=== PATIENT | female | born 1965 | race Caucasian/White ===

== ENCOUNTER 2016-06-12 12:42 | Observation (INO) | payer OTHER ==
[2016-06-12] MEDS ORDERED: SODIUM CHLORIDE 0.9% 1,000 ML IV STA (13:33)
[2016-06-12] MEDS ORDERED: IPRATROPIUM-ALBUTEROL 3 ML NEB INHALATION STA ×2 (13:33→15:10)
[2016-06-12 13:52] LABS: Basophils # (A) 0.1 k/uL (0-0.2); Basophils % (A) 1 %; CH 30.3; CHCM 34.7; Eosinophils # (A) 0.1 k/uL (0-0.7); Eosinophils % (A) 1 %; HCT 42.8 % (34.0-46.0); HDW 2.92; HGB 14.3 gm/dL (11.4-16.0); Luc # (Auto) 0.18; Luc % (Auto) 2; Lymphocytes # (A) 2.4 k/uL (1.0-4.8); Lymphocytes % (A) 31 %; MCH 29.3 pg (25.0-35.0); MCHC 33.4 g/dL (31.0-37.0); MCV 87.5 fL (80.0-100.0); Mean Platelet Volume 7.9; Monocytes # (A) 0.4 k/uL (0-1.0); Monocytes % (A) 5 %; Neutrophils # (A) 4.7 k/uL (1.3-7.7); Neutrophils % (A) 60 %; RDW 13.7 % (11.5-15.5); WBC 7.9 k/uL (3.8-10.6); WBC (Perox) 7.68
[2016-06-12 14:02] LABS: Calcium 9.8 mg/dL (8.4-10.2); Potassium 4.3 mmol/L (3.5-5.1); Total Bilirubin 0.4 mg/dL (0.2-1.3)
--- NOTE | 2016-06-12 14:05 | ED ---
General Adult HPI - General Chief complaint: Upper Respiratory Infection Stated complaint: Chest Pressure, SOB, High Sugar Time Seen by Provider: 06/12/16 13:18 Source: patient, RN notes reviewed Mode of arrival: ambulatory - History of Present Illness Initial comments: Patient a 50-year-old female smoker past medical history of CAD, who presents emergency room today with a chief complaint of increased shortness breath with cough congestion over the last 2 weeks. She does admit that she followed up with her family doctor and was started on steroids 2 weeks ago. States that she went back to approximately a week later was given another course of steroids. States her sugars have been running high. States she's not feeling any better with shortness of breath and cough congestion. States she typically sees family assessment worker Dr. Cobb who is currently out of town. States she called his office was advised come here in the emergency room for evaluation. Patient does not she got breathing treatments at home with some relief of the symptoms. She states she does have cough with positive sputum production as been white in color during the morning. Patient denies any other complaints currently. Patient denies any recent fever, chills, chest pain, back pain, abdominal pain, nausea or vomiting, numbness or tingling, dysuria or hematuria, constipation or diarrhea, headaches or visual changes, or any other complaints. - Related Data Home Medications Medication Instructions Recorded Confirmed metFORMIN HCL 1,000 mg PO BID 10/13/13 06/12/16 Cholecalciferol [Vitamin D3] 1,000 unit PO DAILY 10/20/13 06/12/16 Losartan [Cozaar] 50 mg PO DAILY 08/16/14 06/12/16 Simvastatin [Zocor] 10 mg PO HS 08/16/14 06/12/16 Atenolol [Tenormin] 25 mg PO DAILY 08/18/14 06/12/16 Omeprazole [PriLOSEC] 20 mg PO AC-BID 08/18/14 06/12/16 Montelukast [Singulair] 10 mg PO DAILY 01/29/15 06/12/16 Insulin Glargine,Hum.rec.anlog 70 unit SQ HS 06/20/15 06/12/16 [Lantus Solostar] Loratadine [Claritin] 10 mg PO DAILY 06/20/15 06/12/16 Ranitidine HCl 150 mg PO HS 06/20/15 06/12/16 Levothyroxine Sodium [Synthroid] 25 mcg PO DAILY@0800 06/22/15 06/12/16 Budesonide [Pulmicort] 0.5 mg INHALATION RT-BID 07/25/15 06/12/16 HYDROcodone/APAP 10-325MG [[place] 1 tab PO Q6H PRN 08/26/15 06/12/16 10-325] Albuterol Inhaler [Ventolin Hfa 1 - 2 puff INHALATION Q6HR PRN 06/12/16 06/12/16 Inhaler] Escitalopram [Lexapro] 10 mg PO DAILY@1200 06/12/16 06/12/16 Fluconazole [Diflucan] 200 mg PO DAILY 06/12/16 06/12/16 Gemfibrozil [Lopid] 600 mg PO HS 06/12/16 06/12/16 Insulin Glulisine [Apidra] 18 unit SQ AC-TID 06/12/16 06/12/16 Insulin Glulisine [Apidra] See Protocol SQ AC-TID 06/12/16 06/12/16 Nystatin 100,000 Unit/ml Susp 5 ml PO DIRECTED 06/12/16 06/12/16 [Mycostatin Oral Susp] Promethaz-Cod 6.25-10 mg/5 ml 5 ml PO Q6H PRN 06/12/16 06/12/16 [Phenergan with Codeine] Spironolact/Hydrochlorothiazid 1 tab PO DAILY 06/12/16 06/12/16 [Aldactazide 25-25 MG] predniSONE 20 mg PO DAILY 06/12/16 06/12/16 Previous Rx's Medication Instructions Recorded Ipratropium-Albuterol Nebulize 3 ml INHALATION RT-QID 30 Days 08/21/14 [Duoneb 0.5 mg-3 mg/3 ml Soln] Allergies Allergy/AdvReac Type Severity Reaction Status Date / Time ciprofloxacin HCl Allergy Severe Rash/Hives Verified 06/12/16 12:49 [From Cipro] latex Allergy Severe Rash/Hives Verified 06/12/16 12:49 cephalexin monohydrate Allergy Intermediate Rash/Hives Verified 06/12/16 12:49 [From Keflex] sulfamethoxazole Allergy Intermediate Itching Verified 06/12/16 12:49 [From ] trimethoprim [From ] Allergy Intermediate Itching Verified 06/12/16 12:49 Review of Systems ROS Statement: Those systems with pertinent positive or pertinent negative responses have been documented in the HPI. ROS Other: All systems not noted in ROS Statement are negative. 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 Status post resection of tumor and chemo and 26 radiation TX THAT CAUSED SOME BURNING TO THE ESOPHAGUS. History of Any Multi-Drug Resistant Organisms: Other MDRO Date of last positivie culture/infection: 2014 MDRO Source:: e-coli in urine Past Surgical History: Appendectomy, Cholecystectomy, Hysterectomy, Tonsillectomy, Tubal Ligation Additional Past Surgical History / Comment(s): lung biopsy 09/2013, MALIGNANT- had rt middle lobe lobectomy. Past Anesthesia/Blood Transfusion Reactions: Previous Problems w/ Anesthesia, Postoperative Nausea & Vomiting (PONV) Past Psychological History: No Psychological Hx Reported Additional Psychological History / Comment(s): lives with sig other and brother in law-is independant gets no out side services at this time. Smoking Status: Former smoker Past Alcohol Use History: None Reported Additional Past Alcohol Use History / Comment(s): started smoking at age 12 was smoking 1.5 ppd, QUIT ALMOST A YEAR A GO Past Drug Use History: None Reported - Past Family History Mother Sister(s) Family Medical History: Cancer Additional Family Medical History / Comment(s): from breast ca at age 65 Father Family Medical History: COPD Additional Family Medical History / Comment(s): had cabg, from a blood infection at age 64 General Exam - General Exam Comments Initial Comments: General: The patient is awake and alert, in no distress, and does not appear acutely ill. Eye: Pupils are equal, round and reactive to light, extra-ocular movements are intact. No nystagmus. There is normal conjunctiva bilaterally. No signs of icterus. Ears, nose, mouth and throat: There are moist mucous membranes and no oral lesions. Neck: The neck is supple, there is no tenderness or JVD. Cardiovascular: There is a regular rate and rhythm. No murmur, rub or gallop is appreciated. Respiratory: Lungs are clear to auscultation, respirations are non-labored, breath sounds are equal. No wheezes, stridor, rales, or rhonchi. Musculoskeletal: Normal ROM, no tenderness. Strength 5/5. Sensation intact. Pulses equal bilaterally 2+. Neurological: A&O x 3. CN II-XII intact, There are no obvious motor or sensory deficits. Coordination appears grossly intact. Speech is normal. Skin: Skin is warm and dry and no rashes or lesions are noted. Psychiatric: Cooperative, appropriate mood & affect, normal judgment. 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 ] Respiratory 18 20 Rate Blood Pressure 117/59 O2 Sat by Pulse 98 Oximetry 06/12/16 06/12/16 06/12/16 13:58 14:30 15:27 Temperature Pulse Rate 92 88 90 Pulse Rate [ [employer]ort [employer] Operator ] Respiratory 20 Rate Blood Pressure 116/70 O2 Sat by Pulse 99 Oximetry 06/12/16 06/12/16 15:37 16:00 Temperature Pulse Rate 98 91 Pulse Rate [ Retort Press Operator ] Respiratory 18 Rate Blood Pressure 118/68 O2 Sat by Pulse 99 Oximetry EKG Findings - EKG Comments: EKG Findings:: EKG performed at 1319: A 12-lead EKG was performed and interpreted by me as showing the following: Rate is 94, and rhythm is normal sinus. There are normal QRS complexes and normal R-wave progression. ST segments have no elevation or depression, and [place] segments appear normal. Medical Decision Making - Medical Decision Making Patient's labs been reviewed does show a mildly elevated glucose at 273. Patient does take Lantus at home. Hasn't been on steroids. Patient's chest x- ray is negative for any acute abnormalities. Patient states no relief with breathing treatments here in the emergency room. Patient has been on steroids and antibiotics recently for this. She states is been admitted multiple times for this in the past. Does have family assessment worker Dr. Cobb. Patient will be admitted for COPD exacerbation. - Lab Data Result diagrams: 06/12/16 13:14 06/12/16 13:14 Lab Results 06/12/16 06/12/16 06/12/16 Range/Units 13:14 13:14 13:14 WBC 7.9 (3.8-10.6) k/uL RBC 4.90 (3.80-5.40) m/uL Hgb 14.3 (11.4-16.0) gm/dL Hct 42.8 (34.0-46.0) % MCV 87.5 (80.0-100.0) fL MCH 29.3 (25.0-35.0) pg MCHC 33.4 (31.0-37.0) g/dL RDW 13.7 (11.5-15.5) % Plt Count 238 (150-450) k/uL Neutrophils % 60 % Lymphocytes % 31 % Monocytes % 5 % Eosinophils % 1 % Basophils % 1 % Neutrophils # 4.7 (1.3-7.7) k/uL Lymphocytes # 2.4 (1.0-4.8) k/uL Monocytes # 0.4 (0-1.0) k/uL Eosinophils # 0.1 (0-0.7) k/uL Basophils # 0.1 (0-0.2) k/uL Sodium 138 (137-145) mmol/L Potassium 4.3 (3.5-5.1) mmol/L Chloride 96 L (98-107) mmol/L Carbon Dioxide 26 (22-30) mmol/L Anion Gap 16 mmol/L BUN 15 (7-17) mg/dL Creatinine 1.45 H (0.52-1.04) mg/dL Est GFR (MDRD) Af Amer 46 (>60 ml/min/1.73 sqM) Est GFR (MDRD) Non-Af 38 (>60 ml/min/1.73 sqM) Glucose 273 H (74-99) mg/dL Calcium 9.8 (8.4-10.2) mg/dL Total Bilirubin 0.4 (0.2-1.3) mg/dL AST 25 (14-36) U/L ALT 41 (9-52) U/L Alkaline Phosphatase 104 (38-126) U/L NT-Pro-B Natriuret Pep 234 pg/mL Total Protein 7.0 (6.3-8.2) g/dL Albumin 4.2 (3.5-5.0) g/dL Disposition Clinical Impression: COPD exacerbation Disposition: ADMITTED IP TO THIS HOSP Condition: Good Referrals: Valery Campos MD [Primary Care Provider] - 1-2 days Time of Disposition: 16:40
--- NOTE | 2016-06-12 14:34 | XR ---
EXAMINATION TYPE: XR chest 2V DATE OF EXAM: 06/12/2016 2:08 PM COMPARISON: NONE HISTORY: Cough FINDINGS:. Chronic parenchymal changes involving the right perihilar region with evidence of previous surgery re trospectively stable from the previous chest x-ray. 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 Correlate clinically. Left lung is clear. No pneumothorax. Degenerative changes spine noted. Surgical clips in the abdomen. Hypertrophic change of the spine. IMPRESSION: 1. No acute process. Chronic parenchymal changes involving the right lung stable in appearance.
[2016-06-12] MEDS ORDERED: methylPREDNISolone SOD SUCCI 125 MG/2 ML VIAL IV STA (15:10)
[2016-06-12] MEDS ORDERED: IPRATROPIUM-ALBUTEROL 3 ML NEB INHALATION PRN (16:41)
[2016-06-12] MEDS ORDERED: SODIUM CHLORIDE 0.9% 1,000 ML IV ONE (16:41)
[2016-06-12 18:58] LABS: Glucose,Whole Blood 381 mg/dL (75-99)
[2016-06-12] MEDS ORDERED: ALBUTEROL NEBULIZED 2.5 MG/3 ML INHALATION PRN (19:43)
[2016-06-12] MEDS: methylPREDNISolone SOD SUCCI 125 MG/2 ML VIAL IV SCH ×2 (20:05→23:31)
[2016-06-12] MEDS: BUDESONIDE 0.5 MG/2 ML NEBU INHALATION SCH (20:16)
[2016-06-12] MEDS: IPRATROPIUM-ALBUTEROL 3 ML NEB INHALATION SCH (20:16)
[2016-06-12] MEDS: HYDROcodone/APAP 10-325MG 1 EACH TAB PO PRN (20:19)
[2016-06-12] MEDS ORDERED: INSULIN LISPRO (humaLOG) 300 UNIT/3 ML VIAL SQ SCH (21:00)
[2016-06-12] MEDS ORDERED: INSULIN GLARGINE 100 UNIT/ML 10 ML VIAL SQ SCH (21:00)
[2016-06-12] MEDS: PANTOPRAZOLE 40 MG TABLET PO SCH (21:20)
[2016-06-12] MEDS: GEMFIBROZIL 600 MG TAB PO SCH (21:20)
[2016-06-12] MEDS: ATORVASTATIN 10 MG TAB PO SCH (21:20)
[2016-06-12] MEDS: metFORMIN 500 MG TAB PO SCH (21:20)
[2016-06-12] MEDS: FAMOTIDINE 20 MG TAB PO SCH (21:20)
[2016-06-12] MEDS: NYSTATIN 100,000 UNIT/ML SUSP 500,000 UNIT/5 ML CUP PO SCH (21:22)
[2016-06-12] MEDS: PROMETHAZ-COD 6.25-10 MG/5 ML 5 ML CUP PO PRN (21:38)
[2016-06-13] MEDS: HYDROcodone/APAP 10-325MG 1 EACH TAB PO PRN ×3 (02:11→19:26)
[2016-06-13] MEDS ORDERED: INSULIN REGULAR BOLUS (FROM DRIP BAG) IV ONE (02:23)
[2016-06-13 02:24] LABS: Glucose,Whole Blood 437 mg/dL (75-99)
[2016-06-13] MEDS: INSULIN REGULAR 100 UNIT in SODIUM CHLORIDE 0.9% 100 ML IV SCH ×2 (02:46→09:59)
[2016-06-13 03:24] LABS: Glucose,Whole Blood 406 mg/dL (75-99)
[2016-06-13 03:59] LABS: Glucose,Whole Blood 376 mg/dL (75-99)
[2016-06-13 04:40] LABS: Glucose,Whole Blood 295 mg/dL (75-99)
[2016-06-13] MEDS: PROMETHAZ-COD 6.25-10 MG/5 ML 5 ML CUP PO PRN ×3 (04:42→20:18)
[2016-06-13 05:10] LABS: Glucose,Whole Blood 255 mg/dL (75-99)
[2016-06-13] MEDS: methylPREDNISolone SOD SUCCI 125 MG/2 ML VIAL IV SCH (05:50)
[2016-06-13 05:53] LABS: Glucose,Whole Blood 265 mg/dL (75-99)
[2016-06-13 06:08] LABS: Glucose,Whole Blood 277 mg/dL (75-99)
[2016-06-13 06:39] LABS: Glucose,Whole Blood 241 mg/dL (75-99)
[2016-06-13] MEDS ORDERED: INSULIN LISPRO (humaLOG) 300 UNIT/3 ML VIAL SQ SCH (07:30)
[2016-06-13] MEDS: BUDESONIDE 0.5 MG/2 ML NEBU INHALATION SCH ×2 (07:39→21:19)
[2016-06-13] MEDS: IPRATROPIUM-ALBUTEROL 3 ML NEB INHALATION SCH ×4 (07:41→21:13)
[2016-06-13] MEDS: PANTOPRAZOLE 40 MG TABLET PO SCH ×2 (07:51→18:00)
[2016-06-13 07:52] LABS: Basophils % (A) 0 %; CHCM 33.4; Eosinophils % (A) 0 %; HCT 42.7 % (34.0-46.0); HDW 2.89; HGB 13.5 gm/dL (11.4-16.0); Luc % (Auto) 1; Lymphocytes # (A) 1.3 k/uL (1.0-4.8); Lymphocytes % (A) 10 %; MCH 28.5 pg (25.0-35.0); MCHC 31.6 g/dL (31.0-37.0); MCV 90.1 fL (80.0-100.0); Mean Platelet Volume 7.7; Monocytes # (A) 0.2 k/uL (0-1.0); Monocytes % (A) 2 %; Neutrophils % (A) 87 %; RBC 4.74 m/uL (3.80-5.40); RDW 13.8 % (11.5-15.5); WBC 12.7 k/uL (3.8-10.6); WBC (Perox) 13.04
[2016-06-13] MEDS: INSULIN LISPRO (humaLOG) 300 UNIT/3 ML VIAL SQ SCH ×3 (07:52→18:01)
[2016-06-13] MEDS: MONTELUKAST 10 MG TAB PO SCH (08:01)
[2016-06-13] MEDS: LEVOTHYROXINE 25 MCG TAB PO SCH (08:01)
[2016-06-13] MEDS: FLUCONAZOLE 100 MG TAB PO SCH (08:01)
[2016-06-13] MEDS: LORATADINE 10 MG TAB PO SCH (08:01)
[2016-06-13] MEDS: metFORMIN 500 MG TAB PO SCH (08:01)
[2016-06-13] MEDS: NYSTATIN 100,000 UNIT/ML SUSP 500,000 UNIT/5 ML CUP PO SCH ×4 (08:02→22:59)
[2016-06-13 08:03] LABS: Calcium 9.2 mg/dL (8.4-10.2); Potassium 4.5 mmol/L (3.5-5.1); Total Bilirubin 0.4 mg/dL (0.2-1.3); Total Protein 6.5 g/dL (6.3-8.2)
[2016-06-13 08:45] LABS: Glucose,Whole Blood 291 mg/dL (75-99)
[2016-06-13 09:35] LABS: Glucose,Whole Blood 298 mg/dL (75-99)
[2016-06-13 10:05] LABS: Glucose,Whole Blood 302 mg/dL (75-99)
[2016-06-13 10:38] LABS: Glucose,Whole Blood 305 mg/dL (75-99)
[2016-06-13 11:03] LABS: Glucose,Whole Blood 301 mg/dL (75-99)
[2016-06-13 11:39] LABS: Glucose,Whole Blood 256 mg/dL (75-99)
[2016-06-13 11:53] LABS: Glucose,Whole Blood 262 mg/dL (75-99)
[2016-06-13 12:10] LABS: Glucose,Whole Blood 249 mg/dL (75-99)
[2016-06-13] MEDS: ESCITALOPRAM 10 MG TAB PO SCH (12:22)
[2016-06-13] MEDS: CHOLECALCIFEROL 1,000 UNIT TAB PO SCH (12:22)
[2016-06-13] MEDS ORDERED: Magnesium Replacement Protocol 1 EACH MISC MISCELLANE PRN (13:15)
[2016-06-13] MEDS ORDERED: Potassium Replacement Protocol 1 EACH MISC MISCELLANE PRN (13:15)
[2016-06-13] MEDS ORDERED: ONDANSETRON 4 MG/2 ML VIAL IVP PRN (13:20)
[2016-06-13] MEDS ORDERED: ACETAMINOPHEN TAB 325 MG TAB PO PRN (13:20)
--- NOTE | 2016-06-13 13:20 | P.HPIM ---
History of Present Illness H&P Date: 06/13/16 Chief Complaint: Shortness of breath This is a 50-year-old female with complex past medical history noted below significant for underlying severe COPD who presented to the hospital with worsening shortness of breath and cough. Patient said that she was evaluated by her primary care physician as well as her precipitator within the past 2 weeks and was treated with oral steroids and antibiotic for suspected upper respiratory tract infection and COPD exacerbation. Patient said that for the past few days her symptoms as being getting progressively worse. She said that her cough is unproductive but she was having worsening shortness of breath and diffuse wheezing. She was using her nebulizers at home with minimal relief. She decided to come to the emergency room for further evaluation. In the emergency room, patient was given high-dose IV steroids and was placed in observation for further monitoring. Her chest x-ray showed no evidence of pneumonia. She is reporting feeling slightly better today. She is currently on insulin drip with significant hyperglycemia overnight. Review of Systems Review of system: 14 points review of systems were obtained and were negative except to what were mentioned in the HPI. 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 Status post resection of tumor and chemo and 26 radiation TX THAT CAUSED SOME BURNING TO THE ESOPHAGUS.incont of urine-wears a pull up.diarrhea ever since gallbladder removed.neuropathy History of Any Multi-Drug Resistant Organisms: Other MDRO Date of last positivie culture/infection: 2014 MDRO Source:: e-coli in urine Past Surgical History: Appendectomy, Cholecystectomy, Hysterectomy, Tonsillectomy, Tubal Ligation Additional Past Surgical History / Comment(s): lung biopsy 09/2013, MALIGNANT- had rt middle lobe lobectomy. Past Anesthesia/Blood Transfusion Reactions: Previous Problems w/ Anesthesia, Postoperative Nausea & Vomiting (PONV) Past Psychological History: No Psychological Hx Reported Additional Psychological History / Comment(s): lives with sig other, is independant gets no out side services at this time. Smoking Status: Former smoker Past Alcohol Use History: None Reported Additional Past Alcohol Use History / Comment(s): started smoking at age 12 was smoking 1.5 ppd, QUIT 2013 Past Drug Use History: None Reported - Past Family History Mother Sister(s) Family Medical History: Cancer Additional Family Medical History / Comment(s): from breast ca at age 65 Father Family Medical History: COPD Additional Family Medical History / Comment(s): had cabg, from a blood infection at age 64 Medications and Allergies Home Medications Medication Instructions Recorded Confirmed Type RX: metFORMIN HCL 1,000 mg PO BID 10/13/13 06/13/16 History RX: Cholecalciferol [Vitamin D3] 1,000 unit PO DAILY 10/20/13 06/13/16 History RX: Losartan [Cozaar] 50 mg PO DAILY 08/16/14 06/13/16 History RX: Simvastatin [Zocor] 10 mg PO HS 08/16/14 06/13/16 History RX: Atenolol [Tenormin] 25 mg PO DAILY 08/18/14 06/13/16 History RX: Omeprazole [PriLOSEC] 20 mg PO AC-BID 08/18/14 06/13/16 History RX: Montelukast [Singulair] 10 mg PO DAILY 01/29/15 06/13/16 History RX: Insulin Glargine,Hum.rec.anlog 70 unit SQ HS 06/20/15 06/13/16 History [Lantus Solostar] RX: Loratadine [Claritin] 10 mg PO DAILY 06/20/15 06/13/16 History RX: Ranitidine HCl 150 mg PO HS 06/20/15 06/13/16 History RX: Levothyroxine Sodium 25 mcg PO DAILY@0800 06/22/15 06/13/16 History [Synthroid] RX: Budesonide [Pulmicort] 0.5 mg INHALATION RT-BID 07/25/15 06/13/16 History RX: HYDROcodone/APAP 10-325MG 1 tab PO Q6H PRN 08/26/15 06/13/16 History [[place] 10-325] Albuterol Inhaler [Ventolin Hfa 1 - 2 puff INHALATION Q6HR PRN 06/12/16 History Inhaler] Escitalopram [Lexapro] 10 mg PO DAILY@1200 06/12/16 06/13/16 History Fluconazole [Diflucan] 200 mg PO DAILY 06/12/16 06/13/16 History Gemfibrozil [Lopid] 600 mg PO HS 06/12/16 06/13/16 History Insulin Glulisine [Apidra] 18 unit SQ AC-TID 06/12/16 06/13/16 History Insulin Glulisine [Apidra] See Protocol SQ AC-TID 06/12/16 06/13/16 History RX: Nystatin 100,000 Unit/ml Susp 5 ml PO DIRECTED 06/12/16 06/13/16 History [Mycostatin Oral Susp] RX: Promethaz-Cod 6.25-10 mg/5 ml 5 ml PO Q6H PRN 06/12/16 06/13/16 History [Phenergan with Codeine] RX: predniSONE 20 mg PO DAILY 06/12/16 06/13/16 History Spironolact/Hydrochlorothiazid 1 tab PO DAILY 06/12/16 06/13/16 History [Aldactazide 25-25 MG] Allergies Allergy/AdvReac Type Severity Reaction Status Date / Time ciprofloxacin HCl Allergy Severe Rash/Hives Verified 06/12/16 12:49 [From Cipro] latex Allergy Severe Rash/Hives Verified 06/12/16 12:49 cephalexin monohydrate Allergy Intermediate Rash/Hives Verified 06/12/16 12:49 [From Keflex] sulfamethoxazole Allergy Intermediate Itching Verified 06/12/16 12:49 [From Septra] trimethoprim [From Septra] Allergy Intermediate Itching Verified 06/12/16 12:49 Physical Exam Vitals: Vital Signs Temp Pulse Pulse Pulse Resp BP BP 06/13/16 12:00 97.6 F 115 H 18 116/65 06/13/16 11:36 92 06/13/16 11:26 92 06/13/16 08:58 06/13/16 07:52 96 06/13/16 07:43 97.9 F 100 18 91/68 06/13/16 07:41 90 06/13/16 04:00 98 F 90 18 92/53 06/13/16 00:07 92 06/13/16 00:00 94 18 06/12/16 23:59 92 06/12/16 23:40 93 18 104/64 06/12/16 20:28 94 06/12/16 20:16 94 06/12/16 20:00 92 18 06/12/16 18:35 97.7 F 94 18 126/74 06/12/16 18:30 98.2 F 86 18 118/68 06/12/16 18:05 94 20 114/75 06/12/16 17:23 96 18 114/62 Pulse Ox 06/13/16 12:00 97 06/13/16 11:36 06/13/16 11:26 06/13/16 08:58 97 06/13/16 07:52 06/13/16 07:43 98 06/13/16 07:41 95 06/13/16 04:00 95 06/13/16 00:07 06/13/16 00:00 06/12/16 23:59 06/12/16 23:40 92 L 06/12/16 20:28 06/12/16 20:16 06/12/16 20:00 06/12/16 18:35 98 06/12/16 18:30 98 06/12/16 18:05 97 06/12/16 17:23 96 Intake and Output 06/12/16 06/13/16 06/13/16 22:59 06:59 14:59 Intake Total 1080 297.532 278.617 Balance 1080 297.532 278.617 Intake: IV 60 Insulin Regular 100 unit 60 In Sodium Chloride 0.9% 100 ml @ Titrate IV .Q0M [facility] Rx#:[id number] Intake, IV Titration 80 237.532 38.617 Amount Insulin Regular 100 unit 77.532 38.617 In Sodium Chloride 0.9% 100 ml @ Titrate IV .Q0M [facility] Rx#:[id number] Sodium Chloride 0.9% 1, 80 160 000 ml @ 20 mls/hr IV . Q24H ONE Rx#:[id number] Oral 1000 240 Other: Voiding Method Toilet Toilet Toilet # Voids 2 2 Weight 84.9 kg General: The patient is awake and alert, in no distress, and does not appear acutely ill. Eye: extra-ocular movements are intact; there is normal conjunctiva bilaterally. . Neck: The neck is supple, there is no tenderness or JVD. Cardiovascular: Normal S1-S2, no S3-S4, no murmurs. Respiratory: Lungs are diminished with mild end expiratory wheezing Gastrointestinal: Abdomen is soft, nontender, nondistended Musculoskeletal: There is no pedal edema. Neurological: There are no obvious motor or sensory deficits. Speech is normal. Skin: Skin is warm and dry and no rashes or lesions are noted. Results CBC & Chem 7: 06/13/16 07:30 06/13/16 07:30 Labs: Abnormal Lab Results - Last 24 Hours (Table) 06/12/16 06/13/16 06/13/16 Range/Units 18:45 02:21 03:23 WBC (3.8-10.6) k/uL Neutrophils # (1.3-7.7) k/uL Sodium (137-145) mmol/L Carbon Dioxide (22-30) mmol/L BUN (7-17) mg/dL Creatinine (0.52-1.04) mg/dL Glucose (74-99) mg/dL POC Glucose (mg/dL) 381 H 437 H 406 H (75-99) mg/dL AST (14-36) U/L 06/13/16 06/13/16 06/13/16 Range/Units 03:57 04:39 05:07 WBC (3.8-10.6) k/uL Neutrophils # (1.3-7.7) k/uL Sodium (137-145) mmol/L Carbon Dioxide (22-30) mmol/L BUN (7-17) mg/dL Creatinine (0.52-1.04) mg/dL Glucose (74-99) mg/dL POC Glucose (mg/dL) 376 H 295 H 255 H (75-99) mg/dL AST (14-36) U/L 06/13/16 06/13/16 06/13/16 Range/Units 05:43 06:06 06:37 WBC (3.8-10.6) k/uL Neutrophils # (1.3-7.7) k/uL Sodium (137-145) mmol/L Carbon Dioxide (22-30) mmol/L BUN (7-17) mg/dL Creatinine (0.52-1.04) mg/dL Glucose (74-99) mg/dL POC Glucose (mg/dL) 265 H 277 H 241 H (75-99) mg/dL AST (14-36) U/L 06/13/16 06/13/16 06/13/16 Range/Units 07:30 07:30 08:43 WBC 12.7 H (3.8-10.6) k/uL Neutrophils # 11.0 H (1.3-7.7) k/uL Sodium 136 L (137-145) mmol/L Carbon Dioxide 18 L (22-30) mmol/L BUN 23 H (7-17) mg/dL Creatinine 1.20 H (0.52-1.04) mg/dL Glucose 237 H (74-99) mg/dL POC Glucose (mg/dL) 291 H (75-99) mg/dL AST 37 H (14-36) U/L 06/13/16 06/13/16 06/13/16 Range/Units 09:33 10:03 10:35 WBC (3.8-10.6) k/uL Neutrophils # (1.3-7.7) k/uL Sodium (137-145) mmol/L Carbon Dioxide (22-30) mmol/L BUN (7-17) mg/dL Creatinine (0.52-1.04) mg/dL Glucose (74-99) mg/dL POC Glucose (mg/dL) 298 H 302 H 305 H (75-99) mg/dL AST (14-36) U/L 06/13/16 06/13/16 06/13/16 Range/Units 11:00 11:36 12:08 WBC (3.8-10.6) k/uL Neutrophils # (1.3-7.7) k/uL Sodium (137-145) mmol/L Carbon Dioxide (22-30) mmol/L BUN (7-17) mg/dL Creatinine (0.52-1.04) mg/dL Glucose (74-99) mg/dL POC Glucose (mg/dL) 301 H 256 H 249 H (75-99) mg/dL AST (14-36) U/L Thrombosis Risk Factor Assmnt - Choose All That Apply Any of the Below Risk Factors Present?: Yes Each Factor Represents 1 point: Abnormal pulmonary function (COPD), Age 41-60 years, Obesity (BMI >25) Thrombosis Risk Factor Assessment Total Risk Factor Score: 3 Thrombosis Risk Factor Assessment Level: Moderate Risk Assessment and Plan Plan: 1. Acute COPD exacerbation: currently on IV steroids and bronchodilators. Patient is doing slightly better. Pulmonology consulted. 2. Steroid-induced hyperglycemia: Currently on insulin drip. I would decrease her Solu-Medrol dose to 40 mg IV twice daily 3. Underlying lung fibrosis with history of chronic radiation pneumonitis of the right lung 4. Type 2 diabetes mellitus: We will check A1c. Currently on insulin drip. We will wean off as tolerated. 5. Hypothyroidism 6. Essential hypertension: Blood pressure well-controlled 7. DVT prophylaxis We will continue current regimen otherwise. I don't see indication for antibiotic at this time. Repeat lab work in the morning. Continue supportive care. Encourage incentive spirometry use. Encouraged ambulation.
[2016-06-13 14:09] LABS: Glucose,Whole Blood 262 mg/dL (75-99)
[2016-06-13 16:05] LABS: Glucose,Whole Blood 239 mg/dL (75-99)
[2016-06-13] MEDS: ATENOLOL 25 MG TAB PO SCH ×2 (16:06→19:41)
[2016-06-13] MEDS: SPIRONOLACTONE-HCTZ 25-25MG 1 EACH TAB PO SCH (16:07)
[2016-06-13] MEDS: LOSARTAN 50 MG TAB PO SCH (16:07)
--- NOTE | 2016-06-13 16:16 | CONS ---
DATE OF CONSULTATION: Carleen Devries is a 50-year-old female who came in to [facility] with chest pressure, shortness of breath and elevated blood sugars. She had cough and congestion over the last 2 weeks and had been kept on steroids as well as antibiotics. She was bringing up sputum that was white in color. Subsequently, she was admitted for further evaluation and management. PAST MEDICAL HISTORY: Positive for asthma with asthma with COPD, history of lung cancer, status post I believe right lower lobectomy with tumor resection and subsequent chemoradiation in the spring with no recent evidence of any recurrence, history of radiation pneumonitis, history of frequent episodes of bronchitis as a child, history of diabetes mellitus, hyperlipidemia and angina. FAMILY HISTORY: Positive for cancer of the breast and lung. SOCIAL HISTORY: The patient is a former smoker. 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 Review of systems is noncontributory other than for what related in the history of present illness and past medical history. The patient is ALLERGIC TO CIPROFLOXACIN, LATEX AND CEPHALEXIN. Medications prior to admission were prednisone, metformin, spironolactone with hydrochlorothiazide, Zocor, ranitidine, promethazine with codeine, omeprazole, nystatin, Singulair, losartan, loratadine, Synthroid, ipratropium with albuterol, Apidra, hydrocodone with acetaminophen, Lopid, Diflucan, Lexapro, Pulmicort, vitamin D3, Tenormin and albuterol inhaler. On physical examination, respiratory rate is 18, pulse rate 115, temperature 97.6, blood pressure 116/65, O2 sat on room air is 97%. HEENT reveals pupils that are equal. Chest reveals prolonged expiration with expiratory wheeze. Cardiovascular system reveals an S1 and S2. Abdomen is soft. There is no pedal edema. Chest x-ray shows chronic parenchymal changes in the right perihilar region. IMPRESSION: 1. Asthma with chronic obstructive pulmonary disease with acute exacerbation. 2. Doubt significant bacterial pneumonia. 3. Previous radiation pneumonitis. 4. Mild hypoxemia with the O2 sat dropping from 97% to 92% consistent with acute respiratory failure, as well. At this point in time, keep the patient on IV and aerosolized steroids. Keep the patient and leukotriene receptor antagonist. Symptomatic treatment for cough and GI and DVT prophylaxis. Consider allergy testing which can be done as an outpatient. Control her blood sugars. Her IV steroids had been decreased today because her blood sugars were high, but may need to be increased if she does not improve clinically from a pulmonary standpoint. She was counseled regarding her condition and this approach and has a fair understanding of our recommendations.
[2016-06-13 18:02] LABS: Glucose,Whole Blood 281 mg/dL (75-99)
[2016-06-13 18:37] LABS: Hemoglobin A1C 11.2 % (4.2-6.1)
[2016-06-13] MEDS: ATORVASTATIN 10 MG TAB PO SCH (20:09)
[2016-06-13] MEDS: methylPREDNISolone SOD SUCCI 40 MG/ML 1 ML VIAL IV SCH (20:09)
[2016-06-13] MEDS: FAMOTIDINE 20 MG TAB PO SCH (20:09)
[2016-06-13] MEDS: GEMFIBROZIL 600 MG TAB PO SCH (20:09)
[2016-06-13] MEDS: HEPARIN SODIUM,PORCINE 5,000 UNIT/ML 1 ML VIAL SQ SCH (20:09)
[2016-06-13 20:12] LABS: Glucose,Whole Blood 287 mg/dL (75-99)
[2016-06-13 22:09] LABS: Glucose,Whole Blood 248 mg/dL (75-99)
[2016-06-14 00:11] LABS: Glucose,Whole Blood 263 mg/dL (75-99)
[2016-06-14] MEDS: HYDROcodone/APAP 10-325MG 1 EACH TAB PO PRN ×3 (01:12→21:04)
[2016-06-14] MEDS: PROMETHAZ-COD 6.25-10 MG/5 ML 5 ML CUP PO PRN ×3 (01:59→21:05)
[2016-06-14 02:04] LABS: Glucose,Whole Blood 324 mg/dL (75-99)
[2016-06-14] MEDS: INSULIN REGULAR 100 UNIT in SODIUM CHLORIDE 0.9% 100 ML IV SCH (02:06)
[2016-06-14 03:48] LABS: Glucose,Whole Blood 285 mg/dL (75-99)
[2016-06-14] MEDS: methylPREDNISolone SOD SUCCI 125 MG/2 ML VIAL IV SCH (04:55)
[2016-06-14 06:00] LABS: Glucose,Whole Blood 239 mg/dL (75-99)
[2016-06-14] MEDS: BUDESONIDE 0.5 MG/2 ML NEBU INHALATION SCH ×2 (07:00→20:22)
[2016-06-14] MEDS: IPRATROPIUM-ALBUTEROL 3 ML NEB INHALATION SCH ×4 (07:00→20:22)
[2016-06-14 07:47] LABS: Anion Gap 13 mmol/L; Blood Urea Nitrogen 28 mg/dL (7-17); Calcium 9.1 mg/dL (8.4-10.2); Carbon Dioxide 22 mmol/L (22-30); Chloride 98 mmol/L (98-107); Glucose 229 mg/dL (74-99); Magnesium 1.2 mg/dL (1.6-2.3); Non-African American GFR(MDRD) 59 (>60 ml/min/1.73 sqM); Potassium 5.3 mmol/L (3.5-5.1); Sodium 133 mmol/L (137-145)
[2016-06-14 08:00] LABS: Basophils % (A) 0 %; CHCM 34.9; Eosinophils % (A) 0 %; HCT 38.4 % (34.0-46.0); HDW 2.87; Luc # (Auto) 0.25; Luc % (Auto) 2; Lymphocytes # (A) 1.2 k/uL (1.0-4.8); Lymphocytes % (A) 9 %; MCH 29.3 pg (25.0-35.0); MCHC 33.9 g/dL (31.0-37.0); MCV 86.4 fL (80.0-100.0); Mean Platelet Volume 7.9; Monocytes # (A) 0.4 k/uL (0-1.0); Monocytes % (A) 3 %; Neutrophils # (A) 11.3 k/uL (1.3-7.7); Neutrophils % (A) 86 %; RBC 4.45 m/uL (3.80-5.40); RDW 14.3 % (11.5-15.5); WBC 13.2 k/uL (3.8-10.6); WBC (Perox) 13.91
[2016-06-14 08:11] LABS: Glucose,Whole Blood 286 mg/dL (75-99)
[2016-06-14] MEDS: INSULIN LISPRO (humaLOG) 300 UNIT/3 ML VIAL SQ SCH ×4 (08:15→20:49)
[2016-06-14] MEDS: ATENOLOL 25 MG TAB PO SCH (08:21)
[2016-06-14] MEDS: LOSARTAN 50 MG TAB PO SCH (08:21)
[2016-06-14] MEDS: SPIRONOLACTONE-HCTZ 25-25MG 1 EACH TAB PO SCH (08:21)
[2016-06-14] MEDS: LEVOTHYROXINE 25 MCG TAB PO SCH (08:21)
[2016-06-14] MEDS: MONTELUKAST 10 MG TAB PO SCH (08:22)
[2016-06-14] MEDS: PANTOPRAZOLE 40 MG TABLET PO SCH ×2 (08:22→17:39)
[2016-06-14] MEDS: LORATADINE 10 MG TAB PO SCH (08:22)
[2016-06-14] MEDS: FLUCONAZOLE 100 MG TAB PO SCH (08:22)
[2016-06-14] MEDS: NYSTATIN 100,000 UNIT/ML SUSP 500,000 UNIT/5 ML CUP PO SCH ×4 (08:22→21:06)
[2016-06-14] MEDS: HEPARIN SODIUM,PORCINE 5,000 UNIT/ML 1 ML VIAL SQ SCH ×2 (08:26→21:06)
[2016-06-14] MEDS: methylPREDNISolone SOD SUCCI 40 MG/ML 1 ML VIAL IV SCH (08:26)
[2016-06-14] MEDS ORDERED: Magnesium Replacement Protocol 1 EACH MISC MISCELLANE PRN (08:57)
[2016-06-14] MEDS: MAGNESIUM SULFATE-D5W PMX 1 GM in DEXTROSE/WATER 1 100ML.BAG IVPB SCH ×3 (09:55→12:06)
[2016-06-14 10:07] LABS: Glucose,Whole Blood 305 mg/dL (75-99)
[2016-06-14 12:02] LABS: Glucose,Whole Blood 235 mg/dL (75-99)
[2016-06-14] MEDS: ESCITALOPRAM 10 MG TAB PO SCH (12:05)
[2016-06-14] MEDS: CHOLECALCIFEROL 1,000 UNIT TAB PO SCH (12:05)
[2016-06-14 14:03] LABS: Glucose,Whole Blood 310 mg/dL (75-99)
--- NOTE | 2016-06-14 14:16 | P.PN ---
Subjective Patient improved significantly compared to yesterday. No audible wheezing. Objective - Vital Signs Vital signs: Vital Signs Temp 97.5 F L 06/14/16 07:29 Pulse 92 06/14/16 11:26 Resp 18 06/14/16 07:29 BP 117/73 06/14/16 07:29 Pulse Ox 98 06/14/16 07:29 Intake & Output 06/13/16 06/14/16 06/14/16 18:59 06:59 18:59 Intake Total 5754.488 7843.350 764.417 Balance 2512.177 6898.350 764.417 Intake: Intake, IV Titration 70.034 289.350 52.417 Amount Insulin Regular 100 unit 70.034 79.350 52.417 In Sodium Chloride 0.9% 100 ml @ Titrate IV .Q0M [facility] Rx#:[id number] Sodium Chloride 0.9% 1, 210 000 ml @ 20 mls/hr IV . Q24H ONE Rx#:[id number] Oral 1200 1800 712 Other: Voiding Method Toilet Toilet Toilet # Voids 4 - Exam General: The patient is awake and alert, in no distress Eye: there is normal conjunctiva bilaterally. Neck: The neck is supple, there is no JVD. Cardiovascular: Normal S1-S2, no S3-S4, no murmurs. Respiratory: Lungs are diminished Gastrointestinal: Abdomen is soft, nontender Musculoskeletal: There is no pedal edema. Neurological:. Speech is normal. Skin: Skin is warm and dry - Labs CBC & Chem 7: 06/14/16 06:23 06/14/16 06:23 Labs: Abnormal Lab Results - Last 24 Hours (Table) 06/13/16 06/13/16 06/13/16 Range/Units 07:30 16:00 18:01 WBC (3.8-10.6) k/uL Neutrophils # (1.3-7.7) k/uL Sodium (137-145) mmol/L Potassium (3.5-5.1) mmol/L BUN (7-17) mg/dL Glucose (74-99) mg/dL POC Glucose (mg/dL) 239 H 281 H (75-99) mg/dL Hemoglobin A1c 11.2 H (4.2-6.1) % Magnesium (1.6-2.3) mg/dL 06/13/16 06/13/16 06/14/16 Range/Units 20:04 22:07 00:01 WBC (3.8-10.6) k/uL Neutrophils # (1.3-7.7) k/uL Sodium (137-145) mmol/L Potassium (3.5-5.1) mmol/L BUN (7-17) mg/dL Glucose (74-99) mg/dL POC Glucose (mg/dL) 287 H 248 H 263 H (75-99) mg/dL Hemoglobin A1c (4.2-6.1) % Magnesium (1.6-2.3) mg/dL 06/14/16 06/14/16 06/14/16 Range/Units 02:03 03:46 05:57 WBC (3.8-10.6) k/uL Neutrophils # (1.3-7.7) k/uL Sodium (137-145) mmol/L Potassium (3.5-5.1) mmol/L BUN (7-17) mg/dL Glucose (74-99) mg/dL POC Glucose (mg/dL) 324 H 285 H 239 H (75-99) mg/dL Hemoglobin A1c (4.2-6.1) % Magnesium (1.6-2.3) mg/dL 06/14/16 06/14/16 06/14/16 Range/Units 06:23 06:23 08:07 WBC 13.2 H (3.8-10.6) k/uL Neutrophils # 11.3 H (1.3-7.7) k/uL Sodium 133 L (137-145) mmol/L Potassium 5.3 H (3.5-5.1) mmol/L BUN 28 H (7-17) mg/dL Glucose 229 H (74-99) mg/dL POC Glucose (mg/dL) 286 H (75-99) mg/dL Hemoglobin A1c (4.2-6.1) % Magnesium 1.2 L (1.6-2.3) mg/dL 06/14/16 06/14/16 06/14/16 Range/Units 10:04 12:00 14:01 WBC (3.8-10.6) k/uL Neutrophils # (1.3-7.7) k/uL Sodium (137-145) mmol/L Potassium (3.5-5.1) mmol/L BUN (7-17) mg/dL Glucose (74-99) mg/dL POC Glucose (mg/dL) 305 H 235 H 310 H (75-99) mg/dL Hemoglobin A1c (4.2-6.1) % Magnesium (1.6-2.3) mg/dL Assessment and Plan Plan: 1. Acute COPD exacerbation: currently on IV steroids and bronchodilators. Patient is doing better. Pulmonology consulted. 2. Steroid-induced hyperglycemia: Currently on insulin drip. I would decrease her Solu-Medrol dose to 40 mg IV twice daily 3. Underlying lung fibrosis with history of chronic radiation pneumonitis of the right lung 4. Type 2 diabetes mellitus: We will check A1c. Currently on insulin drip. We will wean off as tolerated. 5. Hypothyroidism 6. Essential hypertension: Blood pressure well-controlled 7. DVT prophylaxis We will continue current regimen otherwise. Repeat lab work in the morning. Continue supportive care. Encourage incentive spirometry use. Encouraged ambulation. Anticipate discharge home tomorrow
[2016-06-14] MEDS: predniSONE 20 MG TAB PO SCH (16:24)
[2016-06-14 16:32] LABS: Glucose,Whole Blood 185 mg/dL (75-99)
[2016-06-14 17:59] LABS: Glucose,Whole Blood 206 mg/dL (75-99)
--- NOTE | 2016-06-14 18:56 | PN ---
DATE OF SERVICE: 06/14/2016 She is less short of breath, almost back to her baseline. On physical examination, blood pressure 117/73, respiratory rate 18, pulse rate 83, temperature 97.5 degrees Fahrenheit. O2 sat on room air is 98%. HEENT is unremarkable. Chest reveals prolonged expiration, but no wheeze. Cardiovascular system reveals an S1 and S2. ABDOMEN: Soft. There is no pedal edema. IMPRESSION: 1. Asthma with chronic obstructive pulmonary disease with acute exacerbation. 2. Doubt secondary bacterial infection. 3. Diabetes mellitus. 4. Previous history of lung cancer. 5. Previous history of radiation pneumonitis on the right. At this point in time, switch her to oral steroids. Increase her activity level. Her prognosis at this time is fair.
[2016-06-14 20:40] LABS: Glucose,Whole Blood 327 mg/dL (75-99)
[2016-06-14] MEDS ORDERED: INSULIN GLARGINE 100 UNIT/ML 10 ML VIAL SQ SCH (21:00)
[2016-06-14] MEDS: ATORVASTATIN 10 MG TAB PO SCH (21:03)
[2016-06-14] MEDS: FAMOTIDINE 20 MG TAB PO SCH (21:04)
[2016-06-14] MEDS: GEMFIBROZIL 600 MG TAB PO SCH (21:04)
[2016-06-15 01:43] LABS: Glucose,Whole Blood 350 mg/dL (75-99)
[2016-06-15] MEDS: INSULIN LISPRO (humaLOG) 300 UNIT/3 ML VIAL SQ SCH ×5 (01:57→13:05)
[2016-06-15] MEDS: PROMETHAZ-COD 6.25-10 MG/5 ML 5 ML CUP PO PRN ×2 (04:10→11:22)
[2016-06-15] MEDS: HYDROcodone/APAP 10-325MG 1 EACH TAB PO PRN (04:11)
[2016-06-15 06:54] LABS: Glucose,Whole Blood 225 mg/dL (75-99)
[2016-06-15] MEDS: BUDESONIDE 0.5 MG/2 ML NEBU INHALATION SCH (07:00)
[2016-06-15] MEDS: IPRATROPIUM-ALBUTEROL 3 ML NEB INHALATION SCH ×2 (07:00→11:42)
[2016-06-15 07:22] LABS: Basophils % (A) 0 %; CH 29.9; CHCM 33.6; Eosinophils % (A) 0 %; HCT 41.6 % (34.0-46.0); HDW 2.74; HGB 13.5 gm/dL (11.4-16.0); Luc # (Auto) 0.21; Luc % (Auto) 2; Lymphocytes # (A) 1.6 k/uL (1.0-4.8); Lymphocytes % (A) 16 %; MCH 28.9 pg (25.0-35.0); MCHC 32.4 g/dL (31.0-37.0); MCV 89.2 fL (80.0-100.0); Monocytes # (A) 0.5 k/uL (0-1.0); Monocytes % (A) 5 %; Neutrophils % (A) 77 %; RBC 4.66 m/uL (3.80-5.40); RDW 14.2 % (11.5-15.5); WBC 10.3 k/uL (3.8-10.6); WBC (Perox) 10.99
[2016-06-15] MEDS ORDERED: metFORMIN 500 MG TAB PO SCH (07:30)
[2016-06-15 07:32] LABS: Anion Gap 13 mmol/L; Blood Urea Nitrogen 24 mg/dL (7-17); Calcium 9.4 mg/dL (8.4-10.2); Carbon Dioxide 24 mmol/L (22-30); Chloride 98 mmol/L (98-107); Glucose 239 mg/dL (74-99); Magnesium 1.8 mg/dL (1.6-2.3); Non-African American GFR(MDRD) >60 (>60 ml/min/1.73 sqM); Potassium 4.8 mmol/L (3.5-5.1); Sodium 135 mmol/L (137-145)
[2016-06-15 07:37] VITALS: RESP 18; TEMP 97.5
[2016-06-15] MEDS ORDERED: LEVOTHYROXINE 25 MCG TAB PO SCH (08:00)
[2016-06-15] MEDS: LORATADINE 10 MG TAB PO SCH (08:37)
[2016-06-15] MEDS: MONTELUKAST 10 MG TAB PO SCH (08:37)
[2016-06-15] MEDS: predniSONE 20 MG TAB PO SCH (08:37)
[2016-06-15] MEDS: PANTOPRAZOLE 40 MG TABLET PO SCH (08:37)
[2016-06-15] MEDS: HEPARIN SODIUM,PORCINE 5,000 UNIT/ML 1 ML VIAL SQ SCH (11:14)
[2016-06-15] MEDS: CHOLECALCIFEROL 1,000 UNIT TAB PO SCH (11:21)
[2016-06-15] MEDS: ESCITALOPRAM 10 MG TAB PO SCH (11:22)
[2016-06-15 11:54] LABS: Glucose,Whole Blood 173 mg/dL (75-99)
[2016-06-15 12:00] VITALS: BP 104/67; PULSE 80
--- NOTE | 2016-06-15 12:06 | P.DS ---
Providers Date of admission: 06/12/16 16:41 Expected date of discharge: 06/15/16 Attending physician: Eric Vo Consults: 06/13/16 06:22 Consult Physician Routine Consulting Provider: Al Cobb Consult Reason/Comments: COPD exac Do you want consulting provider notified?: Yes, Notify in am Primary care physician: Valery Beth [facility] Hospital Course: Discharge diagnosis 1. Acute COPD exacerbation: currently on IV steroids and bronchodilators. Patient is doing better. Pulmonology consulted. 2. Steroid-induced hyperglycemia: Did require insulin drip 3. Underlying lung fibrosis with history of chronic radiation pneumonitis of the right lung 4. Type 2 diabetes mellitus: Hemoglobin A1c 11.2. 5. Hypothyroidism 6. Essential hypertension: 7. Acute kidney injury improved with IV fluids Hospital course This is a 50-year-old female with complex past medical history noted below significant for underlying severe COPD who presented to the hospital with worsening shortness of breath and cough. 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 Patient said that for the past few days her symptoms as being getting progressively worse. She said that her cough is unproductive but she was having worsening shortness of breath and diffuse wheezing. She was using her nebulizers at home with minimal relief. She decided to come to the emergency room for further evaluation. In the emergency room, patient was given high-dose IV steroids and was placed in observation for further monitoring. Her chest x-ray showed no evidence of pneumonia. She is reporting feeling slightly better today. She is currently on insulin drip with significant hyperglycemia overnight. Patient was seen by pulmonary service. Her breathing did improve with IV steroids she was switched to oral steroids and tolerated this well. Wheezing has resolved cough is improved. Blood sugars have shown improvement. She was restarted on her home insulin. Patient is medically stable for discharge. Her blood pressure has been on the lower side during this admission. Blood pressure medications have been held. At this time we'll make adjustments. To discontinue all blood pressure medications except for the Cozaar in which we will just decreased to 25 mg daily. We discontinued her beta yann and the Aldactazide. She'll continue prednisone taper. We'll have her follow-up with Dr. Caldwell in 3 days to have BP check. She'll follow-up with pulmonary service in 1 week. Please refer to chart for any further details. Patient Condition at Discharge: Stable Plan - Discharge Summary New Discharge Prescriptions: Losartan [Cozaar] 25 mg PO DAILY #30 tab predniSONE 10 mg PO DIRECTED #12 tab Discharge Medication List metFORMIN HCL 1,000 mg PO BID 10/13/13 [History] Cholecalciferol [Vitamin D3] 1,000 unit PO DAILY 10/20/13 [History] Simvastatin [Zocor] 10 mg PO HS 08/16/14 [History] Omeprazole [PriLOSEC] 20 mg PO AC-BID 08/18/14 [History] Ipratropium-Albuterol Nebulize [Duoneb 0.5 mg-3 mg/3 ml Soln] 3 ml INHALATION RT -QID 30 Days 08/21/14 [Rx] Montelukast [Singulair] 10 mg PO DAILY 01/29/15 [History] Insulin Glargine,Hum.rec.anlog [Lantus Solostar] 70 unit SQ HS 06/20/15 [History ] Loratadine [Claritin] 10 mg PO DAILY 06/20/15 [History] Ranitidine HCl 150 mg PO HS 06/20/15 [History] Levothyroxine Sodium [Synthroid] 25 mcg PO DAILY@0800 06/22/15 [History] Budesonide [Pulmicort] 0.5 mg INHALATION RT-BID 07/25/15 [History] HYDROcodone/APAP 10-325MG [[place] 10-325] 1 tab PO Q6H PRN 08/26/15 [History] Albuterol Inhaler [Ventolin Hfa Inhaler] 1 - 2 puff INHALATION Q6HR PRN [History] Escitalopram [Lexapro] 10 mg PO DAILY@1200 06/12/16 [History] Gemfibrozil [Lopid] 600 mg PO HS 06/12/16 [History] Insulin Glulisine [Apidra] 18 unit SQ AC-TID 06/12/16 [History] Insulin Glulisine [Apidra] See Protocol SQ AC-TID 06/12/16 [History] Promethaz-Cod 6.25-10 mg/5 ml [Phenergan with Codeine] 5 ml PO Q6H PRN 06/12/16 [History] Losartan [Cozaar] 25 mg PO DAILY #30 tab 06/15/16 [Rx] predniSONE 10 mg PO DIRECTED #12 tab 06/15/16 [Rx] Follow up Appointment(s)/Referral(s): Valery Campos MD [Primary Care Provider] - 3 Days Activity/Diet/Wound Care/Special Instructions: Diet: cardiac, diabetic Activity: as tolerated have BP checked in [address] Campos's office
[2016-06-15] MEDS: ATENOLOL 25 MG TAB PO SCH (13:07)
[2016-06-15] MEDS: SPIRONOLACTONE-HCTZ 25-25MG 1 EACH TAB PO SCH (13:07)
[2016-06-15] MEDS: LOSARTAN 50 MG TAB PO SCH (13:07)
--- NOTE | 2016-06-15 18:28 | PN ---
Carleen Devries is a 50-year-old female with history of lung cancer Stage 3. The patient is status post right lower lobe resection. Clinically, patient is doing better. She is admitted to hospital with acute COPD exacerbation and tracheobronchitis. Her cough, congestion, shortness of breath has improved. Patient also has a history of severe degree of GERD which appears to be a significant contributing factor to her respiratory status and problems. Her hemodynamic status is stable. Last set of vitals include blood pressure is 96/65, respiratory rate 18, pulse 76, temperature is 97.5, saturation of 98% on room air. HEENT: Atraumatic, normocephalic. Pharynx is clear without exudate. NECK: Supple without any lymphadenopathy, jugular venous distention or carotid bruit. LUNGS: Bilateral good air entry is present without significant rales, rhonchi, or rub. HEART: Regular rate and rhythm. S1 and S2 audible. ABDOMEN: Soft. No rebound or rigidity. EXTREMITIES: +1 peripheral pulses. NEUROLOGICAL EXAMINATION: Otherwise, awake and alert. Last chest x-ray performed at the time of admission revealed chronic changes, some scarring especially on the right side with radiation was performed. IMPRESSION: 1. Acute chronic obstructive pulmonary disease exacerbation. 2. Purulent tracheobronchitis. 3. Chronic persistent asthma. 4. History of lung cancer. 5. Radiation pneumonitis on the right side. 6. History likely gastroesophageal reflux disease and significant contributing factor to lung problems issues. Patient is scheduled to see Dr. Mcdowell in outpatient setting. Will follow.
== END 2016-06-15 13:55 | disposition home or self-care (01) ==
LOC: EC 12:42 → 3OBS 16:41
PROVIDERS: ADMIT Internal Medicine; ATTEND Internal Medicine
DX: J44.1 Chronic obstructive pulmonary disease with (acute) exacerbation (principal); J45.901 Unspecified asthma with (acute) exacerbation; J96.01 Acute respiratory failure with hypoxia; E09.65 Drug or chemical induced diabetes mellitus with hyperglycemia; E03.9 Hypothyroidism, unspecified; I10 Essential (primary) hypertension; N17.9 Acute kidney failure, unspecified; J84.10 Pulmonary fibrosis, unspecified; K21.9 Gastro-esophageal reflux disease without esophagitis; E78.5 Hyperlipidemia, unspecified; R19.7 Diarrhea, unspecified; Z85.118 Personal history of other malignant neoplasm of bronchus and lung; Z90.2 Acquired absence of lung [part of]; Z79.84 Long term (current) use of oral hypoglycemic drugs; Z79.899 Other long term (current) drug therapy; Z88.2 Allergy status to sulfonamides; Z88.8 Allergy status to other drugs, medicaments and biological substances; Z88.1 Allergy status to other antibiotic agents; Z91.040 Latex allergy status; Z80.3 Family history of malignant neoplasm of breast; Z82.5 Family history of asthma and other chronic lower respiratory diseases; T38.0X5A Adverse effect of glucocorticoids and synthetic analogues, initial encounter; Y92.019 Unspecified place in single-family (private) house as the place of occurrence of the external cause
CPT/HCPCS: 99285 ×2; 96375 ×2; 36415; 94640 ×8; 94760 ×2; 93005; 83880; 80053 ×2; 80048 ×2; 83036; 83735 ×2; 85025 ×4; 71020; G0378 ×4; J1644; J2920 ×2; J2930 ×2; J3475; J7512 ×2; 96365; 96366; 96372; 96374; 96376

== ENCOUNTER 2016-08-05 10:37 | Inpatient (IN) | payer OTHER ==
[2016-08-05] MEDS ORDERED: methylPREDNISolone SOD SUCCI 125 MG/2 ML VIAL IV STA (11:19)
[2016-08-05] MEDS ORDERED: ALBUTEROL NEBULIZED 2.5 MG/3 ML INHALATION STA (11:19)
[2016-08-05] MEDS ORDERED: SODIUM CHLORIDE 0.9% 1,000 ML IV STA (11:19)
[2016-08-05] MEDS ORDERED: IPRATROPIUM 0.5 MG/2.5 ML NEBU INHALATION STA (11:19)
[2016-08-05] MEDS ORDERED: ACETAMINOPHEN IV (For NPO) 1,000 MG in EMPTY BAG 1 BAG IVPB STA (11:22)
[2016-08-05] MEDS ORDERED: KETOROLAC 30 MG/ML 1 ML VIAL IVP STA (11:22)
--- NOTE | 2016-08-05 11:54 | ED ---
General Adult HPI - General Chief complaint: Upper Respiratory Infection Stated complaint: SOB Time Seen by Provider: 08/05/16 11:02 Source: patient, RN notes reviewed, old records reviewed Mode of arrival: ambulatory Limitations: no limitations - History of Present Illness Initial comments: This is a 31-year-old female ER for evaluation. Patient presents for evaluation of cough congestion started breath. Patient states she's been febrile and not feeling well. Patient has complicated pulmonary history including lung cancer, COPD, severe. Patient denies continue to smoke. That she hasn't felt well for about 2 days, recent hospitalization about a month ago but no travel history or known sick contacts. Patient states he does not feeling too well and can't give better with retinal breathing treatments and at home treatment - Related Data Home Medications Medication Instructions Recorded Confirmed metFORMIN HCL 1,000 mg PO BID 10/13/13 08/05/16 Cholecalciferol [Vitamin D3] 1,000 unit PO DAILY 10/20/13 08/05/16 Simvastatin [Zocor] 10 mg PO HS 08/16/14 08/05/16 Omeprazole [PriLOSEC] 20 mg PO AC-BID 08/18/14 08/05/16 Montelukast [Singulair] 10 mg PO DAILY 01/29/15 08/05/16 Insulin Glargine,Hum.rec.anlog 70 unit SQ HS 06/20/15 08/05/16 [Lantus Solostar] Loratadine [Claritin] 10 mg PO DAILY 06/20/15 08/05/16 Ranitidine HCl 150 mg PO HS 06/20/15 08/05/16 Levothyroxine Sodium [Synthroid] 25 mcg PO DAILY@0800 06/22/15 08/05/16 Budesonide [Pulmicort] 0.5 mg INHALATION RT-BID 07/25/15 08/05/16 HYDROcodone/APAP 10-325MG [[place] 1 tab PO Q6H PRN 08/26/15 08/05/16 10-325] Albuterol Inhaler [Ventolin Hfa 1 - 2 puff INHALATION Q6HR PRN 06/12/16 08/05/16 Inhaler] Escitalopram [Lexapro] 10 mg PO DAILY@1200 06/12/16 08/05/16 Gemfibrozil [Lopid] 600 mg PO HS 06/12/16 08/05/16 Insulin Glulisine [Apidra] 18 unit SQ AC-TID 06/12/16 08/05/16 Insulin Glulisine [Apidra] See Protocol SQ AC-TID 06/12/16 08/05/16 Magnesium Oxide [Mag-Ox] 400 mg PO DAILY 08/05/16 08/05/16 Multivitamins, Thera [Multivitamin] 1 tab PO DAILY 08/05/16 08/05/16 Spironolactone-Hctz 25-25Mg 1 tab PO DAILY 08/05/16 08/05/16 [Aldactazide 25-25Mg] Previous Rx's Medication Instructions Recorded Ipratropium-Albuterol Nebulize 3 ml INHALATION RT-QID 30 Days 08/21/14 [Duoneb 0.5 mg-3 mg/3 ml Soln] Losartan [Cozaar] 25 mg PO DAILY #30 tab 06/15/16 Allergies Allergy/AdvReac Type Severity Reaction Status Date / Time ciprofloxacin HCl Allergy Severe Rash/Hives Verified 08/05/16 11:42 [From Cipro] latex Allergy Severe Rash/Hives Verified 08/05/16 11:42 cephalexin monohydrate Allergy Intermediate Rash/Hives Verified 08/05/16 11:42 [From Keflex] sulfamethoxazole Allergy Intermediate Rash/Hives Verified 08/05/16 11:42 [From Septra] trimethoprim [From Septra] Allergy Intermediate Rash/Hives Verified 08/05/16 11: 42 Review of Systems ROS Statement: Those systems with pertinent positive or pertinent negative responses have been documented in the HPI. ROS Other: All systems not noted in ROS Statement are negative. 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 Status post resection of tumor and chemo and 26 radiation TX THAT CAUSED SOME BURNING TO THE ESOPHAGUS.incont of urine-wears a pull up.diarrhea ever since gallbladder removed.neuropathy History of Any Multi-Drug Resistant Organisms: Other MDRO Date of last positivie culture/infection: 2014 MDRO Source:: e-coli in urine Past Surgical History: Appendectomy, Cholecystectomy, Hysterectomy, Tonsillectomy, Tubal Ligation Additional Past Surgical History / Comment(s): lung biopsy 09/2013, MALIGNANT- had rt middle lobe lobectomy. Past Anesthesia/Blood Transfusion Reactions: Previous Problems w/ Anesthesia, Postoperative Nausea & Vomiting (PONV) Past Psychological History: No Psychological Hx Reported Additional Psychological History / Comment(s): lives with sig other, is independant gets no out side services at this time. Smoking Status: Former smoker Past Alcohol Use History: None Reported Additional Past Alcohol Use History / Comment(s): started smoking at age 12 was smoking 1.5 ppd, QUIT 2013 Past Drug Use History: None Reported - Past Family History Mother Sister(s) Family Medical History: Cancer Additional Family Medical History / Comment(s): from breast ca at age 65 Father Family Medical History: COPD Additional Family Medical History / Comment(s): had cabg, from a blood infection at age 64 General Exam Limitations: no limitations General appearance: alert, in no apparent distress, anxious Head exam: Present: atraumatic, normocephalic, normal inspection Eye exam: Present: normal appearance, PERRL, EOMI. Absent: scleral icterus, conjunctival injection, periorbital swelling ENT exam: Present: mucous membranes dry Neck exam: Present: normal inspection. Absent: tenderness, meningismus, lymphadenopathy Respiratory exam: Present: normal lung sounds bilaterally, wheezes, decreased breath sounds, prolonged expiratory. Absent: respiratory distress, rales, rhonchi, stridor Cardiovascular Exam: Present: normal rhythm, tachycardia, normal heart sounds. Absent: systolic murmur, diastolic murmur, rubs, gallop, clicks GI/Abdominal exam: Present: soft, normal bowel sounds. Absent: distended, tenderness, guarding, rebound, rigid Extremities exam: Present: normal inspection, full ROM, normal capillary refill. Absent: tenderness, pedal edema, joint swelling, calf tenderness Back exam: Present: normal inspection Neurological exam: Present: alert, oriented X3, CN II-XII intact Psychiatric exam: Present: normal affect, normal mood Skin exam: Present: warm, dry, intact, normal color. Absent: rash Course Vital Signs 08/05/16 08/05/16 08/05/16 10:45 11:00 12:15 Temperature 98.7 F Pulse Rate 125 H 118 H 120 H Respiratory 16 18 Rate Blood Pressure 116/67 O2 Sat by Pulse 98 97 Oximetry 08/05/16 12:31 Temperature Pulse Rate 112 H Respiratory Rate Blood Pressure O2 Sat by Pulse Oximetry - Reevaluation(s) Reevaluation #1: 08/05/16 11:53 Patient's mildly improved with prolonged breathing treatment, still having respiratory distress tachycardia shortness of breath Medical Decision Making - Medical Decision Making 31 female to the ER with significant medical history of pulmonary disease, lung cancer COPD. Be admitted for further breathing treatments and steroids. - Lab Data Result diagrams: 08/05/16 09:36 Lab Results 08/05/16 08/05/16 Range/Units 09:36 12:15 WBC 9.7 (3.8-10.6) k/uL RBC 4.44 (3.80-5.40) m/uL Hgb 13.7 (11.4-16.0) gm/dL Hct 38.5 (34.0-46.0) % MCV 86.7 (80.0-100.0) fL MCH 30.8 (25.0-35.0) pg MCHC 35.5 (31.0-37.0) g/dL RDW 13.8 (11.5-15.5) % Plt Count 193 (150-450) k/uL Neutrophils % 66 % Lymphocytes % 25 % Monocytes % 5 % Eosinophils % 1 % Basophils % 1 % Neutrophils # 6.4 (1.3-7.7) k/uL Lymphocytes # 2.4 (1.0-4.8) k/uL Monocytes # 0.5 (0-1.0) k/uL Eosinophils # 0.1 (0-0.7) k/uL Basophils # 0.1 (0-0.2) k/uL Influenza Type A RNA Not Detected (Not Detectd) Influenza Type B (PCR) Not Detected (Not Detectd) - Radiology Data Radiology results: report reviewed (Chest x-ray two-view), image reviewed Disposition Clinical Impression: Non-small cell lung cancer, Reactive airway disease, COPD exacerbation, COPD ( chronic obstructive pulmonary disease) with chronic bronchitis Disposition: ADMITTED IP TO THIS HOSP Condition: Fair Referrals: Valery Campos MD [Primary Care Provider] - 1-2 days
[2016-08-05 13:12] LABS: Basophils # (A) 0.1 k/uL (0-0.2); Basophils % (A) 1 %; CH 30.5; CHCM 35.3; Eosinophils # (A) 0.1 k/uL (0-0.7); Eosinophils % (A) 1 %; HCT 38.5 % (34.0-46.0); HDW 2.91; HGB 13.7 gm/dL (11.4-16.0); Luc # (Auto) 0.27; Luc % (Auto) 3; Lymphocytes # (A) 2.4 k/uL (1.0-4.8); Lymphocytes % (A) 25 %; MCH 30.8 pg (25.0-35.0); MCHC 35.5 g/dL (31.0-37.0); MCV 86.7 fL (80.0-100.0); Mean Platelet Volume 7.8; Monocytes # (A) 0.5 k/uL (0-1.0); Monocytes % (A) 5 %; Neutrophils # (A) 6.4 k/uL (1.3-7.7); Neutrophils % (A) 66 %; RBC 4.44 m/uL (3.80-5.40); RDW 13.8 % (11.5-15.5); WBC 9.7 k/uL (3.8-10.6); WBC (Perox) 9.56
--- NOTE | 2016-08-05 13:20 | XR ---
EXAMINATION TYPE: XR chest 2V DATE OF EXAM: 08/05/2016 1:17 PM COMPARISON: 06/12/2016 TECHNIQUE: PA and lateral views submitted. HISTORY: Difficulty breathing FINDINGS: Chronic parenchymal changes involving the right perihilar region with evidence of previous surgery re trospectively stable from the previous chest x-ray. 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 Correlate clinically. Left lung is cl ear. No pneumothorax. Degenerative changes spine noted. Surgical clips in the abdomen. Hypertrophic c hange of the spine. IMPRESSION: 1. No acute process. Chronic parenchymal changes involving the right lung stable in appearance.
[2016-08-05 13:25] LABS: Partial Thromboplastin Time 25.5 sec (22.0-30.0); Prothrombin Time 10.3 sec (9.0-12.0)
[2016-08-05 13:29] LABS: ALT 26 U/L (9-52); AST 20 U/L (14-36); Alkaline Phosphatase 117 U/L (38-126); Anion Gap 14 mmol/L; Blood Urea Nitrogen 8 mg/dL (7-17); Calcium 9.1 mg/dL (8.4-10.2); Carbon Dioxide 23 mmol/L (22-30); Chloride 98 mmol/L (98-107); Glucose 187 mg/dL (74-99); Non-African American GFR(MDRD) >60 (>60 ml/min/1.73 sqM); Potassium 3.3 mmol/L (3.5-5.1); Sodium 135 mmol/L (137-145); Total Bilirubin 0.8 mg/dL (0.2-1.3); Total Protein 6.8 g/dL (6.3-8.2)
[2016-08-05] MEDS: methylPREDNISolone SOD SUCCI 125 MG/2 ML VIAL IV SCH ×3 (13:36→23:47)
[2016-08-05 13:37] LABS: Creatine Kinase 163 U/L (30-135)
[2016-08-05 13:45] LABS: Magnesium 0.9 mg/dL (1.6-2.3)
[2016-08-05 13:49] LABS: Creatine Kinase MB 1.2 ng/mL (0.0-2.4); Troponin I <0.012 ng/mL (0.000-0.034)
[2016-08-05] MEDS ORDERED: POTASSIUM BICARB-CITRIC ACID 25 MEQ TABLET.EFF PO STA (13:58)
[2016-08-05 14:05] LABS: Glucose,Whole Blood 246 mg/dL (75-99)
[2016-08-05] MEDS: MAGNESIUM SULFATE-D5W PMX 1 GM in DEXTROSE/WATER 1 100ML.BAG IVPB SCH ×4 (14:49→18:52)
[2016-08-05] MEDS: IPRATROPIUM-ALBUTEROL 3 ML NEB INHALATION SCH ×3 (15:28→19:59)
[2016-08-05] MEDS: SODIUM CHLORIDE 0.9% 1,000 ML IV SCH (15:56)
[2016-08-05 17:12] LABS: Glucose,Whole Blood 442 mg/dL (75-99)
[2016-08-05] MEDS: BUDESONIDE 0.5 MG/2 ML NEBU INHALATION SCH (19:57)
[2016-08-05] MEDS: metFORMIN 500 MG TAB PO SCH (20:40)
[2016-08-05] MEDS: ATORVASTATIN 10 MG TAB PO SCH (20:40)
[2016-08-05 20:41] LABS: Glucose,Whole Blood >600 mg/dL (75-99)
[2016-08-05] MEDS: FAMOTIDINE 20 MG TAB PO SCH (20:41)
[2016-08-05] MEDS: GEMFIBROZIL 600 MG TAB PO SCH (20:41)
[2016-08-05] MEDS: HYDROcodone/APAP 10-325MG 1 EACH TAB PO PRN (20:41)
[2016-08-05] MEDS: INSULIN GLARGINE 100 UNIT/ML 10 ML VIAL SQ SCH (20:44)
[2016-08-05] MEDS: PROMETHAZ-COD 6.25-10 MG/5 ML 5 ML CUP PO SCH (20:46)
[2016-08-05] MEDS: POTASSIUM CHLORIDE 10 MEQ, LIDOCAINE 2% INJ 10 MG in SODIUM CHLORIDE 0.9% 100 ML IVPB SCH ×3 (20:50→23:47)
[2016-08-05] MEDS ORDERED: INSULIN LISPRO (humaLOG) 300 UNIT/3 ML VIAL SQ SCH (21:00)
[2016-08-06] MEDS: POTASSIUM CHLORIDE 10 MEQ, LIDOCAINE 2% INJ 10 MG in SODIUM CHLORIDE 0.9% 100 ML IVPB SCH (01:08)
[2016-08-06] MEDS: HYDROcodone/APAP 10-325MG 1 EACH TAB PO PRN ×3 (02:21→20:48)
[2016-08-06 02:25] LABS: Glucose,Whole Blood 403 mg/dL (75-99)
[2016-08-06] MEDS: INSULIN LISPRO (humaLOG) 300 UNIT/3 ML VIAL SQ SCH ×8 (02:25→20:47)
[2016-08-06] MEDS: IPRATROPIUM-ALBUTEROL 3 ML NEB INHALATION SCH ×8 (02:55→20:59)
[2016-08-06] MEDS: methylPREDNISolone SOD SUCCI 125 MG/2 ML VIAL IV SCH ×4 (06:04→23:02)
[2016-08-06] MEDS: ACETAMINOPHEN TAB 325 MG TAB PO PRN ×2 (06:06→16:37)
[2016-08-06] MEDS: SODIUM CHLORIDE 0.9% 1,000 ML IV SCH ×3 (06:22→21:24)
[2016-08-06 06:56] LABS: Glucose,Whole Blood 281 mg/dL (75-99)
[2016-08-06] MEDS: BUDESONIDE 0.5 MG/2 ML NEBU INHALATION SCH ×2 (08:15→20:49)
[2016-08-06 08:33] LABS: Basophils % (A) 0 %; CH 30.1; CHCM 34.2; Eosinophils % (A) 0 %; HCT 38.2 % (34.0-46.0); HDW 2.86; HGB 12.8 gm/dL (11.4-16.0); Luc # (Auto) 0.14; Luc % (Auto) 2; Lymphocytes # (A) 1.3 k/uL (1.0-4.8); Lymphocytes % (A) 14 %; MCH 29.6 pg (25.0-35.0); MCHC 33.6 g/dL (31.0-37.0); MCV 88.3 fL (80.0-100.0); Mean Platelet Volume 8.4; Monocytes # (A) 0.2 k/uL (0-1.0); Monocytes % (A) 2 %; Neutrophils # (A) 7.9 k/uL (1.3-7.7); Neutrophils % (A) 82 %; RBC 4.32 m/uL (3.80-5.40); RDW 13.7 % (11.5-15.5); WBC 9.7 k/uL (3.8-10.6); WBC (Perox) 9.67
[2016-08-06 08:43] LABS: ALT 22 U/L (9-52); AST 20 U/L (14-36); Alkaline Phosphatase 103 U/L (38-126); Anion Gap 14 mmol/L; Blood Urea Nitrogen 17 mg/dL (7-17); Calcium 9.1 mg/dL (8.4-10.2); Carbon Dioxide 20 mmol/L (22-30); Chloride 100 mmol/L (98-107); Glucose 272 mg/dL (74-99); Non-African American GFR(MDRD) >60 (>60 ml/min/1.73 sqM); Potassium 5.1 mmol/L (3.5-5.1); Sodium 134 mmol/L (137-145); Total Bilirubin 0.5 mg/dL (0.2-1.3); Total Protein 6.7 g/dL (6.3-8.2)
[2016-08-06] MEDS: PROMETHAZ-COD 6.25-10 MG/5 ML 5 ML CUP PO SCH ×3 (08:52→20:46)
[2016-08-06] MEDS: LEVOTHYROXINE 25 MCG TAB PO SCH (08:59)
[2016-08-06] MEDS: LORATADINE 10 MG TAB PO SCH (08:59)
[2016-08-06] MEDS: PANTOPRAZOLE 40 MG TABLET PO SCH ×2 (09:00→17:28)
[2016-08-06] MEDS: LOSARTAN 25 MG TAB PO SCH (09:00)
[2016-08-06] MEDS: SPIRONOLACTONE-HCTZ 25-25MG 1 EACH TAB PO SCH (09:00)
[2016-08-06] MEDS: MAGNESIUM OXIDE 400 MG TAB PO SCH (09:00)
[2016-08-06] MEDS: metFORMIN 500 MG TAB PO SCH ×2 (09:00→17:28)
[2016-08-06] MEDS: MONTELUKAST 10 MG TAB PO SCH (09:00)
[2016-08-06] MEDS: ENOXAPARIN 40 MG/0.4 ML SYRINGE SQ SCH (09:10)
--- NOTE | 2016-08-06 10:55 | P.CNPUL ---
History of Present Illness Consult date: 08/06/16 Requesting physician: Valery Campos Reason for consult: asthma Chief complaint: Shortness of breath History of present illness: This is a 31-year-old female patient that is being evaluated and examined today on the third floor. The patient came in yesterday to the emergency room with a cough and congestion along with shortness of breath. The patient has a history of lung cancer and severe COPD along with chronic persistent asthma. The patient says she hasn't felt well for about 2 days and her home breathing treatments were not working for her. Pulmonary services were initiated to evaluate her. Review of Systems Review of systems was completed and is unremarkable noncontributory other than what is noted in the HPI Past Medical History Past Medical History: Cancer, COPD, Diabetes Mellitus, GERD/Reflux, Hyperlipidemia, Hypertension, Pneumonia, Respiratory Disorder, Thyroid Disorder Additional Past Medical History / Comment(s): Pt last admitted to [facility] on with acute exacerbation COPD, steroid induced hyperglycemia, lung fibrosis and chronic pneumonitis R lung. 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 History of Any Multi-Drug Resistant Organisms: Other MDRO Date of last positivie culture/infection: 2014 MDRO Source:: e-coli in urine Past Surgical History: Appendectomy, Cholecystectomy, Hysterectomy, Tonsillectomy, Tubal Ligation Additional Past Surgical History / Comment(s): R lung biopsy 09/2013, rt middle lobe lobectomy. Past Anesthesia/Blood Transfusion Reactions: Postoperative Nausea & Vomiting ( PONV) Past Psychological History: No Psychological Hx Reported Additional Psychological History / Comment(s): Lives with her daughter, thanh in a 2 story home but pt stays on 1st floor and there are 4 steps to get outside. Pt is independant gets no out side services at this time. She has a nebulizer. Smoking Status: Former smoker Past Alcohol Use History: None Reported Additional Past Alcohol Use History / Comment(s): started smoking at age 12 was smoking 1.5 ppd, QUIT 2013 Past Drug Use History: None Reported - Past Family History Mother Sister(s) Family Medical History: Cancer Additional Family Medical History / Comment(s): from breast ca at age 65 Father Family Medical History: COPD Additional Family Medical History / Comment(s): had cabg, from a blood infection at age 64 Medications and Allergies Home Medications Medication Instructions Recorded Confirmed Type metFORMIN HCL 1,000 mg PO BID 10/13/13 08/05/16 History Cholecalciferol [Vitamin D3] 1,000 unit PO DAILY 10/20/13 08/05/16 History Simvastatin [Zocor] 10 mg PO HS 08/16/14 08/05/16 History Omeprazole [PriLOSEC] 20 mg PO AC-BID 08/18/14 08/05/16 History Montelukast [Singulair] 10 mg PO DAILY 01/29/15 08/05/16 History Insulin Glargine,Hum.rec.anlog 70 unit SQ HS 06/20/15 08/05/16 History [Lantus Solostar] Loratadine [Claritin] 10 mg PO DAILY 06/20/15 08/05/16 History Ranitidine HCl 150 mg PO HS 06/20/15 08/05/16 History Levothyroxine Sodium [Synthroid] 25 mcg PO DAILY@0800 06/22/15 08/05/16 History Budesonide [Pulmicort] 0.5 mg INHALATION RT-BID 07/25/15 08/05/16 History HYDROcodone/APAP 10-325MG [[place] 1 tab PO Q6H PRN 08/26/15 08/05/16 History 10-325] Albuterol Inhaler [Ventolin Hfa 1 - 2 puff INHALATION Q6HR PRN 06/12/16 History Inhaler] Escitalopram [Lexapro] 10 mg PO DAILY@1200 06/12/16 08/05/16 History Gemfibrozil [Lopid] 600 mg PO HS 06/12/16 08/05/16 History Insulin Glulisine [Apidra] 18 unit SQ AC-TID 06/12/16 08/05/16 History Insulin Glulisine [Apidra] See Protocol SQ AC-TID 06/12/16 08/05/16 History Magnesium Oxide [Mag-Ox] 400 mg PO DAILY 08/05/16 08/05/16 History Multivitamins, Thera [Multivitamin] 1 tab PO DAILY 08/05/16 08/05/16 History Promethaz-Cod 6.25-10 mg/5 ml 2 tsp TID 08/05/16 08/05/16 History [Phenergan with Codeine] Spironolactone-Hctz 25-25Mg 1 tab PO DAILY 08/05/16 08/05/16 History [Aldactazide 25-25Mg] Allergies Allergy/AdvReac Type Severity Reaction Status Date / Time ciprofloxacin HCl Allergy Severe Rash/Hives Verified 08/05/16 11:42 [From Cipro] latex Allergy Severe Rash/Hives Verified 08/05/16 11:42 cephalexin monohydrate Allergy Intermediate Rash/Hives Verified 08/05/16 11:42 [From Keflex] sulfamethoxazole Allergy Intermediate Rash/Hives Verified 08/05/16 11:42 [From Septra] trimethoprim [From Septra] Allergy Intermediate Rash/Hives Verified 08/05/16 11: 42 Physical Exam Vitals: Vital Signs Temp Pulse Pulse Pulse Resp BP BP 08/06/16 08:32 84 08/06/16 08:15 84 08/06/16 08:00 97.4 F L 85 16 112/69 08/06/16 04:00 98.1 F 96 84 16 124/72 08/06/16 03:04 88 08/06/16 02:55 96 08/06/16 00:00 97.8 F 96 84 16 112/74 08/05/16 20:00 98.4 F 84 16 112/68 08/05/16 19:57 110 H 08/05/16 15:37 114 H 08/05/16 15:28 112 H 08/05/16 14:55 98.1 F 117 H 18 127/69 08/05/16 14:40 97.5 F L 98 20 110/69 08/05/16 13:33 122 H 18 110/58 08/05/16 12:31 112 H 08/05/16 12:15 120 H Pulse Ox 08/06/16 08:32 08/06/16 08:15 08/06/16 08:00 98 08/06/16 04:00 98 08/06/16 03:04 08/06/16 02:55 08/06/16 00:00 96 08/05/16 20:00 95 08/05/16 19:57 08/05/16 15:37 08/05/16 15:28 08/05/16 14:55 95 08/05/16 14:40 96 08/05/16 13:33 95 08/05/16 12:31 08/05/16 12:15 Intake and Output 08/05/16 08/06/16 08/06/16 22:59 06:59 14:59 Intake Total 436 630 625 Balance 436 630 625 Intake: IV 80 0.9@20 80 Intake, IV Titration 300 Amount Potassium Chloride 10 meq 300 Lidocaine 2% Inj 10 mg In Sodium Chloride 0.9% 100 ml @ 100 mls/hr IVPB Q1HR [facility] Rx#:[id number] Oral 436 250 625 Other: Voiding Method Diaper Diaper # Voids 2 GENERAL EXAM: Alert, active, comfortable in no apparent distress. HEAD: Normocephalic. EYES: Normal reaction of pupils, equal size. NOSE: Clear with pink turbinates. THROAT: No erythema or exudates. NECK: No masses, no JVD. CHEST: No chest wall deformity. LUNGS: Equal air entry with some expiratory wheezing. CVS: S1 and S2 normal with no audible mumurs, regular rhythm. ABDOMEN: No hepatosplenomegaly, normal bowel sounds, no guarding or rigidity. EXTREMITIES: No edema noted, pedal pulses palpable. SKIN: No rashes CENTRAL NERVOUS SYSTEM: No focal deficits, tone is normal in all 4 extremities. Results - Laboratory Findings CBC and BMP: 08/06/16 07:36 08/06/16 07:36 PT/INR, D-dimer PT 10.3 sec (9.0-12.0) 08/05/16 09:36 INR 1.0 (<1.1) 08/05/16 09:36 D-Dimer 0.56 mg/L FEU (<0.60) 08/05/16 09:36 Abnormal lab findings: Abnormal Labs 08/05/16 08/05/16 08/05/16 12:50 14:02 17:01 Neutrophils # Sodium Carbon Dioxide Glucose POC Glucose (mg/dL) 246 H 442 H Total Creatine Kinase 163 H 08/05/16 08/06/16 08/06/16 20:38 02:23 06:26 Neutrophils # Sodium Carbon Dioxide Glucose POC Glucose (mg/dL) >600 H 403 H 281 H Total Creatine Kinase 08/06/16 08/06/16 07:36 07:36 Neutrophils # 7.9 H Sodium 134 L Carbon Dioxide 20 L Glucose 272 H POC Glucose (mg/dL) Total Creatine Kinase - Diagnostic Findings Chest x-ray: report reviewed, image reviewed Assessment and Plan Plan: Assessment: Acute exacerbation of COPD Acute tracheobronchitis Non-small cell lung cancer Chronic persistent severe asthma Diabetes mellitus History of hypertension History of Hypothyroidism History of Hyperlipidemia We will continue the patient on the current treatment. Continue with her IV steroids and aerosol bronchodilators. We will send sputum for culture. We will continue to monitor the patient's labs and make recommendations as necessary.
[2016-08-06] MEDS: ESCITALOPRAM 10 MG TAB PO SCH (11:08)
[2016-08-06] MEDS: CHOLECALCIFEROL 1,000 UNIT TAB PO SCH (11:08)
[2016-08-06] MEDS: MULTIVITAMINS, THERA 1 EACH TAB PO SCH (11:08)
[2016-08-06 11:22] LABS: Hemoglobin A1C 10.1 % (4.2-6.1)
[2016-08-06 12:01] LABS: Glucose,Whole Blood 286 mg/dL (75-99)
--- NOTE | 2016-08-06 12:05 | P.HPIM ---
History of Present Illness H&P Date: 08/06/16 Chief Complaint: Shortness of breath with cough This is a 51-year-old female history of lung cancer, COPD, diabetes mellitus, hyperlipidemia and hypertension. Patient presents to the emergency room with complaints of worsening shortness of breath and cough for the last 2 days. Patient was hospitalized about a month ago for COPD exacerbation. Patient has been admitted to the observation unit. His been placed on IV steroids for COPD exacerbation pulmonary service has been consulted. Patient also complaining of diarrhea which is chronic at times for her. Stool for C. diff has been ordered. EKG had shown sinus tach with a heart rate of 118. She is on telemetry and heart rate is currently in the 80s. Chest x-ray showed no acute changes. Influenza swab was negative. Patient reports she is no longer a smoker has not smoked for about 2 years. She denies any fever, chills, sweats. Denies any nausea or vomiting. Denies any difficulty urinating. Review of Systems Please refer to HPI otherwise unremarkable Past Medical History Past Medical History: Cancer, COPD, Diabetes Mellitus, GERD/Reflux, Hyperlipidemia, Hypertension, Pneumonia, Respiratory Disorder, Thyroid Disorder Additional Past Medical History / Comment(s): Pt last admitted to [facility] on with acute exacerbation COPD, steroid induced hyperglycemia, lung fibrosis and chronic pneumonitis R lung. 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 History of Any Multi-Drug Resistant Organisms: Other MDRO Date of last positivie culture/infection: 2014 MDRO Source:: e-coli in urine Past Surgical History: Appendectomy, Cholecystectomy, Hysterectomy, Tonsillectomy, Tubal Ligation Additional Past Surgical History / Comment(s): R lung biopsy 09/2013, rt middle lobe lobectomy. Past Anesthesia/Blood Transfusion Reactions: Postoperative Nausea & Vomiting ( PONV) Past Psychological History: No Psychological Hx Reported Additional Psychological History / Comment(s): Lives with her daughter, thanh in a 2 story home but pt stays on 1st floor and there are 4 steps to get outside. Pt is independant gets no out side services at this time. She has a nebulizer. Smoking Status: Former smoker Past Alcohol Use History: None Reported Additional Past Alcohol Use History / Comment(s): started smoking at age 12 was smoking 1.5 ppd, QUIT 2013 Past Drug Use History: None Reported - Past Family History Mother Sister(s) Family Medical History: Cancer Additional Family Medical History / Comment(s): from breast ca at age 65 Father Family Medical History: COPD Additional Family Medical History / Comment(s): had cabg, from a blood infection at age 64 Medications and Allergies Home Medications Medication Instructions Recorded Confirmed Type metFORMIN HCL 1,000 mg PO BID 10/13/13 08/05/16 History Cholecalciferol [Vitamin D3] 1,000 unit PO DAILY 10/20/13 08/05/16 History Simvastatin [Zocor] 10 mg PO HS 08/16/14 08/05/16 History Omeprazole [PriLOSEC] 20 mg PO AC-BID 08/18/14 08/05/16 History Montelukast [Singulair] 10 mg PO DAILY 01/29/15 08/05/16 History Insulin Glargine,Hum.rec.anlog 70 unit SQ HS 06/20/15 08/05/16 History [Lantus Solostar] Loratadine [Claritin] 10 mg PO DAILY 06/20/15 08/05/16 History Ranitidine HCl 150 mg PO HS 06/20/15 08/05/16 History Levothyroxine Sodium [Synthroid] 25 mcg PO DAILY@0800 06/22/15 08/05/16 History Budesonide [Pulmicort] 0.5 mg INHALATION RT-BID 07/25/15 08/05/16 History HYDROcodone/APAP 10-325MG [[place] 1 tab PO Q6H PRN 08/26/15 08/05/16 History 10-325] Albuterol Inhaler [Ventolin Hfa 1 - 2 puff INHALATION Q6HR PRN 06/12/16 History Inhaler] Escitalopram [Lexapro] 10 mg PO DAILY@1200 06/12/16 08/05/16 History Gemfibrozil [Lopid] 600 mg PO HS 06/12/16 08/05/16 History Insulin Glulisine [Apidra] 18 unit SQ AC-TID 06/12/16 08/05/16 History Insulin Glulisine [Apidra] See Protocol SQ AC-TID 06/12/16 08/05/16 History Magnesium Oxide [Mag-Ox] 400 mg PO DAILY 08/05/16 08/05/16 History Multivitamins, Thera [Multivitamin] 1 tab PO DAILY 08/05/16 08/05/16 History Promethaz-Cod 6.25-10 mg/5 ml 2 tsp TID 08/05/16 08/05/16 History [Phenergan with Codeine] Spironolactone-Hctz 25-25Mg 1 tab PO DAILY 08/05/16 08/05/16 History [Aldactazide 25-25Mg] Allergies Allergy/AdvReac Type Severity Reaction Status Date / Time ciprofloxacin HCl Allergy Severe Rash/Hives Verified 08/05/16 11:42 [From Cipro] latex Allergy Severe Rash/Hives Verified 08/05/16 11:42 cephalexin monohydrate Allergy Intermediate Rash/Hives Verified 08/05/16 11:42 [From Keflex] sulfamethoxazole Allergy Intermediate Rash/Hives Verified 08/05/16 11:42 [From Septra] trimethoprim [From Septra] Allergy Intermediate Rash/Hives Verified 08/05/16 11: 42 Physical Exam Vitals: Vital Signs Temp Pulse Pulse Pulse Resp BP BP 08/06/16 11:14 98 F 100 16 106/61 08/06/16 08:32 84 08/06/16 08:15 84 08/06/16 08:00 97.4 F L 85 16 112/69 08/06/16 04:00 98.1 F 96 84 16 124/72 08/06/16 03:04 88 08/06/16 02:55 96 08/06/16 00:00 97.8 F 96 84 16 112/74 08/05/16 20:00 98.4 F 84 16 112/68 08/05/16 19:57 110 H 08/05/16 15:37 114 H 08/05/16 15:28 112 H 08/05/16 14:55 98.1 F 117 H 18 127/69 08/05/16 14:40 97.5 F L 98 20 110/69 08/05/16 13:33 122 H 18 110/58 08/05/16 12:31 112 H 03/01/17 12:15 120 H Pulse Ox 08/06/16 11:14 96 08/06/16 08:32 08/06/16 08:15 08/06/16 08:00 98 08/06/16 04:00 98 08/06/16 03:04 08/06/16 02:55 08/06/16 00:00 96 08/05/16 20:00 95 08/05/16 19:57 08/05/16 15:37 08/05/16 15:28 08/05/16 14:55 95 08/05/16 14:40 96 08/05/16 13:33 95 08/05/16 12:31 08/05/16 12:15 Intake and Output 08/05/16 08/06/16 08/06/16 22:59 06:59 14:59 Intake Total 436 630 625 Balance 436 630 625 Intake: IV 80 0.9@20 80 Intake, IV Titration 300 Amount Potassium Chloride 10 meq 300 Lidocaine 2% Inj 10 mg In Sodium Chloride 0.9% 100 ml @ 100 mls/hr IVPB Q1HR [facility] Rx#:[id number] Oral 436 250 625 Other: Voiding Method Diaper Diaper Diaper # Voids 2 Head normocephalic Neck supple Lungs some expiratory wheezing noted bilaterally Heart regular rate and rhythm S1-S2, no rub or gallop Abdomen is soft nontender nondistended positive bowel sounds no hepatosplenomegaly Extremities no edema Neuro alert and orientated to 3 Results CBC & Chem 7: 08/06/16 07:36 08/06/16 07:36 Labs: Abnormal Lab Results - Last 24 Hours (Table) 08/05/16 08/05/16 08/05/16 Range/Units 12:50 14:02 17:01 Neutrophils # (1.3-7.7) k/uL Sodium (137-145) mmol/L Carbon Dioxide (22-30) mmol/L Glucose (74-99) mg/dL POC Glucose (mg/dL) 246 H 442 H (75-99) mg/dL Total Creatine Kinase 163 H (30-135) U/L 08/05/16 08/06/16 08/06/16 Range/Units 20:38 02:23 06:26 Neutrophils # (1.3-7.7) k/uL Sodium (137-145) mmol/L Carbon Dioxide (22-30) mmol/L Glucose (74-99) mg/dL POC Glucose (mg/dL) >600 H 403 H 281 H (75-99) mg/dL Total Creatine Kinase (30-135) U/L 08/06/16 08/06/16 Range/Units 07:36 07:36 Neutrophils # 7.9 H (1.3-7.7) k/uL Sodium 134 L (137-145) mmol/L Carbon Dioxide 20 L (22-30) mmol/L Glucose 272 H (74-99) mg/dL POC Glucose (mg/dL) (75-99) mg/dL Total Creatine Kinase (30-135) U/L Thrombosis Risk Factor Assmnt - Choose All That Apply Any of the Below Risk Factors Present?: Yes Each Factor Represents 1 point: Abnormal pulmonary function (COPD), Age 41-60 years, Obesity (BMI >25) Other Risk Factors: Yes Each Risk Factor Represents 2 Points: Malignancy Other congenital or acquired thrombophilia - If yes, enter type in comment: No Thrombosis Risk Factor Assessment Total Risk Factor Score: 5 Thrombosis Risk Factor Assessment Level: High Risk Assessment and Plan Plan: 1. Acute COPD exacerbation: Patient placed on IV Solu-Medrol. Continue bronchodilators. Pulmonary service consulted. 2. Diabetes mellitus type 2: Hyperglycemia secondary to steroids. Resume her home medications and add sliding scale coverage. Patient may require insulin drip. We'll monitor closely. 3. History of lung cancer with previous chemo and radiation treatment and lobectomy 4. Diarrhea check stool for C. diff 5. Essential hypertension continue home medications 6. Hypothyroidism continue Synthroid 7. Hyperlipidemia continue Lipitor DVT prophylaxis Lovenox and GI prophylaxis Pepcid Time with Patient: Greater than 30 (Greater than 50% of the total time spent in counseling and coordination of care.I performed an examination of the patient and discussed their management with the physician Coil Wrapper. I have reviewed the Physician Coil Wrapper's notes and agree with the documented findings and plan of care)
[2016-08-06 14:21] VITALS: BMI 32.1
[2016-08-06 17:23] LABS: Glucose,Whole Blood 185 mg/dL (75-99)
[2016-08-06 20:08] LABS: Glucose,Whole Blood 179 mg/dL (75-99)
[2016-08-06] MEDS: ATORVASTATIN 10 MG TAB PO SCH (20:46)
[2016-08-06] MEDS: FAMOTIDINE 20 MG TAB PO SCH (20:46)
[2016-08-06] MEDS: GEMFIBROZIL 600 MG TAB PO SCH (20:46)
[2016-08-06] MEDS: INSULIN GLARGINE 100 UNIT/ML 10 ML VIAL SQ SCH (20:47)
[2016-08-07 01:41] LABS: Glucose,Whole Blood 321 mg/dL (75-99)
[2016-08-07] MEDS: INSULIN LISPRO (humaLOG) 300 UNIT/3 ML VIAL SQ SCH ×4 (01:51→17:39)
[2016-08-07] MEDS: HYDROcodone/APAP 10-325MG 1 EACH TAB PO PRN ×3 (02:55→20:08)
[2016-08-07] MEDS: methylPREDNISolone SOD SUCCI 125 MG/2 ML VIAL IV SCH ×4 (05:27→23:16)
[2016-08-07] MEDS: SODIUM CHLORIDE 0.9% 1,000 ML IV SCH ×2 (05:30→16:34)
[2016-08-07 06:51] LABS: Glucose,Whole Blood 286 mg/dL (75-99)
[2016-08-07] MEDS: IPRATROPIUM-ALBUTEROL 3 ML NEB INHALATION SCH ×5 (07:20→19:36)
[2016-08-07] MEDS: BUDESONIDE 0.5 MG/2 ML NEBU INHALATION SCH ×2 (07:20→19:36)
[2016-08-07 08:18] LABS: Basophils # (A) 0.1 k/uL (0-0.2); Basophils % (A) 1 %; CH 30.1; CHCM 33.6; Eosinophils % (A) 0 %; HCT 39.3 % (34.0-46.0); HDW 2.86; HGB 13.2 gm/dL (11.4-16.0); Luc # (Auto) 0.23; Luc % (Auto) 2; Lymphocytes # (A) 1.2 k/uL (1.0-4.8); Lymphocytes % (A) 11 %; MCH 30.1 pg (25.0-35.0); MCHC 33.6 g/dL (31.0-37.0); MCV 89.7 fL (80.0-100.0); Monocytes # (A) 0.3 k/uL (0-1.0); Monocytes % (A) 2 %; Neutrophils # (A) 9.2 k/uL (1.3-7.7); Neutrophils % (A) 83 %; RBC 4.38 m/uL (3.80-5.40); RDW 13.9 % (11.5-15.5); WBC 11.1 k/uL (3.8-10.6); WBC (Perox) 12.12
[2016-08-07 08:44] LABS: ALT 35 U/L (9-52); AST 30 U/L (14-36); Alkaline Phosphatase 108 U/L (38-126); Anion Gap 13 mmol/L; Blood Urea Nitrogen 19 mg/dL (7-17); Calcium 9.3 mg/dL (8.4-10.2); Carbon Dioxide 25 mmol/L (22-30); Chloride 97 mmol/L (98-107); Glucose 264 mg/dL (74-99); Non-African American GFR(MDRD) >60 (>60 ml/min/1.73 sqM); Sodium 135 mmol/L (137-145); Total Bilirubin 0.5 mg/dL (0.2-1.3)
[2016-08-07] MEDS: PANTOPRAZOLE 40 MG TABLET PO SCH ×2 (08:58→17:39)
[2016-08-07] MEDS: metFORMIN 500 MG TAB PO SCH ×2 (08:58→17:39)
[2016-08-07] MEDS: MONTELUKAST 10 MG TAB PO SCH (08:58)
[2016-08-07] MEDS: ENOXAPARIN 40 MG/0.4 ML SYRINGE SQ SCH (08:58)
[2016-08-07] MEDS: LEVOTHYROXINE 25 MCG TAB PO SCH (08:59)
[2016-08-07] MEDS: MAGNESIUM OXIDE 400 MG TAB PO SCH (09:00)
[2016-08-07] MEDS: LOSARTAN 25 MG TAB PO SCH (09:00)
[2016-08-07] MEDS: LORATADINE 10 MG TAB PO SCH (09:00)
[2016-08-07] MEDS: SPIRONOLACTONE-HCTZ 25-25MG 1 EACH TAB PO SCH (09:00)
[2016-08-07] MEDS: PROMETHAZ-COD 6.25-10 MG/5 ML 5 ML CUP PO SCH ×3 (09:15→20:08)
--- NOTE | 2016-08-07 10:59 | P.PN ---
Subjective Carleen Devries is a 31-year-old female patient being evaluated and examined today on the fourth floor. The patient came in the emergency room with cough congestion shortness of breath. She was admitted to the hospital with acute exacerbation of COPD. Chest has a history of lung cancer and chronic persistent asthma severe in nature. Her home breathing treatments were not working for her. Since admission she has been getting IV steroids and updrafts and has been improving. She states that her cough has decreased as well as her congestion. During the time of examination the patient is not using oxygen and is resting comfortably. Objective - Vital Signs Vital signs: Vital Signs Temp 96.5 F L 08/07/16 07:00 Pulse 102 H 08/07/16 07:38 Resp 18 08/07/16 07:00 BP 120/75 08/07/16 07:00 Pulse Ox 100 08/07/16 07:22 Intake & Output 08/06/16 08/07/16 08/07/16 18:59 06:59 18:59 Intake Total 200 Balance 200 Intake: Oral 200 Other: Voiding Method Toilet Toilet Toilet Diaper Diaper Diaper # Voids 3 - Exam GENERAL EXAM: Alert, active, comfortable in no apparent distress. HEAD: Normocephalic. EYES: Normal reaction of pupils, equal size. NOSE: Clear with pink turbinates. THROAT: Slight erythema , no exudates. NECK: No masses, no JVD. CHEST: No chest wall deformity. LUNGS: Equal air entry with expiratory wheezing throughout. CVS: S1 and S2 normal with no audible mumurs, regular rhythm. ABDOMEN: No hepatosplenomegaly, normal bowel sounds, no guarding or rigidity. EXTREMITIES: No edema noted, pedal pulses palpable. SKIN: No rashes CENTRAL NERVOUS SYSTEM: No focal deficits, tone is normal in all 4 extremities. - Labs CBC & Chem 7: 08/07/16 07:50 08/07/16 07:50 Labs: Abnormal Lab Results - Last 24 Hours (Table) 08/06/16 08/06/16 08/07/16 Range/Units 17:18 20:06 01:39 WBC (3.8-10.6) k/uL Neutrophils # (1.3-7.7) k/uL Sodium (137-145) mmol/L Chloride (98-107) mmol/L BUN (7-17) mg/dL Glucose (74-99) mg/dL POC Glucose (mg/dL) 185 H 179 H 321 H (75-99) mg/dL 08/07/16 08/07/16 08/07/16 Range/Units 06:50 07:50 07:50 WBC 11.1 H (3.8-10.6) k/uL Neutrophils # 9.2 H (1.3-7.7) k/uL Sodium 135 L (137-145) mmol/L Chloride 97 L (98-107) mmol/L BUN 19 H (7-17) mg/dL Glucose 264 H (74-99) mg/dL POC Glucose (mg/dL) 286 H (75-99) mg/dL Assessment and Plan Plan: Assessment: Acute exacerbation of COPD Acute tracheobronchitis Non-small cell lung cancer Chronic persistent severe asthma Diabetes mellitus History of hypertension History of Hypothyroidism History of Hyperlipidemia We will continue the patient on the current treatment. Continue with her IV steroids and aerosol bronchodilators. We will add as needed updrafts to her already scheduled updrafts. Sputum culture pending. We will continue to monitor the patient's labs and make recommendations as necessary.
[2016-08-07] MEDS ORDERED: IV VANCOMYCIN PER PHARMACY 1 EACH MISC MISCELLANE PRN (11:06)
[2016-08-07 11:22] LABS: Glucose,Whole Blood 249 mg/dL (75-99)
[2016-08-07] MEDS: VANCOMYCIN 1,500 MG in SODIUM CHLORIDE 0.9% 250 ML IVPB SCH ×2 (12:00→20:08)
[2016-08-07] MEDS: CHOLECALCIFEROL 1,000 UNIT TAB PO SCH (12:02)
[2016-08-07] MEDS: MULTIVITAMINS, THERA 1 EACH TAB PO SCH (12:02)
[2016-08-07] MEDS: ESCITALOPRAM 10 MG TAB PO SCH ×2 (12:02→12:13)
[2016-08-07] MEDS ORDERED: INSULIN LISPRO (humaLOG) 300 UNIT/3 ML VIAL SQ SCH (12:30)
[2016-08-07 12:45] LABS: Hemoglobin A1C 9.9 % (4.2-6.1)
--- NOTE | 2016-08-07 13:17 | P.PN ---
Subjective Patient presented with worsening shortness of breath and cough. Being treated for COPD exacerbation and bronchitis. Still having wheezing. Pulmonary following. Patient denies any chest pain. Denies any nausea vomiting. Denies a bowel movement changes or urinary symptoms. Blood sugars have been elevated in the 200s to 300s. Insulin drip started. Objective - Vital Signs Vital signs: Vital Signs Temp 96.5 F L 08/07/16 07:00 Pulse 102 H 08/07/16 12:07 Resp 18 08/07/16 07:00 BP 120/75 08/07/16 07:00 Pulse Ox 100 08/07/16 07:22 Intake & Output 08/06/16 08/07/16 08/07/16 18:59 06:59 18:59 Intake Total 200 Balance 200 Intake: Oral 200 Other: Voiding Method Toilet Toilet Toilet Diaper Diaper Diaper # Voids 3 - Exam Head normocephalic Neck supple Lungs wheezing bilaterally Heart regular rate and rhythm S1-S2, no rub or gallop Abdomen is soft nontender nondistended positive bowel sounds no hepatosplenomegaly Extremities no edema Neuro alert and orientated to 3 - Labs CBC & Chem 7: 08/07/16 07:50 08/07/16 07:50 Labs: Abnormal Lab Results - Last 24 Hours (Table) 08/06/16 08/06/16 08/07/16 Range/Units 17:18 20:06 01:39 WBC (3.8-10.6) k/uL Neutrophils # (1.3-7.7) k/uL Sodium (137-145) mmol/L Chloride (98-107) mmol/L BUN (7-17) mg/dL Glucose (74-99) mg/dL POC Glucose (mg/dL) 185 H 179 H 321 H (75-99) mg/dL Hemoglobin A1c (4.2-6.1) % 08/07/16 08/07/16 08/07/16 Range/Units 06:50 07:50 07:50 WBC 11.1 H (3.8-10.6) k/uL Neutrophils # 9.2 H (1.3-7.7) k/uL Sodium 135 L (137-145) mmol/L Chloride 97 L (98-107) mmol/L BUN 19 H (7-17) mg/dL Glucose 264 H (74-99) mg/dL POC Glucose (mg/dL) 286 H (75-99) mg/dL Hemoglobin A1c (4.2-6.1) % 08/07/16 08/07/16 Range/Units 07:50 11:20 WBC (3.8-10.6) k/uL Neutrophils # (1.3-7.7) k/uL Sodium (137-145) mmol/L Chloride (98-107) mmol/L BUN (7-17) mg/dL Glucose (74-99) mg/dL POC Glucose (mg/dL) 249 H (75-99) mg/dL Hemoglobin A1c 9.9 H (4.2-6.1) % Assessment and Plan Plan: 1. Acute COPD exacerbation: Patient placed on IV Solu-Medrol. Continue bronchodilators. Pulmonary service following. 2. Diabetes mellitus type 2: With Hyperglycemia secondary to steroids. Patient started on insulin drip 3. History of lung cancer with previous chemo and radiation treatment and lobectomy 4. Diarrhea : Resolved unable to check stool for C. diff 5. Essential hypertension continue home medications 6. Hypothyroidism continue Synthroid 7. Hyperlipidemia continue Lipitor 8. Acute tracheobronchitis: Sputum culture growing gram-negative cocci and Gram -positive cocci in chains. Start patient on Zithromax and IV vancomycin. 9. Insomnia: Start melatonin DVT prophylaxis Lovenox and GI prophylaxis Pepcid
[2016-08-07 14:20] LABS: Glucose,Whole Blood 263 mg/dL (75-99)
[2016-08-07] MEDS: AZITHROMYCIN 500 MG in SODIUM CHLORIDE 0.9% 250 ML IVPB SCH (14:58)
[2016-08-07 16:08] LABS: Glucose,Whole Blood 288 mg/dL (75-99)
[2016-08-07 17:18] LABS: Glucose,Whole Blood 284 mg/dL (75-99)
[2016-08-07 18:57] LABS: Glucose,Whole Blood 359 mg/dL (75-99)
[2016-08-07] MEDS: INSULIN REGULAR 100 UNIT in SODIUM CHLORIDE 0.9% 100 ML IV SCH (19:01)
[2016-08-07 19:34] LABS: Glucose,Whole Blood 336 mg/dL (75-99)
[2016-08-07 20:01] LABS: Glucose,Whole Blood 305 mg/dL (75-99)
[2016-08-07] MEDS: MELATONIN 3 MG TABLET PO SCH (20:08)
[2016-08-07] MEDS: ATORVASTATIN 10 MG TAB PO SCH (20:09)
[2016-08-07] MEDS: FAMOTIDINE 20 MG TAB PO SCH (20:09)
[2016-08-07] MEDS: GEMFIBROZIL 600 MG TAB PO SCH (20:09)
[2016-08-07 20:39] LABS: Glucose,Whole Blood 250 mg/dL (75-99)
[2016-08-07 22:45] LABS: Glucose,Whole Blood 195 mg/dL (75-99)
[2016-08-08 00:29] LABS: Glucose,Whole Blood 194 mg/dL (75-99)
[2016-08-08] MEDS: HYDROcodone/APAP 10-325MG 1 EACH TAB PO PRN ×3 (02:21→20:42)
[2016-08-08] MEDS: SODIUM CHLORIDE 0.9% 1,000 ML IV SCH ×3 (02:25→20:28)
[2016-08-08 02:37] LABS: Glucose,Whole Blood 164 mg/dL (75-99)
[2016-08-08] MEDS: INSULIN REGULAR 100 UNIT in SODIUM CHLORIDE 0.9% 100 ML IV SCH ×2 (02:39→20:38)
[2016-08-08] MEDS: IPRATROPIUM-ALBUTEROL 3 ML NEB INHALATION PRN (03:22)
[2016-08-08 04:34] LABS: Glucose,Whole Blood 151 mg/dL (75-99)
[2016-08-08] MEDS: LEVOTHYROXINE 25 MCG TAB PO SCH (05:12)
[2016-08-08] MEDS: methylPREDNISolone SOD SUCCI 125 MG/2 ML VIAL IV SCH ×2 (05:12→12:32)
[2016-08-08 06:21] LABS: Glucose,Whole Blood 162 mg/dL (75-99)
[2016-08-08] MEDS: INSULIN LISPRO (humaLOG) 300 UNIT/3 ML VIAL SQ SCH ×3 (07:52→17:07)
[2016-08-08] MEDS: ENOXAPARIN 40 MG/0.4 ML SYRINGE SQ SCH (07:53)
[2016-08-08] MEDS: BUDESONIDE 0.5 MG/2 ML NEBU INHALATION SCH ×2 (07:56→18:59)
[2016-08-08] MEDS: IPRATROPIUM-ALBUTEROL 3 ML NEB INHALATION SCH ×4 (07:56→18:59)
[2016-08-08] MEDS: AZITHROMYCIN 500 MG in SODIUM CHLORIDE 0.9% 250 ML IVPB SCH (07:57)
[2016-08-08] MEDS: metFORMIN 500 MG TAB PO SCH ×2 (07:57→17:07)
[2016-08-08] MEDS: PANTOPRAZOLE 40 MG TABLET PO SCH ×2 (07:57→17:07)
[2016-08-08] MEDS: MAGNESIUM OXIDE 400 MG TAB PO SCH (07:58)
[2016-08-08] MEDS: MONTELUKAST 10 MG TAB PO SCH (07:58)
[2016-08-08] MEDS: LOSARTAN 25 MG TAB PO SCH (07:58)
[2016-08-08] MEDS: SPIRONOLACTONE-HCTZ 25-25MG 1 EACH TAB PO SCH (07:58)
[2016-08-08] MEDS: LORATADINE 10 MG TAB PO SCH (07:58)
[2016-08-08] MEDS: PROMETHAZ-COD 6.25-10 MG/5 ML 5 ML CUP PO SCH ×3 (08:03→22:07)
--- NOTE | 2016-08-08 08:09 | P.PN ---
Subjective Carleen Devries is a 31-year-old female patient being evaluated and examined today on the fourth floor. The patient came in the emergency room with cough congestion shortness of breath. She was admitted to the hospital with acute exacerbation of COPD. Chest has a history of lung cancer and chronic persistent asthma severe in nature. Her home breathing treatments were not working for her. Since admission she has been getting IV steroids and updrafts and has been improving. She states that her cough has decreased as well as her congestion. During the time of examination the patient is not using oxygen and is resting comfortably, however she refused her breakfast tray this morning stating she didn't have an appetite. Objective - Vital Signs Vital signs: Vital Signs Temp 96.5 F L 08/07/16 23:00 Pulse 88 08/08/16 07:56 Resp 18 08/07/16 23:00 BP 119/71 08/07/16 23:00 Pulse Ox 98 08/08/16 07:56 Intake & Output 08/07/16 08/08/16 08/08/16 18:59 06:59 18:59 Intake Total 62.366 Balance 62.366 Intake: Intake, IV Titration 62.366 Amount Insulin Regular 100 unit 62.366 In Sodium Chloride 0.9% 100 ml @ Titrate IV .Q0M [facility] Rx#:[id number] Other: Voiding Method Toilet Toilet Diaper Diaper # Voids 2 - Exam GENERAL EXAM: Alert, active, comfortable in no apparent distress. HEAD: Normocephalic. EYES: Normal reaction of pupils, equal size. NOSE: Clear with pink turbinates. THROAT: Slight erythema , no exudates. NECK: No masses, no JVD. CHEST: No chest wall deformity. LUNGS: Equal air entry with expiratory wheezing throughout. CVS: S1 and S2 normal with no audible mumurs, regular rhythm. ABDOMEN: No hepatosplenomegaly, normal bowel sounds, no guarding or rigidity. EXTREMITIES: No edema noted, pedal pulses palpable. SKIN: No rashes CENTRAL NERVOUS SYSTEM: No focal deficits, tone is normal in all 4 extremities. - Labs CBC & Chem 7: 08/07/16 07:50 08/07/16 07:50 Labs: Abnormal Lab Results - Last 24 Hours (Table) 08/07/16 08/07/16 08/07/16 Range/Units 07:50 07:50 07:50 WBC 11.1 H (3.8-10.6) k/uL Neutrophils # 9.2 H (1.3-7.7) k/uL Sodium 135 L (137-145) mmol/L Chloride 97 L (98-107) mmol/L BUN 19 H (7-17) mg/dL Glucose 264 H (74-99) mg/dL POC Glucose (mg/dL) (75-99) mg/dL Hemoglobin A1c 9.9 H (4.2-6.1) % 08/07/16 08/07/16 08/07/16 Range/Units 11:20 14:18 16:06 WBC (3.8-10.6) k/uL Neutrophils # (1.3-7.7) k/uL Sodium (137-145) mmol/L Chloride (98-107) mmol/L BUN (7-17) mg/dL Glucose (74-99) mg/dL POC Glucose (mg/dL) 249 H 263 H 288 H (75-99) mg/dL Hemoglobin A1c (4.2-6.1) % 08/07/16 08/07/16 08/07/16 Range/Units 17:16 18:53 19:33 WBC (3.8-10.6) k/uL Neutrophils # (1.3-7.7) k/uL Sodium (137-145) mmol/L Chloride (98-107) mmol/L BUN (7-17) mg/dL Glucose (74-99) mg/dL POC Glucose (mg/dL) 284 H 359 H 336 H (75-99) mg/dL Hemoglobin A1c (4.2-6.1) % 08/07/16 08/07/16 08/07/16 Range/Units 20:00 20:37 22:41 WBC (3.8-10.6) k/uL Neutrophils # (1.3-7.7) k/uL Sodium (137-145) mmol/L Chloride (98-107) mmol/L BUN (7-17) mg/dL Glucose (74-99) mg/dL POC Glucose (mg/dL) 305 H 250 H 195 H (75-99) mg/dL Hemoglobin A1c (4.2-6.1) % 08/08/16 08/08/16 08/08/16 Range/Units 00:26 02:36 04:31 WBC (3.8-10.6) k/uL Neutrophils # (1.3-7.7) k/uL Sodium (137-145) mmol/L Chloride (98-107) mmol/L BUN (7-17) mg/dL Glucose (74-99) mg/dL POC Glucose (mg/dL) 194 H 164 H 151 H (75-99) mg/dL Hemoglobin A1c (4.2-6.1) % 08/08/16 Range/Units 06:19 WBC (3.8-10.6) k/uL Neutrophils # (1.3-7.7) k/uL Sodium (137-145) mmol/L Chloride (98-107) mmol/L BUN (7-17) mg/dL Glucose (74-99) mg/dL POC Glucose (mg/dL) 162 H (75-99) mg/dL Hemoglobin A1c (4.2-6.1) % Assessment and Plan Plan: Assessment: Acute exacerbation of COPD Acute tracheobronchitis Non-small cell lung cancer Chronic persistent severe asthma Diabetes mellitus History of hypertension History of Hypothyroidism History of Hyperlipidemia We will continue the patient on the current treatment. Continue with her IV steroids and aerosol bronchodilators. She was started on insulin drip yesterday for high blood sugars with her steroids we will continue to monitor and treat per protocol. We will continue to monitor the patient's labs and make recommendations as necessary.
[2016-08-08 08:38] LABS: Glucose,Whole Blood 190 mg/dL (75-99)
[2016-08-08 08:53] LABS: Anion Gap 14 mmol/L; Calcium 9.3 mg/dL (8.4-10.2); Carbon Dioxide 23 mmol/L (22-30); Chloride 100 mmol/L (98-107); Glucose 169 mg/dL (74-99); Non-African American GFR(MDRD) >60 (>60 ml/min/1.73 sqM); Sodium 137 mmol/L (137-145); Total Bilirubin 0.6 mg/dL (0.2-1.3); Total Protein 6.5 g/dL (6.3-8.2)
[2016-08-08 08:58] LABS: Blood Urea Nitrogen 20 mg/dL (7-17); Potassium 4.8 mmol/L (3.5-5.1)
[2016-08-08 08:59] LABS: ALT 32 U/L (9-52); AST 27 U/L (14-36); Alkaline Phosphatase 83 U/L (38-126)
[2016-08-08 09:00] LABS: Basophils # (A) 0.1 k/uL (0-0.2); Basophils % (A) 1 %; CH 29.7; CHCM 31.5; Eosinophils % (A) 0 %; HCT 41.3 % (34.0-46.0); HDW 2.76; HGB 12.9 gm/dL (11.4-16.0); Hypochromasia Slight; Luc # (Auto) 0.22; Luc % (Auto) 2; Lymphocytes # (A) 1.3 k/uL (1.0-4.8); Lymphocytes % (A) 13 %; MCH 29.5 pg (25.0-35.0); MCHC 31.2 g/dL (31.0-37.0); MCV 94.6 fL (80.0-100.0); Mean Platelet Volume 7.3; Monocytes # (A) 0.3 k/uL (0-1.0); Monocytes % (A) 3 %; Neutrophils % (A) 82 %; RBC 4.37 m/uL (3.80-5.40); RDW 13.8 % (11.5-15.5); WBC 9.8 k/uL (3.8-10.6); WBC (Perox) 10.17
[2016-08-08] MEDS: VANCOMYCIN 1,500 MG in SODIUM CHLORIDE 0.9% 250 ML IVPB SCH ×2 (09:59→20:29)
[2016-08-08 10:40] LABS: Glucose,Whole Blood 214 mg/dL (75-99)
[2016-08-08 12:29] LABS: Glucose,Whole Blood 203 mg/dL (75-99)
[2016-08-08] MEDS: CHOLECALCIFEROL 1,000 UNIT TAB PO SCH (12:32)
[2016-08-08] MEDS: MULTIVITAMINS, THERA 1 EACH TAB PO SCH (12:32)
[2016-08-08 14:25] LABS: Glucose,Whole Blood 244 mg/dL (75-99)
--- NOTE | 2016-08-08 14:40 | P.PN ---
Subjective Patient still complaining of wheezing today. Shortness of breath is improving. Objective - Vital Signs Vital signs: Vital Signs Temp 96.5 F L 08/08/16 07:00 Pulse 92 08/08/16 11:37 Resp 16 08/08/16 07:00 BP 128/83 08/08/16 07:00 Pulse Ox 98 08/08/16 07:56 Intake & Output 08/07/16 08/08/16 08/08/16 18:59 06:59 18:59 Intake Total 62.366 27.417 Balance 62.366 27.417 Intake: Intake, IV Titration 62.366 27.417 Amount Insulin Regular 100 unit 62.366 27.417 In Sodium Chloride 0.9% 100 ml @ Titrate IV .Q0M [facility] Rx#:[id number] Other: Voiding Method Toilet Toilet Toilet Diaper Diaper Diaper # Voids 2 1 - Exam General: The patient is awake and alert, in no distress Eye: there is normal conjunctiva bilaterally. Neck: The neck is supple, there is no JVD. Cardiovascular: Normal S1-S2, no S3-S4, no murmurs. Respiratory: Lungs are diminished with end-expiratory wheezing Gastrointestinal: Abdomen is soft, nontender Musculoskeletal: There is no pedal edema. Neurological:. Speech is normal. Skin: Skin is warm and dry - Labs CBC & Chem 7: 08/08/16 08:02 08/08/16 08:02 Labs: Abnormal Lab Results - Last 24 Hours (Table) 08/07/16 08/07/16 08/07/16 Range/Units 16:06 17:16 18:53 Neutrophils # (1.3-7.7) k/uL BUN (7-17) mg/dL Glucose (74-99) mg/dL POC Glucose (mg/dL) 288 H 284 H 359 H (75-99) mg/dL 08/07/16 08/07/16 08/07/16 Range/Units 19:33 20:00 20:37 Neutrophils # (1.3-7.7) k/uL BUN (7-17) mg/dL Glucose (74-99) mg/dL POC Glucose (mg/dL) 336 H 305 H 250 H (75-99) mg/dL 08/07/16 08/08/16 08/08/16 Range/Units 22:41 00:26 02:36 Neutrophils # (1.3-7.7) k/uL BUN (7-17) mg/dL Glucose (74-99) mg/dL POC Glucose (mg/dL) 195 H 194 H 164 H (75-99) mg/dL 08/08/16 08/08/16 08/08/16 Range/Units 04:31 06:19 08:02 Neutrophils # 8.0 H (1.3-7.7) k/uL BUN (7-17) mg/dL Glucose (74-99) mg/dL POC Glucose (mg/dL) 151 H 162 H (75-99) mg/dL 08/08/16 08/08/16 08/08/16 Range/Units 08:02 08:35 10:38 Neutrophils # (1.3-7.7) k/uL BUN 20 H (7-17) mg/dL Glucose 169 H (74-99) mg/dL POC Glucose (mg/dL) 190 H 214 H (75-99) mg/dL 08/08/16 08/08/16 Range/Units 12:28 14:23 Neutrophils # (1.3-7.7) k/uL BUN (7-17) mg/dL Glucose (74-99) mg/dL POC Glucose (mg/dL) 203 H 244 H (75-99) mg/dL
[2016-08-08] MEDS: methylPREDNISolone SOD SUCCI 40 MG/ML 1 ML VIAL IV SCH ×2 (16:17→23:19)
[2016-08-08 16:40] LABS: Glucose,Whole Blood 261 mg/dL (75-99)
[2016-08-08 18:34] LABS: Glucose,Whole Blood 253 mg/dL (75-99)
[2016-08-08] MEDS ORDERED: VANCOMYCIN TROUGH DUE 1 EACH MISC MISCELLANE ONE (20:00)
[2016-08-08] MEDS: ATORVASTATIN 10 MG TAB PO SCH (20:32)
[2016-08-08] MEDS: GEMFIBROZIL 600 MG TAB PO SCH (20:32)
[2016-08-08] MEDS: FAMOTIDINE 20 MG TAB PO SCH (20:32)
[2016-08-08 20:38] LABS: Glucose,Whole Blood 185 mg/dL (75-99)
[2016-08-08] MEDS: MELATONIN 3 MG TABLET PO SCH (22:08)
[2016-08-08 22:43] LABS: Glucose,Whole Blood 243 mg/dL (75-99)
[2016-08-08 22:43] LABS: Glucose,Whole Blood 227 mg/dL (75-99)
[2016-08-09] MEDS: IPRATROPIUM-ALBUTEROL 3 ML NEB INHALATION PRN (00:37)
[2016-08-09 00:51] LABS: Glucose,Whole Blood 182 mg/dL (75-99)
[2016-08-09 02:39] LABS: Glucose,Whole Blood 149 mg/dL (75-99)
[2016-08-09 04:36] LABS: Glucose,Whole Blood 150 mg/dL (75-99)
[2016-08-09] MEDS: HYDROcodone/APAP 10-325MG 1 EACH TAB PO PRN ×3 (04:46→20:52)
[2016-08-09] MEDS: SODIUM CHLORIDE 0.9% 1,000 ML IV SCH ×3 (05:46→20:46)
[2016-08-09] MEDS: LEVOTHYROXINE 25 MCG TAB PO SCH (05:46)
[2016-08-09 06:29] LABS: Glucose,Whole Blood 158 mg/dL (75-99)
[2016-08-09] MEDS: BUDESONIDE 0.5 MG/2 ML NEBU INHALATION SCH ×2 (07:45→19:11)
[2016-08-09] MEDS: IPRATROPIUM-ALBUTEROL 3 ML NEB INHALATION SCH ×4 (07:45→19:09)
[2016-08-09 08:20] LABS: Basophils % (A) 0 %; CH 30.3; CHCM 33.9; Eosinophils # (A) 0.1 k/uL (0-0.7); Eosinophils % (A) 1 %; HCT 39.4 % (34.0-46.0); HDW 2.83; Luc # (Auto) 0.24; Luc % (Auto) 2; Lymphocytes # (A) 1.9 k/uL (1.0-4.8); Lymphocytes % (A) 17 %; MCH 29.5 pg (25.0-35.0); MCHC 32.9 g/dL (31.0-37.0); MCV 89.7 fL (80.0-100.0); Mean Platelet Volume 7.4; Monocytes # (A) 0.5 k/uL (0-1.0); Monocytes % (A) 4 %; Neutrophils # (A) 8.3 k/uL (1.3-7.7); Neutrophils % (A) 75 %; RBC 4.39 m/uL (3.80-5.40); RDW 14.1 % (11.5-15.5); WBC (Perox) 11.39
[2016-08-09 08:24] LABS: Glucose,Whole Blood 228 mg/dL (75-99)
[2016-08-09] MEDS: INSULIN LISPRO (humaLOG) 300 UNIT/3 ML VIAL SQ SCH ×3 (08:31→18:01)
[2016-08-09] MEDS: PANTOPRAZOLE 40 MG TABLET PO SCH ×2 (08:33→18:02)
[2016-08-09] MEDS: metFORMIN 500 MG TAB PO SCH ×2 (08:33→18:02)
[2016-08-09] MEDS: methylPREDNISolone SOD SUCCI 40 MG/ML 1 ML VIAL IV SCH ×2 (08:34→20:45)
[2016-08-09] MEDS: AZITHROMYCIN 500 MG in SODIUM CHLORIDE 0.9% 250 ML IVPB SCH (08:34)
[2016-08-09] MEDS: ENOXAPARIN 40 MG/0.4 ML SYRINGE SQ SCH (08:34)
[2016-08-09] MEDS: MONTELUKAST 10 MG TAB PO SCH (08:35)
[2016-08-09] MEDS: LOSARTAN 25 MG TAB PO SCH (08:35)
[2016-08-09] MEDS: MAGNESIUM OXIDE 400 MG TAB PO SCH (08:35)
[2016-08-09] MEDS: SPIRONOLACTONE-HCTZ 25-25MG 1 EACH TAB PO SCH (08:36)
[2016-08-09] MEDS: LORATADINE 10 MG TAB PO SCH (08:36)
[2016-08-09 08:48] LABS: Anion Gap 11 mmol/L; Calcium 9.3 mg/dL (8.4-10.2); Carbon Dioxide 22 mmol/L (22-30); Chloride 105 mmol/L (98-107); Glucose 199 mg/dL (74-99); Non-African American GFR(MDRD) >60 (>60 ml/min/1.73 sqM); Sodium 138 mmol/L (137-145); Total Bilirubin 0.7 mg/dL (0.2-1.3)
[2016-08-09 08:59] LABS: ALT 32 U/L (9-52); AST 35 U/L (14-36); Alkaline Phosphatase 64 U/L (38-126); Blood Urea Nitrogen 18 mg/dL (7-17); Potassium 5.6 mmol/L (3.5-5.1); Total Protein 6.3 g/dL (6.3-8.2)
[2016-08-09] MEDS: PROMETHAZ-COD 6.25-10 MG/5 ML 5 ML CUP PO SCH ×2 (09:18→20:51)
--- NOTE | 2016-08-09 10:24 | P.PN ---
Subjective Carleen Devries is a 31-year-old female patient being evaluated and examined today on the fourth floor. The patient came in the emergency room with cough congestion shortness of breath. She was admitted to the hospital with acute exacerbation of COPD. Chest has a history of lung cancer and chronic persistent asthma severe in nature. Her home breathing treatments were not working for her. Since admission she has been getting IV steroids and updrafts and has been improving. She states that her cough has decreased as well as her congestion. During the time of examination the patient is not using oxygen and is resting comfortably, she continues on an insulin drip at this time. Objective - Vital Signs Vital signs: Vital Signs Temp 96.0 F L 08/09/16 07:00 Pulse 88 08/09/16 08:05 Resp 18 08/09/16 07:00 BP 137/82 08/09/16 07:00 Pulse Ox 96 08/09/16 07:46 Intake & Output 08/08/16 08/09/16 08/09/16 18:59 06:59 18:59 Intake Total 49.050 311.051 5.542 Balance 49.050 311.051 5.542 Intake: Intake, IV Titration 49.050 311.051 5.542 Amount Insulin Regular 100 unit 49.050 61.051 5.542 In Sodium Chloride 0.9% 100 ml @ Titrate IV .Q0M [facility] Rx#:[id number] Vancomycin 1,500 mg In 250 Sodium Chloride 0.9% 250 ml @ 125 mls/hr IVPB Q12HR [facility] Rx#:[id number] Other: Voiding Method Toilet Diaper # Voids 2 2 1 - Exam GENERAL EXAM: Alert, active, comfortable in no apparent distress. HEAD: Normocephalic. EYES: Normal reaction of pupils, equal size. NOSE: Clear with pink turbinates. THROAT: Slight erythema , no exudates. NECK: No masses, no JVD. CHEST: No chest wall deformity. LUNGS: Equal air entry bilaterally. No wheezing rhonchi or rales noted. Breathing is even and unlabored. CVS: S1 and S2 normal with no audible mumurs, regular rhythm. ABDOMEN: No hepatosplenomegaly, normal bowel sounds, no guarding or rigidity. EXTREMITIES: No edema noted, pedal pulses palpable. SKIN: No rashes CENTRAL NERVOUS SYSTEM: No focal deficits, tone is normal in all 4 extremities. - Labs CBC & Chem 7: 08/09/16 07:51 08/09/16 07:51 Labs: Abnormal Lab Results - Last 24 Hours (Table) 08/08/16 08/08/16 08/08/16 Range/Units 10:38 12:28 14:23 WBC (3.8-10.6) k/uL Neutrophils # (1.3-7.7) k/uL Potassium (3.5-5.1) mmol/L BUN (7-17) mg/dL Glucose (74-99) mg/dL POC Glucose (mg/dL) 214 H 203 H 244 H (75-99) mg/dL Albumin (3.5-5.0) g/dL 08/08/16 08/08/16 08/08/16 Range/Units 16:32 18:32 20:36 WBC (3.8-10.6) k/uL Neutrophils # (1.3-7.7) k/uL Potassium (3.5-5.1) mmol/L BUN (7-17) mg/dL Glucose (74-99) mg/dL POC Glucose (mg/dL) 261 H 253 H 185 H (75-99) mg/dL Albumin (3.5-5.0) g/dL 08/08/16 08/08/16 08/09/16 Range/Units 22:38 22:40 00:39 WBC (3.8-10.6) k/uL Neutrophils # (1.3-7.7) k/uL Potassium (3.5-5.1) mmol/L BUN (7-17) mg/dL Glucose (74-99) mg/dL POC Glucose (mg/dL) 243 H 227 H 182 H (75-99) mg/dL Albumin (3.5-5.0) g/dL 08/09/16 08/09/16 08/09/16 Range/Units 02:37 04:34 06:28 WBC (3.8-10.6) k/uL Neutrophils # (1.3-7.7) k/uL Potassium (3.5-5.1) mmol/L BUN (7-17) mg/dL Glucose (74-99) mg/dL POC Glucose (mg/dL) 149 H 150 H 158 H (75-99) mg/dL Albumin (3.5-5.0) g/dL 08/09/16 08/09/16 08/09/16 Range/Units 07:51 07:51 08:22 WBC 11.0 H (3.8-10.6) k/uL Neutrophils # 8.3 H (1.3-7.7) k/uL Potassium 5.6 H (3.5-5.1) mmol/L BUN 18 H (7-17) mg/dL Glucose 199 H (74-99) mg/dL POC Glucose (mg/dL) 228 H (75-99) mg/dL Albumin 3.4 L (3.5-5.0) g/dL Assessment and Plan Plan: Assessment: Acute exacerbation of COPD Acute tracheobronchitis Non-small cell lung cancer Chronic persistent severe asthma Diabetes mellitus History of hypertension History of Hypothyroidism History of Hyperlipidemia We will continue the patient on the current treatment. Continue with aerosolized bronchodilators. I have further decreased for IV Solu-Medrol. The patient should be able to come off the insulin drip due to the decrease in steroids, once her blood sugars per minute. We will continue to monitor the patient's labs and make recommendations as necessary. The patient could be discharged in the near future.
[2016-08-09 10:41] LABS: Glucose,Whole Blood 180 mg/dL (75-99)
[2016-08-09] MEDS: INSULIN REGULAR 100 UNIT in SODIUM CHLORIDE 0.9% 100 ML IV SCH (10:43)
[2016-08-09] MEDS: CHOLECALCIFEROL 1,000 UNIT TAB PO SCH (11:36)
[2016-08-09] MEDS: MULTIVITAMINS, THERA 1 EACH TAB PO SCH (11:36)
[2016-08-09 12:29] LABS: Glucose,Whole Blood 100 mg/dL (75-99)
[2016-08-09] MEDS: VANCOMYCIN 1,750 MG in SODIUM CHLORIDE 0.9% 250 ML IVPB SCH ×2 (12:33→20:59)
--- NOTE | 2016-08-09 13:23 | P.PN ---
Subjective Patient still complaining of wheezing today. Shortness of breath is improving. Objective - Vital Signs Vital signs: Vital Signs Temp 96.0 F L 08/09/16 07:00 Pulse 92 08/09/16 11:18 Resp 18 08/09/16 07:00 BP 137/82 08/09/16 07:00 Pulse Ox 96 08/09/16 07:46 Intake & Output 08/08/16 08/09/16 08/09/16 18:59 06:59 18:59 Intake Total 49.050 311.051 20.942 Balance 49.050 311.051 20.942 Intake: Intake, IV Titration 49.050 311.051 20.942 Amount Insulin Regular 100 unit 49.050 61.051 20.942 In Sodium Chloride 0.9% 100 ml @ Titrate IV .Q0M [facility] Rx#:[id number] Vancomycin 1,500 mg In 250 Sodium Chloride 0.9% 250 ml @ 125 mls/hr IVPB Q12HR [facility] Rx#:[id number] Other: Voiding Method Toilet Diaper # Voids 2 2 1 - Exam General: The patient is awake and alert, in no distress Eye: there is normal conjunctiva bilaterally. Neck: The neck is supple, there is no JVD. Cardiovascular: Normal S1-S2, no S3-S4, no murmurs. Respiratory: Lungs are diminished with end-expiratory wheezing Gastrointestinal: Abdomen is soft, nontender Musculoskeletal: There is no pedal edema. Neurological:. Speech is normal. Skin: Skin is warm and dry - Labs CBC & Chem 7: 08/09/16 07:51 08/09/16 07:51 Labs: Abnormal Lab Results - Last 24 Hours (Table) 08/08/16 08/08/16 08/08/16 Range/Units 14:23 16:32 18:32 WBC (3.8-10.6) k/uL Neutrophils # (1.3-7.7) k/uL Potassium (3.5-5.1) mmol/L BUN (7-17) mg/dL Glucose (74-99) mg/dL POC Glucose (mg/dL) 244 H 261 H 253 H (75-99) mg/dL Albumin (3.5-5.0) g/dL 08/08/16 08/08/16 08/08/16 Range/Units 20:36 22:38 22:40 WBC (3.8-10.6) k/uL Neutrophils # (1.3-7.7) k/uL Potassium (3.5-5.1) mmol/L BUN (7-17) mg/dL Glucose (74-99) mg/dL POC Glucose (mg/dL) 185 H 243 H 227 H (75-99) mg/dL Albumin (3.5-5.0) g/dL 08/09/16 08/09/16 08/09/16 Range/Units 00:39 02:37 04:34 WBC (3.8-10.6) k/uL Neutrophils # (1.3-7.7) k/uL Potassium (3.5-5.1) mmol/L BUN (7-17) mg/dL Glucose (74-99) mg/dL POC Glucose (mg/dL) 182 H 149 H 150 H (75-99) mg/dL Albumin (3.5-5.0) g/dL 08/09/16 08/09/16 08/09/16 Range/Units 06:28 07:51 07:51 WBC 11.0 H (3.8-10.6) k/uL Neutrophils # 8.3 H (1.3-7.7) k/uL Potassium 5.6 H (3.5-5.1) mmol/L BUN 18 H (7-17) mg/dL Glucose 199 H (74-99) mg/dL POC Glucose (mg/dL) 158 H (75-99) mg/dL Albumin 3.4 L (3.5-5.0) g/dL 08/09/16 08/09/16 08/09/16 Range/Units 08:22 10:39 12:27 WBC (3.8-10.6) k/uL Neutrophils # (1.3-7.7) k/uL Potassium (3.5-5.1) mmol/L BUN (7-17) mg/dL Glucose (74-99) mg/dL POC Glucose (mg/dL) 228 H 180 H 100 H (75-99) mg/dL Albumin (3.5-5.0) g/dL Assessment and Plan Plan: 1. Acute COPD exacerbation: Patient placed on IV Solu-Medrol. Continue bronchodilators. Pulmonary service following. 2. Diabetes mellitus type 2: With Hyperglycemia secondary to steroids. Patient started on insulin drip 3. History of lung cancer with previous chemo and radiation treatment and lobectomy 4. Diarrhea : Resolved unable to check stool for C. diff 5. Essential hypertension continue home medications 6. Hypothyroidism continue Synthroid 7. Hyperlipidemia continue Lipitor 8. Acute tracheobronchitis: Sputum culture growing gram-negative cocci and Gram -positive cocci in chains. Start patient on Zithromax and IV vancomycin. 9. Insomnia: Start melatonin DVT prophylaxis Lovenox and GI prophylaxis Pepcid
[2016-08-09 13:40] LABS: Glucose,Whole Blood 195 mg/dL (75-99)
[2016-08-09 14:43] LABS: Glucose,Whole Blood 214 mg/dL (75-99)
[2016-08-09 16:36] LABS: Glucose,Whole Blood 181 mg/dL (75-99)
[2016-08-09 18:41] LABS: Glucose,Whole Blood 182 mg/dL (75-99)
[2016-08-09] MEDS: FAMOTIDINE 20 MG TAB PO SCH (20:44)
[2016-08-09] MEDS: ATORVASTATIN 10 MG TAB PO SCH (20:44)
[2016-08-09] MEDS: MELATONIN 3 MG TABLET PO SCH (20:44)
[2016-08-09] MEDS: GEMFIBROZIL 600 MG TAB PO SCH (20:44)
[2016-08-09 20:56] LABS: Glucose,Whole Blood 137 mg/dL (75-99)
[2016-08-09 22:58] LABS: Glucose,Whole Blood 170 mg/dL (75-99)
[2016-08-10 00:33] LABS: Glucose,Whole Blood 243 mg/dL (75-99)
[2016-08-10 02:33] LABS: Glucose,Whole Blood 226 mg/dL (75-99)
[2016-08-10] MEDS: HYDROcodone/APAP 10-325MG 1 EACH TAB PO PRN ×2 (02:44→07:53)
[2016-08-10] MEDS: PROMETHAZ-COD 6.25-10 MG/5 ML 5 ML CUP PO SCH ×2 (02:45→07:59)
[2016-08-10] MEDS: IPRATROPIUM-ALBUTEROL 3 ML NEB INHALATION PRN (02:45)
[2016-08-10 04:40] LABS: Glucose,Whole Blood 194 mg/dL (75-99)
[2016-08-10] MEDS: LEVOTHYROXINE 25 MCG TAB PO SCH (05:01)
[2016-08-10 06:58] LABS: Glucose,Whole Blood 162 mg/dL (75-99)
[2016-08-10] MEDS: IPRATROPIUM-ALBUTEROL 3 ML NEB INHALATION SCH ×2 (07:13→11:14)
[2016-08-10] MEDS: BUDESONIDE 0.5 MG/2 ML NEBU INHALATION SCH (07:13)
[2016-08-10 07:49] VITALS: BP 118/71; RESP 18; TEMP 97.2
[2016-08-10] MEDS: VANCOMYCIN 1,750 MG in SODIUM CHLORIDE 0.9% 250 ML IVPB SCH (07:52)
[2016-08-10] MEDS: MONTELUKAST 10 MG TAB PO SCH (07:57)
[2016-08-10] MEDS: SPIRONOLACTONE-HCTZ 25-25MG 1 EACH TAB PO SCH (07:57)
[2016-08-10 08:26] LABS: Glucose,Whole Blood 212 mg/dL (75-99)
[2016-08-10 08:32] LABS: Basophils % (A) 0 %; CH 30.1; CHCM 33.2; Eosinophils % (A) 1 %; HCT 42.3 % (34.0-46.0); HDW 2.77; HGB 13.4 gm/dL (11.4-16.0); Luc # (Auto) 0.23; Luc % (Auto) 3; Lymphocytes # (A) 1.8 k/uL (1.0-4.8); Lymphocytes % (A) 20 %; MCH 28.8 pg (25.0-35.0); MCHC 31.7 g/dL (31.0-37.0); Mean Platelet Volume 7.6; Monocytes # (A) 0.3 k/uL (0-1.0); Monocytes % (A) 3 %; Neutrophils # (A) 6.7 k/uL (1.3-7.7); Neutrophils % (A) 73 %; RBC 4.65 m/uL (3.80-5.40); RDW 14.1 % (11.5-15.5); WBC 9.1 k/uL (3.8-10.6)
[2016-08-10] MEDS: metFORMIN 500 MG TAB PO SCH (08:38)
[2016-08-10] MEDS: PANTOPRAZOLE 40 MG TABLET PO SCH (08:38)
[2016-08-10] MEDS: INSULIN REGULAR 100 UNIT in SODIUM CHLORIDE 0.9% 100 ML IV SCH (08:39)
[2016-08-10] MEDS: AZITHROMYCIN 500 MG in SODIUM CHLORIDE 0.9% 250 ML IVPB SCH (08:45)
[2016-08-10] MEDS: ENOXAPARIN 40 MG/0.4 ML SYRINGE SQ SCH (08:45)
[2016-08-10] MEDS: MAGNESIUM OXIDE 400 MG TAB PO SCH (08:48)
[2016-08-10] MEDS: INSULIN LISPRO (humaLOG) 300 UNIT/3 ML VIAL SQ SCH ×2 (08:48→12:17)
[2016-08-10] MEDS: LORATADINE 10 MG TAB PO SCH (08:48)
[2016-08-10] MEDS: LOSARTAN 25 MG TAB PO SCH (08:48)
[2016-08-10] MEDS: methylPREDNISolone SOD SUCCI 40 MG/ML 1 ML VIAL IV SCH (08:49)
[2016-08-10 08:54] LABS: ALT 35 U/L (9-52); AST 30 U/L (14-36); Alkaline Phosphatase 83 U/L (38-126); Anion Gap 14 mmol/L; Blood Urea Nitrogen 19 mg/dL (7-17); Calcium 9.3 mg/dL (8.4-10.2); Carbon Dioxide 22 mmol/L (22-30); Chloride 101 mmol/L (98-107); Glucose 192 mg/dL (74-99); Non-African American GFR(MDRD) >60 (>60 ml/min/1.73 sqM); Potassium 4.5 mmol/L (3.5-5.1); Sodium 137 mmol/L (137-145); Total Bilirubin 0.6 mg/dL (0.2-1.3); Total Protein 6.2 g/dL (6.3-8.2)
[2016-08-10 10:41] LABS: Glucose,Whole Blood 149 mg/dL (75-99)
--- NOTE | 2016-08-10 10:46 | P.PN ---
Subjective Carleen Devries is a 31-year-old female patient being evaluated and examined today on the fourth floor. The patient came in the emergency room with cough congestion shortness of breath. She was admitted to the hospital with acute exacerbation of COPD. Chest has a history of lung cancer and chronic persistent asthma severe in nature. Her home breathing treatments were not working for her. Since admission she has been getting IV steroids and updrafts and has been improving. During the time of examination the patient is not using oxygen and is resting comfortably, she denies any cough, sputum production , wheezing or congestion. Objective - Vital Signs Vital signs: Vital Signs Temp 97.2 F L 08/10/16 07:00 Pulse 86 08/10/16 07:30 Resp 18 08/10/16 07:00 BP 118/71 08/10/16 07:00 Pulse Ox 95 08/10/16 07:15 Intake & Output 08/09/16 08/10/16 08/10/16 18:59 06:59 18:59 Intake Total 233.384 152.992 3.6 Balance 233.384 152.992 3.6 Intake: Intake, IV Titration 33.384 32.992 3.6 Amount Insulin Regular 100 unit 33.384 32.992 3.6 In Sodium Chloride 0.9% 100 ml @ Titrate IV .Q0M [facility] Rx#:[id number] Oral 200 120 Other: # Voids 6 2 # Bowel Movements 0 0 - Exam GENERAL EXAM: Alert, active, comfortable in no apparent distress. HEAD: Normocephalic. EYES: Normal reaction of pupils, equal size. NOSE: Clear with pink turbinates. THROAT: Slight erythema , no exudates. NECK: No masses, no JVD. CHEST: No chest wall deformity. LUNGS: Equal air entry bilaterally. No wheezing rhonchi or rales noted. Breathing is even and unlabored. CVS: S1 and S2 normal with no audible mumurs, regular rhythm. ABDOMEN: No hepatosplenomegaly, normal bowel sounds, no guarding or rigidity. EXTREMITIES: No edema noted, pedal pulses palpable. SKIN: No rashes CENTRAL NERVOUS SYSTEM: No focal deficits, tone is normal in all 4 extremities. - Labs CBC & Chem 7: 08/10/16 08:14 08/10/16 08:14 Labs: Abnormal Lab Results - Last 24 Hours (Table) 08/09/16 08/09/16 08/09/16 Range/Units 12:27 13:38 14:42 BUN (7-17) mg/dL Glucose (74-99) mg/dL POC Glucose (mg/dL) 100 H 195 H 214 H (75-99) mg/dL Total Protein (6.3-8.2) g/dL 08/09/16 08/09/16 08/09/16 Range/Units 16:35 18:39 20:37 BUN (7-17) mg/dL Glucose (74-99) mg/dL POC Glucose (mg/dL) 181 H 182 H 137 H (75-99) mg/dL Total Protein (6.3-8.2) g/dL 08/09/16 08/10/16 08/10/16 Range/Units 22:39 00:31 02:32 BUN (7-17) mg/dL Glucose (74-99) mg/dL POC Glucose (mg/dL) 170 H 243 H 226 H (75-99) mg/dL Total Protein (6.3-8.2) g/dL 08/10/16 08/10/16 08/10/16 Range/Units 04:38 06:39 08:14 BUN 19 H (7-17) mg/dL Glucose 192 H (74-99) mg/dL POC Glucose (mg/dL) 194 H 162 H (75-99) mg/dL Total Protein 6.2 L (6.3-8.2) g/dL 08/10/16 08/10/16 Range/Units 08:24 10:38 BUN (7-17) mg/dL Glucose (74-99) mg/dL POC Glucose (mg/dL) 212 H 149 H (75-99) mg/dL Total Protein (6.3-8.2) g/dL Assessment and Plan Plan: Assessment: Acute exacerbation of COPD Acute tracheobronchitis Non-small cell lung cancer Chronic persistent severe asthma Diabetes mellitus History of hypertension History of Hypothyroidism History of Hyperlipidemia Patient can be cleared from a pulmonary standpoint for discharge. We will continue the patient on the current treatment. Continue with aerosolized bronchodilators. We will continue to monitor the patient's labs and make recommendations as necessary. Patient will follow-up in office within one week of discharge.
[2016-08-10 11:26] VITALS: PULSE 84
[2016-08-10 12:01] LABS: Glucose,Whole Blood 137 mg/dL (75-99)
[2016-08-10] MEDS: SODIUM CHLORIDE 0.9% 1,000 ML IV SCH (12:17)
[2016-08-10] MEDS: CHOLECALCIFEROL 1,000 UNIT TAB PO SCH (12:17)
[2016-08-10] MEDS: MULTIVITAMINS, THERA 1 EACH TAB PO SCH (12:17)
--- NOTE | 2016-08-10 12:53 | P.DS ---
Providers Date of admission: 08/06/16 14:10 Expected date of discharge: 08/17/16 Attending physician: Valery Campos Consults: Dr. Cobb Primary care physician: Valery Campos [facility] Course: 1. Acute COPD exacerbation: Patient placed on IV Solu-Medrol. Continue bronchodilators. Pulmonary service following. 2. Diabetes mellitus type 2: With Hyperglycemia secondary to steroids. Patient started on insulin drip during hospitalization 3. History of lung cancer with previous chemo and radiation treatment and lobectomy 4. Diarrhea : Resolved unable to check stool for C. diff 5. Essential hypertension continue home medications 6. Hypothyroidism continue Synthroid 7. Hyperlipidemia continue Lipitor 8. Acute tracheobronchitis: Sputum culture growing Moraxella catarra and Streptococcus pneumoniae 9. Insomnia Hospital course This is a 51-year-old female history of lung cancer, COPD, diabetes mellitus, hyperlipidemia and hypertension. Patient presents to the emergency room with complaints of worsening shortness of breath and cough for the last 2 days. Patient was hospitalized about a month ago for COPD exacerbation. Patient has been admitted to the observation unit. His been placed on IV steroids for COPD exacerbation pulmonary service has been consulted. Patient also complaining of diarrhea which is chronic at times for her. Stool for C. diff has been ordered. EKG had shown sinus tach with a heart rate of 118. She is on telemetry and heart rate is currently in the 80s. Chest x-ray showed no acute changes. Influenza swab was negative. Patient reports she is no longer a smoker has not smoked for about 2 years. Patient was seen by pulmonary service. She was treated for COPD exacerbation and bronchitis. Sputum culture did grow Moraxella and Streptococcus pneumoniae. She'll continue Zithromax for 4 more days. She'll also follow-up with pulmonary service in the office. Patient's symptoms had improved greatly she's been cleared by pulmonary service for discharge. Patient did require insulin drip during this admission due to hyperglycemia secondary to her steroids. Blood sugars have shown improvement she will resume her home insulin. Patient follow-up with Dr. Dr. Campos in 1 week. Patient Condition at Discharge: Stable Plan - Discharge Summary New Discharge Prescriptions: Azithromycin [Zithromax] 500 mg PO DAILY #4 tab predniSONE 10 mg PO DIRECTED #20 tab Discharge Medication List metFORMIN HCL 1,000 mg PO BID 10/13/13 [History] Cholecalciferol [Vitamin D3] 1,000 unit PO DAILY 10/20/13 [History] Simvastatin [Zocor] 10 mg PO HS 08/16/14 [History] Omeprazole [PriLOSEC] 20 mg PO AC-BID 08/18/14 [History] Ipratropium-Albuterol Nebulize [Duoneb 0.5 mg-3 mg/3 ml Soln] 3 ml INHALATION RT -QID 30 Days 08/21/14 [Rx] Montelukast [Singulair] 10 mg PO DAILY 01/29/15 [History] Insulin Glargine,Hum.rec.anlog [Lantus Solostar] 70 unit SQ HS 06/20/15 [History ] Loratadine [Claritin] 10 mg PO DAILY 06/20/15 [History] Ranitidine HCl 150 mg PO HS 06/20/15 [History] Levothyroxine Sodium [Synthroid] 25 mcg PO DAILY@0800 06/22/15 [History] Budesonide [Pulmicort] 0.5 mg INHALATION RT-BID 07/25/15 [History] HYDROcodone/APAP 10-325MG [[place] 10-325] 1 tab PO Q6H PRN 08/26/15 [History] Albuterol Inhaler [Ventolin Hfa Inhaler] 1 - 2 puff INHALATION Q6HR PRN [History] Escitalopram [Lexapro] 10 mg PO DAILY@1200 06/12/16 [History] Gemfibrozil [Lopid] 600 mg PO HS 06/12/16 [History] Insulin Glulisine [Apidra] 18 unit SQ AC-TID 06/12/16 [History] Insulin Glulisine [Apidra] See Protocol SQ AC-TID 06/12/16 [History] Losartan [Cozaar] 25 mg PO DAILY #30 tab 06/15/16 [Rx] Magnesium Oxide [Mag-Ox] 400 mg PO DAILY 08/05/16 [History] Multivitamins, Thera [Multivitamin] 1 tab PO DAILY 08/05/16 [History] Promethaz-Cod 6.25-10 mg/5 ml [Phenergan with Codeine] 2 tsp TID 08/05/16 [ History] Spironolactone-Hctz 25-25Mg [Aldactazide 25-25 MG] 1 tab PO DAILY 08/05/16 [ History] Azithromycin [Zithromax] 500 mg PO DAILY #4 tab 08/10/16 [Rx] predniSONE 10 mg PO DIRECTED #20 tab 08/10/16 [Rx] Follow up Appointment(s)/Referral(s): Al Cobb MD [STAFF PHYSICIAN] - 1 Week Valery Campos MD [Primary Care Provider] - 1 Week Patient Instructions/Handouts: Type 2 Diabetes in Adults (DC) Activity/Diet/Wound Care/Special Instructions: Diet: diabetic, cardiac Activity: as tolerated Discharge Disposition: HOME SELF-CARE
[2016-08-11] MEDS ORDERED: VANCOMYCIN TROUGH DUE 1 EACH MISC MISCELLANE ONE (08:00)
[2016-08-11] MEDS ORDERED: AZITHROMYCIN 500 MG TAB PO SCH (09:00)
== END 2016-08-10 13:11 | disposition home or self-care (01) | DRG 192 ==
LOC: EC 10:37 → 3OBS 11:52 → OBSVTOIN 08-06 14:10 → 4MS4W 08-06 17:50
PROVIDERS: ADMIT Internal Medicine; ATTEND Internal Medicine
DX: J44.0 Chronic obstructive pulmonary disease with (acute) lower respiratory infection (principal); J84.10 Pulmonary fibrosis, unspecified; E11.65 Type 2 diabetes mellitus with hyperglycemia; I10 Essential (primary) hypertension; E03.9 Hypothyroidism, unspecified; J20.9 Acute bronchitis, unspecified; J44.1 Chronic obstructive pulmonary disease with (acute) exacerbation; E78.5 Hyperlipidemia, unspecified; G47.00 Insomnia, unspecified; J45.50 Severe persistent asthma, uncomplicated; K21.9 Gastro-esophageal reflux disease without esophagitis; T38.0X5A Adverse effect of glucocorticoids and synthetic analogues, initial encounter; Z79.4 Long term (current) use of insulin; Z85.118 Personal history of other malignant neoplasm of bronchus and lung; Z87.891 Personal history of nicotine dependence; Z92.21 Personal history of antineoplastic chemotherapy; Z92.3 Personal history of irradiation; Z90.2 Acquired absence of lung [part of]; R19.7 Diarrhea, unspecified; B95.5 Unspecified streptococcus as the cause of diseases classified elsewhere; Z79.899 Other long term (current) drug therapy; Z88.2 Allergy status to sulfonamides; Z88.1 Allergy status to other antibiotic agents; Z91.040 Latex allergy status
CPT/HCPCS: 36415; 71020; 80053; 80202; 82550; 82553; 83036; 83735; 83880; 84484; 85025; 85379; 85610; 85730; 87070; 87077; 87186; 87205; 87502; 93005; 94640; 94760; 96361; 96366; 96367; 96374; 96375; 96376; 99285

== ENCOUNTER 2016-09-11 12:35 | Observation (INO) | payer OTHER ==
[2016-09-11] MEDS ORDERED: SODIUM CHLORIDE 0.9% 1,000 ML IV STA (13:33)
[2016-09-11] MEDS ORDERED: methylPREDNISolone SOD SUCCI 125 MG/2 ML VIAL IV STA (13:38)
[2016-09-11] MEDS ORDERED: IPRATROPIUM-ALBUTEROL 3 ML NEB INHALATION STA (13:39)
--- NOTE | 2016-09-11 13:42 | ED ---
Arrhythmia/Palpitations HPI - General Chief Complaint: Arrhythmia/Palpitations Stated Complaint: SOB Time Seen by Provider: 09/11/16 13:03 Source: patient Mode of arrival: ambulatory Limitations: no limitations - History of Present Illness Initial Comments: Plan about palpitation, started today she does have a history of shortness of breath is chronic but today she felt chest is quite congested and every time she tries a deep breath it took us a cough that is no chest pain she does feel some chest tightness there denies any fever no chills does cough up some phlegm. Has any abdominal pain no frequency urgency dysuria denies any sinus symptoms of TIA or CVA - Related Data Home Medications Medication Instructions Recorded Confirmed metFORMIN HCL 1,000 mg PO BID 10/13/13 09/11/16 Cholecalciferol [Vitamin D3] 1,000 unit PO DAILY 10/20/13 09/11/16 Simvastatin [Zocor] 10 mg PO HS 08/16/14 09/11/16 Omeprazole [PriLOSEC] 20 mg PO AC-BID 08/18/14 09/11/16 Montelukast [Singulair] 10 mg PO HS 01/29/15 09/11/16 Insulin Glargine,Hum.rec.anlog 70 unit SQ HS 06/20/15 09/11/16 [Lantus Solostar] Loratadine [Claritin] 10 mg PO HS 06/20/15 09/11/16 Ranitidine HCl 150 mg PO HS 06/20/15 09/11/16 Levothyroxine Sodium [Synthroid] 25 mcg PO DAILY@0800 06/22/15 09/11/16 Budesonide [Pulmicort] 0.5 mg INHALATION RT-BID 07/25/15 09/11/16 Albuterol Inhaler [Ventolin Hfa 1 - 2 puff INHALATION RT-Q6H PRN 06/12/16 Inhaler] Insulin Glulisine [Apidra] 18 unit SQ AC-TID 06/12/16 09/11/16 Insulin Glulisine [Apidra] See Protocol SQ AC-TID 06/12/16 09/11/16 Magnesium Oxide [Mag-Ox] 400 mg PO DAILY 08/05/16 09/11/16 Multivitamins, Thera [Multivitamin 1 tab PO DAILY 08/05/16 09/11/16 (formulary)] Promethaz-Cod 6.25-10 mg/5 ml 2 tsp PO TID PRN 08/05/16 09/11/16 [Phenergan with Codeine] Spironolactone-Hctz 25-25Mg 1 tab PO DAILY 08/05/16 09/11/16 [Aldactazide 25-25 MG] Previous Rx's Medication Instructions Recorded Ipratropium-Albuterol Nebulize 3 ml INHALATION RT-QID 30 Days 08/21/14 [Duoneb 0.5 mg-3 mg/3 ml Soln] Losartan [Cozaar] 25 mg PO DAILY #30 tab 06/15/16 Allergies Allergy/AdvReac Type Severity Reaction Status Date / Time ciprofloxacin HCl Allergy Severe Rash/Hives Verified 09/11/16 13:04 [From Cipro] latex Allergy Severe Rash/Hives Verified 09/11/16 13:04 cephalexin monohydrate Allergy Intermediate Rash/Hives Verified 09/11/16 13:04 [From Keflex] sulfamethoxazole Allergy Intermediate Rash/Hives Verified 09/11/16 13:04 [From Septra] trimethoprim [From Septra] Allergy Intermediate Rash/Hives Verified 09/11/16 13: 04 Review of Systems ROS Statement: Those systems with pertinent positive or pertinent negative responses have been documented in the HPI. ROS Other: All systems not noted in ROS Statement are negative. Past Medical History Past Medical History: Cancer, COPD, Diabetes Mellitus, GERD/Reflux, Hyperlipidemia, Hypertension, Pneumonia, Respiratory Disorder, Thyroid Disorder Additional Past Medical History / Comment(s): 2013 Rt lung CAcompleted-6 chemo TXs and 26 radiation tx History of Any Multi-Drug Resistant Organisms: Other MDRO Date of last positivie culture/infection: 2014 MDRO Source:: e-coli in urine Past Surgical History: Appendectomy, Cholecystectomy, Hysterectomy, Tonsillectomy, Tubal Ligation Additional Past Surgical History / Comment(s): R lung biopsy 09/2013, rt middle lobe lobectomy. Past Anesthesia/Blood Transfusion Reactions: Postoperative Nausea & Vomiting ( PONV) Past Psychological History: Depression Additional Psychological History / Comment(s): Lives with her daughter, thanh in a 2 story home but pt stays on 1st floor and there are 4 steps to get outside. Pt is independant gets no out side services at this time. She has a nebulizer. Smoking Status: Former smoker Past Alcohol Use History: None Reported Additional Past Alcohol Use History / Comment(s): started smoking at age 12 was smoking 1.5 ppd, QUIT 2013 Past Drug Use History: None Reported - Past Family History Mother Sister(s) Family Medical History: Cancer Additional Family Medical History / Comment(s): from breast ca at age 65 Father Family Medical History: COPD Additional Family Medical History / Comment(s): had cabg, from a blood infection at age 64 General Exam - General Exam Comments Initial Comments: General: The patient is awake and alert, in no distress, and does not appear acutely ill. GCS is 15 Skin: Skin is warm and dry and no rashes or lesions are noted. Eye: Pupils are equal, round and reactive to light, extra-ocular movements are intact; there is normal conjunctiva bilaterally. Ears, nose, mouth and throat: There are moist mucous membranes and no oral lesions. Neck: The neck is supple, there is no tenderness or JVD. Trachea is midline Cardiovascular: There is a regular rate and rhythm. No murmur, rub or gallop is appreciated. It is sinus tach Respiratory: To auscultation bilateral, it is crackles at the bases Gastrointestinal: Soft, non-distended, non-tender abdomen without masses or organomegaly noted. There is no rebound or guarding present. Bowel sounds are unremarkable. Back: There is no tenderness to palpation in the midline. There is no obvious deformity. Musculoskeletal: Normal ROM, no tenderness, There is no pedal edema. There is no calf tenderness or swelling. No cords were appreciated. Neurological: CN II-XII intact, Cranial nerves III through XII are intact. There are no obvious motor or sensory deficits. Coordination appears grossly intact. Speech is normal. Psychiatric: Cooperative, appropriate mood & affect, normal judgment. Limitations: no limitations Course Vital Signs 09/11/16 09/11/16 09/11/16 12:45 13:15 13:58 Temperature 98.2 F Pulse Rate 124 H 110 H Pulse Rate [ 110 H Chief Technician X Ray ] Respiratory 20 20 Rate Blood Pressure 125/67 108/67 O2 Sat by Pulse 99 99 Oximetry 09/11/16 09/11/16 09/11/16 14:14 14:58 16:05 Temperature Pulse Rate 103 H 106 H 103 H Pulse Rate [ Chief Technician X Ray ] Respiratory 18 18 Rate Blood Pressure 112/72 109/58 O2 Sat by Pulse 98 96 Oximetry She was reassessed at 1615, I discussed her labs with her that included chest x- ray, CBC, INR, compressive metabolic panel, troponin, TSH all these are within normal range patient stated she still feels short winded while laying in the bed ends even during talking her heart rate bumped up to 1:15 120with a sinus rhythm considering that I offered her the admission to have the direct selling counselor see her and she agreed to EKG Findings - EKG Comments: EKG Findings:: EKG shows sinus tachycardia heart rate is 125 VA interval is 112 QRS duration is 74 QT/QTc is 324/467 review of this EKG does not reveal any ST elevation or ST depression Medical Decision Making - Lab Data Result diagrams: 09/11/16 13:50 09/11/16 13:50 Lab Results 09/11/16 09/11/16 09/11/16 Range/Units 13:50 13:50 13:50 WBC 8.5 (3.8-10.6) k/uL RBC 4.60 (3.80-5.40) m/uL Hgb 13.9 (11.4-16.0) gm/dL Hct 40.9 (34.0-46.0) % MCV 88.9 (80.0-100.0) fL MCH 30.1 (25.0-35.0) pg MCHC 33.9 (31.0-37.0) g/dL RDW 14.6 (11.5-15.5) % Plt Count 184 (150-450) k/uL Neutrophils % 64 % Lymphocytes % 27 % Monocytes % 4 % Eosinophils % 1 % Basophils % 1 % Neutrophils # 5.5 (1.3-7.7) k/uL Lymphocytes # 2.3 (1.0-4.8) k/uL Monocytes # 0.3 (0-1.0) k/uL Eosinophils # 0.1 (0-0.7) k/uL Basophils # 0.0 (0-0.2) k/uL PT (9.0-12.0) sec INR (<1.1) APTT (22.0-30.0) sec Sodium 142 (137-145) mmol/L Potassium 3.7 (3.5-5.1) mmol/L Chloride 104 (98-107) mmol/L Carbon Dioxide 23 (22-30) mmol/L Anion Gap 15 mmol/L BUN 8 (7-17) mg/dL Creatinine 0.79 (0.52-1.04) mg/dL Est GFR (MDRD) Af Amer >60 (>60 ml/min/1.73 sqM) Est GFR (MDRD) Non-Af >60 (>60 ml/min/1.73 sqM) Glucose 144 H (74-99) mg/dL Calcium 10.2 (8.4-10.2) mg/dL Magnesium 1.2 L (1.6-2.3) mg/dL Total Bilirubin 0.6 (0.2-1.3) mg/dL AST 24 (14-36) U/L ALT 27 (9-52) U/L Alkaline Phosphatase 78 (38-126) U/L Total Creatine Kinase 68 (30-135) U/L CK-MB (CK-2) 0.7 (0.0-2.4) ng/mL CK-MB (CK-2) Rel Index 1.0 Troponin I <0.012 (0.000-0.034) ng/mL Total Protein 7.3 (6.3-8.2) g/dL Albumin 4.5 (3.5-5.0) g/dL TSH 1.800 (0.465-4.680) mIU/L 09/11/16 Range/Units 13:50 WBC (3.8-10.6) k/uL RBC (3.80-5.40) m/uL Hgb (11.4-16.0) gm/dL Hct (34.0-46.0) % MCV (80.0-100.0) fL MCH (25.0-35.0) pg MCHC (31.0-37.0) g/dL RDW (11.5-15.5) % Plt Count (150-450) k/uL Neutrophils % % Lymphocytes % % Monocytes % % Eosinophils % % Basophils % % Neutrophils # (1.3-7.7) k/uL Lymphocytes # (1.0-4.8) k/uL Monocytes # (0-1.0) k/uL Eosinophils # (0-0.7) k/uL Basophils # (0-0.2) k/uL PT 10.0 (9.0-12.0) sec INR 1.0 (<1.1) APTT 23.7 (22.0-30.0) sec Sodium (137-145) mmol/L Potassium (3.5-5.1) mmol/L Chloride (98-107) mmol/L Carbon Dioxide (22-30) mmol/L Anion Gap mmol/L BUN (7-17) mg/dL Creatinine (0.52-1.04) mg/dL Est GFR (MDRD) Af Amer (>60 ml/min/1.73 sqM) Est GFR (MDRD) Non-Af (>60 ml/min/1.73 sqM) Glucose (74-99) mg/dL Calcium (8.4-10.2) mg/dL Magnesium (1.6-2.3) mg/dL Total Bilirubin (0.2-1.3) mg/dL AST (14-36) U/L ALT (9-52) U/L Alkaline Phosphatase (38-126) U/L Total Creatine Kinase (30-135) U/L CK-MB (CK-2) (0.0-2.4) ng/mL CK-MB (CK-2) Rel Index Troponin I (0.000-0.034) ng/mL Total Protein (6.3-8.2) g/dL Albumin (3.5-5.0) g/dL TSH (0.465-4.680) mIU/L Disposition Clinical Impression: Palpitation Disposition: ADMITTED IP TO THIS HOSP Condition: Fair Referrals: Valery Campos MD [Primary Care Provider] - 1-2 days
[2016-09-11 14:05] LABS: Basophils % (A) 1 %; CH 30.3; CHCM 34.2; Eosinophils # (A) 0.1 k/uL (0-0.7); Eosinophils % (A) 1 %; HCT 40.9 % (34.0-46.0); HDW 2.91; HGB 13.9 gm/dL (11.4-16.0); Luc # (Auto) 0.22; Luc % (Auto) 3; Lymphocytes # (A) 2.3 k/uL (1.0-4.8); Lymphocytes % (A) 27 %; MCH 30.1 pg (25.0-35.0); MCHC 33.9 g/dL (31.0-37.0); MCV 88.9 fL (80.0-100.0); Mean Platelet Volume 7.2; Monocytes # (A) 0.3 k/uL (0-1.0); Monocytes % (A) 4 %; Neutrophils # (A) 5.5 k/uL (1.3-7.7); Neutrophils % (A) 64 %; RDW 14.6 % (11.5-15.5); WBC 8.5 k/uL (3.8-10.6); WBC (Perox) 8.55
[2016-09-11 14:13] LABS: Partial Thromboplastin Time 23.7 sec (22.0-30.0)
[2016-09-11 14:14] LABS: ALT 27 U/L (9-52); AST 24 U/L (14-36); Alkaline Phosphatase 78 U/L (38-126); Anion Gap 15 mmol/L; Blood Urea Nitrogen 8 mg/dL (7-17); Calcium 10.2 mg/dL (8.4-10.2); Carbon Dioxide 23 mmol/L (22-30); Chloride 104 mmol/L (98-107); Glucose 144 mg/dL (74-99); Magnesium 1.2 mg/dL (1.6-2.3); Non-African American GFR(MDRD) >60 (>60 ml/min/1.73 sqM); Potassium 3.7 mmol/L (3.5-5.1); Sodium 142 mmol/L (137-145); Total Bilirubin 0.6 mg/dL (0.2-1.3); Total Protein 7.3 g/dL (6.3-8.2)
[2016-09-11 14:37] LABS: Creatine Kinase 68 U/L (30-135)
--- NOTE | 2016-09-11 14:42 | XR ---
EXAMINATION TYPE: XR chest 2V DATE OF EXAM: 09/11/2016 2:38 PM COMPARISON: NONE TECHNIQUE: PA and lateral views submitted. HISTORY: Difficulty breathing FINDINGS: Chronic parenchymal changes involving the right perihilar region with evidence of previous surgery re trospectively stable from the previous chest x-ray. 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 Correlate clinically. Left lung is cl ear. No pneumothorax. Degenerative changes spine noted. Surgical clips in the abdomen. Hypertrophic c hange of the spine. IMPRESSION: 1. 1. No acute process. Chronic parenchymal changes involving the right lung stable in appearance.
[2016-09-11 14:51] LABS: Creatine Kinase MB 0.7 ng/mL (0.0-2.4); Troponin I <0.012 ng/mL (0.000-0.034)
[2016-09-11] MEDS ORDERED: ACETAMINOPHEN TAB 500 MG TAB PO STA (14:57)
[2016-09-11] MEDS ORDERED: HEPARIN SODIUM,PORCINE 5,000 UNIT/ML 1 ML VIAL IV ONE (16:19)
[2016-09-11] MEDS ORDERED: NITROGLYCERIN SL TABS 0.4 MG TAB SUBLINGUAL PRN (16:19)
[2016-09-11] MEDS ORDERED: HEPARIN SODIUM,PORCINE/D5W PMX 25,000 UNIT in DEXTROSE/WATER 1 500ML.BAG IV SCH (16:30)
[2016-09-11] MEDS ORDERED: ALBUTEROL NEBULIZED 2.5 MG/3 ML INHALATION PRN (16:33)
[2016-09-11 20:20] LABS: Creatine Kinase 70 U/L (30-135)
[2016-09-11 20:30] LABS: Creatine Kinase MB 0.7 ng/mL (0.0-2.4); Troponin I <0.012 ng/mL (0.000-0.034)
[2016-09-11] MEDS ORDERED: INSULIN GLARGINE 100 UNIT/ML 10 ML VIAL SQ SCH (21:00)
[2016-09-11 21:24] LABS: Glucose,Whole Blood 263 mg/dL (75-99)
[2016-09-11] MEDS: FAMOTIDINE 20 MG TAB PO SCH (21:29)
[2016-09-11] MEDS: metFORMIN 500 MG TAB PO SCH (21:29)
[2016-09-11] MEDS: LORATADINE 10 MG TAB PO SCH (21:29)
[2016-09-11] MEDS: ATORVASTATIN 10 MG TAB PO SCH (21:29)
[2016-09-11] MEDS: PANTOPRAZOLE 40 MG TABLET PO SCH (21:30)
[2016-09-11] MEDS: MONTELUKAST 10 MG TAB PO SCH (21:30)
[2016-09-11] MEDS: INSULIN LISPRO (humaLOG) 300 UNIT/3 ML VIAL SQ SCH (21:32)
[2016-09-11] MEDS: BUDESONIDE 0.5 MG/2 ML NEBU INHALATION SCH (21:35)
[2016-09-11] MEDS: IPRATROPIUM-ALBUTEROL 3 ML NEB INHALATION SCH (21:36)
[2016-09-11] MEDS: PROMETHAZ-COD 6.25-10 MG/5 ML 5 ML CUP PO PRN (21:41)
[2016-09-11] MEDS: MORPHINE SULFATE 2 MG/ML SYRINGE IVP PRN (21:45)
[2016-09-12] MEDS: MORPHINE SULFATE 2 MG/ML SYRINGE IVP PRN ×3 (00:35→10:58)
[2016-09-12 02:15] LABS: Creatine Kinase 66 U/L (30-135)
[2016-09-12 02:29] LABS: Creatine Kinase MB 0.8 ng/mL (0.0-2.4); Troponin I <0.012 ng/mL (0.000-0.034)
[2016-09-12 06:49] LABS: Glucose,Whole Blood 151 mg/dL (75-99)
[2016-09-12] MEDS: IPRATROPIUM-ALBUTEROL 3 ML NEB INHALATION SCH ×2 (07:40→12:22)
[2016-09-12] MEDS: BUDESONIDE 0.5 MG/2 ML NEBU INHALATION SCH ×2 (07:40→20:12)
[2016-09-12 08:25] LABS: Cholesterol 132 mg/dL (<200); Triglycerides 231 mg/dL (<150)
[2016-09-12 08:41] LABS: HDL Cholesterol 44 mg/dL (40-60)
[2016-09-12] MEDS ORDERED: ASPIRIN 325 MG TAB PO SCH (09:00)
[2016-09-12] MEDS: MAGNESIUM OXIDE 400 MG TAB PO SCH (09:32)
[2016-09-12] MEDS: SPIRONOLACTONE-HCTZ 25-25MG 1 EACH TAB PO SCH (09:32)
[2016-09-12] MEDS: PANTOPRAZOLE 40 MG TABLET PO SCH ×2 (09:32→17:20)
[2016-09-12] MEDS: LEVOTHYROXINE 25 MCG TAB PO SCH (09:32)
[2016-09-12] MEDS: LOSARTAN 25 MG TAB PO SCH (09:32)
[2016-09-12] MEDS: METOPROLOL TARTRATE 25 MG TAB PO SCH ×3 (09:32→20:05)
[2016-09-12] MEDS: metFORMIN 500 MG TAB PO SCH ×2 (09:32→17:20)
[2016-09-12] MEDS: INSULIN LISPRO (humaLOG) 300 UNIT/3 ML VIAL SQ SCH ×3 (09:33→17:22)
[2016-09-12] MEDS: PROMETHAZ-COD 6.25-10 MG/5 ML 5 ML CUP PO PRN ×2 (11:01→20:48)
--- NOTE | 2016-09-12 11:46 | CONS ---
DATE OF CONSULTATION: This is a 51-year-old lady with past history of smoking, hypertension, type 2 diabetes with lung cancer, status post surgery and radiation came into the hospital with complaints of pain in the chest after having bouts of coughing. Pain seems to be related mostly to cough and does not have any chest pain otherwise. She is resting comfortably, but has been tachycardic and definitely more short of breath lately. Her EKG revealed sinus tachycardia with nonspecific ST-T changes. She is resting comfortably at the time of my evaluation. PAST MEDICAL HISTORY: Remarkable for asthma, COPD, past history of smoking, lung cancer with a right lower lobectomy and radiation. Details of this are unavailable. She does have history of radiation pneumonitis. She has type 2 diabetes mellitus and also hyperlipidemia. Medications at home include metformin, Aldactazide, Zocor, Prilosec, losartan 25 mg daily, Synthroid, insulin, Humalog and also she takes albuterol inhalers and Singulair 10 mg daily. ALLERGIES: She is allergic to SULFA, KEFLEX CIPRO. On examination, blood pressure is 128/70, pulse rate is about 108 per minute, regular. HEENT: Unremarkable. Fundus was not examined by me. Neck is supple. There is no JVD. I do not hear a carotid bruit. Heart exam reveals S1, S2 with some tachycardia, short systolic murmur. Lungs reveal bilateral scattered rales otherwise decent air entry. ABDOMEN: Soft, nontender. Lower extremities reveal diminished pulses. No edema. Central nervous system grossly within normal limits. EKG revealed sinus rhythm with nonspecific ST-T changes. Sinus tachycardia noted. Laboratory data revealed that her troponin levels are normal. IMPRESSION: 1. Shortness of breath and tachycardia, rule out any pulmonary embolism-type picture. 2. Exacerbation of chronic obstructive pulmonary disease with history of chronic obstructive pulmonary disease in the past and lung cancer with radiation pneumonitis, status post surgery and radiation therapy. 3. Type 2 diabetes mellitus. 4. Chest pain seems atypical and probably musculoskeletal. 5. Hypertension. RECOMMENDATIONS: I am recommending that we start her on a small dose of beta yann. Check a D-dimer. If the D-dimer is normal, no further investigation is necessary. Her troponin levels are within normal limits. I will await input from Pulmonary. We will discontinue her IV heparin and put her on a Hep-Lock and give her some subcu heparin 5000 units q.12 hours. I discussed my thoughts in detail with the patient. Thank you very much for the consult.
[2016-09-12 12:01] LABS: Glucose,Whole Blood 60 mg/dL (75-99)
[2016-09-12] MEDS: MULTIVITAMINS, THERA 1 EACH TAB PO SCH (12:38)
[2016-09-12] MEDS: CHOLECALCIFEROL 1,000 UNIT TAB PO SCH (12:38)
[2016-09-12 12:58] VITALS: BMI 31.9
[2016-09-12 13:10] LABS: Glucose,Whole Blood 96 mg/dL (75-99)
[2016-09-12] MEDS ORDERED: Potassium Replacement Protocol 1 EACH MISC MISCELLANE PRN (14:33)
[2016-09-12] MEDS ORDERED: Magnesium Replacement Protocol 1 EACH MISC MISCELLANE PRN (14:33)
--- NOTE | 2016-09-12 14:39 | P.HPIM ---
History of Present Illness H&P Date: 09/12/16 Chief Complaint: Shortness of breath This is a 51-year-old female with complex past medical history noted below significant for severe COPD and history of lung cancer status post lobectomy and radiation therapy who presented to the hospital with worsening shortness of breath. Patient said that she is chronically short of breath because of her COPD. She continues to smoke cigarettes. She said for the past few days her shortness of breath is being getting progressively worse. She was also having problems with palpitation and heart racing. She denies any chest pain. On presentation to the emergency room, patient was found to be in sinus tachycardia with heart rate up to 130s. She was seen and evaluated by cardiology earlier and metoprolol added to her regimen. D-dimer was within normal range. Patient is currently feeling better. She denies any fevers or chills. No cough. Her heart rate is in the low 100s at this time on telemetry monitoring. Review of Systems Review of system: 14 points review of systems were obtained and were negative except to what were mentioned in the HPI. Past Medical History Past Medical History: Cancer, COPD, Diabetes Mellitus, GERD/Reflux, Hyperlipidemia, Hypertension, Pneumonia, Respiratory Disorder, Thyroid Disorder Additional Past Medical History / Comment(s): 2013 Rt lung CAcompleted-6 chemo TXs and 26 radiation tx, URINARY INCONT-WEARS A PULL UP History of Any Multi-Drug Resistant Organisms: Other MDRO Date of last positivie culture/infection: 2014 MDRO Source:: e-coli in urine Past Surgical History: Appendectomy, Cholecystectomy, Hysterectomy, Tonsillectomy, Tubal Ligation Additional Past Surgical History / Comment(s): R lung biopsy 09/2013, rt middle lobe lobectomy. Past Anesthesia/Blood Transfusion Reactions: Postoperative Nausea & Vomiting ( PONV) Past Psychological History: Depression Additional Psychological History / Comment(s): Lives with her daughter, thanh in a 2 story home but pt stays on 1st floor and there are 4 steps to get outside. Pt is independant gets no out side services at this time. She has a nebulizer. Smoking Status: Former smoker Past Alcohol Use History: None Reported Additional Past Alcohol Use History / Comment(s): started smoking at age 12 was smoking 1.5 ppd, QUIT 2013 Past Drug Use History: None Reported - Past Family History Mother Sister(s) Family Medical History: Cancer Additional Family Medical History / Comment(s): from breast ca at age 65 Father Family Medical History: COPD Additional Family Medical History / Comment(s): had cabg, from a blood infection at age 64 Medications and Allergies Home Medications Medication Instructions Recorded Confirmed Type metFORMIN HCL 1,000 mg PO BID 10/13/13 09/11/16 History Cholecalciferol [Vitamin D3] 1,000 unit PO DAILY 10/20/13 09/11/16 History Simvastatin [Zocor] 10 mg PO HS 08/16/14 09/11/16 History Omeprazole [PriLOSEC] 20 mg PO AC-BID 08/18/14 09/11/16 History Montelukast [Singulair] 10 mg PO HS 01/29/15 09/11/16 History Insulin Glargine,Hum.rec.anlog 70 unit SQ HS 06/20/15 09/11/16 History [Lantus Solostar] Loratadine [Claritin] 10 mg PO HS 06/20/15 09/11/16 History Ranitidine HCl 150 mg PO HS 06/20/15 09/11/16 History Levothyroxine Sodium [Synthroid] 25 mcg PO DAILY@0800 06/22/15 09/11/16 History Budesonide [Pulmicort] 0.5 mg INHALATION RT-BID 07/25/15 09/11/16 History Albuterol Inhaler [Ventolin Hfa 1 - 2 puff INHALATION RT-Q6H PRN 06/12/16 History Inhaler] Insulin Glulisine [Apidra] 18 unit SQ AC-TID 06/12/16 09/11/16 History Insulin Glulisine [Apidra] See Protocol SQ AC-TID 06/12/16 09/11/16 History Magnesium Oxide [Mag-Ox] 400 mg PO DAILY 08/05/16 09/11/16 History Multivitamins, Thera [Multivitamin 1 tab PO DAILY 08/05/16 09/11/16 History (formulary)] Promethaz-Cod 6.25-10 mg/5 ml 2 tsp PO TID PRN 08/05/16 09/11/16 History [Phenergan with Codeine] Spironolactone-Hctz 25-25Mg 1 tab PO DAILY 08/05/16 09/11/16 History [Aldactazide 25-25 MG] Allergies Allergy/AdvReac Type Severity Reaction Status Date / Time ciprofloxacin HCl Allergy Severe Rash/Hives Verified 09/11/16 20:23 [From Cipro] latex Allergy Severe Rash/Hives Verified 09/11/16 20:23 cephalexin monohydrate Allergy Intermediate Rash/Hives Verified 09/11/16 20:23 [From Keflex] sulfamethoxazole Allergy Intermediate Rash/Hives Verified 09/11/16 20:23 [From Septra] trimethoprim [From Septra] Allergy Intermediate Rash/Hives Verified 09/11/16 20: 23 Physical Exam Vitals: Vital Signs Temp Pulse Pulse Resp BP BP Pulse Ox 09/12/16 12:34 104 H 09/12/16 12:22 104 H 09/12/16 12:00 98 F 101 H 16 82/46 97 09/12/16 08:05 96 09/12/16 07:49 97.6 F 114 H 16 123/61 97 09/12/16 07:40 92 09/12/16 04:48 88 09/12/16 04:36 80 09/12/16 04:00 98 F 118 H 16 110/64 96 09/12/16 00:00 98 F 110 H 16 99/63 97 09/11/16 21:58 100 09/11/16 21:38 100 09/11/16 20:00 16 09/11/16 19:34 97.9 F 106 H 16 101/69 97 09/11/16 18:00 98.4 F 102 H 16 114/74 95 09/11/16 17:16 98.2 F 109 H 18 109/69 96 Intake and Output 09/11/16 09/12/16 09/12/16 22:59 06:59 14:59 Intake Total 240 140.878 Balance 240 140.878 Intake: Intake, IV Titration 140.878 Amount Heparin Sodium,Porcine/ 140.878 D5w Pmx 25,000 unit In Dextrose/Water 1 500ml. bag @ 12 UNITS/KG/HR 20. 03 mls/hr IV .Q24H [facility] Rx #:[id number] Oral 240 Other: Voiding Method Toilet Diaper # Voids 1 Weight 84.5 kg 84.5 kg Patient Weight 09/13/16 06:59 Weight 84.5 kg General: The patient is awake and alert, in no distress, and does not appear acutely ill. Eye: extra-ocular movements are intact; there is normal conjunctiva bilaterally. . Neck: The neck is supple, there is no tenderness or JVD. Cardiovascular: Normal S1-S2, no S3-S4, no murmurs. Respiratory: Lungs clear to auscultation bilaterally with no wheezes rhonchi or rales. Gastrointestinal: Abdomen is soft, nontender, nondistended, with no organomegaly. . Musculoskeletal: Normal ROM, no tenderness, There is no pedal edema. Neurological: There are no obvious motor or sensory deficits. Speech is normal. Skin: Skin is warm and dry and no rashes or lesions are noted. Results CBC & Chem 7: 09/11/16 13:50 09/11/16 13:50 Labs: Abnormal Lab Results - Last 24 Hours (Table) 09/11/16 09/12/16 09/12/16 Range/Units 21:22 06:45 07:30 POC Glucose (mg/dL) 263 H 151 H (75-99) mg/dL Triglycerides 231 H (<150) mg/dL 09/12/16 Range/Units 12:00 POC Glucose (mg/dL) 60 L (75-99) mg/dL Triglycerides (<150) mg/dL Assessment and Plan Plan: 1. Symptomatic tachycardia: With 12-lead EKG showing normal sinus rhythm. Exact etiology unclear. May be worsened by using albuterol which will be switched to Xopenex. Thyroid function test and d-dimer within normal range. Patient was seen and evaluated by cardiology. Echocardiogram ordered. Started on metoprolol 25 mg 3 times a day. Continue telemetry monitoring. 2. Underlying COPD with mild exacerbation: We will continue bronchodilators. Albuterol switched to Xopenex. I will consult her dispatch clerk for further evaluation. 3. Type 2 diabetes mellitus with episode of hypoglycemia this morning. I would decrease her insulin doses as ordered. Continue to monitor closely. 4. Essential hypertension: Blood pressure well controlled 5. DVT prophylaxis with subcu heparin.
--- NOTE | 2016-09-12 15:06 | ECHOF ---
Referral Reason:palpatations MEASUREMENTS -------- HEIGHT: 162.6 cm WEIGHT: 84.4 kg BP: 123/61 IVSd: 1.1 cm (0.6 - 1.1) LVIDd: 3.6 cm (3.9 - 5.3) LVPWd: 0.8 cm (0.6 - 1.1) IVSs: 1.4 cm LVIDs: 2.6 cm LVPWs: 1.6 cm Ao Diam: 3.0 cm (2.0 - 3.7) AV Cusp: 1.6 cm (1.5 - 2.6) LA Diam: 2.7 cm (2.7 - 3.8) MV EXCURSION: 23.601 mm (> 18.000) MV EF SLOPE: 107 mm/s (70 - 150) EPSS: 1.0 cm MV E Christ: 1.12 m/s MV DecT: 125 ms MV A Christ: 0.36 m/s MV E/A Ratio: 3.13 RAP: 5.00 mmHg RVSP: 11.80 mmHg FINDINGS -------- Sinus rhythm. This was a technically good study. Left ventricular wall thickness is normal. Overall left ventricular systolic function is normal with, an EF between 55 - 60 %. The right ventricle is normal in size and function. The left atrium is normal in size. The right atrium is normal in size. The aortic valve is trileaflet, and appears structurally normal. No aortic stenosis or regurgitation. Mild mitral regurgitation is present. Mild tricuspid regurgitation present. The right ventricular systolic pressure, as measured by Doppler, is 11.80mmHg. Pulmonic valve appears structurally normal. The pericardium is normal. CONCLUSIONS -------- 1. Sinus rhythm. 2. Mild tricuspid regurgitation present. 3. The right ventricular systolic pressure, as measured by Doppler, is 11.80mmHg. 4. Pulmonic valve appears structurally normal. 5. The pericardium is normal. 6. This was a technically good study. 7. Left ventricular wall thickness is normal. 8. Overall left ventricular systolic function is normal with, an EF between 55 - 60 %. 9. The right ventricle is normal in size and function. 10. The left atrium is normal in size. 11. The right atrium is normal in size. 12. The aortic valve is trileaflet, and appears structurally normal. No aortic stenosis or regurgitation. 13. Mild mitral regurgitation is present. PROP AND EFFECTS DESIGNER: Berta Mendosa RDCS
[2016-09-12] MEDS: LEVALBUTEROL NEB 1.25 MG/3 ML AMP INHALATION SCH ×2 (16:16→20:14)
[2016-09-12] MEDS: IPRATROPIUM 0.5 MG/2.5 ML NEBU INHALATION SCH ×2 (16:16→20:12)
[2016-09-12 16:50] LABS: Glucose,Whole Blood 121 mg/dL (75-99)
[2016-09-12 19:59] LABS: Glucose,Whole Blood 156 mg/dL (75-99)
[2016-09-12] MEDS: HEPARIN SODIUM,PORCINE 5,000 UNIT/ML 1 ML VIAL SQ SCH (20:03)
[2016-09-12] MEDS: LORATADINE 10 MG TAB PO SCH (20:05)
[2016-09-12] MEDS: ATORVASTATIN 10 MG TAB PO SCH (20:05)
[2016-09-12] MEDS: MONTELUKAST 10 MG TAB PO SCH (20:05)
[2016-09-12] MEDS: FAMOTIDINE 20 MG TAB PO SCH (20:05)
[2016-09-12] MEDS: HYDROcodone/APAP 10-325MG 1 EACH TAB PO PRN (20:47)
[2016-09-12] MEDS ORDERED: INSULIN GLARGINE 100 UNIT/ML 10 ML VIAL SQ SCH (21:00)
[2016-09-12] MEDS: VERAPAMIL 40 MG TAB PO SCH (21:51)
[2016-09-13] MEDS ORDERED: IPRATROPIUM-ALBUTEROL 3 ML NEB INHALATION PRN (00:45)
[2016-09-13 01:27] VITALS: RESP 16
[2016-09-13] MEDS: PROMETHAZ-COD 6.25-10 MG/5 ML 5 ML CUP PO PRN ×2 (04:36→12:55)
[2016-09-13] MEDS: HYDROcodone/APAP 10-325MG 1 EACH TAB PO PRN ×2 (04:39→12:54)
[2016-09-13 06:49] LABS: Glucose,Whole Blood 104 mg/dL (75-99)
[2016-09-13] MEDS: LEVOTHYROXINE 25 MCG TAB PO SCH (07:05)
[2016-09-13 07:24] LABS: Basophils % (A) 0 %; CH 30.9; CHCM 33.9; Eosinophils % (A) 1 %; HCT 39.8 % (34.0-46.0); HDW 2.74; Luc # (Auto) 0.13; Luc % (Auto) 2; Lymphocytes # (A) 2.6 k/uL (1.0-4.8); Lymphocytes % (A) 40 %; MCH 29.8 pg (25.0-35.0); MCHC 32.6 g/dL (31.0-37.0); MCV 91.5 fL (80.0-100.0); Monocytes # (A) 0.3 k/uL (0-1.0); Monocytes % (A) 4 %; Neutrophils # (A) 3.4 k/uL (1.3-7.7); Neutrophils % (A) 53 %; RBC 4.35 m/uL (3.80-5.40); WBC 6.5 k/uL (3.8-10.6); WBC (Perox) 6.66
[2016-09-13] MEDS: IPRATROPIUM 0.5 MG/2.5 ML NEBU INHALATION SCH ×2 (07:25→10:50)
[2016-09-13] MEDS: LEVALBUTEROL NEB 1.25 MG/3 ML AMP INHALATION SCH ×2 (07:25→10:50)
[2016-09-13] MEDS: BUDESONIDE 0.5 MG/2 ML NEBU INHALATION SCH (07:25)
[2016-09-13 08:05] LABS: Anion Gap 13 mmol/L; Blood Urea Nitrogen 20 mg/dL (7-17); Calcium 9.5 mg/dL (8.4-10.2); Carbon Dioxide 23 mmol/L (22-30); Chloride 108 mmol/L (98-107); Glucose 91 mg/dL (74-99); Magnesium 1.2 mg/dL (1.6-2.3); Non-African American GFR(MDRD) >60 (>60 ml/min/1.73 sqM); Potassium 4.5 mmol/L (3.5-5.1); Sodium 144 mmol/L (137-145)
[2016-09-13] MEDS: INSULIN LISPRO (humaLOG) 300 UNIT/3 ML VIAL SQ SCH ×2 (08:11→12:07)
[2016-09-13] MEDS: HEPARIN SODIUM,PORCINE 5,000 UNIT/ML 1 ML VIAL SQ SCH (08:13)
[2016-09-13] MEDS: metFORMIN 500 MG TAB PO SCH (08:15)
[2016-09-13] MEDS: LOSARTAN 25 MG TAB PO SCH (08:15)
[2016-09-13] MEDS: VERAPAMIL 40 MG TAB PO SCH (08:15)
[2016-09-13] MEDS: METOPROLOL TARTRATE 25 MG TAB PO SCH (08:15)
[2016-09-13] MEDS: SPIRONOLACTONE-HCTZ 25-25MG 1 EACH TAB PO SCH (08:15)
[2016-09-13] MEDS: PANTOPRAZOLE 40 MG TABLET PO SCH (08:15)
[2016-09-13] MEDS: MAGNESIUM OXIDE 400 MG TAB PO SCH (08:15)
[2016-09-13] MEDS ORDERED: ASPIRIN 81 MG CHEW PO SCH (09:00)
[2016-09-13 11:31] VITALS: BP 83/60; PULSE 83; TEMP 98.6
[2016-09-13 11:56] LABS: Glucose,Whole Blood 114 mg/dL (75-99)
[2016-09-13] MEDS: CHOLECALCIFEROL 1,000 UNIT TAB PO SCH (12:07)
[2016-09-13] MEDS: MULTIVITAMINS, THERA 1 EACH TAB PO SCH (12:07)
--- NOTE | 2016-09-13 13:06 | PN ---
Mrs. Devries is comfortable, resting, breathing easier. She does not have any chest pain, palpitations, have improved with the addition of beta yann and verapamil small doses were added. I gave lower dose of beta yann in view of the concomitant asthma and reactive airway disease. Vital signs are stable. S1 and S2 heard normally. Lungs revealed improved air entry. Lower extremity exam is unchanged. Plan: From a cardiac standpoint, no specific recommendations. She can be discharged today on the current medical regimen and I will see her as needed.
--- NOTE | 2016-09-13 13:21 | CONS ---
DATE OF CONSULTATION: REASON FOR CONSULTATION: Chronic obstructive pulmonary disease. HISTORY OF PRESENTING ILLNESS: Ms. Carleen Devries is a 51-year-old female who is seen, evaluated, examined on the third floor. This patient has been admitted to hospital with some component of intermittent slight worsening of shortness of breath and palpitation. The patient did have any chest pain, but does have some heaviness in the chest. She does have cough which is dry and nonproductive mostly, but, however, associated with intermittent thick clear sputum production. This patient after admission to the hospital has been evaluated by cardiovascular services. Patient medications are being adjusted. She feels much better. She feels the palpitation that she had has gone. With that her breathing problems and some feeling of chest heaviness has resolved as well. She denies any sputum production except some clear intermittent thick phlegm production. The color has been clear. Denies any hemoptysis. She does have a mild shortness of breath which is baseline and stable. Her past medical history is: 1. Severe chronic obstructive pulmonary disease, emphysema. 2. Chronic persistent asthma. 3. Severe history of GERD. 4. Hypertension, hypertensive cardiovascular disease. 5. Type 2 diabetes mellitus requiring insulin. 6. 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 7. Lung cancer in the right side status post resection. 8. Significant degree of peptic ulcer disease. 9. Chronic persistent asthma, severe category. ALLERGIES INCLUDE CIPRO, LATEX, KEFLEX, SEPTRA. Medications at home include: 1. Metformin 1 gram 2 times a day. 2. Aldactone. 3. Hydrochlorothiazide 1 tablet daily. 4. Zocor 10 mg daily. 5. Ranitidine 150 mg daily. 6. Promethazine codeine 2 teaspoons as needed. 7. Prilosec 20 mg 2 times a day. 8. Multivitamin. 9. Singulair. 10. Mag-Ox. 11. Cozaar. 12. Claritin. 13. Synthroid. 14. DuoNeb unit dose 4 times a day. 15. Insulin 18 units 3 times a day and as needed with sliding scale. 16. Vitamin D3. 17. Pulmicort is 0.5-2 times a day. 18. Albuterol inhaler as needed. Current medications while in the hospital include: As per above. PAST SURGICAL HISTORY: As dictated above, significant for lung cancer resection from the right side, post radiation afterwards and chemo. REVIEW OF SYSTEMS: RECEPTIONIST SCHEDULER: Denies any seizure activity, loss of consciousness, hemiparesis. CARDIORESPIRATORY: Otherwise unremarkable and noncontributory except as dictated above. GASTROINTESTINAL: Denies any hematemesis, gastrointestinal bleed. Denies any nausea, vomiting, diarrhea. Musculoskeletal/dermatological: Unremarkable and noncontributory. Current medications reviewed. On examination, blood pressure on arrival, 82/46, respiratory rate 16, pulse was 101 to 110. HEENT EXAMINATION: Atraumatic, normocephalic. Pharynx clear. Narrow pharyngeal opening is present. NECK: Supple without lymphadenopathy, jugular venous distention or carotid bruit. LUNGS: Bilateral good air entry is present without any significant rales, rhonchi, or rub. HEART: Regular rate and rhythm. S1 and S2 audible. ABDOMEN: Soft. No rebound or rigidity. EXTREMITIES: +1 peripheral pulses. NEUROLOGICAL EXAMINATION: Otherwise, awake and alert. No focal neurological deficit. IMPRESSION: 1. Severe chronic obstructive pulmonary disease, overall no evidence of acute exacerbation. 2. Palpitations and tachycardia, likely multifactorial. Cardiovascular service is evaluating. The patient has been placed on Lopressor, which seems to have controlling the symptoms though. The patient heart rate and rhythm and blood pressure is better under control. 3. Pulmonary fibrosis localized related to radiation therapy. 4. Lung cancer is status post chemo and radiation therapy in the past status post resection. 5. Hypothyroidism. 6. Hyperglycemia and diabetes mellitus. 7. Severe chronic obstructive pulmonary disease. 8. Chronic persistent asthma. 9. History of gastroesophageal reflux disease. PLAN AND RECOMMENDATIONS: Continue breathing treatments. Would recommend to hold on steroids, empiric antibiotics. Continue supportive care. Patient does well with Xopenex but; however, due to insurance, cannot be continued on outpatient setting. Agree with using metoprolol and beta yann at this point in time and other medications. Continue DVT and peptic ulcer disease prophylaxis. Increase activity as tolerated. Patient overall stable. Pulmonary standpoint for discharge and follow up in outpatient setting.
--- NOTE | 2016-09-13 15:02 | P.DS ---
Providers Date of admission: 09/11/16 16:19 Expected date of discharge: 09/13/16 Attending physician: Eric Vo Consults: 09/12/16 13:36 Consult Physician Routine Consulting Provider: Al Cobb Consult Reason/Comments: shortness of breath Do you want consulting provider notified?: Yes Primary care physician: [facility] Course: 1. Symptomatic tachycardia: With 12-lead EKG showing normal sinus rhythm. Exact etiology unclear. May be worsened by using albuterol which will be switched to Xopenex. Unable to Xopenex as an outpatient as it is not covered by insurance. Thyroid function test and d-dimer within normal range. Patient was seen and evaluated by cardiology. Echocardiogram ordered. Started on metoprolol 25 mg 3 times a day. Continue telemetry monitoring. 2. Underlying COPD with mild exacerbation: We will continue bronchodilators. Seen and evaluated by pulmonology 3. Type 2 diabetes mellitus with episode of hypoglycemia this morning. I would decrease her insulin doses as ordered. Continue to monitor closely. 4. Essential hypertension: Blood pressure well controlled 5. DVT prophylaxis with subcu heparin. Patient Condition at Discharge: Fair Plan - Discharge Summary New Discharge Prescriptions: Verapamil [Isoptin] 40 mg PO TID #60 tab Discharge Medication List metFORMIN HCL 1,000 mg PO BID 10/13/13 [History] Cholecalciferol [Vitamin D3] 1,000 unit PO DAILY 10/20/13 [History] Simvastatin [Zocor] 10 mg PO HS 08/16/14 [History] Omeprazole [PriLOSEC] 20 mg PO AC-BID 08/18/14 [History] Ipratropium-Albuterol Nebulize [Duoneb 0.5 mg-3 mg/3 ml Soln] 3 ml INHALATION RT -QID 30 Days 08/21/14 [Rx] Montelukast [Singulair] 10 mg PO HS 01/29/15 [History] Insulin Glargine,Hum.rec.anlog [Lantus Solostar] 70 unit SQ HS 06/20/15 [History ] Loratadine [Claritin] 10 mg PO HS 06/20/15 [History] Ranitidine HCl 150 mg PO HS 06/20/15 [History] Levothyroxine Sodium [Synthroid] 25 mcg PO DAILY@0800 06/22/15 [History] Budesonide [Pulmicort] 0.5 mg INHALATION RT-BID 07/25/15 [History] Albuterol Inhaler [Ventolin Hfa Inhaler] 1 - 2 puff INHALATION RT-Q6H PRN [History] Insulin Glulisine [Apidra] 18 unit SQ AC-TID 06/12/16 [History] Insulin Glulisine [Apidra] See Protocol SQ AC-TID 06/12/16 [History] Losartan [Cozaar] 25 mg PO DAILY #30 tab 06/15/16 [Rx] Magnesium Oxide [Mag-Ox] 400 mg PO DAILY 08/05/16 [History] Multivitamins, Thera [Multivitamin (formulary)] 1 tab PO DAILY 08/05/16 [History ] Promethaz-Cod 6.25-10 mg/5 ml [Phenergan with Codeine] 2 tsp PO TID PRN [History] Spironolactone-Hctz 25-25Mg [Aldactazide 25-25 MG] 1 tab PO DAILY 08/05/16 [ History] Verapamil [Isoptin] 40 mg PO TID #60 tab 09/13/16 [Rx] Follow up Appointment(s)/Referral(s): Valery Campos MD [Primary Care Provider] - 1-2 days Patient Instructions/Handouts: Palpitations (GEN) Discharge Disposition: HOME SELF-CARE
== END 2016-09-13 15:26 | disposition home or self-care (01) ==
LOC: EC 12:35 → 3OBS 16:19
PROVIDERS: ADMIT Internal Medicine; ATTEND Internal Medicine
DX: R00.0 Tachycardia, unspecified (principal); J44.1 Chronic obstructive pulmonary disease with (acute) exacerbation; E11.649 Type 2 diabetes mellitus with hypoglycemia without coma; Z79.4 Long term (current) use of insulin; Z79.84 Long term (current) use of oral hypoglycemic drugs; I11.9 Hypertensive heart disease without heart failure; E03.9 Hypothyroidism, unspecified; E78.5 Hyperlipidemia, unspecified; F17.210 Nicotine dependence, cigarettes, uncomplicated; F32.9 Major depressive disorder, single episode, unspecified; J70.1 Chronic and other pulmonary manifestations due to radiation; K21.9 Gastro-esophageal reflux disease without esophagitis; K27.9 Peptic ulcer, site unspecified, unspecified as acute or chronic, without hemorrhage or perforation; Z79.899 Other long term (current) drug therapy; Z85.118 Personal history of other malignant neoplasm of bronchus and lung; Z90.2 Acquired absence of lung [part of]; Z91.040 Latex allergy status; Z92.21 Personal history of antineoplastic chemotherapy; Z92.3 Personal history of irradiation; Z79.51 Long term (current) use of inhaled steroids; Z88.1 Allergy status to other antibiotic agents; R00.2 Palpitations; J45.50 Severe persistent asthma, uncomplicated; Z88.2 Allergy status to sulfonamides
CPT/HCPCS: 99285 ×2; 96365 ×2; 96375 ×2; 96376 ×2; 96361 ×4; 36415; 94640 ×6; 93005; 93306; 85379; 80061; 80053; 80048; 82550 ×2; 82553 ×2; 83735 ×2; 84443; 84484 ×2; 85025 ×2; 85610; 85730 ×2; 71020; G0378 ×3; J1644 ×3; J2930; J2270 ×2; 96366; 96372

== ENCOUNTER 2016-11-11 10:36 | Inpatient (IN) | payer OTHER ==
[2016-11-11] MEDS ORDERED: SODIUM CHLORIDE 0.9% 1,000 ML IV STA (10:52)
[2016-11-11] MEDS ORDERED: IPRATROPIUM-ALBUTEROL 3 ML NEB INHALATION STA ×2 (10:52→13:05)
--- NOTE | 2016-11-11 11:00 | ED ---
SOB HPI - General Chief Complaint: Upper Respiratory Infection Stated Complaint: diff breathing,cough Time Seen by Provider: 11/11/16 10:46 Source: patient, RN notes reviewed Mode of arrival: ambulatory Limitations: no limitations - History of Present Illness Initial Comments: Is a 51-year-old female history lung cancer with a rate over resection also chemotherapy and radiation therapy history who also has COPD and is a former smoker who presents with complaints of shortness of breath. She states she's had shortness breath just days she has a cough with occasional yellow and white phlegm she denies any overt fevers chills or sweats. She does use an updraft and inhalers home is not helping as much. She has no chest pain she denies any other complaints at this time other than difficulty breathing and the exertional dyspnea that goes with it. She does live with smokers. MD Complaint: shortness of breath, cough - Related Data Home Medications Medication Instructions Recorded Confirmed metFORMIN HCL 1,000 mg PO BID 10/13/13 11/11/16 Cholecalciferol [Vitamin D3] 1,000 unit PO DAILY 10/20/13 11/11/16 Simvastatin [Zocor] 10 mg PO HS 08/16/14 11/11/16 Omeprazole [PriLOSEC] 20 mg PO AC-BID 08/18/14 11/11/16 Montelukast [Singulair] 10 mg PO HS 01/29/15 11/11/16 Insulin Glargine,Hum.rec.anlog 70 unit SQ HS 06/20/15 11/11/16 [Lantus Solostar] Loratadine [Claritin] 10 mg PO HS 06/20/15 11/11/16 Ranitidine HCl 150 mg PO HS 06/20/15 11/11/16 Levothyroxine Sodium [Synthroid] 25 mcg PO DAILY 06/22/15 11/11/16 Budesonide [Pulmicort] 0.5 mg INHALATION RT-BID 07/25/15 11/11/16 Albuterol Inhaler [Ventolin Hfa 1 - 2 puff INHALATION RT-Q6H PRN 06/12/16 Inhaler] Insulin Glulisine [Apidra] 18 unit SQ AC-TID 06/12/16 11/11/16 Insulin Glulisine [Apidra] See Protocol SQ AC-TID 06/12/16 11/11/16 Promethaz-Cod 6.25-10 mg/5 ml 10 ml PO TID PRN 08/05/16 11/11/16 [Phenergan with Codeine] Multivitamin/Iron/Folic Acid 1 tab PO DAILY 11/11/16 11/11/16 [Centrum Women Tablet] Spironolactone [Aldactone] 25 mg PO DAILY 11/11/16 11/11/16 Previous Rx's Medication Instructions Recorded Ipratropium-Albuterol Nebulize 3 ml INHALATION RT-QID 30 Days 08/21/14 [Duoneb 0.5 mg-3 mg/3 ml Soln] Losartan [Cozaar] 25 mg PO DAILY #30 tab 06/15/16 Verapamil [Isoptin] 40 mg PO TID #60 tab 09/13/16 Allergies Allergy/AdvReac Type Severity Reaction Status Date / Time ciprofloxacin HCl Allergy Severe Rash/Hives Verified 11/11/16 11:56 [From Cipro] latex Allergy Severe Rash/Hives Verified 11/11/16 11:56 cephalexin monohydrate Allergy Intermediate Rash/Hives Verified 11/11/16 11:56 [From Keflex] sulfamethoxazole Allergy Intermediate Rash/Hives Verified 11/11/16 11:56 [From Septra] trimethoprim [From Septra] Allergy Intermediate Rash/Hives Verified 11/11/16 11: 56 Review of Systems ROS Statement: Those systems with pertinent positive or pertinent negative responses have been documented in the HPI. ROS Other: All systems not noted in ROS Statement are negative. Past Medical History Past Medical History: Cancer, COPD, Diabetes Mellitus, GERD/Reflux, Hyperlipidemia, Hypertension, Pneumonia, Respiratory Disorder, Thyroid Disorder Additional Past Medical History / Comment(s): 2013 Rt lung CAcompleted-6 chemo TXs and 26 radiation tx, URINARY INCONT-WEARS A PULL UP History of Any Multi-Drug Resistant Organisms: Other MDRO Date of last positivie culture/infection: 2014 MDRO Source:: e-coli in urine Past Surgical History: Appendectomy, Cholecystectomy, Hysterectomy, Tonsillectomy, Tubal Ligation Additional Past Surgical History / Comment(s): R lung biopsy 09/2013, rt middle lobe lobectomy. Past Anesthesia/Blood Transfusion Reactions: Postoperative Nausea & Vomiting ( PONV) Past Psychological History: Depression Additional Psychological History / Comment(s): Lives with her daughter, thanh in a 2 story home but pt stays on 1st floor and there are 4 steps to get outside. Pt is independant gets no out side services at this time. She has a nebulizer. Smoking Status: Former smoker Past Alcohol Use History: None Reported Additional Past Alcohol Use History / Comment(s): started smoking at age 12 was smoking 1.5 ppd, QUIT 2013 Past Drug Use History: None Reported - Past Family History Mother Sister(s) Family Medical History: Cancer Additional Family Medical History / Comment(s): from breast ca at age 65 Father Family Medical History: COPD Additional Family Medical History / Comment(s): had cabg, from a blood infection at age 64 General Exam - General Exam Comments Initial Comments: This is a well-developed well-nourished awake alert oriented 3 female Limitations: no limitations General appearance: alert, in no apparent distress Head exam: Present: atraumatic, normocephalic, normal inspection Eye exam: Present: normal appearance, PERRL, EOMI. Absent: scleral icterus, conjunctival injection, periorbital swelling ENT exam: Present: mucous membranes dry Neck exam: Present: normal inspection. Absent: tenderness, meningismus, lymphadenopathy Respiratory exam: Present: decreased breath sounds. Absent: respiratory distress, wheezes, rales, rhonchi, stridor Cardiovascular Exam: Present: normal rhythm, tachycardia, normal heart sounds. Absent: systolic murmur, diastolic murmur, rubs, gallop, clicks GI/Abdominal exam: Present: soft, normal bowel sounds. Absent: distended, tenderness, guarding, rebound, rigid Extremities exam: Present: normal inspection, full ROM, normal capillary refill. Absent: tenderness, pedal edema, joint swelling, calf tenderness Back exam: Present: normal inspection Neurological exam: Present: alert, oriented X3, CN II-XII intact Psychiatric exam: Present: normal affect, normal mood Skin exam: Present: warm, dry, intact, normal color. Absent: rash Course Vital Signs 11/11/16 11/11/16 11/11/16 10:40 11:12 11:21 Temperature 99.9 F H Pulse Rate 123 H 118 H 120 H Respiratory 18 Rate Blood Pressure 112/76 O2 Sat by Pulse 98 Oximetry 11/11/16 11/11/16 11/11/16 12:12 13:00 13:11 Temperature Pulse Rate 108 H 106 H Respiratory 18 20 Rate Blood Pressure 118/67 O2 Sat by Pulse 96 Oximetry 11/11/16 11/11/16 13:19 13:52 Temperature Pulse Rate 103 H 106 H Respiratory 18 Rate Blood Pressure 118/67 O2 Sat by Pulse 97 Oximetry - Reevaluation(s) Reevaluation #1: 11/11/16 14:24 After initial evaluation the patient still is dyspneic. Medical Decision Making - Medical Decision Making I did reevaluate the patient she still dyspneic. The fever no evidence of any pneumonia at this time however. She is still demonstrates wheezing with decreased breath sounds bilaterally. She will be admitted I did discuss the case with Dr. Vo - Lab Data Result diagrams: 11/11/16 11:05 11/11/16 11:05 Lab Results 11/11/16 11/11/16 11/11/16 Range/Units 11:05 11:05 11:05 WBC 11.9 H (3.8-10.6) k/uL RBC 4.52 (3.80-5.40) m/uL Hgb 13.9 (11.4-16.0) gm/dL Hct 39.4 (34.0-46.0) % MCV 87.1 (80.0-100.0) fL MCH 30.7 (25.0-35.0) pg MCHC 35.2 (31.0-37.0) g/dL RDW 14.1 (11.5-15.5) % Plt Count 192 (150-450) k/uL Neutrophils % 72 % Lymphocytes % 19 % Monocytes % 3 % Eosinophils % 3 % Basophils % 1 % Neutrophils # 8.6 H (1.3-7.7) k/uL Lymphocytes # 2.3 (1.0-4.8) k/uL Monocytes # 0.4 (0-1.0) k/uL Eosinophils # 0.3 (0-0.7) k/uL Basophils # 0.1 (0-0.2) k/uL PT (9.0-12.0) sec INR (<1.1) APTT (22.0-30.0) sec Sodium 141 (137-145) mmol/L Potassium 4.7 (3.5-5.1) mmol/L Chloride 105 (98-107) mmol/L Carbon Dioxide 21 L (22-30) mmol/L Anion Gap 15 mmol/L BUN 13 (7-17) mg/dL Creatinine 0.77 (0.52-1.04) mg/dL Est GFR (MDRD) Af Amer >60 (>60 ml/min/1.73 sqM) Est GFR (MDRD) Non-Af >60 (>60 ml/min/1.73 sqM) Glucose 161 H (74-99) mg/dL Plasma Lactic Acid Keagan (0.7-2.0) mmol/L Calcium 10.1 (8.4-10.2) mg/dL Magnesium 1.3 L (1.6-2.3) mg/dL Total Bilirubin 0.9 (0.2-1.3) mg/dL AST 29 (14-36) U/L ALT 21 (9-52) U/L Alkaline Phosphatase 101 (38-126) U/L Total Creatine Kinase (30-135) U/L CK-MB (CK-2) (0.0-2.4) ng/mL CK-MB (CK-2) Rel Index Troponin I (0.000-0.034) ng/mL NT-Pro-B Natriuret Pep 57 pg/mL Total Protein 7.9 (6.3-8.2) g/dL Albumin 4.8 (3.5-5.0) g/dL 11/11/16 11/11/16 11/11/16 Range/Units 11:05 11:05 11:05 WBC (3.8-10.6) k/uL RBC (3.80-5.40) m/uL Hgb (11.4-16.0) gm/dL Hct (34.0-46.0) % MCV (80.0-100.0) fL MCH (25.0-35.0) pg MCHC (31.0-37.0) g/dL RDW (11.5-15.5) % Plt Count (150-450) k/uL Neutrophils % % Lymphocytes % % Monocytes % % Eosinophils % % Basophils % % Neutrophils # (1.3-7.7) k/uL Lymphocytes # (1.0-4.8) k/uL Monocytes # (0-1.0) k/uL Eosinophils # (0-0.7) k/uL Basophils # (0-0.2) k/uL PT 9.7 (9.0-12.0) sec INR 0.9 (<1.1) APTT 24.6 (22.0-30.0) sec Sodium (137-145) mmol/L Potassium (3.5-5.1) mmol/L Chloride (98-107) mmol/L Carbon Dioxide (22-30) mmol/L Anion Gap mmol/L BUN (7-17) mg/dL Creatinine (0.52-1.04) mg/dL Est GFR (MDRD) Af Amer (>60 ml/min/1.73 sqM) Est GFR (MDRD) Non-Af (>60 ml/min/1.73 sqM) Glucose (74-99) mg/dL Plasma Lactic Acid Keagan 2.6 H* (0.7-2.0) mmol/L Calcium (8.4-10.2) mg/dL Magnesium (1.6-2.3) mg/dL Total Bilirubin (0.2-1.3) mg/dL AST (14-36) U/L ALT (9-52) U/L Alkaline Phosphatase (38-126) U/L Total Creatine Kinase (30-135) U/L CK-MB (CK-2) (0.0-2.4) ng/mL CK-MB (CK-2) Rel Index Troponin I <0.012 (0.000-0.034) ng/mL NT-Pro-B Natriuret Pep pg/mL Total Protein (6.3-8.2) g/dL Albumin (3.5-5.0) g/dL 11/11/16 Range/Units 13:09 WBC (3.8-10.6) k/uL RBC (3.80-5.40) m/uL Hgb (11.4-16.0) gm/dL Hct (34.0-46.0) % MCV (80.0-100.0) fL MCH (25.0-35.0) pg MCHC (31.0-37.0) g/dL RDW (11.5-15.5) % Plt Count (150-450) k/uL Neutrophils % % Lymphocytes % % Monocytes % % Eosinophils % % Basophils % % Neutrophils # (1.3-7.7) k/uL Lymphocytes # (1.0-4.8) k/uL Monocytes # (0-1.0) k/uL Eosinophils # (0-0.7) k/uL Basophils # (0-0.2) k/uL PT (9.0-12.0) sec INR (<1.1) APTT (22.0-30.0) sec Sodium (137-145) mmol/L Potassium (3.5-5.1) mmol/L Chloride (98-107) mmol/L Carbon Dioxide (22-30) mmol/L Anion Gap mmol/L BUN (7-17) mg/dL Creatinine (0.52-1.04) mg/dL Est GFR (MDRD) Af Amer (>60 ml/min/1.73 sqM) Est GFR (MDRD) Non-Af (>60 ml/min/1.73 sqM) Glucose (74-99) mg/dL Plasma Lactic Acid Keagan (0.7-2.0) mmol/L Calcium (8.4-10.2) mg/dL Magnesium (1.6-2.3) mg/dL Total Bilirubin (0.2-1.3) mg/dL AST (14-36) U/L ALT (9-52) U/L Alkaline Phosphatase (38-126) U/L Total Creatine Kinase 113 (30-135) U/L CK-MB (CK-2) 1.0 (0.0-2.4) ng/mL CK-MB (CK-2) Rel Index 0.9 Troponin I (0.000-0.034) ng/mL NT-Pro-B Natriuret Pep pg/mL Total Protein (6.3-8.2) g/dL Albumin (3.5-5.0) g/dL - EKG Data -: EKG Interpreted by Ar EKG shows normal: sinus rhythm (Sinus tachycardia rate 124. 116 QRS of 74 QT/ QTC of 3:30/[address]-T wave changes.) - Radiology Data Radiology results: report reviewed (No definite evidence of infiltrate), image reviewed Critical Care Time Critical Care Time: Yes Critical Care Time: 32 minutes of critical care time which includes initial presentation with history physical labs x-rays reevaluation the patient on multiple occasions discussion with the admitting physician admission orders documentation the above Disposition Clinical Impression: Acute exacerbation of chronic obstructive airways disease, Adult respiratory distress syndrome, Bronchitis, Febrile illness, acute Disposition: ADMITTED IP TO THIS HOSP Condition: Stable Referrals: Valery Campos MD [Primary Care Provider] - 1-2 days
[2016-11-11 11:20] LABS: Basophils # (A) 0.1 k/uL (0-0.2); Basophils % (A) 1 %; CH 30.7; CHCM 35.4; Eosinophils # (A) 0.3 k/uL (0-0.7); Eosinophils % (A) 3 %; HCT 39.4 % (34.0-46.0); HDW 2.98; HGB 13.9 gm/dL (11.4-16.0); Luc # (Auto) 0.24; Luc % (Auto) 2; Lymphocytes # (A) 2.3 k/uL (1.0-4.8); Lymphocytes % (A) 19 %; MCH 30.7 pg (25.0-35.0); MCHC 35.2 g/dL (31.0-37.0); MCV 87.1 fL (80.0-100.0); Mean Platelet Volume 7.6; Monocytes # (A) 0.4 k/uL (0-1.0); Monocytes % (A) 3 %; Neutrophils # (A) 8.6 k/uL (1.3-7.7); Neutrophils % (A) 72 %; RBC 4.52 m/uL (3.80-5.40); RDW 14.1 % (11.5-15.5); WBC 11.9 k/uL (3.8-10.6); WBC (Perox) 11.81
[2016-11-11 11:37] LABS: ALT 21 U/L (9-52); AST 29 U/L (14-36); Alkaline Phosphatase 101 U/L (38-126); Anion Gap 15 mmol/L; Blood Urea Nitrogen 13 mg/dL (7-17); Calcium 10.1 mg/dL (8.4-10.2); Carbon Dioxide 21 mmol/L (22-30); Chloride 105 mmol/L (98-107); Glucose 161 mg/dL (74-99); Magnesium 1.3 mg/dL (1.6-2.3); Non-African American GFR(MDRD) >60 (>60 ml/min/1.73 sqM); Sodium 141 mmol/L (137-145); Total Bilirubin 0.9 mg/dL (0.2-1.3); Total Protein 7.9 g/dL (6.3-8.2)
[2016-11-11 11:38] LABS: Potassium 4.7 mmol/L (3.5-5.1)
--- NOTE | 2016-11-11 11:45 | XR ---
EXAMINATION TYPE: XR chest 2V DATE OF EXAM: 11/11/2016 HISTORY: difficulty breathing. REFERENCE: Previous study dated 09/11/2016 and 07/24/2015. FINDINGS: There are chronic parenchymal changes at both lung bases. I do not see evidence of superimp osed pneumonia or edema. There is chronic appearing elevation right hemidiaphragm. The heart is not e nlarged. Pleural spaces are clear. IMPRESSION: CHRONIC PARENCHYMAL CHANGES WITHOUT ACUTE INTRATHORACIC ABNORMALITY.
[2016-11-11 12:28] LABS: INR 0.9 (<1.1); Partial Thromboplastin Time 24.6 sec (22.0-30.0); Prothrombin Time 9.7 sec (9.0-12.0)
[2016-11-11] MEDS ORDERED: SODIUM CHLORIDE 0.9% 2,000 ML IV ONE (13:00)
[2016-11-11] MEDS ORDERED: MAGNESIUM SULFATE-D5W PMX 1 GM in DEXTROSE/WATER 1 100ML.BAG IVPB ONE (13:15)
[2016-11-11] MEDS ORDERED: ACETAMINOPHEN TAB 500 MG TAB PO STA (13:54)
--- NOTE | 2016-11-11 14:37 | ED ---
Medical Decision Making - Lab Data Result diagrams: 11/11/16 11:05 11/11/16 11:05 Lab Results 11/11/16 11/11/16 11/11/16 Range/Units 11:05 11:05 11:05 WBC 11.9 H (3.8-10.6) k/uL RBC 4.52 (3.80-5.40) m/uL Hgb 13.9 (11.4-16.0) gm/dL Hct 39.4 (34.0-46.0) % MCV 87.1 (80.0-100.0) fL MCH 30.7 (25.0-35.0) pg MCHC 35.2 (31.0-37.0) g/dL RDW 14.1 (11.5-15.5) % Plt Count 192 (150-450) k/uL Neutrophils % 72 % Lymphocytes % 19 % Monocytes % 3 % Eosinophils % 3 % Basophils % 1 % Neutrophils # 8.6 H (1.3-7.7) k/uL Lymphocytes # 2.3 (1.0-4.8) k/uL Monocytes # 0.4 (0-1.0) k/uL Eosinophils # 0.3 (0-0.7) k/uL Basophils # 0.1 (0-0.2) k/uL PT (9.0-12.0) sec INR (<1.1) APTT (22.0-30.0) sec Sodium 141 (137-145) mmol/L Potassium 4.7 (3.5-5.1) mmol/L Chloride 105 (98-107) mmol/L Carbon Dioxide 21 L (22-30) mmol/L Anion Gap 15 mmol/L BUN 13 (7-17) mg/dL Creatinine 0.77 (0.52-1.04) mg/dL Est GFR (MDRD) Af Amer >60 (>60 ml/min/1.73 sqM) Est GFR (MDRD) Non-Af >60 (>60 ml/min/1.73 sqM) Glucose 161 H (74-99) mg/dL Plasma Lactic Acid Keagan (0.7-2.0) mmol/L Calcium 10.1 (8.4-10.2) mg/dL Magnesium 1.3 L (1.6-2.3) mg/dL Total Bilirubin 0.9 (0.2-1.3) mg/dL AST 29 (14-36) U/L ALT 21 (9-52) U/L Alkaline Phosphatase 101 (38-126) U/L Total Creatine Kinase (30-135) U/L CK-MB (CK-2) (0.0-2.4) ng/mL CK-MB (CK-2) Rel Index Troponin I (0.000-0.034) ng/mL NT-Pro-B Natriuret Pep 57 pg/mL Total Protein 7.9 (6.3-8.2) g/dL Albumin 4.8 (3.5-5.0) g/dL 11/11/16 11/11/16 11/11/16 Range/Units 11:05 11:05 11:05 WBC (3.8-10.6) k/uL RBC (3.80-5.40) m/uL Hgb (11.4-16.0) gm/dL Hct (34.0-46.0) % MCV (80.0-100.0) fL MCH (25.0-35.0) pg MCHC (31.0-37.0) g/dL RDW (11.5-15.5) % Plt Count (150-450) k/uL Neutrophils % % Lymphocytes % % Monocytes % % Eosinophils % % Basophils % % Neutrophils # (1.3-7.7) k/uL Lymphocytes # (1.0-4.8) k/uL Monocytes # (0-1.0) k/uL Eosinophils # (0-0.7) k/uL Basophils # (0-0.2) k/uL PT 9.7 (9.0-12.0) sec INR 0.9 (<1.1) APTT 24.6 (22.0-30.0) sec Sodium (137-145) mmol/L Potassium (3.5-5.1) mmol/L Chloride (98-107) mmol/L Carbon Dioxide (22-30) mmol/L Anion Gap mmol/L BUN (7-17) mg/dL Creatinine (0.52-1.04) mg/dL Est GFR (MDRD) Af Amer (>60 ml/min/1.73 sqM) Est GFR (MDRD) Non-Af (>60 ml/min/1.73 sqM) Glucose (74-99) mg/dL Plasma Lactic Acid Keagan 2.6 H* (0.7-2.0) mmol/L Calcium (8.4-10.2) mg/dL Magnesium (1.6-2.3) mg/dL Total Bilirubin (0.2-1.3) mg/dL AST (14-36) U/L ALT (9-52) U/L Alkaline Phosphatase (38-126) U/L Total Creatine Kinase (30-135) U/L CK-MB (CK-2) (0.0-2.4) ng/mL CK-MB (CK-2) Rel Index Troponin I <0.012 (0.000-0.034) ng/mL NT-Pro-B Natriuret Pep pg/mL Total Protein (6.3-8.2) g/dL Albumin (3.5-5.0) g/dL 11/11/16 Range/Units 13:09 WBC (3.8-10.6) k/uL RBC (3.80-5.40) m/uL Hgb (11.4-16.0) gm/dL Hct (34.0-46.0) % MCV (80.0-100.0) fL MCH (25.0-35.0) pg MCHC (31.0-37.0) g/dL RDW (11.5-15.5) % Plt Count (150-450) k/uL Neutrophils % % Lymphocytes % % Monocytes % % Eosinophils % % Basophils % % Neutrophils # (1.3-7.7) k/uL Lymphocytes # (1.0-4.8) k/uL Monocytes # (0-1.0) k/uL Eosinophils # (0-0.7) k/uL Basophils # (0-0.2) k/uL PT (9.0-12.0) sec INR (<1.1) APTT (22.0-30.0) sec Sodium (137-145) mmol/L Potassium (3.5-5.1) mmol/L Chloride (98-107) mmol/L Carbon Dioxide (22-30) mmol/L Anion Gap mmol/L BUN (7-17) mg/dL Creatinine (0.52-1.04) mg/dL Est GFR (MDRD) Af Amer (>60 ml/min/1.73 sqM) Est GFR (MDRD) Non-Af (>60 ml/min/1.73 sqM) Glucose (74-99) mg/dL Plasma Lactic Acid Keagan (0.7-2.0) mmol/L Calcium (8.4-10.2) mg/dL Magnesium (1.6-2.3) mg/dL Total Bilirubin (0.2-1.3) mg/dL AST (14-36) U/L ALT (9-52) U/L Alkaline Phosphatase (38-126) U/L Total Creatine Kinase 113 (30-135) U/L CK-MB (CK-2) 1.0 (0.0-2.4) ng/mL CK-MB (CK-2) Rel Index 0.9 Troponin I (0.000-0.034) ng/mL NT-Pro-B Natriuret Pep pg/mL Total Protein (6.3-8.2) g/dL Albumin (3.5-5.0) g/dL Disposition Clinical Impression: Acute exacerbation of chronic obstructive airways disease, Adult respiratory distress syndrome, Bronchitis, Febrile illness, acute Disposition: ADMITTED IP TO THIS HOSP Condition: Stable Referrals: Valery Campos MD [Primary Care Provider] - 1-2 days Decision Time: 14:00
[2016-11-11] MEDS: IPRATROPIUM-ALBUTEROL 3 ML NEB INHALATION SCH ×3 (15:36→19:36)
[2016-11-11 17:17] LABS: Glucose,Whole Blood 183 mg/dL (75-99)
[2016-11-11] MEDS: HYDROcodone/APAP 10-325MG 1 EACH TAB PO PRN (17:55)
[2016-11-11] MEDS: PROMETHAZ-COD 6.25-10 MG/5 ML 5 ML CUP PO PRN ×2 (17:55→22:31)
[2016-11-11] MEDS: VERAPAMIL 40 MG TAB PO SCH ×2 (17:56→22:03)
[2016-11-11] MEDS: methylPREDNISolone SOD SUCCI 125 MG/2 ML VIAL IV SCH ×2 (17:57→23:30)
[2016-11-11] MEDS: SODIUM CHLORIDE 0.9% 1,000 ML IV SCH (17:57)
[2016-11-11] MEDS: INSULIN LISPRO (humaLOG) 300 UNIT/3 ML VIAL SQ SCH (17:57)
[2016-11-11] MEDS: AZITHROMYCIN 500 MG TAB PO SCH (17:57)
[2016-11-11] MEDS: metFORMIN 500 MG TAB PO SCH (17:57)
[2016-11-11] MEDS: PANTOPRAZOLE 40 MG TABLET PO SCH (17:57)
[2016-11-11] MEDS: BUDESONIDE 0.5 MG/2 ML NEBU INHALATION SCH (19:26)
[2016-11-11 21:37] LABS: Glucose,Whole Blood 163 mg/dL (75-99)
[2016-11-11] MEDS: MONTELUKAST 10 MG TAB PO SCH (22:03)
[2016-11-11] MEDS: FAMOTIDINE 20 MG TAB PO SCH (22:03)
[2016-11-11] MEDS: LORATADINE 10 MG TAB PO SCH (22:03)
[2016-11-11] MEDS: INSULIN GLARGINE 100 UNIT/ML 10 ML VIAL SQ SCH (22:04)
[2016-11-11] MEDS: ATORVASTATIN 10 MG TAB PO SCH (22:05)
[2016-11-12] MEDS: SODIUM CHLORIDE 0.9% 1,000 ML IV SCH ×3 (01:01→21:11)
[2016-11-12] MEDS: IPRATROPIUM-ALBUTEROL 3 ML NEB INHALATION PRN (02:56)
[2016-11-12] MEDS: HYDROcodone/APAP 10-325MG 1 EACH TAB PO PRN ×4 (02:56→21:09)
[2016-11-12] MEDS: methylPREDNISolone SOD SUCCI 125 MG/2 ML VIAL IV SCH ×4 (06:36→23:53)
[2016-11-12] MEDS: LEVOTHYROXINE 25 MCG TAB PO SCH (06:37)
[2016-11-12] MEDS: BUDESONIDE 0.5 MG/2 ML NEBU INHALATION SCH ×2 (07:26→19:50)
[2016-11-12] MEDS: IPRATROPIUM-ALBUTEROL 3 ML NEB INHALATION SCH ×4 (07:26→19:50)
[2016-11-12 07:50] LABS: Glucose,Whole Blood 229 mg/dL (75-99)
[2016-11-12] MEDS: VERAPAMIL 40 MG TAB PO SCH ×3 (07:58→21:10)
[2016-11-12] MEDS: LOSARTAN 25 MG TAB PO SCH (07:59)
[2016-11-12] MEDS: PANTOPRAZOLE 40 MG TABLET PO SCH ×2 (07:59→17:58)
[2016-11-12] MEDS: metFORMIN 500 MG TAB PO SCH ×2 (07:59→17:58)
[2016-11-12] MEDS: INSULIN LISPRO (humaLOG) 300 UNIT/3 ML VIAL SQ SCH ×7 (07:59→21:16)
[2016-11-12] MEDS: SPIRONOLACTONE 25 MG TAB PO SCH (07:59)
[2016-11-12] MEDS: PROMETHAZ-COD 6.25-10 MG/5 ML 5 ML CUP PO PRN ×3 (08:06→21:09)
[2016-11-12 10:01] LABS: ALT 28 U/L (9-52); AST 17 U/L (14-36); Alkaline Phosphatase 84 U/L (38-126); Anion Gap 13 mmol/L; Blood Urea Nitrogen 14 mg/dL (7-17); Carbon Dioxide 18 mmol/L (22-30); Chloride 106 mmol/L (98-107); Glucose 241 mg/dL (74-99); Magnesium 1.2 mg/dL (1.6-2.3); Non-African American GFR(MDRD) >60 (>60 ml/min/1.73 sqM); Potassium 4.5 mmol/L (3.5-5.1); Sodium 137 mmol/L (137-145); Total Bilirubin 0.7 mg/dL (0.2-1.3); Total Protein 6.7 g/dL (6.3-8.2)
[2016-11-12] MEDS ORDERED: Magnesium Replacement Protocol 1 EACH MISC MISCELLANE PRN (10:13)
--- NOTE | 2016-11-12 10:13 | P.HPIM ---
History of Present Illness H&P Date: 11/12/16 Chief Complaint: Cough with shortness of breath This is a 51-year-old female with a known history of lung cancer with right middle lobe lobectomy status post chemo and radiation treatments in 2013. She also has a known history of COPD, uncontrolled diabetes mellitus, hyperlipidemia , hypertension and hypothyroidism. She presents to the emergency room with complaint of worsening shortness of breath and cough 3 days. She reports her sputum is white in color. Patient states that she's just been feeling very sick. She's also complaining of frontal sinus headache. As well as some neck pain. No injury to the neck. Has full range of motion of the neck. Reports the neck pain has been ongoing for a couple weeks now. Chest x-ray showed no acute changes. However her white count was elevated at 11.9 and lactic acid elevated at 2.6 and EKG had shown sinus tachycardia with a heart rate of 124. She was treated with sepsis protocol was given IV fluids. And started on antibiotics. As well as IV steroids for an acute bronchitis and COPD exacerbation. Pulmonary service was consulted. Patient feels tightness in her chest. Denies any actual chest pain. Denies any nausea or vomiting. Denies any bowel movement changes or fever, chills, sweats. Complaining of some pressure when she urinates. Review of Systems Please refer to HPI otherwise unremarkable Past Medical History Past Medical History: Cancer, COPD, Diabetes Mellitus, GERD/Reflux, Hyperlipidemia, Hypertension, Pneumonia, Respiratory Disorder, Thyroid Disorder Additional Past Medical History / Comment(s): 2013 Rt lung CA completed-6 chemo TXs and 26 radiation tx, URINARY INCONT-WEARS A PULL UP, NEUROPATHY IN FEET. History of Any Multi-Drug Resistant Organisms: Other MDRO Date of last positivie culture/infection: 2014 MDRO Source:: e-coli in urine Past Surgical History: Appendectomy, Cholecystectomy, Hysterectomy, Tonsillectomy, Tubal Ligation Additional Past Surgical History / Comment(s): R lung biopsy 09/2013, rt middle lobe lobectomy. Past Anesthesia/Blood Transfusion Reactions: Postoperative Nausea & Vomiting ( PONV) Past Psychological History: Depression Additional Psychological History / Comment(s): Lives with her daughter, thanh in a 2 story home but pt stays on 1st floor and there are 4 steps to get outside. has 1 pet cat.Pt is independant gets no out side services at this time. She has a nebulizer. Smoking Status: Former smoker Past Alcohol Use History: None Reported Additional Past Alcohol Use History / Comment(s): started smoking at age 12 was smoking 1.5 ppd, QUIT 2013 Past Drug Use History: None Reported - Past Family History Mother Sister(s) Family Medical History: Cancer Additional Family Medical History / Comment(s): from breast ca at age 65 Father Family Medical History: COPD Additional Family Medical History / Comment(s): had cabg, from a blood infection at age 64 Medications and Allergies Home Medications Medication Instructions Recorded Confirmed Type metFORMIN HCL 1,000 mg PO BID 10/13/13 11/11/16 History Cholecalciferol [Vitamin D3] 1,000 unit PO DAILY 10/20/13 11/11/16 History Simvastatin [Zocor] 10 mg PO HS 08/16/14 11/11/16 History Omeprazole [PriLOSEC] 20 mg PO AC-BID 08/18/14 11/11/16 History Montelukast [Singulair] 10 mg PO HS 01/29/15 11/11/16 History Insulin Glargine,Hum.rec.anlog 70 unit SQ HS 06/20/15 11/11/16 History [Lantus Solostar] Loratadine [Claritin] 10 mg PO HS 06/20/15 11/11/16 History Ranitidine HCl 150 mg PO HS 06/20/15 11/11/16 History Levothyroxine Sodium [Synthroid] 25 mcg PO DAILY 06/22/15 11/11/16 History Budesonide [Pulmicort] 0.5 mg INHALATION RT-BID 07/25/15 11/11/16 History Albuterol Inhaler [Ventolin Hfa 1 - 2 puff INHALATION RT-Q6H PRN 06/12/16 History Inhaler] Insulin Glulisine [Apidra] 18 unit SQ AC-TID 06/12/16 11/11/16 History Insulin Glulisine [Apidra] See Protocol SQ AC-TID 06/12/16 11/11/16 History Promethaz-Cod 6.25-10 mg/5 ml 10 ml PO TID PRN 08/05/16 11/11/16 History [Phenergan with Codeine] Multivitamin/Iron/Folic Acid 1 tab PO DAILY 11/11/16 11/11/16 History [Centrum Women Tablet] Spironolactone [Aldactone] 25 mg PO DAILY 11/11/16 11/11/16 History Allergies Allergy/AdvReac Type Severity Reaction Status Date / Time ciprofloxacin HCl Allergy Severe Rash/Hives Verified 11/11/16 11:56 [From Cipro] latex Allergy Severe Rash/Hives Verified 11/11/16 11:56 cephalexin monohydrate Allergy Intermediate Rash/Hives Verified 11/11/16 11:56 [From Keflex] sulfamethoxazole Allergy Intermediate Rash/Hives Verified 11/11/16 11:56 [From Septra] trimethoprim [From Septra] Allergy Intermediate Rash/Hives Verified 11/11/16 11: 56 Physical Exam Vitals: Vital Signs Temp Pulse Pulse Resp BP BP Pulse Ox 11/12/16 07:41 98 11/12/16 07:28 98 11/12/16 07:00 97.1 F L 105 H 16 117/63 94 L 11/12/16 03:05 104 H 11/12/16 02:56 100 11/11/16 23:00 97.2 F L 96 16 113/70 96 11/11/16 19:43 108 H 11/11/16 19:30 108 H 11/11/16 16:22 97.4 F L 108 H 16 104/66 95 11/11/16 15:53 97.9 F 115 H 15 107/66 95 11/11/16 14:50 110 H 20 103/56 95 11/11/16 13:52 106 H 18 118/67 97 11/11/16 13:19 103 H 11/11/16 13:11 106 H 11/11/16 13:00 20 11/11/16 12:12 108 H 18 118/67 96 11/11/16 11:21 120 H 11/11/16 11:12 118 H 11/11/16 10:40 99.9 F H 123 H 18 112/76 98 Intake and Output 11/11/16 11/12/16 11/12/16 22:59 06:59 14:59 Intake Total 900 Balance 900 Intake: Amount of Fluid Infused ( 700 ml) Oral 200 Other: # Voids 2 1 Head normocephalic Neck supple Lungs coarse breath sounds bilaterally. No wheezing Heart regular rate and rhythm S1-S2, no rub or gallop Abdomen is soft nontender nondistended positive bowel sounds no hepatosplenomegaly Extremities no edema Neuro alert and orientated to 3 Results CBC & Chem 7: 11/11/16 11:05 11/12/16 09:08 Labs: Abnormal Lab Results - Last 24 Hours (Table) 11/11/16 11/11/16 11/11/16 Range/Units 11:05 11:05 11:05 WBC 11.9 H (3.8-10.6) k/uL Neutrophils # 8.6 H (1.3-7.7) k/uL Carbon Dioxide 21 L (22-30) mmol/L Glucose 161 H (74-99) mg/dL POC Glucose (mg/dL) (75-99) mg/dL Plasma Lactic Acid Keagan 2.6 H* (0.7-2.0) mmol/L Magnesium 1.3 L (1.6-2.3) mg/dL 11/11/16 11/11/16 11/12/16 Range/Units 16:58 21:26 07:36 WBC (3.8-10.6) k/uL Neutrophils # (1.3-7.7) k/uL Carbon Dioxide (22-30) mmol/L Glucose (74-99) mg/dL POC Glucose (mg/dL) 183 H 163 H 229 H (75-99) mg/dL Plasma Lactic Acid Keagan (0.7-2.0) mmol/L Magnesium (1.6-2.3) mg/dL 11/12/16 Range/Units 09:08 WBC (3.8-10.6) k/uL Neutrophils # (1.3-7.7) k/uL Carbon Dioxide 18 L (22-30) mmol/L Glucose 241 H (74-99) mg/dL POC Glucose (mg/dL) (75-99) mg/dL Plasma Lactic Acid Keagan (0.7-2.0) mmol/L Magnesium 1.2 L (1.6-2.3) mg/dL Thrombosis Risk Factor Assmnt - Choose All That Apply Any of the Below Risk Factors Present?: Yes Each Factor Represents 1 point: Abnormal pulmonary function (COPD), Age 41-60 years, Obesity (BMI >25) Other Risk Factors: No Thrombosis Risk Factor Assessment Total Risk Factor Score: 3 Thrombosis Risk Factor Assessment Level: Moderate Risk Assessment and Plan Plan: 1. Acute COPD exacerbation: Patient started on nebulizer treatments and IV steroids. Continue Pulmicort. Pulmonary service consulted. 2. Acute tracheobronchitis: No evidence of pneumonia on chest x-ray. Continue azithromycin. Check sputum culture. Await pulmonary consult. 3. Sepsis present on admission possibly related to the bronchitis: Continue to monitor. Continue IV fluids and antibiotics. Await blood culture. Patient had white count of 11.9, sinus tachycardia with a heart rate of 124 and lactic acid of 2.6. Also check influenza swab 4. Hypomagnesemia: Patient received magnesium supplement. Repeat magnesium level and replace as needed 5. Insulin-dependent diabetes mellitus type 2: Resume home insulin. Add steroid sliding scale insulin coverage. 6. History of lung cancer with right middle lobe lobectomy and chemo and radiation treatment in 2013 7. Former smoker 8. Essential hypertension 9. Headache and neck pain we'll adjust her Deridder she takes as home to 10/325 3 times a day GI prophylaxis Protonix and DVT prophylaxis Lovenox Time with Patient: Greater than 30 (Greater than 50% of the total time spent in counseling and coordination of care.I performed an examination of the patient and discussed their management with the physician Aluminum Siding Installer. I have reviewed the Physician Aluminum Siding Installer's notes and agree with the documented findings and plan of care)
[2016-11-12 10:14] LABS: Basophils % (A) 0 %; CH 30.5; CHCM 34.4; Eosinophils % (A) 0 %; HCT 38.9 % (34.0-46.0); HDW 2.91; Luc # (Auto) 0.13; Luc % (Auto) 2; Lymphocytes # (A) 0.9 k/uL (1.0-4.8); Lymphocytes % (A) 10 %; MCH 29.9 pg (25.0-35.0); MCHC 33.5 g/dL (31.0-37.0); Mean Platelet Volume 7.5; Monocytes # (A) 0.1 k/uL (0-1.0); Monocytes % (A) 1 %; Neutrophils # (A) 7.5 k/uL (1.3-7.7); Neutrophils % (A) 87 %; RBC 4.37 m/uL (3.80-5.40); WBC 8.6 k/uL (3.8-10.6); WBC (Perox) 8.92
[2016-11-12] MEDS: BUTALB/APAP/CAFF 50-325-40MG TAB PO PRN (10:55)
[2016-11-12] MEDS: MAGNESIUM SULFATE-D5W PMX 1 GM in DEXTROSE/WATER 1 100ML.BAG IVPB SCH ×3 (10:56→14:18)
[2016-11-12] MEDS: ENOXAPARIN 40 MG/0.4 ML SYRINGE SQ SCH ×2 (10:57→11:04)
[2016-11-12] MEDS: CHOLECALCIFEROL 1,000 UNIT TAB PO SCH (10:59)
[2016-11-12] MEDS: MULTIVITAMINS, THERA 1 EACH TAB PO SCH (10:59)
[2016-11-12 11:32] LABS: Appearance,Urine Clear (Clear); Bilirubin,Urine Negative (Negative); Glucose,Urine (UA) Negative (Negative); Ketones,Urine Negative (Negative); Leukocyte Esterase,Urine Negative (Negative); Nitrite,Urine Negative (Negative); PH, Urine 5.5 (5.0-8.0); Protein,Urine Trace (Negative); Specific Gravity,Urine 1.005 (1.001-1.035); UA Billing (MACRO vs. MICRO) CHEM; Urobilinogen,Urine <2.0 mg/dL (<2.0)
[2016-11-12 11:54] LABS: Hemoglobin A1C 6.9 % (4.2-6.1)
[2016-11-12 11:56] LABS: Glucose,Whole Blood 208 mg/dL (75-99)
[2016-11-12 13:07] LABS: Glucose,Whole Blood 215 mg/dL (75-99)
[2016-11-12 14:19] VITALS: BMI 30.9
[2016-11-12 17:16] LABS: Glucose,Whole Blood 314 mg/dL (75-99)
[2016-11-12] MEDS: MAG HYDROX/AL HYDROX/SIMETH 30 ML, LIDOCAINE VISCOUS 30 ML, NYSTATIN 100,000 UNIT/ML SU... PO SCH ×6 (17:58→21:10)
[2016-11-12] MEDS: AZITHROMYCIN 500 MG TAB PO SCH (17:58)
--- NOTE | 2016-11-12 19:49 | CONS ---
DATE OF CONSULTATION: 11/12/2016 REASON FOR CONSULTATION: Cough, congestion, shortness of breath. HISTORY OF PRESENTING ILLNESS: Ms. Carleen Devries is well known to me. Patient has a history of lung cancer, status post resection followed by palliative radiation therapy. She has chronic fibrosis of the area with predisposition for recurrent infection; also has extensive degree GERD. This patient presented to the emergency department with increased cough, congestion and shortness of breath. She was seen, evaluated and examined. Due to problems associated with worsening of shortness of breath, she has been admitted to the hospital. Patient has been having problems with congestion and purulent sputum production which is white to yellow, thick, tenacious and difficult to expectorate. She feels weak and has difficulty in expectorating as well. PAST MEDICAL HISTORY: As dictated above, significant for: 1. Lung cancer, status post right upper lobe resection. 2. History of chemotherapy XRT and right upper lobe resection. 3. History of GERD. 4. Dyslipidemia. 5. Hypertension, hypertensive cardiovascular disease. 6. Severe COPD. 7. History of recurrent urinary tract infection. PAST SURGICAL HISTORY: 1. Status post appendectomy. 2. Cholecystectomy. 3. Hysterectomy. 4. Tonsillectomy. 5. Tubal ligation. 6. Lung surgery as dictated above. ALLERGIES include: 1. CIPRO. 2. LATEX. 3. KEFLEX. 4. BACTRIM. Current medications in the hospital include: 1. Metformin 1 gram 2 times a day. 2. Cholecalciferol 1000 units daily. 3. Zocor 10 mg daily. 4. Prilosec 20 mg daily. 5. Singulair 10 mg daily. 6. Sliding scale insulin. 7. Ranitidine. 8. Loratadine. 9. Synthroid. 10. Pulmicort. 11. Albuterol HFA 2 puffs 4 times a day. 12. Apidra. 13. Promethazine. 14. Phenergan as needed. REVIEW OF SYSTEMS: Otherwise unremarkable and noncontributory. On examination, most recent vitals include blood pressure 117/63, respiratory rate 16, pulse 105, temperature 97, saturation 95% to 96%. HEENT: Unremarkable. NECK: Supple. LUNGS: Good air entry bilaterally. HEART: Regular rate, rhythm. S1, S2 audible. ABDOMEN: Soft. No rebound or rigidity. EXTREMITIES: Plus one peripheral pulses. NEUROLOGICAL EXAMINATION: Awake and alert. Laboratory data reviewed. Medications reviewed as well. The last chest x-ray performed 11/11/16 revealed chronic parenchymal changes; acute inflammatory process in the right mid lung field cannot be excluded; elevated right hemidiaphragm due to chronic scarring. Other laboratory data reviewed. White cell count 8600, hemoglobin 13, hematocrit 38, platelet count 160,000. Sodium 137, potassium 4.5. BUN and creatinine 14 and 0.65. Glucose is 151. Calcium is 9.0. AST and ALT within normal limits. Urinalysis unremarkable. Influenza A and B both negative. IMPRESSION: 1. Recurrent pneumonia. 2. 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 3. Lung cancer, status post right upper lobe resection. 4. Severe gastroesophageal reflux disease. PLAN AND RECOMMENDATIONS: As above. Continue antibiotics, supportive care. Continue breathing treatments and steroids. Patient has difficulty in coughing. Patient likely has mucus impaction in the scarred lung. Will proceed with bronchoscopy and pulmonary toilet to clear up the airway. Further recommendations pending. Plan of care as per clinical response of the patient.
[2016-11-12] MEDS: LORATADINE 10 MG TAB PO SCH (21:10)
[2016-11-12] MEDS: FAMOTIDINE 20 MG TAB PO SCH (21:10)
[2016-11-12] MEDS: MONTELUKAST 10 MG TAB PO SCH (21:10)
[2016-11-12] MEDS: ATORVASTATIN 10 MG TAB PO SCH (21:11)
[2016-11-12] MEDS: INSULIN GLARGINE 100 UNIT/ML 10 ML VIAL SQ SCH (21:13)
[2016-11-12 21:23] LABS: Glucose,Whole Blood 249 mg/dL (75-99)
[2016-11-13] MEDS: IPRATROPIUM-ALBUTEROL 3 ML NEB INHALATION PRN (02:25)
[2016-11-13] MEDS: PROMETHAZ-COD 6.25-10 MG/5 ML 5 ML CUP PO PRN ×3 (03:07→21:29)
[2016-11-13] MEDS: HYDROcodone/APAP 10-325MG 1 EACH TAB PO PRN ×3 (03:07→21:29)
[2016-11-13] MEDS: methylPREDNISolone SOD SUCCI 125 MG/2 ML VIAL IV SCH ×4 (06:23→23:53)
[2016-11-13] MEDS: SODIUM CHLORIDE 0.9% 1,000 ML IV SCH ×3 (06:23→23:53)
[2016-11-13 07:05] LABS: Glucose,Whole Blood 272 mg/dL (75-99)
[2016-11-13] MEDS: INSULIN LISPRO (humaLOG) 300 UNIT/3 ML VIAL SQ SCH ×7 (08:00→21:12)
[2016-11-13] MEDS: BUDESONIDE 0.5 MG/2 ML NEBU INHALATION SCH ×2 (08:28→20:04)
[2016-11-13] MEDS: IPRATROPIUM-ALBUTEROL 3 ML NEB INHALATION SCH ×4 (08:29→20:04)
[2016-11-13 08:59] LABS: Basophils % (A) 0 %; CH 30.2; Eosinophils % (A) 0 %; HCT 34.7 % (34.0-46.0); HDW 2.94; Luc # (Auto) 0.07; Luc % (Auto) 1; Lymphocytes # (A) 1.1 k/uL (1.0-4.8); Lymphocytes % (A) 13 %; MCH 30.8 pg (25.0-35.0); MCHC 34.5 g/dL (31.0-37.0); MCV 89.4 fL (80.0-100.0); Mean Platelet Volume 7.5; Monocytes # (A) 0.2 k/uL (0-1.0); Monocytes % (A) 3 %; Neutrophils # (A) 7.3 k/uL (1.3-7.7); Neutrophils % (A) 84 %; RBC 3.89 m/uL (3.80-5.40); RDW 14.3 % (11.5-15.5); WBC 8.7 k/uL (3.8-10.6); WBC (Perox) 8.74
[2016-11-13 09:05] LABS: ALT 27 U/L (9-52); AST 18 U/L (14-36); Alkaline Phosphatase 71 U/L (38-126); Anion Gap 13 mmol/L; Blood Urea Nitrogen 16 mg/dL (7-17); Calcium 9.2 mg/dL (8.4-10.2); Carbon Dioxide 20 mmol/L (22-30); Chloride 108 mmol/L (98-107); Glucose 248 mg/dL (74-99); Magnesium 1.7 mg/dL (1.6-2.3); Non-African American GFR(MDRD) >60 (>60 ml/min/1.73 sqM); Potassium 4.6 mmol/L (3.5-5.1); Sodium 141 mmol/L (137-145); Total Bilirubin 0.5 mg/dL (0.2-1.3); Total Protein 6.5 g/dL (6.3-8.2)
[2016-11-13] MEDS: LEVOTHYROXINE 25 MCG TAB PO SCH (09:40)
[2016-11-13] MEDS: metFORMIN 500 MG TAB PO SCH ×2 (09:41→16:38)
[2016-11-13] MEDS: PANTOPRAZOLE 40 MG TABLET PO SCH ×2 (09:41→16:39)
[2016-11-13] MEDS: ENOXAPARIN 40 MG/0.4 ML SYRINGE SQ SCH (09:42)
[2016-11-13] MEDS: LOSARTAN 25 MG TAB PO SCH (09:42)
[2016-11-13] MEDS: SPIRONOLACTONE 25 MG TAB PO SCH (09:43)
[2016-11-13] MEDS: MAG HYDROX/AL HYDROX/SIMETH 30 ML, LIDOCAINE VISCOUS 30 ML, NYSTATIN 100,000 UNIT/ML SU... PO SCH ×9 (09:43→21:18)
[2016-11-13] MEDS: VERAPAMIL 40 MG TAB PO SCH ×3 (09:43→21:18)
[2016-11-13] MEDS: BUTALB/APAP/CAFF 50-325-40MG TAB PO PRN (09:44)
--- NOTE | 2016-11-13 09:53 | P.PN ---
Subjective This is a 51-year-old female with a known history of lung cancer with right middle lobe lobectomy status post chemo and radiation treatments in 2013. She also has a known history of COPD, uncontrolled diabetes mellitus, hyperlipidemia , hypertension and hypothyroidism. She presents to the emergency room with complaint of worsening shortness of breath and cough 3 days. Being treated for COPD exacerbation and bronchitis. Chest x-ray was negative for pneumonia. 11/13/2016 patient scheduled for bronchoscopy. She is still having some shortness of breath and cough. Sputum is yellowish with a few streaks of blood. She still complaining of neck pain but has full range of motion. Neck pain has been ongoing for the last 2 weeks. Denies any injury. She's been afebrile. Heart rate has shown improvement. She denies any chest pain nausea or vomiting. Did have a regular bowel movement this morning. Denies any burning with urination Objective - Vital Signs Vital signs: Vital Signs Temp 98.5 F 11/13/16 07:00 Pulse 100 11/13/16 08:30 Resp 16 11/13/16 07:00 BP 129/60 11/13/16 07:00 Pulse Ox 97 11/13/16 07:00 Intake & Output 11/12/16 11/13/16 11/13/16 18:59 06:59 18:59 Intake Total 1800 400 Balance 1800 400 Weight 81.647 kg Intake: Oral 1800 400 Other: # Voids 4 2 - Exam Head normocephalic Neck has full range of motion. Tenderness with palpation of the left paravertebral muscles along the cervical spine and into the shoulder. Lungs wheezing bilaterally Heart regular rate and rhythm S1-S2, no rub or gallop Abdomen is soft nontender nondistended positive bowel sounds no hepatosplenomegaly Extremities no edema Neuro alert and orientated to 3 - Labs CBC & Chem 7: 11/13/16 08:34 11/13/16 08:34 Labs: Abnormal Lab Results - Last 24 Hours (Table) 11/12/16 11/12/16 11/12/16 Range/Units 09:08 09:08 09:08 Lymphocytes # 0.9 L (1.0-4.8) k/uL Chloride (98-107) mmol/L Carbon Dioxide 18 L (22-30) mmol/L Glucose 241 H (74-99) mg/dL POC Glucose (mg/dL) (75-99) mg/dL Hemoglobin A1c 6.9 H (4.2-6.1) % Magnesium 1.2 L (1.6-2.3) mg/dL Urine Protein (Negative) 11/12/16 11/12/16 11/12/16 Range/Units 11:10 11:45 13:04 Lymphocytes # (1.0-4.8) k/uL Chloride (98-107) mmol/L Carbon Dioxide (22-30) mmol/L Glucose (74-99) mg/dL POC Glucose (mg/dL) 208 H 215 H (75-99) mg/dL Hemoglobin A1c (4.2-6.1) % Magnesium (1.6-2.3) mg/dL Urine Protein Trace H (Negative) 11/12/16 11/12/16 11/13/16 Range/Units 17:11 21:12 06:54 Lymphocytes # (1.0-4.8) k/uL Chloride (98-107) mmol/L Carbon Dioxide (22-30) mmol/L Glucose (74-99) mg/dL POC Glucose (mg/dL) 314 H 249 H 272 H (75-99) mg/dL Hemoglobin A1c (4.2-6.1) % Magnesium (1.6-2.3) mg/dL Urine Protein (Negative) 11/13/16 Range/Units 08:34 Lymphocytes # (1.0-4.8) k/uL Chloride 108 H (98-107) mmol/L Carbon Dioxide 20 L (22-30) mmol/L Glucose 248 H (74-99) mg/dL POC Glucose (mg/dL) (75-99) mg/dL Hemoglobin A1c (4.2-6.1) % Magnesium (1.6-2.3) mg/dL Urine Protein (Negative) Microbiology - Last 24 Hours (Table) 11/12/16 11:10 Urine Culture - Preliminary Urine,Clean Catch 11/11/16 11:05 Blood Culture - Preliminary Blood No Growth after 24 hours Assessment and Plan Plan: 1. Acute COPD exacerbation: Patient started on nebulizer treatments and IV steroids. Continue Pulmicort. Pulmonary service consulted. 2. Acute tracheobronchitis: No evidence of pneumonia on chest x-ray. Continue azithromycin. Check sputum culture. Pulmonary following and patient is scheduled for bronchoscopy today 3. Sepsis present on admission possibly related to the bronchitis: Continue to monitor. Continue IV fluids and antibiotics. Await blood culture. Patient had white count of 11.9, sinus tachycardia with a heart rate of 124 and lactic acid of 2.6. Flu negative 4. Hypomagnesemia: Patient received magnesium supplement. Repeat magnesium level and replace as needed 5. Insulin-dependent diabetes mellitus type 2: Resume home insulin. Add steroid sliding scale insulin coverage. Elevated blood sugars secondary to steroids. Continue to monitor. Hemoglobin A1c 6.9 6. History of lung cancer with right middle lobe lobectomy and chemo and radiation treatment in 2013 7. Former smoker 8. Essential hypertension 9. Headache improved with the Fioricet 10. Neck pain: Check neck x-ray. Continue pain medication. Recommended either applying heat or cold for comfort 11. Mouth ulcers continue cool solution 12. Pulmonary fibrosis localized at the radiation site 13. GERD continue Protonix GI prophylaxis Protonix and DVT prophylaxis Lovenox I performed an examination of the patient and discussed their management with the physician Construction Secretary. I have reviewed the Physician Construction Secretary's notes and agree with the documented findings and plan of care
[2016-11-13] MEDS: MULTIVITAMINS, THERA 1 EACH TAB PO SCH (11:21)
[2016-11-13] MEDS: CHOLECALCIFEROL 1,000 UNIT TAB PO SCH (11:22)
[2016-11-13 11:49] LABS: Glucose,Whole Blood 244 mg/dL (75-99)
[2016-11-13] MEDS ORDERED: PROPOFOL 10 MG/ML 20 ML VIAL IV ONE (13:09)
[2016-11-13] MEDS ORDERED: LIDOCAINE 1% INJ 10MG/ML (20 ML MDV) ONE (13:09)
[2016-11-13] MEDS ORDERED: MIDAZOLAM 2 MG/2 ML VIAL ONE (13:09)
[2016-11-13] MEDS ORDERED: fentaNYL (PF) 50 MCG/ML 2 ML AMP ONE (13:09)
[2016-11-13] MEDS ORDERED: IV FLUID CONTINUATION 100 ML IV ONE (13:13)
[2016-11-13] MEDS ORDERED: LIDOCAINE 2% INJ 20 MG/ML INTRATRACH ONE (13:33)
[2016-11-13] MEDS: FLUCONAZOLE 150 MG TAB PO SCH (14:24)
--- NOTE | 2016-11-13 16:17 | PN ---
DATE OF SERVICE: 11/13/2016 Carleen Devries is a 51-year-old female, seen, evaluated and examined in the 4th floor. Clinically patient is still short of breath, has a cough which is intermittently productive. She is complaining of painful respirations, especially on the right side with radiation. Therapy has been given. Her last set of vitals include blood pressure is 129/60, respiratory rate 16, pulse of 100, temperature 98, saturation 97%. HEENT: Otherwise unremarkable. NECK: Supple. LUNGS: Good air entry bilaterally with coarse breath sounds, especially on the right side along with coarse crackles and bronchial breath sounds. HEART: Regular rate and rhythm. S1 and S2 audible. ABDOMEN: Soft. EXTREMITIES: +1 peripheral pulses. NEUROLOGICAL EXAMINATION: Otherwise, awake and alert. No focal neurological deficit. LABS: Reviewed. MEDICATIONS: Reviewed as well. Current medications include: 1. Fioricet 1 tablet 4 times a day as needed. 2. [place] 3 times a day as needed. 3. DuoNeb unit dose 4 times a day and as needed. 4. Zithromax 500 mg daily. 5. Lipitor 10 mg daily. 6. Pulmicort 2 times a day 0.5 units. 7. Lovenox 40 mg daily. 8. Pepcid 20 mg daily. 9. Insulin Lantus 70 units at bedtime. 10. Sliding scale insulin. 11. Claritin. 12. Also on metformin. 13. Solu-Medrol 60 every 6 hours. 14. Singulair. 15. Protonix. 16. IV fluid 100 mL an hour. 17. Verapamil. 18. ( ). The laboratory data reviewed. The glucose is 272. White cell count is down from 11.9 to 8.6. The last chest x-ray performed at the time of admission 11/11/2016 reviewed revealed chronic changes, predominantly on the right side and elevated hemidiaphragm. IMPRESSION: 1. Right sided pneumonia with chronic radiation pneumonitis and structural damage to lungs, Suspect presence of bronchiectasis on that side. Unusual opportunistic infections cannot be excluded. Plan is to continue empiric antibiotics, steroids, breathing treatment. Plan is for bronchoscopy and pulmonary toilet and getting good samples from the lungs. 2. Lung cancer by history, is status post right upper lobe resection. Clinically overall stable, status post x-ray therapy and chemotherapy. 3. Severe chronic obstructive pulmonary disease, emphysema. PLAN AND RECOMMENDATIONS: As above. Continue supportive care. Follow clinical course closely. Further recommendations pending. Other issues include uncontrolled diabetes and hyperglycemia. Will continue current supportive care. Follow clinical course closely. Further recommendations pending. Adjust insulin accordingly; hopefully, will lower down the steroids as well.
[2016-11-13] MEDS: AZITHROMYCIN 500 MG TAB PO SCH (16:39)
[2016-11-13 16:47] LABS: Glucose,Whole Blood 265 mg/dL (75-99)
--- NOTE | 2016-11-13 19:46 | XR ---
EXAMINATION TYPE: XR cervical spine comp DATE OF EXAM: 11/13/2016 COMPARISON: NONE HISTORY: Neck pain TECHNIQUE: 6 views FINDINGS: Cervical vertebra have normal alignment. Posterior elements are intact. Disc spaces appear normal for age. Neuroforamina are fairly well-maintained. Atlantoaxial facet joint is normal. There a re no cervical ribs. IMPRESSION: Cervical spine appears normal for age.
[2016-11-13 21:06] LABS: Glucose,Whole Blood 203 mg/dL (75-99)
[2016-11-13] MEDS: INSULIN GLARGINE 100 UNIT/ML 10 ML VIAL SQ SCH (21:17)
[2016-11-13] MEDS: ATORVASTATIN 10 MG TAB PO SCH (21:18)
[2016-11-13] MEDS: FAMOTIDINE 20 MG TAB PO SCH (21:18)
[2016-11-13] MEDS: LORATADINE 10 MG TAB PO SCH (21:18)
[2016-11-13] MEDS: MONTELUKAST 10 MG TAB PO SCH (21:18)
--- NOTE | 2016-11-13 23:17 | PCN ---
DATE OF PROCEDURE: 11/13/2016 PREPROCEDURE DIAGNOSES: 1. Chronic obstructive pulmonary disease exacerbation. 2. Purulent tracheobronchitis. 3. Lung cancer. 4. Recurrent pneumonia. OPERATIVE DETAIL: Patient was prepared and draped in the usual fashion. Informed consent obtained. The tip of the scope was passed through the right nares. Fiberoptic scope was passed. Vocal cords were of normal structure and function. Tip of the scope was passed beyond the vocal cords into the right side. Extensive amount of phlegm and purulent secretions seen bilaterally, more so on the right side compared to the left side. Tip of the scope was right in the right upper lobe subsegment. BAL was performed followed by BAL of the right lower lobe. Subsequently, ( ) to the left side, left upper lobe, left middle lobe and left lower lobe inspected and tip of the scope was wedged in the left side. BAL was performed on the left lower lobe as well. The patient of note developed significant desaturation during the procedure, ( ) inspection on the right side as well as left side cannot be performed; however, pulmonary toilet was performed. Suction clearance was done. Patient tolerated the procedure very well except transient desaturation being transferred to the recovery area.
[2016-11-14 02:14] LABS: Glucose,Whole Blood 257 mg/dL (75-99)
[2016-11-14] MEDS: IPRATROPIUM-ALBUTEROL 3 ML NEB INHALATION PRN (02:25)
[2016-11-14] MEDS: HYDROcodone/APAP 10-325MG 1 EACH TAB PO PRN ×3 (06:07→22:14)
[2016-11-14] MEDS: PROMETHAZ-COD 6.25-10 MG/5 ML 5 ML CUP PO PRN ×3 (06:07→22:14)
[2016-11-14] MEDS: LEVOTHYROXINE 25 MCG TAB PO SCH (06:34)
[2016-11-14] MEDS: methylPREDNISolone SOD SUCCI 125 MG/2 ML VIAL IV SCH (06:34)
[2016-11-14] MEDS: BUDESONIDE 0.5 MG/2 ML NEBU INHALATION SCH ×2 (07:18→19:31)
[2016-11-14] MEDS: IPRATROPIUM-ALBUTEROL 3 ML NEB INHALATION SCH ×4 (07:18→19:31)
[2016-11-14 07:20] LABS: Glucose,Whole Blood 278 mg/dL (75-99)
[2016-11-14] MEDS: INSULIN LISPRO (humaLOG) 300 UNIT/3 ML VIAL SQ SCH ×7 (08:22→21:52)
[2016-11-14] MEDS: metFORMIN 500 MG TAB PO SCH ×2 (08:23→18:33)
[2016-11-14] MEDS: PANTOPRAZOLE 40 MG TABLET PO SCH ×2 (08:23→18:33)
[2016-11-14] MEDS: ENOXAPARIN 40 MG/0.4 ML SYRINGE SQ SCH (08:24)
[2016-11-14 09:27] LABS: Basophils % (A) 0 %; CH 30.4; CHCM 32.7; Eosinophils % (A) 0 %; HCT 35.6 % (34.0-46.0); HDW 2.68; HGB 11.4 gm/dL (11.4-16.0); Luc # (Auto) 0.09; Luc % (Auto) 1; Lymphocytes % (A) 15 %; MCH 30.1 pg (25.0-35.0); MCHC 32.1 g/dL (31.0-37.0); MCV 93.7 fL (80.0-100.0); Mean Platelet Volume 7.7; Monocytes # (A) 0.2 k/uL (0-1.0); Monocytes % (A) 3 %; Neutrophils # (A) 5.6 k/uL (1.3-7.7); Neutrophils % (A) 81 %; RDW 14.4 % (11.5-15.5); WBC (Perox) 7.33
[2016-11-14 09:31] LABS: ALT 35 U/L (9-52); AST 21 U/L (14-36); Alkaline Phosphatase 71 U/L (38-126); Anion Gap 11 mmol/L; Blood Urea Nitrogen 21 mg/dL (7-17); Calcium 9.1 mg/dL (8.4-10.2); Carbon Dioxide 22 mmol/L (22-30); Chloride 105 mmol/L (98-107); Glucose 235 mg/dL (74-99); Non-African American GFR(MDRD) >60 (>60 ml/min/1.73 sqM); Potassium 4.1 mmol/L (3.5-5.1); Sodium 138 mmol/L (137-145); Total Bilirubin 0.5 mg/dL (0.2-1.3); Total Protein 6.3 g/dL (6.3-8.2)
[2016-11-14] MEDS: MAG HYDROX/AL HYDROX/SIMETH 30 ML, LIDOCAINE VISCOUS 30 ML, NYSTATIN 100,000 UNIT/ML SU... PO SCH ×9 (09:51→21:56)
[2016-11-14] MEDS: LOSARTAN 25 MG TAB PO SCH (09:51)
[2016-11-14] MEDS: FLUCONAZOLE 150 MG TAB PO SCH (09:51)
[2016-11-14] MEDS: VERAPAMIL 40 MG TAB PO SCH ×3 (09:51→21:56)
[2016-11-14] MEDS: SPIRONOLACTONE 25 MG TAB PO SCH (09:51)
[2016-11-14 11:48] LABS: Glucose,Whole Blood 214 mg/dL (75-99)
--- NOTE | 2016-11-14 11:50 | P.PN ---
Subjective Patient's feeling better today. Her lungs showed good air movement with very mild end expiratory wheezing. She underwent bronchoscopy with pulmonary yesterday. Objective - Vital Signs Vital signs: Vital Signs Temp 98.0 F 11/14/16 07:00 Pulse 78 11/14/16 11:15 Resp 16 11/14/16 07:00 BP 138/76 11/14/16 07:00 Pulse Ox 96 11/14/16 07:00 Intake & Output 11/13/16 11/14/16 11/14/16 18:59 06:59 18:59 Intake Total 650 Balance 650 Intake: IV 50 Oral 600 Other: # Voids 2 2 - Exam General: The patient is awake and alert, in no distress Eye: there is normal conjunctiva bilaterally. Neck: The neck is supple, there is no JVD. Cardiovascular: Normal S1-S2, no S3-S4, no murmurs. Respiratory: Lungs clear to auscultation bilaterally Gastrointestinal: Abdomen is soft, nontender Musculoskeletal: There is no pedal edema. Neurological:. Speech is normal. Skin: Skin is warm and dry - Labs CBC & Chem 7: 11/14/16 08:16 11/14/16 08:16 Labs: Abnormal Lab Results - Last 24 Hours (Table) 11/13/16 11/13/16 11/13/16 Range/Units 11:34 16:42 20:33 BUN (7-17) mg/dL Glucose (74-99) mg/dL POC Glucose (mg/dL) 244 H 265 H 203 H (75-99) mg/dL 11/14/16 11/14/16 11/14/16 Range/Units 02:02 07:14 08:16 BUN 21 H (7-17) mg/dL Glucose 235 H (74-99) mg/dL POC Glucose (mg/dL) 257 H 278 H (75-99) mg/dL 11/14/16 Range/Units 11:41 BUN (7-17) mg/dL Glucose (74-99) mg/dL POC Glucose (mg/dL) 214 H (75-99) mg/dL Microbiology - Last 24 Hours (Table) 11/13/16 13:38 Gram Stain - Preliminary Bronchial Brushings - Right Bronchial Washings Culture - Preliminary 11/11/16 11:05 Blood Culture Gram Stain - Preliminary Blood 11/13/16 13:38 Fungal Culture - Preliminary Bronchial Brushings - Right 11/13/16 13:38 Acid Fast Bacilli Culture - Preliminary Bronchial Brushings - Right 11/11/16 11:05 Blood Culture - Preliminary Blood No Growth after 48 hours 11/12/16 11:10 Urine Culture - Final Urine,Clean Catch Assessment and Plan Plan: 1. Acute COPD exacerbation: Patient started on nebulizer treatments and IV steroids. Continue Pulmicort. 2. Acute tracheobronchitis: No evidence of pneumonia on chest x-ray. Continue azithromycin. Check sputum culture. Patient underwent bronchoscopy yesterday awaiting cultures to finalize 3. Sepsis present on admission possibly related to the bronchitis 4. Hypomagnesemia: Patient received magnesium supplement. 5. Insulin-dependent diabetes mellitus type 2: Resume home insulin. Add steroid sliding scale insulin coverage. Elevated blood sugars secondary to steroids. Continue to monitor. Hemoglobin A1c 6.9 6. History of lung cancer with right middle lobe lobectomy and chemo and radiation treatment in 2013 7. Former smoker 8. Essential hypertension 9. Headache improved with the Fioricet 10. Neck pain: Check neck x-ray. Continue pain medication. Recommended either applying heat or cold for comfort 11. Mouth ulcers continue cool solution 12. Pulmonary fibrosis localized at the radiation site 13. GERD continue Protonix
[2016-11-14] MEDS: CHOLECALCIFEROL 1,000 UNIT TAB PO SCH (12:41)
[2016-11-14] MEDS: MULTIVITAMINS, THERA 1 EACH TAB PO SCH (12:41)
[2016-11-14] MEDS: SODIUM CHLORIDE 0.9% 1,000 ML IV SCH ×2 (12:42→21:56)
--- NOTE | 2016-11-14 16:27 | PN ---
This patient is a 51-year-old female with history of right-sided lung cancer. She came into the hospital with pneumonia, acute COPD exacerbation, shortness of breath, cough, congestion. Patient is status post bronchoscopy and pulmonary toilet and bronchoalveolar lavage. Today she feels better in terms of congestion, breathing relatively more easily, but still gets short of breath and still has tightness in the chest. Her last set of vitals includes blood pressure 138/76, respiratory rate 16, pulse 86, temperature 98, saturation of 96% on room air. HEENT EXAMINATION: Otherwise unremarkable. Atraumatic, normocephalic. Pharynx clear. Narrow pharyngeal opening is present. NECK: Supple without lymphadenopathy, jugular venous distention or carotid bruit. LUNGS: Bilateral coarse breath sounds are present with fine inspiratory and expiratory wheezing and rhonchi. HEART: Regular rate, rhythm. S1, S2 audible. ABDOMEN: Soft. No rebound or rigidity. EXTREMITIES: Plus one peripheral pulses. NEUROLOGICAL EXAMINATION: Otherwise awake and alert. Culture results and reports are reviewed. No growth in the fungal culture is seen. AFB testing has been performed; results are pending. Preliminary Gram stain of the fluid revealed moderate Gram-positive cocci, rare Gram-negative bacilli. Final ID and culture results are pending. Urine culture final revealed a contaminated sample. Blood culture Gram stain; preliminary Gram-negative bacilli are seen, obtained on 11/11/16; however, no growth after 48 hours. IMPRESSION: 1. Pneumonia. 2. Acute chronic obstructive pulmonary disease exacerbation. 3. Purulent tracheobronchitis. 4. Lung cancer. 5. Severe chronic obstructive pulmonary disease. 6. Positive blood culture with Gram-negative rods; final results are no growth. For now, would recommend continued steroids, antibiotics, breathing treatments. Continue current supportive care. Increase activity as tolerated. Will follow clinical course closely.
[2016-11-14 16:44] LABS: Glucose,Whole Blood 153 mg/dL (75-99)
[2016-11-14] MEDS: AZITHROMYCIN 500 MG TAB PO SCH (18:33)
[2016-11-14 21:39] LABS: Glucose,Whole Blood 129 mg/dL (75-99)
[2016-11-14] MEDS: INSULIN GLARGINE 100 UNIT/ML 10 ML VIAL SQ SCH (21:52)
[2016-11-14] MEDS: ATORVASTATIN 10 MG TAB PO SCH (21:55)
[2016-11-14] MEDS: LORATADINE 10 MG TAB PO SCH (21:56)
[2016-11-14] MEDS: methylPREDNISolone SOD SUCCI 40 MG/ML 1 ML VIAL IV SCH (21:56)
[2016-11-14] MEDS: FAMOTIDINE 20 MG TAB PO SCH (21:56)
[2016-11-14] MEDS: MONTELUKAST 10 MG TAB PO SCH (21:56)
[2016-11-15 02:33] LABS: Glucose,Whole Blood 196 mg/dL (75-99)
[2016-11-15] MEDS: IPRATROPIUM-ALBUTEROL 3 ML NEB INHALATION PRN (02:45)
[2016-11-15] MEDS: PROMETHAZ-COD 6.25-10 MG/5 ML 5 ML CUP PO PRN ×2 (06:01→14:17)
[2016-11-15] MEDS: HYDROcodone/APAP 10-325MG 1 EACH TAB PO PRN ×2 (06:01→14:17)
[2016-11-15] MEDS: LEVOTHYROXINE 25 MCG TAB PO SCH (06:39)
[2016-11-15 07:36] LABS: Glucose,Whole Blood 217 mg/dL (75-99)
[2016-11-15 07:53] VITALS: BP 149/86; RESP 16; TEMP 98.3
[2016-11-15] MEDS: IPRATROPIUM-ALBUTEROL 3 ML NEB INHALATION SCH ×2 (07:55→11:50)
[2016-11-15] MEDS: BUDESONIDE 0.5 MG/2 ML NEBU INHALATION SCH (07:55)
[2016-11-15] MEDS: ENOXAPARIN 40 MG/0.4 ML SYRINGE SQ SCH (08:13)
[2016-11-15] MEDS: metFORMIN 500 MG TAB PO SCH (08:16)
[2016-11-15] MEDS: methylPREDNISolone SOD SUCCI 40 MG/ML 1 ML VIAL IV SCH (08:16)
[2016-11-15] MEDS: MAG HYDROX/AL HYDROX/SIMETH 30 ML, LIDOCAINE VISCOUS 30 ML, NYSTATIN 100,000 UNIT/ML SU... PO SCH ×3 (08:16)
[2016-11-15] MEDS: LOSARTAN 25 MG TAB PO SCH (08:16)
[2016-11-15] MEDS: FLUCONAZOLE 150 MG TAB PO SCH (08:16)
[2016-11-15] MEDS: VERAPAMIL 40 MG TAB PO SCH (08:16)
[2016-11-15] MEDS: SPIRONOLACTONE 25 MG TAB PO SCH (08:16)
[2016-11-15] MEDS: PANTOPRAZOLE 40 MG TABLET PO SCH (08:16)
[2016-11-15] MEDS: INSULIN LISPRO (humaLOG) 300 UNIT/3 ML VIAL SQ SCH ×4 (08:16→13:14)
[2016-11-15] MEDS: SODIUM CHLORIDE 0.9% 1,000 ML IV SCH (08:17)
[2016-11-15] MEDS ORDERED: VANCOMYCIN 1,500 MG in SODIUM CHLORIDE 0.9% 250 ML IVPB STA (08:31)
[2016-11-15] MEDS ORDERED: IV VANCOMYCIN PER PHARMACY 1 EACH MISC MISCELLANE PRN (08:31)
[2016-11-15 09:08] LABS: Basophils % (A) 0 %; CH 30.6; CHCM 34.5; Eosinophils % (A) 0 %; HDW 2.86; HGB 11.9 gm/dL (11.4-16.0); Luc # (Auto) 0.19; Luc % (Auto) 3; Lymphocytes # (A) 1.3 k/uL (1.0-4.8); Lymphocytes % (A) 19 %; MCH 30.2 pg (25.0-35.0); MCHC 33.9 g/dL (31.0-37.0); Mean Platelet Volume 7.4; Monocytes # (A) 0.3 k/uL (0-1.0); Monocytes % (A) 5 %; Neutrophils # (A) 5.1 k/uL (1.3-7.7); Neutrophils % (A) 73 %; RBC 3.93 m/uL (3.80-5.40); RDW 14.2 % (11.5-15.5); WBC (Perox) 7.26
[2016-11-15 09:26] LABS: ALT 34 U/L (9-52); AST 26 U/L (14-36); Alkaline Phosphatase 56 U/L (38-126); Anion Gap 11 mmol/L; Blood Urea Nitrogen 19 mg/dL (7-17); Carbon Dioxide 24 mmol/L (22-30); Chloride 103 mmol/L (98-107); Glucose 186 mg/dL (74-99); Non-African American GFR(MDRD) >60 (>60 ml/min/1.73 sqM); Potassium 4.3 mmol/L (3.5-5.1); Sodium 138 mmol/L (137-145); Total Bilirubin 0.6 mg/dL (0.2-1.3); Total Protein 6.1 g/dL (6.3-8.2)
[2016-11-15 12:05] VITALS: PULSE 76
[2016-11-15] MEDS: CHOLECALCIFEROL 1,000 UNIT TAB PO SCH (12:05)
[2016-11-15] MEDS: MULTIVITAMINS, THERA 1 EACH TAB PO SCH (12:05)
[2016-11-15 12:14] LABS: Glucose,Whole Blood 151 mg/dL (75-99)
--- NOTE | 2016-11-15 13:37 | P.DS ---
Providers Date of admission: 11/11/16 14:31 Expected date of discharge: 11/15/16 Attending physician: Eric Vo Consults: 11/11/16 14:31 Consult Physician Routine Consulting Provider: Al Cobb Consult Reason/Comments: COPD exacerbation, bronchitis Do you want consulting provider notified?: Yes Primary care physician: [facility] Course: 1. Acute COPD exacerbation: Patient started on nebulizer treatments and steroids. Continue Pulmicort. 2. Acute tracheobronchitis: No evidence of pneumonia on chest x-ray. BAL showing MSSA 3. Sepsis present on admission possibly related to the bronchitis 4. Hypomagnesemia: Patient received magnesium supplement. 5. Insulin-dependent diabetes mellitus type 2: Hemoglobin A1c 6.9 6. History of lung cancer with right middle lobe lobectomy and chemo and radiation treatment in 2013 7. Former smoker 8. Essential hypertension 9. Headache improved with the Fioricet 10. Neck pain: Check neck x-ray. Continue pain medication. Recommended either applying heat or cold for comfort 11. Mouth ulcers continue cool solution 12. Pulmonary fibrosis localized at the radiation site 13. GERD continue Protonix Patient Condition at Discharge: Stable Plan - Discharge Summary New Discharge Prescriptions: New Amoxicillin/Potassium Clav [Augmentin 875-125 Tablet] 1 tab PO Q12HR #10 tab predniSONE 40 mg PO DAILY #10 tab Continue metFORMIN HCL 1,000 mg PO BID Cholecalciferol [Vitamin D3] 1,000 unit PO DAILY Simvastatin [Zocor] 10 mg PO HS Omeprazole [PriLOSEC] 20 mg PO AC-BID Ipratropium-Albuterol Nebulize [Duoneb 0.5 mg-3 mg/3 ml Soln] 3 ml INHALATION RT-QID 30 Days Montelukast [Singulair] 10 mg PO HS Insulin Glargine,Hum.rec.anlog [Lantus Solostar] 70 unit SQ HS Levothyroxine Sodium [Synthroid] 25 mcg PO DAILY Budesonide [Pulmicort] 0.5 mg INHALATION RT-BID Albuterol Inhaler [Ventolin Hfa Inhaler] 1 - 2 puff INHALATION RT-Q6H PRN PRN Reason: Shortness Of Breath Insulin Glulisine [Apidra] See Protocol SQ AC-TID Insulin Glulisine [Apidra] 18 unit SQ AC-TID Losartan [Cozaar] 25 mg PO DAILY #30 tab Verapamil [Isoptin] 40 mg PO TID #60 tab Multivitamin/Iron/Folic Acid [Centrum Women Tablet] 1 tab PO DAILY Spironolactone [Aldactone] 25 mg PO DAILY Discontinued Ranitidine HCl 150 mg PO HS Loratadine [Claritin] 10 mg PO HS Promethaz-Cod 6.25-10 mg/5 ml [Phenergan with Codeine] 10 ml PO TID PRN PRN Reason: Cough Discharge Medication List metFORMIN HCL 1,000 mg PO BID 10/13/13 [History] Cholecalciferol [Vitamin D3] 1,000 unit PO DAILY 10/20/13 [History] Simvastatin [Zocor] 10 mg PO HS 08/16/14 [History] Omeprazole [PriLOSEC] 20 mg PO AC-BID 08/18/14 [History] Ipratropium-Albuterol Nebulize [Duoneb 0.5 mg-3 mg/3 ml Soln] 3 ml INHALATION RT -QID 30 Days 08/21/14 [Rx] Montelukast [Singulair] 10 mg PO HS 01/29/15 [History] Insulin Glargine,Hum.rec.anlog [Lantus Solostar] 70 unit SQ HS 06/20/15 [History ] Levothyroxine Sodium [Synthroid] 25 mcg PO DAILY 06/22/15 [History] Budesonide [Pulmicort] 0.5 mg INHALATION RT-BID 07/25/15 [History] Albuterol Inhaler [Ventolin Hfa Inhaler] 1 - 2 puff INHALATION RT-Q6H PRN [History] Insulin Glulisine [Apidra] 18 unit SQ AC-TID 06/12/16 [History] Insulin Glulisine [Apidra] See Protocol SQ AC-TID 06/12/16 [History] Losartan [Cozaar] 25 mg PO DAILY #30 tab 06/15/16 [Rx] Verapamil [Isoptin] 40 mg PO TID #60 tab 09/13/16 [Rx] Multivitamin/Iron/Folic Acid [Centrum Women Tablet] 1 tab PO DAILY 11/11/16 [ History] Spironolactone [Aldactone] 25 mg PO DAILY 11/11/16 [History] Amoxicillin/Potassium Clav [Augmentin 875-125 Tablet] 1 tab PO Q12HR #10 tab 04/23 [Rx] predniSONE 40 mg PO DAILY #10 tab 11/15/16 [Rx] Follow up Appointment(s)/Referral(s): Valery Campos MD [Primary Care Provider] - 1-2 days Patient Instructions/Handouts: Type 2 Diabetes in Adults (DC), Bacteremia (DC) Discharge Disposition: HOME SELF-CARE
[2016-11-15] MEDS ORDERED: AMOXIC-POT CLAV 875-125MG 1 EACH TAB PO STA (14:20)
--- NOTE | 2016-11-15 14:41 | PN ---
Ms. Devries is a 51-year-old female who is seen, evaluated, examined on fourth floor. Clinically patient is doing slightly better. Cough, congestion and chest soreness and tightness has improved. Patient remains on broad-spectrum antibiotics along with IV steroids and breathing treatments. With bronchoscopy, she felt much better after pulmonary toilet. The culture results and report of the blood culture obtained previously shows no growth. However, new problem noted is positive culture as noted in the bronchoalveolar lavage performed on the right side. Her last set of vitals include blood pressure is 150/86, respiratory rate 16, pulse 78, temperature 98, saturation of 95%. HEENT: Unremarkable. NECK: Supple. LUNGS: Good air entry bilaterally. HEART: Regular rate and rhythm. S1 and S2 audible. ABDOMEN: Soft. No rebound or rigidity. EXTREMITIES: +1 peripheral pulses. NEUROLOGICAL EXAMINATION: Otherwise, awake and alert. Patient initial blood cultures performed 11/11/2016 have been no growth. Repeat blood culture obtained on 11/13/2016 no growth. BAL performed from the right side revealed Staph species, presumptive final ID; however, is pending. Two gram-negative bacilli were noted as well. Other medications reviewed. Currently patient is on: 1. DuoNeb unit dose 4 times a day. 2. Also on Lipitor. 3. Zithromax. 4. Pulmicort. 5. Rocephin. 6. Vitamin D. 7. Lovenox for DVT prophylaxis. 8. Pepcid. 9. Diflucan. 10. Sliding scale insulin. 11. Synthroid. 12. Claritin. 13. Cozaar. 14. Glucophage. 15. Solu-Medrol is 40 q.12. IMPRESSION: 1. Right-sided pneumonia and acute chronic obstructive pulmonary disease exacerbation. 2. History of lung cancer status post right upper lobe wedge resection status post chemo and XRT. 3. Severe chronic obstructive pulmonary disease. 4. Uncontrolled diabetes and hyperglycemia. 5. Vitamin D deficiency. 6. Type 2 diabetes mellitus. 7. Hypertension, hypertensive cardiovascular disease. Plan is to continue antibiotics, breathing treatments, steroids. Continue supportive care. Increase activity as tolerated. Would recommend to add IV vancomycin for now, until final ID is available. We will follow clinical course closely. Further recommendations pending.
[2016-11-15] MEDS ORDERED: VANCOMYCIN 1,250 MG in SODIUM CHLORIDE 0.9% 250 ML IVPB SCH (20:00)
[2016-11-18 08:13] LABS: Mis test requested (Non-blood) Pneumocystis DFA
== END 2016-11-15 14:36 | disposition home or self-care (01) | DRG 853 ==
LOC: EC 10:36 → 4MS4W 14:31
PROVIDERS: ADMIT Internal Medicine; ATTEND Internal Medicine
PROC: 0B9F8ZX Drainage of Right Lower Lung Lobe, Via Natural or Artificial Opening Endoscopic, Diagnostic (ICD-10-PCS; principal; 2016-11-13 07:30)
PROC: 0B9J8ZX Drainage of Left Lower Lung Lobe, Via Natural or Artificial Opening Endoscopic, Diagnostic (ICD-10-PCS; principal; 2016-11-13 07:30)
DX: A41.9 Sepsis, unspecified organism (principal); J18.9 Pneumonia, unspecified organism; J70.0 Acute pulmonary manifestations due to radiation; J84.10 Pulmonary fibrosis, unspecified; I11.9 Hypertensive heart disease without heart failure; J44.0 Chronic obstructive pulmonary disease with (acute) lower respiratory infection; E11.65 Type 2 diabetes mellitus with hyperglycemia; B37.3 Candidiasis of vulva and vagina; J44.1 Chronic obstructive pulmonary disease with (acute) exacerbation; E55.9 Vitamin D deficiency, unspecified; E03.9 Hypothyroidism, unspecified; E78.5 Hyperlipidemia, unspecified; E83.42 Hypomagnesemia; J20.9 Acute bronchitis, unspecified; K21.9 Gastro-esophageal reflux disease without esophagitis; Y84.2 Radiological procedure and radiotherapy as the cause of abnormal reaction of the patient, or of later complication, without mention of misadventure at the time of the procedure; K12.1 Other forms of stomatitis; M54.2 Cervicalgia; R51 Headache; Z79.4 Long term (current) use of insulin; Z79.84 Long term (current) use of oral hypoglycemic drugs; Z79.899 Other long term (current) drug therapy; Z80.3 Family history of malignant neoplasm of breast; Z82.5 Family history of asthma and other chronic lower respiratory diseases; Z87.01 Personal history of pneumonia (recurrent); Z87.440 Personal history of urinary (tract) infections; Z87.891 Personal history of nicotine dependence; Z92.21 Personal history of antineoplastic chemotherapy; Z92.3 Personal history of irradiation; Z85.118 Personal history of other malignant neoplasm of bronchus and lung
CPT/HCPCS: 31624; 36415; 71020; 72050; 80053; 81003; 82550; 82553; 83036; 83605; 83735; 83880; 84484; 85025; 85610; 85730; 87040; 87070; 87077; 87086; 87102; 87116; 87186; 87205; 87206; 87252; 87299; 87496; 87498; 87502; 87529; 87541; 87798; 88108; 88305; 93005; 94640

== ENCOUNTER 2016-12-24 10:27 | Inpatient (IN) | payer OTHER ==
[2016-12-24] MEDS ORDERED: SODIUM CHLORIDE 0.9% 1,000 ML IV STA ×2 (10:44)
[2016-12-24] MEDS ORDERED: methylPREDNISolone SOD SUCCI 125 MG/2 ML VIAL IV STA (10:44)
[2016-12-24] MEDS ORDERED: ALBUTEROL NEBULIZED 2.5 MG/3 ML INHALATION STA (10:44)
[2016-12-24] MEDS ORDERED: IPRATROPIUM 0.5 MG/2.5 ML NEBU INHALATION STA (10:44)
--- NOTE | 2016-12-24 10:47 | ED ---
General Adult HPI - General Chief complaint: Shortness of Breath Stated complaint: SOB, rapid heart rate Time Seen by Provider: 12/24/16 10:44 Source: patient, RN notes reviewed, old records reviewed Mode of arrival: ambulatory Limitations: no limitations - History of Present Illness Initial comments: This is a 51-year-old female here for evaluation of cough congestion or shortness of breath, increasing shortness of breath since last night, severe. Patient does have severe history of COPD. Patient also having mild headache from shortness of breath. Denies fevers, is coughing up sputum. Patient had recent hospital admission about 6 weeks ago. Patient states she had bacterial infection at the time which she believes did resolve. Again denies fever. - Related Data Home Medications Medication Instructions Recorded Confirmed metFORMIN HCL 1,000 mg PO BID 10/13/13 12/24/16 Cholecalciferol [Vitamin D3] 1,000 unit PO DAILY 10/20/13 12/24/16 Simvastatin [Zocor] 10 mg PO HS 08/16/14 12/24/16 Omeprazole [PriLOSEC] 20 mg PO AC-BID 08/18/14 12/24/16 Montelukast [Singulair] 10 mg PO HS 01/29/15 12/24/16 Insulin Glargine,Hum.rec.anlog 70 unit SQ HS 06/20/15 12/24/16 [Lantus Solostar] Levothyroxine Sodium [Synthroid] 25 mcg PO DAILY 06/22/15 12/24/16 Budesonide [Pulmicort] 0.5 mg INHALATION RT-BID 07/25/15 12/24/16 Albuterol Inhaler [Ventolin Hfa 1 - 2 puff INHALATION RT-Q6H PRN 06/12/16 Inhaler] Insulin Glulisine [Apidra] 18 unit SQ AC-TID 06/12/16 12/24/16 Insulin Glulisine [Apidra] See Protocol SQ AC-TID 06/12/16 12/24/16 Multivitamin/Iron/Folic Acid 1 tab PO DAILY 11/11/16 12/24/16 [Centrum Women Tablet] Spironolactone [Aldactone] 25 mg PO DAILY 11/11/16 12/24/16 Previous Rx's Medication Instructions Recorded Ipratropium-Albuterol Nebulize 3 ml INHALATION RT-QID 30 Days 08/21/14 [Duoneb 0.5 mg-3 mg/3 ml Soln] Losartan [Cozaar] 25 mg PO DAILY #30 tab 06/15/16 Verapamil [Isoptin] 40 mg PO TID #60 tab 09/13/16 Allergies Allergy/AdvReac Type Severity Reaction Status Date / Time ciprofloxacin HCl Allergy Severe Rash/Hives Verified 12/24/16 11:04 [From Cipro] latex Allergy Severe Rash/Hives Verified 12/24/16 11:04 cephalexin monohydrate Allergy Intermediate Rash/Hives Verified 12/24/16 11:04 [From Keflex] sulfamethoxazole Allergy Intermediate Rash/Hives Verified 12/24/16 11:04 [From Septra] trimethoprim [From Septra] Allergy Intermediate Rash/Hives Verified 12/24/16 11: 04 Review of Systems ROS Statement: Those systems with pertinent positive or pertinent negative responses have been documented in the HPI. ROS Other: All systems not noted in ROS Statement are negative. Past Medical History Past Medical History: Cancer, COPD, Diabetes Mellitus, GERD/Reflux, Hyperlipidemia, Hypertension, Pneumonia, Respiratory Disorder, Thyroid Disorder Additional Past Medical History / Comment(s): 2013 Rt lung CA completed-6 chemo TXs and 26 radiation tx, URINARY INCONT-WEARS A PULL UP, NEUROPATHY IN FEET. History of Any Multi-Drug Resistant Organisms: Other MDRO Date of last positivie culture/infection: 2014 MDRO Source:: e-coli in urine Past Surgical History: Appendectomy, Cholecystectomy, Hysterectomy, Tonsillectomy, Tubal Ligation Additional Past Surgical History / Comment(s): R lung biopsy 09/2013, rt middle lobe lobectomy. Past Anesthesia/Blood Transfusion Reactions: Postoperative Nausea & Vomiting ( PONV) Past Psychological History: Depression Smoking Status: Former smoker Past Alcohol Use History: None Reported Past Drug Use History: None Reported - Past Family History Mother Sister(s) Family Medical History: Cancer Additional Family Medical History / Comment(s): from breast ca at age 65 Father Family Medical History: COPD Additional Family Medical History / Comment(s): had cabg, from a blood infection at age 64 Sister(s) Family Medical History: Cancer Additional Family Medical History / Comment(s): Sister of lung cancer at the age of 53yrs. General Exam Limitations: no limitations General appearance: alert, anxious, in distress Head exam: Present: atraumatic, normocephalic, normal inspection Eye exam: Present: normal appearance, PERRL, EOMI. Absent: scleral icterus, conjunctival injection, periorbital swelling ENT exam: Present: normal exam, mucous membranes moist Neck exam: Present: normal inspection. Absent: tenderness, meningismus, lymphadenopathy Respiratory exam: Present: normal lung sounds bilaterally, wheezes, accessory muscle use, decreased breath sounds, prolonged expiratory. Absent: respiratory distress, rales, rhonchi, stridor Cardiovascular Exam: Present: normal rhythm, tachycardia, normal heart sounds. Absent: systolic murmur, diastolic murmur, rubs, gallop, clicks GI/Abdominal exam: Present: soft, normal bowel sounds. Absent: distended, tenderness, guarding, rebound, rigid Extremities exam: Present: normal inspection, full ROM, normal capillary refill. Absent: tenderness, pedal edema, joint swelling, calf tenderness Back exam: Present: normal inspection Neurological exam: Present: alert, oriented X3, CN II-XII intact Psychiatric exam: Present: normal affect, normal mood Skin exam: Present: warm, dry, intact, normal color. Absent: rash Course Vital Signs 12/24/16 12/24/16 12/24/16 10:33 11:15 11:28 Temperature 98.8 F Pulse Rate 115 H 96 Respiratory 18 20 Rate Blood Pressure 136/80 O2 Sat by Pulse Oximetry 12/24/16 12/24/16 12/24/16 11:30 11:38 11:45 Temperature Pulse Rate 99 103 H 100 Respiratory 24 Rate Blood Pressure 110/68 O2 Sat by Pulse 100 Oximetry 12/24/16 12/24/16 12/24/16 12:00 12:38 12:49 Temperature 97.3 F L Pulse Rate 110 H 106 H Respiratory 16 Rate Blood Pressure 109/62 O2 Sat by Pulse 96 95 Oximetry 12/24/16 13:05 Temperature Pulse Rate 105 H Respiratory 18 Rate Blood Pressure 110/60 O2 Sat by Pulse 98 Oximetry - Reevaluation(s) Reevaluation #1: 12/24/16 12:03 Patient is showing significant improvement after breathing treatment EKG Findings - EKG Comments: EKG Findings:: EKG shows sinus tachycardia rate of 109, CT 120, QRS of 80, QTc 468 Medical Decision Making - Medical Decision Making 51 female to the ER for evaluation of shortness of breath, chest x-ray positive for pneumonia, patient be admitted for antibiotics, breathing treatments and pulmonary evaluation - Lab Data Result diagrams: 12/26/16 05:24 12/26/16 05:24 Lab Results 12/24/16 12/24/16 12/24/16 Range/Units 10:50 10:50 10:50 WBC 8.4 (3.8-10.6) k/uL RBC 4.47 (3.80-5.40) m/uL Hgb 13.7 (11.4-16.0) gm/dL Hct 39.6 (34.0-46.0) % MCV 88.6 (80.0-100.0) fL MCH 30.6 (25.0-35.0) pg MCHC 34.5 (31.0-37.0) g/dL RDW 14.8 (11.5-15.5) % Plt Count 189 (150-450) k/uL Neutrophils % 63 % Lymphocytes % 28 % Monocytes % 5 % Eosinophils % 1 % Basophils % 1 % Neutrophils # 5.3 (1.3-7.7) k/uL Lymphocytes # 2.3 (1.0-4.8) k/uL Monocytes # 0.4 (0-1.0) k/uL Eosinophils # 0.1 (0-0.7) k/uL Basophils # 0.1 (0-0.2) k/uL PT (9.0-12.0) sec INR (<1.2) APTT (22.0-30.0) sec Sodium 141 (137-145) mmol/L Potassium 4.1 (3.5-5.1) mmol/L Chloride 105 (98-107) mmol/L Carbon Dioxide 24 (22-30) mmol/L Anion Gap 12 mmol/L BUN 10 (7-17) mg/dL Creatinine 0.80 (0.52-1.04) mg/dL Est GFR (MDRD) Af Amer >60 (>60 ml/min/1.73 sqM) Est GFR (MDRD) Non-Af >60 (>60 ml/min/1.73 sqM) Glucose 162 H (74-99) mg/dL POC Glucose (mg/dL) (75-99) mg/dL POC Glu Semiautomatic Stitcher Operator ID Estimated Ave Glu mg/dL mg/dL Hemoglobin A1c (4.2-6.1) % Calcium 9.6 (8.4-10.2) mg/dL Magnesium 1.2 L (1.6-2.3) mg/dL Total Bilirubin 0.4 (0.2-1.3) mg/dL AST 33 (14-36) U/L ALT 42 (9-52) U/L Alkaline Phosphatase 94 (38-126) U/L Total Creatine Kinase 169 H (30-135) U/L CK-MB (CK-2) 1.2 (0.0-2.4) ng/mL CK-MB (CK-2) Rel Index 0.7 Troponin I <0.012 (0.000-0.034) ng/mL NT-Pro-B Natriuret Pep pg/mL Total Protein 7.0 (6.3-8.2) g/dL Albumin 4.4 (3.5-5.0) g/dL TSH (0.465-4.680) mIU/L Free T4 (0.78-2.19) ng/dL 12/24/16 12/24/16 12/24/16 Range/Units 10:50 10:50 14:00 WBC (3.8-10.6) k/uL RBC (3.80-5.40) m/uL Hgb (11.4-16.0) gm/dL Hct (34.0-46.0) % MCV (80.0-100.0) fL MCH (25.0-35.0) pg MCHC (31.0-37.0) g/dL RDW (11.5-15.5) % Plt Count (150-450) k/uL Neutrophils % % Lymphocytes % % Monocytes % % Eosinophils % % Basophils % % Neutrophils # (1.3-7.7) k/uL Lymphocytes # (1.0-4.8) k/uL Monocytes # (0-1.0) k/uL Eosinophils # (0-0.7) k/uL Basophils # (0-0.2) k/uL PT 9.9 (9.0-12.0) sec INR 1.0 (<1.2) APTT 23.9 (22.0-30.0) sec Sodium (137-145) mmol/L Potassium (3.5-5.1) mmol/L Chloride (98-107) mmol/L Carbon Dioxide (22-30) mmol/L Anion Gap mmol/L BUN (7-17) mg/dL Creatinine (0.52-1.04) mg/dL Est GFR (MDRD) Af Amer (>60 ml/min/1.73 sqM) Est GFR (MDRD) Non-Af (>60 ml/min/1.73 sqM) Glucose (74-99) mg/dL POC Glucose (mg/dL) (75-99) mg/dL POC Glu Semiautomatic Stitcher Operator ID Estimated Ave Glu mg/dL 189 mg/dL Hemoglobin A1c 8.2 H (4.2-6.1) % Calcium (8.4-10.2) mg/dL Magnesium (1.6-2.3) mg/dL Total Bilirubin (0.2-1.3) mg/dL AST (14-36) U/L ALT (9-52) U/L Alkaline Phosphatase (38-126) U/L Total Creatine Kinase (30-135) U/L CK-MB (CK-2) (0.0-2.4) ng/mL CK-MB (CK-2) Rel Index Troponin I (0.000-0.034) ng/mL NT-Pro-B Natriuret Pep 64 pg/mL Total Protein (6.3-8.2) g/dL Albumin (3.5-5.0) g/dL TSH (0.465-4.680) mIU/L Free T4 (0.78-2.19) ng/dL 12/24/16 12/24/16 12/24/16 Range/Units 14:00 16:59 20:27 WBC (3.8-10.6) k/uL RBC (3.80-5.40) m/uL Hgb (11.4-16.0) gm/dL Hct (34.0-46.0) % MCV (80.0-100.0) fL MCH (25.0-35.0) pg MCHC (31.0-37.0) g/dL RDW (11.5-15.5) % Plt Count (150-450) k/uL Neutrophils % % Lymphocytes % % Monocytes % % Eosinophils % % Basophils % % Neutrophils # (1.3-7.7) k/uL Lymphocytes # (1.0-4.8) k/uL Monocytes # (0-1.0) k/uL Eosinophils # (0-0.7) k/uL Basophils # (0-0.2) k/uL PT (9.0-12.0) sec INR (<1.2) APTT (22.0-30.0) sec Sodium (137-145) mmol/L Potassium (3.5-5.1) mmol/L Chloride (98-107) mmol/L Carbon Dioxide (22-30) mmol/L Anion Gap mmol/L BUN (7-17) mg/dL Creatinine (0.52-1.04) mg/dL Est GFR (MDRD) Af Amer (>60 ml/min/1.73 sqM) Est GFR (MDRD) Non-Af (>60 ml/min/1.73 sqM) Glucose (74-99) mg/dL POC Glucose (mg/dL) 298 H 297 H (75-99) mg/dL POC Glu Semiautomatic Stitcher Operator Liz Rodriguez Brenda Estimated Ave Glu mg/dL mg/dL Hemoglobin A1c (4.2-6.1) % Calcium (8.4-10.2) mg/dL Magnesium (1.6-2.3) mg/dL Total Bilirubin (0.2-1.3) mg/dL AST (14-36) U/L ALT (9-52) U/L Alkaline Phosphatase (38-126) U/L Total Creatine Kinase (30-135) U/L CK-MB (CK-2) (0.0-2.4) ng/mL CK-MB (CK-2) Rel Index Troponin I (0.000-0.034) ng/mL NT-Pro-B Natriuret Pep pg/mL Total Protein (6.3-8.2) g/dL Albumin (3.5-5.0) g/dL TSH 1.330 (0.465-4.680) mIU/L Free T4 1.21 (0.78-2.19) ng/dL 12/25/16 12/25/16 12/25/16 Range/Units 07:23 07:51 07:51 WBC 11.2 H (3.8-10.6) k/uL RBC 4.43 (3.80-5.40) m/uL Hgb 13.3 (11.4-16.0) gm/dL Hct 40.1 (34.0-46.0) % MCV 90.5 (80.0-100.0) fL MCH 30.0 (25.0-35.0) pg MCHC 33.1 (31.0-37.0) g/dL RDW 14.5 (11.5-15.5) % Plt Count 190 (150-450) k/uL Neutrophils % 85 % Lymphocytes % 12 % Monocytes % 2 % Eosinophils % 0 % Basophils % 0 % Neutrophils # 9.5 H (1.3-7.7) k/uL Lymphocytes # 1.3 (1.0-4.8) k/uL Monocytes # 0.2 (0-1.0) k/uL Eosinophils # 0.0 (0-0.7) k/uL Basophils # 0.0 (0-0.2) k/uL PT (9.0-12.0) sec INR (<1.2) APTT (22.0-30.0) sec Sodium 138 (137-145) mmol/L Potassium 4.5 (3.5-5.1) mmol/L Chloride 104 (98-107) mmol/L Carbon Dioxide 19 L (22-30) mmol/L Anion Gap 15 mmol/L BUN 16 (7-17) mg/dL Creatinine 0.74 (0.52-1.04) mg/dL Est GFR (MDRD) Af Amer >60 (>60 ml/min/1.73 sqM) Est GFR (MDRD) Non-Af >60 (>60 ml/min/1.73 sqM) Glucose 286 H (74-99) mg/dL POC Glucose (mg/dL) 313 H (75-99) mg/dL POC Glu Semiautomatic Stitcher Operator ID Sissy Ro Estimated [address] Glu mg/dL mg/dL Hemoglobin A1c (4.2-6.1) % Calcium 8.9 (8.4-10.2) mg/dL Magnesium 1.5 L (1.6-2.3) mg/dL Total Bilirubin (0.2-1.3) mg/dL AST (14-36) U/L ALT (9-52) U/L Alkaline Phosphatase (38-126) U/L Total Creatine Kinase (30-135) U/L CK-MB (CK-2) (0.0-2.4) ng/mL CK-MB (CK-2) Rel Index Troponin I (0.000-0.034) ng/mL NT-Pro-B Natriuret Pep pg/mL Total Protein (6.3-8.2) g/dL Albumin (3.5-5.0) g/dL TSH (0.465-4.680) mIU/L Free T4 (0.78-2.19) ng/dL 12/25/16 12/25/16 12/25/16 Range/Units 11:11 14:05 14:59 WBC (3.8-10.6) k/uL RBC (3.80-5.40) m/uL Hgb (11.4-16.0) gm/dL Hct (34.0-46.0) % MCV (80.0-100.0) fL MCH (25.0-35.0) pg MCHC (31.0-37.0) g/dL RDW (11.5-15.5) % Plt Count (150-450) k/uL Neutrophils % % Lymphocytes % % Monocytes % % Eosinophils % % Basophils % % Neutrophils # (1.3-7.7) k/uL Lymphocytes # (1.0-4.8) k/uL Monocytes # (0-1.0) k/uL Eosinophils # (0-0.7) k/uL Basophils # (0-0.2) k/uL PT (9.0-12.0) sec INR (<1.2) APTT (22.0-30.0) sec Sodium (137-145) mmol/L Potassium (3.5-5.1) mmol/L Chloride (98-107) mmol/L Carbon Dioxide (22-30) mmol/L Anion Gap mmol/L BUN (7-17) mg/dL Creatinine (0.52-1.04) mg/dL Est GFR (MDRD) Af Amer (>60 ml/min/1.73 sqM) Est GFR (MDRD) Non-Af (>60 ml/min/1.73 sqM) Glucose (74-99) mg/dL POC Glucose (mg/dL) 299 H 352 H 376 H (75-99) mg/dL POC Glu Semiautomatic Stitcher Operator Sissy Perez Jennifer Patterson, Jennifer Estimated Ave Glu mg/dL mg/dL Hemoglobin A1c (4.2-6.1) % Calcium (8.4-10.2) mg/dL Magnesium (1.6-2.3) mg/dL Total Bilirubin (0.2-1.3) mg/dL AST (14-36) U/L ALT (9-52) U/L Alkaline Phosphatase (38-126) U/L Total Creatine Kinase (30-135) U/L CK-MB (CK-2) (0.0-2.4) ng/mL CK-MB (CK-2) Rel Index Troponin I (0.000-0.034) ng/mL NT-Pro-B Natriuret Pep pg/mL Total Protein (6.3-8.2) g/dL Albumin (3.5-5.0) g/dL TSH (0.465-4.680) mIU/L Free T4 (0.78-2.19) ng/dL - Radiology Data Radiology results: report reviewed (Chest x-ray positive pneumonia), image reviewed Disposition Clinical Impression: Mass of middle lobe of right lung, COPD (chronic obstructive pulmonary disease ) with chronic bronchitis, Pneumonia Disposition: ADMITTED IP TO THIS HOSP Condition: Fair
[2016-12-24 11:13] LABS: Basophils # (A) 0.1 k/uL (0-0.2); Basophils % (A) 1 %; CH 30.8; CHCM 34.9; Eosinophils # (A) 0.1 k/uL (0-0.7); Eosinophils % (A) 1 %; HCT 39.6 % (34.0-46.0); HDW 2.94; HGB 13.7 gm/dL (11.4-16.0); Luc # (Auto) 0.18; Luc % (Auto) 2; Lymphocytes # (A) 2.3 k/uL (1.0-4.8); Lymphocytes % (A) 28 %; MCH 30.6 pg (25.0-35.0); MCHC 34.5 g/dL (31.0-37.0); MCV 88.6 fL (80.0-100.0); Mean Platelet Volume 8.3; Monocytes # (A) 0.4 k/uL (0-1.0); Monocytes % (A) 5 %; Neutrophils # (A) 5.3 k/uL (1.3-7.7); Neutrophils % (A) 63 %; RBC 4.47 m/uL (3.80-5.40); RDW 14.8 % (11.5-15.5); WBC 8.4 k/uL (3.8-10.6); WBC (Perox) 8.12
[2016-12-24 11:21] LABS: ALT 42 U/L (9-52); AST 33 U/L (14-36); Alkaline Phosphatase 94 U/L (38-126); Anion Gap 12 mmol/L; Blood Urea Nitrogen 10 mg/dL (7-17); Calcium 9.6 mg/dL (8.4-10.2); Carbon Dioxide 24 mmol/L (22-30); Chloride 105 mmol/L (98-107); Glucose 162 mg/dL (74-99); Magnesium 1.2 mg/dL (1.6-2.3); Non-African American GFR(MDRD) >60 (>60 ml/min/1.73 sqM); Potassium 4.1 mmol/L (3.5-5.1); Sodium 141 mmol/L (137-145); Total Bilirubin 0.4 mg/dL (0.2-1.3)
[2016-12-24 11:23] LABS: Partial Thromboplastin Time 23.9 sec (22.0-30.0); Prothrombin Time 9.9 sec (9.0-12.0)
[2016-12-24] MEDS ORDERED: KETOROLAC 30 MG/ML 1 ML VIAL IVP STA (11:30)
[2016-12-24 11:37] LABS: Creatine Kinase 169 U/L (30-135)
[2016-12-24] MEDS: MAGNESIUM SULFATE-D5W PMX 1 GM in DEXTROSE/WATER 1 100ML.BAG IVPB SCH ×2 (11:37→13:03)
[2016-12-24 11:49] LABS: Creatine Kinase MB 1.2 ng/mL (0.0-2.4); Troponin I <0.012 ng/mL (0.000-0.034)
--- NOTE | 2016-12-24 12:18 | XR ---
EXAMINATION TYPE: XR chest 2V DATE OF EXAM: 12/24/2016 COMPARISON: 11/11/2016 HISTORY: Shortness of breath TECHNIQUE: Frontal and lateral views of the chest are obtained. FINDINGS: Scattered senescent parenchymal changes noted. Hyperinflation compatible with COPD. Patchy density right lower lobe may reflect developing infiltrate. Postsurgical changes right infrahi lar region. Chronic elevation right hemidiaphragm. Heart size is stable. Mediastinal structures are stable and grossly unremarkable. No evidence for hilar prominence. Degenerative changes dorsal spine. IMPRESSION: 1. Patchy density right lower lobe may reflect developing infiltrate. Postsurgical changes right infr ahilar region. Chronic elevation right hemidiaphragm.
[2016-12-24] MEDS ORDERED: MORPHINE SULFATE 4 MG/ML SYRINGE IVP STA (12:41)
[2016-12-24] MEDS ORDERED: MORPHINE SULFATE 4 MG/ML SYRINGE IVP PRN (12:41)
[2016-12-24] MEDS ORDERED: IV VANCOMYCIN PER PHARMACY 1 EACH MISC MISCELLANE PRN (12:41)
[2016-12-24] MEDS ORDERED: IPRATROPIUM-ALBUTEROL 3 ML NEB INHALATION PRN (12:48)
[2016-12-24] MEDS ORDERED: PNEUMONIA PROTOCOL UTILIZED 1 EACH MISC PO PRN (12:48)
[2016-12-24] MEDS ORDERED: HYDROcodone/APAP 10-325MG 1 EACH TAB PO ONE (12:48)
[2016-12-24] MEDS ORDERED: AZITHROMYCIN 500 MG in SODIUM CHLORIDE 0.9% 250 ML IVPB STA (12:55)
[2016-12-24] MEDS ORDERED: AMPICILLIN-SULBACTAM 3 GM in SODIUM CHLORIDE 0.9% 100 ML IVPB STA (12:55)
[2016-12-24] MEDS ORDERED: TOBRAMYCIN PER PHARMACY MISCELLANE PRN (13:20)
[2016-12-24] MEDS ORDERED: LEVALBUTEROL NEB 1.25 MG/3 ML AMP INHALATION PRN (14:12)
--- NOTE | 2016-12-24 14:17 | P.HPIM ---
History of Present Illness H&P Date: 12/24/16 Chief Complaint: Shortness of breath and cough This is a 51-year-old female with a known past medical history of COPD, pneumonia, right lung cancers status post chemo and radiation treatments as well as a right middle lobectomy. Patient reports that she recently seen Dr. Fragoso, her oncologist and had a repeat computed tomography scan of the chest. She was told that there is no reoccurrence of cancer. Patient reports over the last couple a days she's had increasing shortness of breath and a nonproductive cough. She states that she's been more fatigued not feeling well and not sleeping well because of the cough. Patient also reports that her heart feels like it's racing. Patient had chest x-ray in the emergency room showing a patchy density in the right lower lobe may reflect developing infiltrate. Chronic elevation in the right hemidiaphragm. Postsurgical changes in the right infrahilar region. This has been started on IV steroids and IV antibiotics in the emergency room. She's been treated for COPD exacerbation and possible pneumonia. Pulmonary service has been consulted. She denies any fevers chills or sweats. Denies any nausea or vomiting. Denies any bowel movement changes or urinary symptoms. 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 History of Any Multi-Drug Resistant Organisms: Other MDRO Date of last positivie culture/infection: 2014 MDRO Source:: e-coli in urine Past Surgical History: Appendectomy, Cholecystectomy, Hysterectomy, Tonsillectomy, Tubal Ligation Additional Past Surgical History / Comment(s): R lung biopsy 09/2013, rt middle lobe lobectomy, BRONCHOSCOPIES/WASHINGS/BXS. Past Anesthesia/Blood Transfusion Reactions: Postoperative Nausea & Vomiting ( PONV) Smoking Status: Former smoker - Past Family History Mother Sister(s) Family Medical History: Cancer Additional Family Medical History / Comment(s): from breast ca at age 65 Sister(s) Family Medical History: Cancer Additional Family Medical History / Comment(s): Sister of lung cancer at the age of 53yrs. Father Family Medical History: COPD Additional Family Medical History / Comment(s): had cabg, from a blood infection at age 64 Medications and Allergies Home Medications Medication Instructions Recorded Confirmed Type metFORMIN HCL 1,000 mg PO BID 10/13/13 12/24/16 History Cholecalciferol [Vitamin D3] 1,000 unit PO DAILY 10/20/13 12/24/16 History Simvastatin [Zocor] 10 mg PO HS 08/16/14 12/24/16 History Omeprazole [PriLOSEC] 20 mg PO AC-BID 08/18/14 12/24/16 History Montelukast [Singulair] 10 mg PO HS 01/29/15 12/24/16 History Insulin Glargine,Hum.rec.anlog 70 unit SQ HS 06/20/15 12/24/16 History [Lantus Solostar] Levothyroxine Sodium [Synthroid] 25 mcg PO DAILY 06/22/15 12/24/16 History Budesonide [Pulmicort] 0.5 mg INHALATION RT-BID 07/25/15 12/24/16 History Albuterol Inhaler [Ventolin Hfa 1 - 2 puff INHALATION RT-Q6H PRN 06/12/16 History Inhaler] Insulin Glulisine [Apidra] 18 unit SQ AC-TID 06/12/16 12/24/16 History Insulin Glulisine [Apidra] See Protocol SQ AC-TID 06/12/16 12/24/16 History Multivitamin/Iron/Folic Acid 1 tab PO DAILY 11/11/16 12/24/16 History [Centrum Women Tablet] Spironolactone [Aldactone] 25 mg PO DAILY 11/11/16 12/24/16 History Allergies Allergy/AdvReac Type Severity Reaction Status Date / Time ciprofloxacin HCl Allergy Severe Rash/Hives Verified 12/24/16 11:04 [From Cipro] latex Allergy Severe Rash/Hives Verified 12/24/16 11:04 cephalexin monohydrate Allergy Intermediate Rash/Hives Verified 12/24/16 11:04 [From Keflex] sulfamethoxazole Allergy Intermediate Rash/Hives Verified 12/24/16 11:04 [From Septra] trimethoprim [From ] Allergy Intermediate Rash/Hives Verified 12/24/16 11: 04 Physical Exam Vitals: Vital Signs Temp Pulse Resp BP Pulse Ox 12/24/16 13:05 105 H 18 110/60 98 12/24/16 12:38 97.3 F L 106 H 16 109/62 96 12/24/16 12:00 110 H 12/24/16 11:45 100 12/24/16 11:38 103 H 24 110/68 100 12/24/16 11:30 99 12/24/16 11:28 20 12/24/16 11:15 96 12/24/16 10:33 98.8 F 115 H 18 136/80 Intake and Output 12/23/16 12/24/16 12/24/16 22:59 06:59 14:59 Other: Weight 81.193 kg Patient Weight 12/25/16 06:59 Weight 81.193 kg Head normocephalic Neck supple Lungs tight with a few coarse breath sounds noted anteriorly. No wheezing Heart sinus tachycardia Abdomen is soft nontender nondistended positive bowel sounds no hepatosplenomegaly Extremities no edema Neuro alert and orientated to 3 Results CBC & Chem 7: 12/24/16 10:50 12/24/16 10:50 Labs: Abnormal Lab Results - Last 24 Hours (Table) 12/24/16 12/24/16 Range/Units 10:50 10:50 Glucose 162 H (74-99) mg/dL Magnesium 1.2 L (1.6-2.3) mg/dL Total Creatine Kinase 169 H (30-135) U/L Thrombosis Risk Factor Assmnt - Choose All That Apply Any of the Below Risk Factors Present?: Yes Each Factor Represents 1 point: Abnormal pulmonary function (COPD), Age 41-60 years, Obesity (BMI >25), Serious lung disease incl. pneumonia (< 1month) Other Risk Factors: Yes Each Risk Factor Represents 2 Points: Malignancy Other congenital or acquired thrombophilia - If yes, enter type in comment: No Thrombosis Risk Factor Assessment Total Risk Factor Score: 6 Thrombosis Risk Factor Assessment Level: High Risk Assessment and Plan Plan: 1. Acute COPD exacerbation: We'll switch nebulizer treatments to Xopenex and Atrovent. Discontinue the albuterol. Start patient on IV Solu-Medrol 60 mg IV every 8 hours. Continue her Pulmicort nebulizer treatments. Pulmonary service consulted. 2. Possible pneumonia: Chest x-ray showing a patchy density in the right lower lobe. Check sputum culture. Patient started on tobramycin, azithromycin and Zosyn in the emergency room. Add Mucinex to help break up congestion 3. History of lung cancer status post chemo and radiation treatment with a right middle lobectomy 4. Hypothyroidism continue Synthroid. Check thyroid levels 5. Sinus tachycardia continue telemetry monitoring. Will adjust nebulizer treatments and monitor. 6. Insomnia: Add Xanax 0.25 mg at bedtime 7. Diabetes mellitus type 2: Continue Lantus, scheduled Humalog before meals and sliding scale coverage 8. Essential hypertension: Blood pressures slightly on the lower side 110/60. Continue to monitor. At this time continue with current medications. We'll adjust medications as needed. 9. Headache improved with [place] 10. Hypomagnesemia and patient receiving magnesium supplement. Repeat magnesium level in a.m. GI prophylaxis Protonix and DVT prophylaxis Lovenox Time with Patient: Greater than 30 (Greater than 50% of the total time spent in counseling and coordination of care.I performed an examination of the patient and discussed their management with the physician Costume Director. I have reviewed the Physician Costume Director's notes and agree with the documented findings and plan of care)
--- NOTE | 2016-12-24 15:03 | P.CNPUL ---
History of Present Illness Consult date: 12/24/16 Requesting physician: Valery Campos Reason for consult: COPD, pneumonia Chief complaint: shortness of breath History of present illness: This is a 51-year-old female who is being seen, examined and evaluated. She is well-known to our services. Patient came in to the emergency room with complaints of being more fatigued, not feeling well, shortness of breath that has increased as well as a congested cough. Chest x-ray has been reviewed and shows a patchy density in the right lower lobe which may infiltrate, post surgical changes right infrahilar region. Chronic elevation right hemidiaphragm. She is known to have a past medical history of COPD, pneumonia, right lung cancer status post chemo and radiation treatment as well as a right middle lobectomy. Patient follows with Dr. Bishop. Patient was admitted for COPD exacerbation and possibly pneumonia. She was started on IV antibiotics as well as steroids. Scheduled breathing treatments and Mucinex. Patient does not have an elevated white count nor does she have any fevers chills or night sweats. She denies any nausea or vomiting. Upon examination the patient's resting up in bed on supplemental oxygen. She continues to complain of shortness of breath with exertion or extensive conversation. She does not use home oxygen. Patient states that she has a congested cough however she is unable to bring up secretions and feels they are thick. Review of Systems 14 point review of systems was completed and is negative unless noted above in the HPI. 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 History of Any Multi-Drug Resistant Organisms: Other MDRO Date of last positivie culture/infection: 2014 MDRO Source:: e-coli in urine Past Surgical History: Appendectomy, Cholecystectomy, Hysterectomy, Tonsillectomy, Tubal Ligation Additional Past Surgical History / Comment(s): R lung biopsy 09/2013, rt middle lobe lobectomy, BRONCHOSCOPIES/WASHINGS/BXS. Past Anesthesia/Blood Transfusion Reactions: Postoperative Nausea & Vomiting ( PONV) Smoking Status: Former smoker - Past Family History Mother Sister(s) Family Medical History: Cancer Additional Family Medical History / Comment(s): from breast ca at age 65 Sister(s) Family Medical History: Cancer Additional Family Medical History / Comment(s): Sister of lung cancer at the age of 53yrs. Father Family Medical History: COPD Additional Family Medical History / Comment(s): had cabg, from a blood infection at age 64 Medications and Allergies Home Medications Medication Instructions Recorded Confirmed Type metFORMIN HCL 1,000 mg PO BID 10/13/13 12/24/16 History Cholecalciferol [Vitamin D3] 1,000 unit PO DAILY 10/20/13 12/24/16 History Simvastatin [Zocor] 10 mg PO HS 08/16/14 12/24/16 History Omeprazole [PriLOSEC] 20 mg PO AC-BID 08/18/14 12/24/16 History Montelukast [Singulair] 10 mg PO HS 01/29/15 12/24/16 History Insulin Glargine,Hum.rec.anlog 70 unit SQ HS 06/20/15 12/24/16 History [Lantus Solostar] Levothyroxine Sodium [Synthroid] 25 mcg PO DAILY 06/22/15 12/24/16 History Budesonide [Pulmicort] 0.5 mg INHALATION RT-BID 07/25/15 12/24/16 History Albuterol Inhaler [Ventolin Hfa 1 - 2 puff INHALATION RT-Q6H PRN 06/12/16 History Inhaler] Insulin Glulisine [Apidra] 18 unit SQ AC-TID 06/12/16 12/24/16 History Insulin Glulisine [Apidra] See Protocol SQ AC-TID 06/12/16 12/24/16 History Multivitamin/Iron/Folic Acid 1 tab PO DAILY 11/11/16 12/24/16 History [Centrum Women Tablet] Spironolactone [Aldactone] 25 mg PO DAILY 11/11/16 12/24/16 History Allergies Allergy/AdvReac Type Severity Reaction Status Date / Time ciprofloxacin HCl Allergy Severe Rash/Hives Verified 12/24/16 11:04 [From Cipro] latex Allergy Severe Rash/Hives Verified 12/24/16 11:04 cephalexin monohydrate Allergy Intermediate Rash/Hives Verified 12/24/16 11:04 [From Keflex] sulfamethoxazole Allergy Intermediate Rash/Hives Verified 12/24/16 11:04 [From Septra] trimethoprim [From Septra] Allergy Intermediate Rash/Hives Verified 12/24/16 11: 04 Physical Exam Vitals: Vital Signs Temp Pulse Resp BP Pulse Ox 12/24/16 13:54 18 12/24/16 13:05 105 H 18 110/60 98 12/24/16 12:49 95 12/24/16 12:38 97.3 F L 106 H 16 109/62 96 12/24/16 12:00 110 H 12/24/16 11:45 100 12/24/16 11:38 103 H 24 110/68 100 12/24/16 11:30 99 12/24/16 11:28 20 12/24/16 11:15 96 12/24/16 10:33 98.8 F 115 H 18 136/80 Intake and Output 12/23/16 12/24/16 12/24/16 22:59 06:59 14:59 Other: Voiding Method Toilet # Bowel Movements 1 Weight 81.193 kg Patient Weight 12/25/16 06:59 Weight 81.193 kg GENERAL EXAM: Alert, comfortable in no apparent distress. HEAD: Normocephalic. EYES: Normal reaction of pupils, equal size. NOSE: Clear with pink turbinates. THROAT: No erythema or exudates. NECK: No masses, no JVD. CHEST: No chest wall deformity. LUNGS: Lungs noted to be tight and slightly coarse throughout with some faint expiratory wheezing. CVS: S1 and S2 normal with no audible mumurs, regular rhythm. ABDOMEN: No hepatosplenomegaly, normal bowel sounds, no guarding or rigidity. EXTREMITIES: No edema noted, pedal pulses palpable. SKIN: No rashes CENTRAL NERVOUS SYSTEM: No focal deficits, tone is normal in all 4 extremities. Results - Laboratory Findings CBC and BMP: 12/24/16 10:50 12/24/16 10:50 PT/INR, D-dimer PT 9.9 sec (9.0-12.0) 12/24/16 10:50 INR 1.0 (<1.2) 12/24/16 10:50 Abnormal lab findings: Abnormal Labs 12/24/16 12/24/16 10:50 10:50 Glucose 162 H Magnesium 1.2 L Total Creatine Kinase 169 H - Diagnostic Findings Chest x-ray: report reviewed, image reviewed Assessment and Plan Plan: Assessment Acute exacerbation of COPD Tracheobronchitis Acute hypoxic respiratory failure Right lower lobe pneumonia History of lung cancer status post chemo and radiation treatment with a right middle lobectomy Hypothyroidism Sinus tachycardia Diabetes mellitus type 2 Essential hypertension Hypomagnesemia Insomnia Plan Medications have been reviewed and will be continued as ordered. Continue with IV antibiotics and steroids. Continue with pulmonary hygiene, coughing and deep breathing exercises, and supportive care. Supplemental oxygen to maintain oxygen saturations of 92% or better. Continue nebulizer treatments. Initiate and encourage incentive spirometer. Continue to monitor and replace electrolytes per protocol. GI and DVT prophylaxis. We will continue to monitor labs/results and adjust treatment as necessary. Further recommendations pending. I performed an examination of the patient and discussed their management with the nurse practitioner. I have reviewed the nurse practitioner's note and agree with the documented findings and plan of care.
[2016-12-24] MEDS: IPRATROPIUM 0.5 MG/2.5 ML NEBU INHALATION SCH ×2 (15:33→20:13)
[2016-12-24] MEDS ORDERED: TOBRAMYCIN SULFATE 140 MG in SODIUM CHLORIDE 0.9% 100 ML IVPB SCH (16:00)
[2016-12-24] MEDS ORDERED: IPRATROPIUM-ALBUTEROL 3 ML NEB INHALATION SCH (16:00)
[2016-12-24] MEDS: methylPREDNISolone SOD SUCCI 125 MG/2 ML VIAL IV SCH ×2 (16:29→23:32)
[2016-12-24] MEDS: PANTOPRAZOLE 40 MG TABLET PO SCH (16:30)
[2016-12-24] MEDS: VERAPAMIL 40 MG TAB PO SCH ×2 (16:30→21:12)
[2016-12-24] MEDS: INSULIN LISPRO (humaLOG) 300 UNIT/3 ML VIAL SQ SCH ×3 (17:01→21:16)
[2016-12-24 17:14] LABS: Glucose,Whole Blood 298 mg/dL (75-99)
[2016-12-24] MEDS: TOBRAMYCIN SULFATE 140 MG in SODIUM CHLORIDE 0.9% 100 ML IVPB SCH (18:31)
[2016-12-24] MEDS ORDERED: ALPRAZolam 0.25 MG TAB PO SCH (20:00)
[2016-12-24] MEDS: LEVALBUTEROL NEB 1.25 MG/3 ML AMP INHALATION SCH (20:13)
[2016-12-24] MEDS: BUDESONIDE 0.5 MG/2 ML NEBU INHALATION SCH (20:13)
[2016-12-24 20:39] LABS: Glucose,Whole Blood 297 mg/dL (75-99)
[2016-12-24 20:43] LABS: Hemoglobin A1C 8.2 % (4.2-6.1)
[2016-12-24] MEDS ORDERED: INSULIN GLARGINE 100 UNIT/ML 10 ML VIAL SQ SCH (21:00)
[2016-12-24] MEDS: ATORVASTATIN 10 MG TAB PO SCH (21:11)
[2016-12-24] MEDS: guaiFENesin 600 MG TABLET.ER PO SCH (21:11)
[2016-12-24] MEDS: MONTELUKAST 10 MG TAB PO SCH (21:12)
[2016-12-24] MEDS: HYDROcodone/APAP 10-325MG 1 EACH TAB PO PRN (21:13)
[2016-12-24] MEDS: PIPERACILLIN-TAZOBACTAM 3.375 GM in DEXTROSE/WATER 1 50ML.BAG IVPB SCH (23:47)
[2016-12-25] MEDS ORDERED: AMPICILLIN-SULBACTAM 3 GM in SODIUM CHLORIDE 0.9% 100 ML IVPB SCH ×2
[2016-12-25] MEDS: IPRATROPIUM 0.5 MG/2.5 ML NEBU INHALATION PRN (05:21)
[2016-12-25] MEDS: TOBRAMYCIN SULFATE 140 MG in SODIUM CHLORIDE 0.9% 100 ML IVPB SCH (05:22)
[2016-12-25] MEDS: HYDROcodone/APAP 10-325MG 1 EACH TAB PO PRN ×3 (05:22→22:04)
[2016-12-25] MEDS: LEVOTHYROXINE 25 MCG TAB PO SCH (05:30)
[2016-12-25 07:27] LABS: Glucose,Whole Blood 313 mg/dL (75-99)
[2016-12-25] MEDS: LEVALBUTEROL NEB 1.25 MG/3 ML AMP INHALATION SCH ×3 (08:09→19:59)
[2016-12-25] MEDS: IPRATROPIUM 0.5 MG/2.5 ML NEBU INHALATION SCH ×4 (08:13→19:59)
[2016-12-25] MEDS: BUDESONIDE 0.5 MG/2 ML NEBU INHALATION SCH ×2 (08:13→19:59)
[2016-12-25 08:16] LABS: Basophils % (A) 0 %; CH 30.5; CHCM 33.9; Eosinophils % (A) 0 %; HCT 40.1 % (34.0-46.0); HDW 2.91; HGB 13.3 gm/dL (11.4-16.0); Luc # (Auto) 0.09; Luc % (Auto) 1; Lymphocytes # (A) 1.3 k/uL (1.0-4.8); Lymphocytes % (A) 12 %; MCHC 33.1 g/dL (31.0-37.0); MCV 90.5 fL (80.0-100.0); Mean Platelet Volume 8.1; Monocytes # (A) 0.2 k/uL (0-1.0); Monocytes % (A) 2 %; Neutrophils # (A) 9.5 k/uL (1.3-7.7); Neutrophils % (A) 85 %; RBC 4.43 m/uL (3.80-5.40); RDW 14.5 % (11.5-15.5); WBC 11.2 k/uL (3.8-10.6); WBC (Perox) 11.35
[2016-12-25] MEDS: INSULIN LISPRO (humaLOG) 300 UNIT/3 ML VIAL SQ SCH ×3 (08:19→18:24)
[2016-12-25] MEDS: methylPREDNISolone SOD SUCCI 125 MG/2 ML VIAL IV SCH ×3 (08:22→23:45)
[2016-12-25] MEDS: PANTOPRAZOLE 40 MG TABLET PO SCH ×2 (08:22→18:24)
--- NOTE | 2016-12-25 08:26 | XR ---
EXAMINATION TYPE: XR chest 2V DATE OF EXAM: 12/25/2016 COMPARISON: 12/24/2016 TECHNIQUE: PA and lateral views submitted. HISTORY: Difficulty breathing FINDINGS: Soft tissue artifact overlying the lateral margin the right. Coarsened interstitium in the right emily hilar region with postsurgical changes and volume loss. Left lung clear. Subsegmental changes in the right lung are stable. IMPRESSION: 1. Stable x-ray demonstrating chronic appearing coarsened interstitial perihilar changes and postsurg ical change. 2. Either atelectasis or early infiltrate stable
[2016-12-25 08:35] LABS: Anion Gap 15 mmol/L; Blood Urea Nitrogen 16 mg/dL (7-17); Calcium 8.9 mg/dL (8.4-10.2); Carbon Dioxide 19 mmol/L (22-30); Chloride 104 mmol/L (98-107); Glucose 286 mg/dL (74-99); Magnesium 1.5 mg/dL (1.6-2.3); Non-African American GFR(MDRD) >60 (>60 ml/min/1.73 sqM); Potassium 4.5 mmol/L (3.5-5.1); Sodium 138 mmol/L (137-145)
[2016-12-25] MEDS: ENOXAPARIN 40 MG/0.4 ML SYRINGE SQ SCH ×2 (08:56→10:28)
[2016-12-25] MEDS: PIPERACILLIN-TAZOBACTAM 3.375 GM in DEXTROSE/WATER 1 50ML.BAG IVPB SCH ×3 (08:56→23:44)
[2016-12-25] MEDS: LOSARTAN 25 MG TAB PO SCH (08:58)
[2016-12-25] MEDS: VERAPAMIL 40 MG TAB PO SCH ×3 (08:58→22:11)
[2016-12-25] MEDS: guaiFENesin 600 MG TABLET.ER PO SCH ×2 (08:58→22:05)
[2016-12-25] MEDS: SPIRONOLACTONE 25 MG TAB PO SCH (08:58)
[2016-12-25] MEDS ORDERED: ALPRAZolam 0.25 MG TAB PO SCH (10:37)
--- NOTE | 2016-12-25 10:42 | P.PN ---
Subjective This is a 51-year-old female with a known past medical history of COPD, pneumonia, right lung cancers status post chemo and radiation treatments as well as a right middle lobectomy. Patient reports that she recently seen Dr. Fragoso, her oncologist and had a repeat computed tomography scan of the chest. She was told that there is no reoccurrence of cancer. Patient reports over the last couple a days she's had increasing shortness of breath and a nonproductive cough. She states that she's been more fatigued not feeling well and not sleeping well because of the cough. Patient also reports that her heart feels like it's racing. Patient had chest x-ray in the emergency room showing a patchy density in the right lower lobe may reflect developing infiltrate. Chronic elevation in the right hemidiaphragm. Postsurgical changes in the right infrahilar region. This has been started on IV steroids and IV antibiotics in the emergency room. She's been treated for COPD exacerbation and possible pneumonia. 12/25/2016 patient still reports having some shortness of breath with activity. She's noted some improvement in her cough but still not producing sputum. She is asking for an increase in her Xanax to help her sleep. Also asking for stool softener. She had screening for her bowel movement this morning. Patient denies any chest pain. Denies any nausea or vomiting. Patient denies any burning with urination. Objective - Vital Signs Vital signs: Vital Signs Temp 97.7 F 12/25/16 07:00 Pulse 98 12/25/16 08:45 Resp 20 12/25/16 08:10 BP 135/78 12/25/16 07:00 Pulse Ox 95 12/25/16 07:00 Intake & Output 12/24/16 12/25/16 12/25/16 18:59 06:59 18:59 Intake Total 460 1310 Balance 460 1310 Weight 81.193 kg Intake: Intake, IV Titration 220 500 Amount Azithromycin 500 mg In 120 Sodium Chloride 0.9% 250 ml @ 125 mls/hr IVPB DAILY@1200 [facility] Rx#: [id number] Magnesium Sulfate-D5w Pmx 100 1 gm In Dextrose/Water 1 100ml.bag @ 100 mls/hr IVPB Q1H [facility] Rx#: [id number] Sodium Chloride 0.9% 1, 400 000 ml @ 100 mls/hr IV . Q10H [facility] Rx#:[id number] Tobramycin Sulfate 140 mg 100 In Sodium Chloride 0.9% 100 ml @ 103.5 mls/hr IVPB BID@0600,1800 [facility] Rx #:[id number] Oral 240 810 Other: Voiding Method Toilet Toilet # Voids 1 2 # Bowel Movements 1 - Exam Head normocephalic Neck supple Lungs breath sounds bilaterally. No wheezing Heart regular rate and rhythm S1-S2, no rub or gallop Abdomen is soft nontender nondistended positive bowel sounds no hepatosplenomegaly Extremities no edema Neuro alert and orientated to 3 - Labs CBC & Chem 7: 12/25/16 07:51 12/25/16 07:51 Labs: Abnormal Lab Results - Last 24 Hours (Table) 12/24/16 12/24/16 12/24/16 Range/Units 10:50 10:50 14:00 WBC (3.8-10.6) k/uL Neutrophils # (1.3-7.7) k/uL Carbon Dioxide (22-30) mmol/L Glucose 162 H (74-99) mg/dL POC Glucose (mg/dL) (75-99) mg/dL Hemoglobin A1c 8.2 H (4.2-6.1) % Magnesium 1.2 L (1.6-2.3) mg/dL Total Creatine Kinase 169 H (30-135) U/L 12/24/16 12/24/16 12/25/16 Range/Units 16:59 20:27 07:23 WBC (3.8-10.6) k/uL Neutrophils # (1.3-7.7) k/uL Carbon Dioxide (22-30) mmol/L Glucose (74-99) mg/dL POC Glucose (mg/dL) 298 H 297 H 313 H (75-99) mg/dL Hemoglobin A1c (4.2-6.1) % Magnesium (1.6-2.3) mg/dL Total Creatine Kinase (30-135) U/L 12/25/16 12/25/16 Range/Units 07:51 07:51 WBC 11.2 H (3.8-10.6) k/uL Neutrophils # 9.5 H (1.3-7.7) k/uL Carbon Dioxide 19 L (22-30) mmol/L Glucose 286 H (74-99) mg/dL POC Glucose (mg/dL) (75-99) mg/dL Hemoglobin A1c (4.2-6.1) % Magnesium 1.5 L (1.6-2.3) mg/dL Total Creatine Kinase (30-135) U/L Assessment and Plan Plan: 1. Acute COPD exacerbation: We'll switch nebulizer treatments to Xopenex and Atrovent. Discontinue the albuterol. Start patient on IV Solu-Medrol 60 mg IV every 8 hours. Continue her Pulmicort nebulizer treatments. Pulmonary service consulted. 2. Possible pneumonia: Chest x-ray showing a patchy density in the right lower lobe. Check sputum culture. Patient started on tobramycin, azithromycin and Zosyn in the emergency room. Continue Mucinex to help break up congestion. Chest x-ray from this morning shows either atelectasis or early infiltrate. Encourage incentive spirometry use continue antibiotics. We'll await further recommendations per pulmonary service. 3. History of lung cancer status post chemo and radiation treatment with a right middle lobectomy 4. Hypothyroidism continue Synthroid. Thyroid studies within normal range 5. Sinus tachycardia continue telemetry monitoring. Heart rate has improved since the adjustment of nebulizer treatments to Xopenex and treating patient COPD 6. Insomnia: He is standing still 0.5 at bedtime 7. Diabetes mellitus type 2: Continue Lantus, scheduled Humalog before meals and sliding scale coverage. Elevated blood sugars secondary to steroids. Hemoglobin A1c is 8.2 8. Essential hypertension: Pressures are stable continue with current medications 9. Headache improved with [place] 10. Hypomagnesemia: magnesium 1.5 patient will receive supplement GI prophylaxis Protonix and DVT prophylaxis Lovenox I performed an examination of the patient and discussed their management with the physician Whiting Machine Operator. I have reviewed the Physician Whiting Machine Operator's notes and agree with the documented findings and plan of care
[2016-12-25 11:13] LABS: Glucose,Whole Blood 299 mg/dL (75-99)
[2016-12-25] MEDS: MAGNESIUM SULFATE-D5W PMX 1 GM in DEXTROSE/WATER 1 100ML.BAG IVPB SCH ×2 (11:54→13:11)
[2016-12-25] MEDS ORDERED: AZITHROMYCIN 500 MG in SODIUM CHLORIDE 0.9% 250 ML IVPB SCH (12:00)
[2016-12-25] MEDS: DOCUSATE 100 MG CAP PO SCH ×2 (12:01→22:07)
[2016-12-25] MEDS: CHOLECALCIFEROL 1,000 UNIT TAB PO SCH (12:10)
[2016-12-25] MEDS: MULTIVITAMINS, THERA 1 EACH TAB PO SCH (12:10)
--- NOTE | 2016-12-25 12:30 | P.PN ---
Subjective 12/24/16-This is a 51-year-old female who is being seen, examined and evaluated. She is well-known to our services. Patient came in to the emergency room with complaints of being more fatigued, not feeling well, shortness of breath that has increased as well as a congested cough. Chest x-ray has been reviewed and shows a patchy density in the right lower lobe which may infiltrate, post surgical changes right infrahilar region. Chronic elevation right hemidiaphragm. She is known to have a past medical history of COPD, pneumonia, right lung cancer status post chemo and radiation treatment as well as a right middle lobectomy. Patient follows with Dr. Bishop. Patient was admitted for COPD exacerbation and possibly pneumonia. She was started on IV antibiotics as well as steroids. Scheduled breathing treatments and Mucinex. Patient does not have an elevated white count nor does she have any fevers chills or night sweats. She denies any nausea or vomiting. Upon examination the patient's resting up in bed on supplemental oxygen. She continues to complain of shortness of breath with exertion or extensive conversation. She does not use home oxygen. Patient states that she has a congested cough however she is unable to bring up secretions and feels they are thick. 12/25/16-patient is seen and examined resting up in bed on room air. She has been maintaining her oxygen saturations in the mid 90s on room air. She continues to complain of shortness of breath with exertion. Patient states she' s been up ambulating in the room. Using her incentive spirometer and pulls volumes of 1750. Patient states she continues to have cough however is unable to bring up the sputum. Patient states that her cough and congestion feels as if therapy and loosened up a bit from the medications. She still does not feel at her baseline for breathing. Objective - Vital Signs Vital signs: Vital Signs Temp 97.7 F 12/25/16 07:00 Pulse 98 12/25/16 08:45 Resp 20 12/25/16 08:10 BP 135/78 12/25/16 07:00 Pulse Ox 95 12/25/16 07:00 Intake & Output 12/24/16 12/25/16 12/25/16 18:59 06:59 18:59 Intake Total 460 1310 Balance 460 1310 Weight 81.193 kg Intake: Intake, IV Titration 220 500 Amount Azithromycin 500 mg In 120 Sodium Chloride 0.9% 250 ml @ 125 mls/hr IVPB DAILY@1200 [facility] Rx#: [id number] Magnesium Sulfate-D5w Pmx 100 1 gm In Dextrose/Water 1 100ml.bag @ 100 mls/hr IVPB Q1H [facility] Rx#: [id number] Sodium Chloride 0.9% 1, 400 000 ml @ 100 mls/hr IV . Q10H [facility] Rx#:[id number] Tobramycin Sulfate 140 mg 100 In Sodium Chloride 0.9% 100 ml @ 103.5 mls/hr IVPB BID@0600,1800 [facility] Rx #:[id number] Oral 240 810 Other: Voiding Method Toilet Toilet # Voids 1 2 # Bowel Movements 1 - Exam GENERAL EXAM: Alert, comfortable in no apparent distress. HEAD: Normocephalic. EYES: Normal reaction of pupils, equal size. NOSE: Clear with pink turbinates. THROAT: No erythema or exudates. NECK: No masses, no JVD. CHEST: No chest wall deformity. LUNGS: Lungs noted to be tight and slightly coarse throughout with some faint expiratory wheezing. CVS: S1 and S2 normal with no audible mumurs, regular rhythm. ABDOMEN: No hepatosplenomegaly, normal bowel sounds, no guarding or rigidity. EXTREMITIES: No edema noted, pedal pulses palpable. SKIN: No rashes CENTRAL NERVOUS SYSTEM: No focal deficits, tone is normal in all 4 extremities. - Labs CBC & Chem 7: 12/25/16 07:51 12/25/16 07:51 Labs: Abnormal Lab Results - Last 24 Hours (Table) 12/24/16 12/24/16 12/24/16 Range/Units 14:00 16:59 20:27 WBC (3.8-10.6) k/uL Neutrophils # (1.3-7.7) k/uL Carbon Dioxide (22-30) mmol/L Glucose (74-99) mg/dL POC Glucose (mg/dL) 298 H 297 H (75-99) mg/dL Hemoglobin A1c 8.2 H (4.2-6.1) % Magnesium (1.6-2.3) mg/dL 12/25/16 12/25/16 12/25/16 Range/Units 07:23 07:51 07:51 WBC 11.2 H (3.8-10.6) k/uL Neutrophils # 9.5 H (1.3-7.7) k/uL Carbon Dioxide 19 L (22-30) mmol/L Glucose 286 H (74-99) mg/dL POC Glucose (mg/dL) 313 H (75-99) mg/dL Hemoglobin A1c (4.2-6.1) % Magnesium 1.5 L (1.6-2.3) mg/dL 12/25/16 Range/Units 11:11 WBC (3.8-10.6) k/uL Neutrophils # (1.3-7.7) k/uL Carbon Dioxide (22-30) mmol/L Glucose (74-99) mg/dL POC Glucose (mg/dL) 299 H (75-99) mg/dL Hemoglobin A1c (4.2-6.1) % Magnesium (1.6-2.3) mg/dL Assessment and Plan Plan: Assessment Acute exacerbation of COPD Tracheobronchitis Acute hypoxic respiratory failure Right lower lobe pneumonia History of lung cancer status post chemo and radiation treatment with a right middle lobectomy Hypothyroidism Sinus tachycardia Diabetes mellitus type 2 Essential hypertension Hypomagnesemia Insomnia Plan Medications have been reviewed and will be continued as ordered. Continue with IV antibiotics and steroids over the weekend. Continue with pulmonary hygiene , coughing and deep breathing exercises, and supportive care. Supplemental oxygen to maintain oxygen saturations of 92% or better. Continue nebulizer treatments. Initiate and encourage incentive spirometer. Continue to monitor and replace electrolytes per protocol. GI and DVT prophylaxis. We will continue to monitor labs/results and adjust treatment as necessary. Further recommendations pending. I performed an examination of the patient and discussed their management with the nurse practitioner. I have reviewed the nurse practitioner's note and agree with the documented findings and plan of care.
[2016-12-25 14:08] LABS: Glucose,Whole Blood 352 mg/dL (75-99)
[2016-12-25] MEDS: INSULIN REGULAR 100 UNIT in SODIUM CHLORIDE 0.9% 100 ML IV SCH ×6 (14:28→18:32)
[2016-12-25] MEDS: AZITHROMYCIN 500 MG in SODIUM CHLORIDE 0.9% 250 ML IVPB SCH (14:37)
[2016-12-25 15:01] LABS: Glucose,Whole Blood 376 mg/dL (75-99)
[2016-12-25 15:29] LABS: Glucose,Whole Blood 311 mg/dL (75-99)
[2016-12-25 16:18] LABS: Glucose,Whole Blood 235 mg/dL (75-99)
[2016-12-25 16:51] LABS: Glucose,Whole Blood 171 mg/dL (75-99)
[2016-12-25 17:39] LABS: Glucose,Whole Blood 160 mg/dL (75-99)
[2016-12-25 18:33] LABS: Glucose,Whole Blood 188 mg/dL (75-99)
--- NOTE | 2016-12-25 19:07 | CONS ---
DATE OF SERVICE: 12/25/2016 REASON FOR CONSULTATION: Pneumonia and antibiotic recommendations. HISTORY OF PRESENT ILLNESS: The patient is a 51-year-old female with a past medical history significant for COPD. She presented to [facility] ER on 12/24/2016 with the chief complaints of cough, congestion and increasing shortness of breath. Her symptoms have been going on for the last few days; however, they were worse the night before, and she presented to the ER. The patient has been complaining of cough but was unable to bring any sputum up. The patient denies having any chest pain or urinary symptoms. Denies any high-grade fever, rigors or chills. No abdominal pain or any diarrhea. Apparently the patient was recently admitted to this facility about 6 weeks ago and was treated for pneumonia. At that time the patient did have a bronch washing that was growing MSSA that was treated with Augmentin for 5 days. REVIEW OF SYSTEMS: CONSTITUTIONAL: Positive for weakness. No high-grade fever. EYES: No complaint. ENT: No complaint. RESPIRATORY: As per HPI. CARDIOVASCULAR: No complaint. GENITOURINARY: No complaint. GASTROINTESTINAL: No complaint. MUSCULOSKELETAL: No complaint. INTEGUMENTARY: No complaint. PSYCHOLOGIC: No complaint. ENDOCRINE: No complaint. NEUROLOGIC: No complaint. Past medical history is significant for: 1. COPD. 2. Diabetes mellitus. 3. Gastroesophageal reflux disease. 4. Hypertension. 5. Hyperlipidemia. 6. Pneumonia. 7. Hypothyroidism. 8. Right lung cancer. Past surgical history is significant for: 1. Appendectomy. 2. Cholecystectomy. 3. Hysterectomy. 4. Tonsillectomy. 5. Tubal ligation. 6. Lung biopsy. SOCIAL HISTORY: Former smoker. No drinking or drug use. FAMILY HISTORY: Mother with history of breast cancer. Sister with history of lung cancer. Father with COPD. He from blood infection at age 64. ALLERGIES: 1. CIPROFLOXACIN. 2. CEPHALEXIN. 3. BACTRIM. Current medications include: 1. [place]. 2. Xanax. 3. Lipitor. 4. Erythromycin. 5. Pulmicort. 6. Vitamin D3. 7. Colace. 8. Lovenox. 9. Mucinex. 10. Lantus. 11. Humalog. 12. Xopenex. 13. Synthroid. 14. Cozaar. 15. Solu-Medrol. 16. Tobramycin. 17. Singulair. 18. Theragran. 19. Protonix. 20. Aldactone. On examination, blood pressure is 135/78 with a pulse of 78, temperature 97.7. She is 95% on room air. General description is a middle-aged female lying in the bed in no distress. No tachypnea or accessory muscle of respiration use. HEENT EXAMINATION: No pallor or scleral icterus. Oral mucous membrane is dry. NECK: Trachea is central. No thyromegaly. LUNGS: Unlabored breathing. ( ) breath sounds. No significant wheeze. HEART: S1, S2. Regular rate and rhythm. ABDOMEN: Soft. No tenderness. No guarding or rigidity. EXTREMITIES: No edema of the feet. SKIN EXAMINATION: No rash or mass palpable. Neurologically patient is awake, alert, oriented x3. Mood and affect normal. LABS: Hemoglobin is 13.3 with a white count of 11.2. BUN 16, creatinine 0.74. No cultures obtained so far. Patient did have a chest x-ray positive for either atelectasis or early infiltrate, stable, in the right perihilar region. DIAGNOSTIC IMPRESSION AND PLAN: 1. Patient admitted to hospital with difficulty breathing which is likely multifactorial in a patient with COPD exacerbation. Underlying tracheobronchitis or pneumonia not likely but cannot be entirely excluded in a patient who apparently recently had bronch diagnostic ( ) that was growing MSSA. Patient does have a history of lung cancer and hospitalization, and underlying concern about a Gram-negative pneumonia cannot be entirely excluded. 2. Patient with multiple antibiotic allergies. They do limit the number of antibiotics that could be safely used. PLAN: 1. Will try to obtain sputum for Gram stain and culture and sensitivity. 2. Discontinue the tobramycin. I will continue with the Zithromax and the Zosyn. 3. Depending upon her clinical response and cultures, will adjust antibiotics further if needed. Thank you for this consultation. Will follow this patient along with you. TED
[2016-12-25 19:38] LABS: Glucose,Whole Blood 255 mg/dL (75-99)
[2016-12-25 19:38] LABS: Glucose,Whole Blood 264 mg/dL (75-99)
[2016-12-25] MEDS ORDERED: DOCUSATE 100 MG CAP PO SCH (21:00)
[2016-12-25 21:55] LABS: Glucose,Whole Blood 336 mg/dL (75-99)
[2016-12-25] MEDS: MONTELUKAST 10 MG TAB PO SCH (22:05)
[2016-12-25] MEDS: ALPRAZolam 0.5 MG TAB PO SCH (22:05)
[2016-12-25] MEDS: ATORVASTATIN 10 MG TAB PO SCH (22:06)
[2016-12-25 23:44] LABS: Glucose,Whole Blood 312 mg/dL (75-99)
[2016-12-26] MEDS: INSULIN LISPRO (humaLOG) 300 UNIT/3 ML VIAL SQ SCH ×5 (00:51→18:13)
[2016-12-26] MEDS: INSULIN REGULAR 100 UNIT in SODIUM CHLORIDE 0.9% 100 ML IV SCH ×2 (01:22→22:16)
[2016-12-26 01:39] LABS: Glucose,Whole Blood 269 mg/dL (75-99)
[2016-12-26 03:30] LABS: Glucose,Whole Blood 290 mg/dL (75-99)
[2016-12-26] MEDS: LEVALBUTEROL NEB 1.25 MG/3 ML AMP INHALATION SCH ×4 (03:53→20:23)
[2016-12-26] MEDS: HYDROcodone/APAP 10-325MG 1 EACH TAB PO PRN ×4 (04:05→21:06)
[2016-12-26] MEDS ORDERED: TOBRAMYCIN TROUGH DUE 1 EACH MISC MISCELLANE ONE (05:00)
[2016-12-26] MEDS: LEVOTHYROXINE 25 MCG TAB PO SCH (05:35)
[2016-12-26 05:40] LABS: Basophils % (A) 0 %; CH 30.3; CHCM 33.9; Eosinophils # (A) 0.1 k/uL (0-0.7); Eosinophils % (A) 1 %; HCT 37.8 % (34.0-46.0); HDW 2.88; HGB 12.8 gm/dL (11.4-16.0); Luc # (Auto) 0.15; Luc % (Auto) 1; Lymphocytes # (A) 1.4 k/uL (1.0-4.8); Lymphocytes % (A) 12 %; MCH 30.4 pg (25.0-35.0); MCHC 33.8 g/dL (31.0-37.0); Mean Platelet Volume 8.3; Monocytes # (A) 0.3 k/uL (0-1.0); Monocytes % (A) 2 %; Neutrophils # (A) 9.9 k/uL (1.3-7.7); Neutrophils % (A) 84 %; RDW 14.9 % (11.5-15.5); WBC 11.7 k/uL (3.8-10.6); WBC (Perox) 12.27
[2016-12-26 05:47] LABS: Glucose,Whole Blood 232 mg/dL (75-99)
[2016-12-26 05:49] LABS: Anion Gap 12 mmol/L; Blood Urea Nitrogen 17 mg/dL (7-17); Calcium 9.5 mg/dL (8.4-10.2); Carbon Dioxide 22 mmol/L (22-30); Chloride 108 mmol/L (98-107); Glucose 237 mg/dL (74-99); Magnesium 1.9 mg/dL (1.6-2.3); Non-African American GFR(MDRD) >60 (>60 ml/min/1.73 sqM); Potassium 4.4 mmol/L (3.5-5.1); Sodium 142 mmol/L (137-145)
[2016-12-26] MEDS ORDERED: TOBRAMYCIN PEAK DUE 1 EACH MISC MISCELLANE ONE (07:30)
[2016-12-26] MEDS: DOCUSATE 100 MG CAP PO SCH ×2 (07:48→21:06)
[2016-12-26] MEDS: PANTOPRAZOLE 40 MG TABLET PO SCH ×2 (07:48→18:14)
[2016-12-26] MEDS: ENOXAPARIN 40 MG/0.4 ML SYRINGE SQ SCH (07:49)
[2016-12-26] MEDS: guaiFENesin 600 MG TABLET.ER PO SCH ×2 (07:49→21:06)
[2016-12-26] MEDS: SPIRONOLACTONE 25 MG TAB PO SCH (07:50)
[2016-12-26] MEDS: VERAPAMIL 40 MG TAB PO SCH ×3 (07:50→21:06)
[2016-12-26] MEDS: LOSARTAN 25 MG TAB PO SCH (07:50)
[2016-12-26 07:52] LABS: Glucose,Whole Blood 192 mg/dL (75-99)
[2016-12-26] MEDS: methylPREDNISolone SOD SUCCI 125 MG/2 ML VIAL IV SCH (07:58)
[2016-12-26] MEDS: BUDESONIDE 0.5 MG/2 ML NEBU INHALATION SCH ×2 (09:10→20:23)
[2016-12-26] MEDS: IPRATROPIUM 0.5 MG/2.5 ML NEBU INHALATION SCH ×4 (09:10→20:23)
[2016-12-26] MEDS: PIPERACILLIN-TAZOBACTAM 3.375 GM in DEXTROSE/WATER 1 50ML.BAG IVPB SCH ×2 (09:21→15:55)
[2016-12-26 09:42] LABS: Glucose,Whole Blood 232 mg/dL (75-99)
--- NOTE | 2016-12-26 11:18 | P.PN ---
Subjective Patient is doing fairly well today. She said that her shortness of breath is significantly better compared to when she first came in. She is still on insulin drip secondary to uncontrolled blood glucose. Objective - Vital Signs Vital signs: Vital Signs Temp 97.0 F L 12/26/16 07:00 Pulse 92 12/26/16 09:28 Resp 16 12/26/16 07:00 BP 130/85 12/26/16 07:00 Pulse Ox 98 12/26/16 07:00 Intake & Output 12/25/16 12/26/16 12/26/16 18:59 06:59 18:59 Intake Total 40.273 127.257 16.678 Balance 40.273 127.257 16.678 Intake: Intake, IV Titration 40.273 127.257 16.678 Amount Insulin Regular 100 unit 40.273 77.257 16.678 In Sodium Chloride 0.9% 100 ml @ Titrate IV .Q0M [facility] Rx#:[id number] Piperacillin-Tazobactam 3 50 .375 gm In Dextrose/Water 1 50ml.bag @ 12.5 mls/hr IVPB Q8HR [facility] Rx#: [id number] Other: Voiding Method Toilet Toilet # Voids 2 1 # Bowel Movements 1 - Exam General: The patient is awake and alert, in no distress Eye: there is normal conjunctiva bilaterally. Neck: The neck is supple, there is no JVD. Cardiovascular: Normal S1-S2, no S3-S4, no murmurs. Respiratory: Lungs with very mild end expiratory wheezing Gastrointestinal: Abdomen is soft, nontender Musculoskeletal: There is no pedal edema. Neurological:. Speech is normal. Skin: Skin is warm and dry - Labs CBC & Chem 7: 12/26/16 05:24 12/26/16 05:24 Labs: Abnormal Lab Results - Last 24 Hours (Table) 12/25/16 12/25/16 12/25/16 Range/Units 14:05 14:59 15:28 WBC (3.8-10.6) k/uL Neutrophils # (1.3-7.7) k/uL Chloride (98-107) mmol/L Glucose (74-99) mg/dL POC Glucose (mg/dL) 352 H 376 H 311 H (75-99) mg/dL 12/25/16 12/25/16 12/25/16 Range/Units 16:03 16:41 17:37 WBC (3.8-10.6) k/uL Neutrophils # (1.3-7.7) k/uL Chloride (98-107) mmol/L Glucose (74-99) mg/dL POC Glucose (mg/dL) 235 H 171 H 160 H (75-99) mg/dL 12/25/16 12/25/16 12/25/16 Range/Units 18:30 19:34 19:36 WBC (3.8-10.6) k/uL Neutrophils # (1.3-7.7) k/uL Chloride (98-107) mmol/L Glucose (74-99) mg/dL POC Glucose (mg/dL) 188 H 255 H 264 H (75-99) mg/dL 12/25/16 12/25/16 12/26/16 Range/Units 21:41 23:42 01:26 WBC (3.8-10.6) k/uL Neutrophils # (1.3-7.7) k/uL Chloride (98-107) mmol/L Glucose (74-99) mg/dL POC Glucose (mg/dL) 336 H 312 H 269 H (75-99) mg/dL 12/26/16 12/26/16 12/26/16 Range/Units 03:27 05:24 05:24 WBC 11.7 H (3.8-10.6) k/uL Neutrophils # 9.9 H (1.3-7.7) k/uL Chloride 108 H (98-107) mmol/L Glucose 237 H (74-99) mg/dL POC Glucose (mg/dL) 290 H (75-99) mg/dL 12/26/16 12/26/16 12/26/16 Range/Units 05:38 07:45 09:40 WBC (3.8-10.6) k/uL Neutrophils # (1.3-7.7) k/uL Chloride (98-107) mmol/L Glucose (74-99) mg/dL POC Glucose (mg/dL) 232 H 192 H 232 H (75-99) mg/dL Microbiology - Last 24 Hours (Table) 12/24/16 14:00 Blood Culture - Preliminary Blood No Growth after 24 hours Assessment and Plan Plan: 1. Acute COPD exacerbation: on Xopenex and Atrovent. Switch IV Solu-Medrol to oral prednisoneContinue her Pulmicort nebulizer treatments. Pulmonary service consulted. 2. Possible pneumonia: Chest x-ray showing a patchy density in the right lower lobe. Check sputum culture. Patient started on tobramycin, azithromycin and Zosyn in the emergency room. Continue Mucinex to help break up congestion. Chest x-ray from this morning shows either atelectasis or early infiltrate. Encourage incentive spirometry use continue antibiotics. Infectious disease consulted. Tobramycin was discontinued. Appreciate his recommendations. 3. History of lung cancer status post chemo and radiation treatment with a right middle lobectomy 4. Hypothyroidism continue Synthroid. Thyroid studies within normal range 5. Sinus tachycardia continue telemetry monitoring. Heart rate has improved since the adjustment of nebulizer treatments to Xopenex and treating patient COPD 6. Insomnia: He is standing still 0.5 at bedtime 7. Diabetes mellitus type 2: now with steroid-induced hyperglycemia requiring insulin drip. Switch back to her home dose of insulin when possible. 8. Essential hypertension: Pressures are stable continue with current medications 9. Headache improved with [place] 10. Hypomagnesemia: magnesium 1.5 patient will receive supplement GI prophylaxis Protonix and DVT prophylaxis Lovenox
[2016-12-26] MEDS: MULTIVITAMINS, THERA 1 EACH TAB PO SCH (11:50)
[2016-12-26 12:07] LABS: Glucose,Whole Blood 305 mg/dL (75-99)
--- NOTE | 2016-12-26 12:15 | P.PN ---
Subjective 12/24/16-This is a 51-year-old female who is being seen, examined and evaluated. She is well-known to our services. Patient came in to the emergency room with complaints of being more fatigued, not feeling well, shortness of breath that has increased as well as a congested cough. Chest x-ray has been reviewed and shows a patchy density in the right lower lobe which may infiltrate, post surgical changes right infrahilar region. Chronic elevation right hemidiaphragm. She is known to have a past medical history of COPD, pneumonia, right lung cancer status post chemo and radiation treatment as well as a right middle lobectomy. Patient follows with Dr. Bishop. Patient was admitted for COPD exacerbation and possibly pneumonia. She was started on IV antibiotics as well as steroids. Scheduled breathing treatments and Mucinex. Patient does not have an elevated white count nor does she have any fevers chills or night sweats. She denies any nausea or vomiting. Upon examination the patient's resting up in bed on supplemental oxygen. She continues to complain of shortness of breath with exertion or extensive conversation. She does not use home oxygen. Patient states that she has a congested cough however she is unable to bring up secretions and feels they are thick. 12/25/16-patient is seen and examined resting up in bed on room air. She has been maintaining her oxygen saturations in the mid 90s on room air. She continues to complain of shortness of breath with exertion. Patient states she' s been up ambulating in the room. Using her incentive spirometer and pulls volumes of 1750. Patient states she continues to have cough however is unable to bring up the sputum. Patient states that her cough and congestion feels as if therapy and loosened up a bit from the medications. She still does not feel at her baseline for breathing. 12/26/16, patient seen and evaluated examined today she feels is still short of breath but CAT has improved her wheezing is improved she able to ambulate she feels that ipratropium is helping her significantly off note that he gets sleepy when she was requested for duoneb was denied Objective - Vital Signs Vital signs: Vital Signs Temp 97.0 F L 12/26/16 07:00 Pulse 92 12/26/16 12:10 Resp 16 12/26/16 07:00 BP 130/85 12/26/16 07:00 Pulse Ox 98 12/26/16 07:00 Intake & Output 12/25/16 12/26/16 12/26/16 18:59 06:59 18:59 Intake Total 40.273 127.257 28.845 Balance 40.273 127.257 28.845 Intake: Intake, IV Titration 40.273 127.257 28.845 Amount Insulin Regular 100 unit 40.273 77.257 28.845 In Sodium Chloride 0.9% 100 ml @ Titrate IV .Q0M [facility] Rx#:[id number] Piperacillin-Tazobactam 3 50 .375 gm In Dextrose/Water 1 50ml.bag @ 12.5 mls/hr IVPB Q8HR [facility] Rx#: [id number] Other: Voiding Method Toilet Toilet # Voids 2 1 # Bowel Movements 1 - Exam GENERAL EXAM: Alert, comfortable in no apparent distress. HEAD: Normocephalic. EYES: Normal reaction of pupils, equal size. NOSE: Clear with pink turbinates. THROAT: No erythema or exudates. NECK: No masses, no JVD. CHEST: No chest wall deformity. LUNGS: Lungs noted to be tight and slightly coarse throughout with some faint expiratory wheezing. CVS: S1 and S2 normal with no audible mumurs, regular rhythm. ABDOMEN: No hepatosplenomegaly, normal bowel sounds, no guarding or rigidity. EXTREMITIES: No edema noted, pedal pulses palpable. SKIN: No rashes CENTRAL NERVOUS SYSTEM: No focal deficits, tone is normal in all 4 extremities. - Labs CBC & Chem 7: 12/26/16 05:24 12/26/16 05:24 Labs: Abnormal Lab Results - Last 24 Hours (Table) 12/25/16 12/25/16 12/25/16 Range/Units 14:05 14:59 15:28 WBC (3.8-10.6) k/uL Neutrophils # (1.3-7.7) k/uL Chloride (98-107) mmol/L Glucose (74-99) mg/dL POC Glucose (mg/dL) 352 H 376 H 311 H (75-99) mg/dL 12/25/16 12/25/16 12/25/16 Range/Units 16:03 16:41 17:37 WBC (3.8-10.6) k/uL Neutrophils # (1.3-7.7) k/uL Chloride (98-107) mmol/L Glucose (74-99) mg/dL POC Glucose (mg/dL) 235 H 171 H 160 H (75-99) mg/dL 12/25/16 12/25/16 12/25/16 Range/Units 18:30 19:34 19:36 WBC (3.8-10.6) k/uL Neutrophils # (1.3-7.7) k/uL Chloride (98-107) mmol/L Glucose (74-99) mg/dL POC Glucose (mg/dL) 188 H 255 H 264 H (75-99) mg/dL 12/25/16 12/25/16 12/26/16 Range/Units 21:41 23:42 01:26 WBC (3.8-10.6) k/uL Neutrophils # (1.3-7.7) k/uL Chloride (98-107) mmol/L Glucose (74-99) mg/dL POC Glucose (mg/dL) 336 H 312 H 269 H (75-99) mg/dL 12/26/16 12/26/16 12/26/16 Range/Units 03:27 05:24 05:24 WBC 11.7 H (3.8-10.6) k/uL Neutrophils # 9.9 H (1.3-7.7) k/uL Chloride 108 H (98-107) mmol/L Glucose 237 H (74-99) mg/dL POC Glucose (mg/dL) 290 H (75-99) mg/dL 12/26/16 12/26/16 12/26/16 Range/Units 05:38 07:45 09:40 WBC (3.8-10.6) k/uL Neutrophils # (1.3-7.7) k/uL Chloride (98-107) mmol/L Glucose (74-99) mg/dL POC Glucose (mg/dL) 232 H 192 H 232 H (75-99) mg/dL 12/26/16 Range/Units 12:05 WBC (3.8-10.6) k/uL Neutrophils # (1.3-7.7) k/uL Chloride (98-107) mmol/L Glucose (74-99) mg/dL POC Glucose (mg/dL) 305 H (75-99) mg/dL Microbiology - Last 24 Hours (Table) 12/24/16 14:00 Blood Culture - Preliminary Blood No Growth after 24 hours Assessment and Plan Plan: Assessment Acute exacerbation of COPD Purulent Tracheobronchitis Acute hypoxic respiratory failure Right lower lobe pneumonia History of lung cancer status post chemo and radiation treatment with a right middle lobectomy Hypothyroidism Sinus tachycardia Diabetes mellitus type 2 Essential hypertension Hypomagnesemia Insomnia Plan Medications have been reviewed and will be continued as ordered. Continue with IV antibiotics and steroids over the weekend. Continue with pulmonary hygiene , coughing and deep breathing exercises, and supportive care. Supplemental oxygen to maintain oxygen saturations of 92% or better. Continue nebulizer treatments. Initiate and encourage incentive spirometer. Continue to monitor and replace electrolytes per protocol. GI and DVT prophylaxis. Will arrange ipratropium and albuterol via nebulizer 3 or 4 times a day on outpatient basis and continue Pulmicort We will continue to monitor labs/results and adjust treatment as necessary. Further recommendations pending.
[2016-12-26] MEDS: CHOLECALCIFEROL 1,000 UNIT TAB PO SCH (13:11)
[2016-12-26] MEDS: AZITHROMYCIN 500 MG in SODIUM CHLORIDE 0.9% 250 ML IVPB SCH (13:12)
[2016-12-26 14:18] LABS: Glucose,Whole Blood 229 mg/dL (75-99)
[2016-12-26 16:20] LABS: Glucose,Whole Blood 281 mg/dL (75-99)
[2016-12-26 18:19] LABS: Glucose,Whole Blood 290 mg/dL (75-99)
[2016-12-26 19:58] LABS: Glucose,Whole Blood 311 mg/dL (75-99)
[2016-12-26] MEDS: ALPRAZolam 0.5 MG TAB PO SCH (21:05)
[2016-12-26] MEDS: ATORVASTATIN 10 MG TAB PO SCH (21:07)
[2016-12-26] MEDS: MONTELUKAST 10 MG TAB PO SCH (21:07)
[2016-12-26 22:14] LABS: Glucose,Whole Blood 266 mg/dL (75-99)
[2016-12-27] MEDS: PIPERACILLIN-TAZOBACTAM 3.375 GM in DEXTROSE/WATER 1 50ML.BAG IVPB SCH ×4 (00:28→23:41)
[2016-12-27 00:42] LABS: Glucose,Whole Blood 186 mg/dL (75-99)
[2016-12-27 02:26] LABS: Glucose,Whole Blood 171 mg/dL (75-99)
[2016-12-27] MEDS: IPRATROPIUM 0.5 MG/2.5 ML NEBU INHALATION PRN (04:21)
[2016-12-27] MEDS: HYDROcodone/APAP 10-325MG 1 EACH TAB PO PRN ×3 (04:36→16:53)
[2016-12-27 04:39] LABS: Glucose,Whole Blood 186 mg/dL (75-99)
[2016-12-27] MEDS: LEVOTHYROXINE 25 MCG TAB PO SCH (05:41)
[2016-12-27 06:36] LABS: Glucose,Whole Blood 159 mg/dL (75-99)
[2016-12-27 07:48] LABS: Basophils % (A) 0 %; CH 30.1; CHCM 33.4; Eosinophils % (A) 0 %; HCT 36.4 % (34.0-46.0); HDW 2.78; HGB 12.3 gm/dL (11.4-16.0); Luc # (Auto) 0.17; Luc % (Auto) 2; Lymphocytes # (A) 2.3 k/uL (1.0-4.8); Lymphocytes % (A) 26 %; MCH 30.6 pg (25.0-35.0); MCHC 33.8 g/dL (31.0-37.0); MCV 90.6 fL (80.0-100.0); Mean Platelet Volume 8.1; Monocytes # (A) 0.4 k/uL (0-1.0); Monocytes % (A) 5 %; Neutrophils # (A) 6.1 k/uL (1.3-7.7); Neutrophils % (A) 68 %; RBC 4.02 m/uL (3.80-5.40); RDW 14.8 % (11.5-15.5); WBC (Perox) 9.48
[2016-12-27 07:57] LABS: Anion Gap 8 mmol/L; Blood Urea Nitrogen 17 mg/dL (7-17); Calcium 8.9 mg/dL (8.4-10.2); Carbon Dioxide 25 mmol/L (22-30); Chloride 109 mmol/L (98-107); Glucose 114 mg/dL (74-99); Non-African American GFR(MDRD) >60 (>60 ml/min/1.73 sqM); Potassium 3.9 mmol/L (3.5-5.1); Sodium 142 mmol/L (137-145)
[2016-12-27] MEDS: INSULIN LISPRO (humaLOG) 300 UNIT/3 ML VIAL SQ SCH ×6 (08:00→21:43)
[2016-12-27] MEDS: PANTOPRAZOLE 40 MG TABLET PO SCH ×2 (08:01→17:59)
[2016-12-27] MEDS: SPIRONOLACTONE 25 MG TAB PO SCH (08:01)
[2016-12-27] MEDS: VERAPAMIL 40 MG TAB PO SCH ×3 (08:01→21:47)
[2016-12-27] MEDS: predniSONE 20 MG TAB PO SCH (08:02)
[2016-12-27] MEDS: guaiFENesin 600 MG TABLET.ER PO SCH ×2 (08:02→21:42)
[2016-12-27] MEDS: LOSARTAN 25 MG TAB PO SCH (08:02)
[2016-12-27] MEDS: ENOXAPARIN 40 MG/0.4 ML SYRINGE SQ SCH ×2 (08:02→08:12)
[2016-12-27] MEDS: DOCUSATE 100 MG CAP PO SCH ×3 (08:03→21:42)
[2016-12-27] MEDS: LEVALBUTEROL NEB 1.25 MG/3 ML AMP INHALATION SCH ×3 (08:18→20:51)
[2016-12-27] MEDS: IPRATROPIUM 0.5 MG/2.5 ML NEBU INHALATION SCH ×4 (08:18→20:51)
[2016-12-27] MEDS: BUDESONIDE 0.5 MG/2 ML NEBU INHALATION SCH ×2 (08:18→20:49)
[2016-12-27 08:43] LABS: Glucose,Whole Blood 157 mg/dL (75-99)
--- NOTE | 2016-12-27 10:44 | PN ---
DATE OF SERVICE: 12/26/2016 REASON FOR FOLLOW UP: Pneumonia. INTERVAL HISTORY: The patient's breathing has improved. The cough remains to be dry in nature. She denies any chest pain. No abdominal pain. No nausea or vomiting. No diarrhea. PHYSICAL EXAMINATION: Blood pressure 141/73, pulse 97, respirations 17. She is 98% on room air. GENERAL DESCRIPTION: Middle aged female up in the room in no distress. RESPIRATORY: Unlabored breathing. There is a bit of a wheeze. HEART: S1/S2, regular rhythm. LABS: Hemoglobin 12.8, white count 11.7. BUN 17, creatinine 0.80. Blood cultures ( ). DIAGNOSTIC IMPRESSION: Patient admitted to the hospital with difficulty in breathing with a component of possible chronic obstructive pulmonary disease exacerbation, underlying pneumonia less likely ( ). Recent culture with emesis. Will try to obtain a sputum culture. The patient is on Zosyn and Zithromax. ( ) culture report. Continue supportive care. MTDD
[2016-12-27 11:37] LABS: Glucose,Whole Blood 181 mg/dL (75-99)
--- NOTE | 2016-12-27 11:38 | P.PN ---
Subjective 12/24/16-This is a 51-year-old female who is being seen, examined and evaluated. She is well-known to our services. Patient came in to the emergency room with complaints of being more fatigued, not feeling well, shortness of breath that has increased as well as a congested cough. Chest x-ray has been reviewed and shows a patchy density in the right lower lobe which may infiltrate, post surgical changes right infrahilar region. Chronic elevation right hemidiaphragm. She is known to have a past medical history of COPD, pneumonia, right lung cancer status post chemo and radiation treatment as well as a right middle lobectomy. Patient follows with Dr. Bishop. Patient was admitted for COPD exacerbation and possibly pneumonia. She was started on IV antibiotics as well as steroids. Scheduled breathing treatments and Mucinex. Patient does not have an elevated white count nor does she have any fevers chills or night sweats. She denies any nausea or vomiting. Upon examination the patient's resting up in bed on supplemental oxygen. She continues to complain of shortness of breath with exertion or extensive conversation. She does not use home oxygen. Patient states that she has a congested cough however she is unable to bring up secretions and feels they are thick. 12/25/16-patient is seen and examined resting up in bed on room air. She has been maintaining her oxygen saturations in the mid 90s on room air. She continues to complain of shortness of breath with exertion. Patient states she' s been up ambulating in the room. Using her incentive spirometer and pulls volumes of 1750. Patient states she continues to have cough however is unable to bring up the sputum. Patient states that her cough and congestion feels as if therapy and loosened up a bit from the medications. She still does not feel at her baseline for breathing. 12/26/16, patient seen and evaluated examined today she feels is still short of breath but cough has improved her wheezing is improved she able to ambulate she feels that ipratropium is helping her significantly off note that he gets sleepy when she was requested for duoneb was denied 12/27/16, patient seen and evaluated examined today still cough congestion is present but severity is improved she has been short of breath she is now off of oxygen ambulating Objective - Vital Signs Vital signs: Vital Signs Temp 97.5 F L 12/27/16 07:00 Pulse 78 12/27/16 08:32 Resp 16 12/27/16 07:00 BP 134/61 12/27/16 07:00 Pulse Ox 95 12/27/16 07:00 Intake & Output 12/26/16 12/27/16 12/27/16 18:59 06:59 18:59 Intake Total 372.129 171.050 12.978 Balance 372.129 171.050 12.978 Intake: Intake, IV Titration 372.129 31.050 12.978 Amount Azithromycin 500 mg In 250 Sodium Chloride 0.9% 250 ml @ 125 mls/hr IVPB DAILY@1200 [facility] Rx#: [id number] Insulin Regular 100 unit 72.129 31.050 12.978 In Sodium Chloride 0.9% 100 ml @ Titrate IV .Q0M [facility] Rx#:[id number] Piperacillin-Tazobactam 3 50 .375 gm In Dextrose/Water 1 50ml.bag @ 12.5 mls/hr IVPB Q8HR [facility] Rx#: [id number] Oral 140 Other: Voiding Method Toilet Toilet # Voids 1 1 - Exam GENERAL EXAM: Alert, comfortable in no apparent distress. HEAD: Normocephalic. EYES: Normal reaction of pupils, equal size. NOSE: Clear with pink turbinates. THROAT: No erythema or exudates. NECK: No masses, no JVD. CHEST: No chest wall deformity. LUNGS: Lungs noted to be tight and slightly coarse throughout with some faint expiratory wheezing. CVS: S1 and S2 normal with no audible mumurs, regular rhythm. ABDOMEN: No hepatosplenomegaly, normal bowel sounds, no guarding or rigidity. EXTREMITIES: No edema noted, pedal pulses palpable. SKIN: No rashes CENTRAL NERVOUS SYSTEM: No focal deficits, tone is normal in all 4 extremities. - Labs CBC & Chem 7: 12/27/16 07:00 12/27/16 07:00 Labs: Abnormal Lab Results - Last 24 Hours (Table) 12/26/16 12/26/16 12/26/16 Range/Units 12:05 14:15 16:18 Chloride (98-107) mmol/L Glucose (74-99) mg/dL POC Glucose (mg/dL) 305 H 229 H 281 H (75-99) mg/dL 12/26/16 12/26/16 12/26/16 Range/Units 18:07 19:55 22:11 Chloride (98-107) mmol/L Glucose (74-99) mg/dL POC Glucose (mg/dL) 290 H 311 H 266 H (75-99) mg/dL 12/27/16 12/27/16 12/27/16 Range/Units 00:30 02:23 04:36 Chloride (98-107) mmol/L Glucose (74-99) mg/dL POC Glucose (mg/dL) 186 H 171 H 186 H (75-99) mg/dL 12/27/16 12/27/16 12/27/16 Range/Units 06:23 07:00 08:30 Chloride 109 H (98-107) mmol/L Glucose 114 H (74-99) mg/dL POC Glucose (mg/dL) 159 H 157 H (75-99) mg/dL Microbiology - Last 24 Hours (Table) 12/24/16 14:00 Blood Culture - Preliminary Blood No Growth after 48 hours Assessment and Plan Plan: Assessment Acute exacerbation of COPD Purulent Tracheobronchitis Acute hypoxic respiratory failure Right lower lobe pneumonia History of lung cancer status post chemo and radiation treatment with a right middle lobectomy Hypothyroidism Sinus tachycardia Diabetes mellitus type 2 Essential hypertension Hypomagnesemia Insomnia Plan Medications have been reviewed and will be continued as ordered. Continue with IV antibiotics and steroids over the weekend. Continue with pulmonary hygiene , coughing and deep breathing exercises, and supportive care. Supplemental oxygen to maintain oxygen saturations of 92% or better. Continue nebulizer treatments. Initiate and encourage incentive spirometer. Continue to monitor and replace electrolytes per protocol. GI and DVT prophylaxis. Will arrange ipratropium and albuterol via nebulizer 3 or 4 times a day on outpatient basis and continue Pulmicort We will continue to monitor labs/results and adjust treatment as necessary. Further recommendations pending. Time with Patient: Less than 30
[2016-12-27] MEDS: AZITHROMYCIN 500 MG in SODIUM CHLORIDE 0.9% 250 ML IVPB SCH (12:35)
[2016-12-27] MEDS: CHOLECALCIFEROL 1,000 UNIT TAB PO SCH (12:35)
[2016-12-27] MEDS: MULTIVITAMINS, THERA 1 EACH TAB PO SCH (12:35)
[2016-12-27 14:04] LABS: Glucose,Whole Blood 307 mg/dL (75-99)
--- NOTE | 2016-12-27 15:57 | P.PN ---
Subjective No acute events overnight Objective - Vital Signs Vital signs: Vital Signs Temp 97.5 F L 12/27/16 07:00 Pulse 80 12/27/16 12:30 Resp 16 12/27/16 07:00 BP 134/61 12/27/16 07:00 Pulse Ox 95 12/27/16 07:00 Intake & Output 12/26/16 12/27/16 12/27/16 18:59 06:59 18:59 Intake Total 372.129 171.050 20.604 Balance 372.129 171.050 20.604 Intake: Intake, IV Titration 372.129 31.050 20.604 Amount Azithromycin 500 mg In 250 Sodium Chloride 0.9% 250 ml @ 125 mls/hr IVPB DAILY@1200 [facility] Rx#: [id number] Insulin Regular 100 unit 72.129 31.050 20.604 In Sodium Chloride 0.9% 100 ml @ Titrate IV .Q0M [facility] Rx#:[id number] Piperacillin-Tazobactam 3 50 .375 gm In Dextrose/Water 1 50ml.bag @ 12.5 mls/hr IVPB Q8HR [facility] Rx#: [id number] Oral 140 Other: Voiding Method Toilet Toilet # Voids 1 1 - Exam General: The patient is awake and alert, in no distress Eye: there is normal conjunctiva bilaterally. Neck: The neck is supple, there is no JVD. Cardiovascular: Normal S1-S2, no S3-S4, no murmurs. Respiratory: Lungs with very mild end expiratory wheezing Gastrointestinal: Abdomen is soft, nontender Musculoskeletal: There is no pedal edema. Neurological:. Speech is normal. Skin: Skin is warm and dry - Labs CBC & Chem 7: 12/27/16 07:00 12/27/16 07:00 Labs: Abnormal Lab Results - Last 24 Hours (Table) 12/26/16 12/26/16 12/26/16 Range/Units 16:18 18:07 19:55 Chloride (98-107) mmol/L Glucose (74-99) mg/dL POC Glucose (mg/dL) 281 H 290 H 311 H (75-99) mg/dL 12/26/16 12/27/16 12/27/16 Range/Units 22:11 00:30 02:23 Chloride (98-107) mmol/L Glucose (74-99) mg/dL POC Glucose (mg/dL) 266 H 186 H 171 H (75-99) mg/dL 12/27/16 12/27/16 12/27/16 Range/Units 04:36 06:23 07:00 Chloride 109 H (98-107) mmol/L Glucose 114 H (74-99) mg/dL POC Glucose (mg/dL) 186 H 159 H (75-99) mg/dL 12/27/16 12/27/16 12/27/16 Range/Units 08:30 11:31 14:00 Chloride (98-107) mmol/L Glucose (74-99) mg/dL POC Glucose (mg/dL) 157 H 181 H 307 H (75-99) mg/dL Microbiology - Last 24 Hours (Table) 12/24/16 14:00 Blood Culture - Preliminary Blood No Growth after 48 hours Assessment and Plan Plan: 1. Acute COPD exacerbation: on Xopenex and Atrovent. Switch IV Solu-Medrol to oral prednisone. Continue her Pulmicort nebulizer treatments. Pulmonary service consulted. 2. Possible pneumonia: Chest x-ray showing a patchy density in the right lower lobe. Check sputum culture. Patient started on tobramycin, azithromycin and Zosyn in the emergency room. Continue Mucinex to help break up congestion. Chest x-ray from this morning shows either atelectasis or early infiltrate. Encourage incentive spirometry use continue antibiotics. Infectious disease consulted. Tobramycin was discontinued. Appreciate his recommendations. 3. History of lung cancer status post chemo and radiation treatment with a right middle lobectomy 4. Hypothyroidism continue Synthroid. Thyroid studies within normal range 5. Sinus tachycardia continue telemetry monitoring. Heart rate has improved since the adjustment of nebulizer treatments to Xopenex and treating patient COPD 6. Insomnia: He is standing still 0.5 at bedtime 7. Diabetes mellitus type 2: now with steroid-induced hyperglycemia requiring insulin drip. Switch back to her home dose of insulin when possible. 8. Essential hypertension: Pressures are stable continue with current medications 9. Headache improved with [place] 10. Hypomagnesemia: Replaced GI prophylaxis Protonix and DVT prophylaxis Lovenox Wean insulin drip and resume home dose of insulin. Continue current regimen otherwise. Anticipate discharge within the next day or 2.
[2016-12-27 16:22] LABS: Glucose,Whole Blood 261 mg/dL (75-99)
[2016-12-27 17:14] LABS: Glucose,Whole Blood 214 mg/dL (75-99)
[2016-12-27 20:21] LABS: Glucose,Whole Blood 239 mg/dL (75-99)
[2016-12-27] MEDS ORDERED: INSULIN GLARGINE 100 UNIT/ML 10 ML VIAL SQ SCH (21:00)
[2016-12-27] MEDS: ALPRAZolam 0.5 MG TAB PO SCH (21:42)
[2016-12-27] MEDS: ATORVASTATIN 10 MG TAB PO SCH (21:42)
[2016-12-27] MEDS: MONTELUKAST 10 MG TAB PO SCH (21:42)
[2016-12-28] MEDS: HYDROcodone/APAP 10-325MG 1 EACH TAB PO PRN ×2 (00:28→09:12)
[2016-12-28] MEDS: IPRATROPIUM 0.5 MG/2.5 ML NEBU INHALATION PRN (04:51)
[2016-12-28] MEDS: LEVOTHYROXINE 25 MCG TAB PO SCH (06:13)
[2016-12-28 07:19] LABS: Glucose,Whole Blood 129 mg/dL (75-99)
[2016-12-28] MEDS: INSULIN LISPRO (humaLOG) 300 UNIT/3 ML VIAL SQ SCH ×2 (07:26→07:36)
[2016-12-28] MEDS: SPIRONOLACTONE 25 MG TAB PO SCH (07:37)
[2016-12-28] MEDS: VERAPAMIL 40 MG TAB PO SCH (07:37)
[2016-12-28] MEDS: predniSONE 20 MG TAB PO SCH (07:37)
[2016-12-28] MEDS: PANTOPRAZOLE 40 MG TABLET PO SCH (07:38)
[2016-12-28] MEDS: guaiFENesin 600 MG TABLET.ER PO SCH (07:39)
[2016-12-28] MEDS: LOSARTAN 25 MG TAB PO SCH (07:39)
[2016-12-28] MEDS: ENOXAPARIN 40 MG/0.4 ML SYRINGE SQ SCH (07:41)
[2016-12-28] MEDS: DOCUSATE 100 MG CAP PO SCH (07:41)
[2016-12-28] MEDS: PIPERACILLIN-TAZOBACTAM 3.375 GM in DEXTROSE/WATER 1 50ML.BAG IVPB SCH (07:41)
[2016-12-28 08:02] VITALS: BP 116/75; RESP 18; TEMP 97.1
[2016-12-28 08:20] LABS: Anion Gap 8 mmol/L; Blood Urea Nitrogen 16 mg/dL (7-17); Carbon Dioxide 27 mmol/L (22-30); Chloride 106 mmol/L (98-107); Glucose 110 mg/dL (74-99); Non-African American GFR(MDRD) >60 (>60 ml/min/1.73 sqM); Potassium 4.1 mmol/L (3.5-5.1); Sodium 141 mmol/L (137-145)
[2016-12-28 08:34] LABS: Basophils % (A) 0 %; CH 29.7; CHCM 33.5; Eosinophils % (A) 0 %; HCT 38.7 % (34.0-46.0); HDW 2.84; HGB 13.1 gm/dL (11.4-16.0); Luc # (Auto) 0.17; Luc % (Auto) 2; Lymphocytes % (A) 37 %; MCH 30.1 pg (25.0-35.0); MCHC 33.8 g/dL (31.0-37.0); MCV 88.9 fL (80.0-100.0); Mean Platelet Volume 7.6; Monocytes # (A) 0.4 k/uL (0-1.0); Monocytes % (A) 5 %; Neutrophils # (A) 4.5 k/uL (1.3-7.7); Neutrophils % (A) 55 %; RBC 4.36 m/uL (3.80-5.40); RDW 14.2 % (11.5-15.5); WBC 8.1 k/uL (3.8-10.6); WBC (Perox) 8.59
[2016-12-28] MEDS: IPRATROPIUM 0.5 MG/2.5 ML NEBU INHALATION SCH (08:42)
[2016-12-28] MEDS: BUDESONIDE 0.5 MG/2 ML NEBU INHALATION SCH (08:42)
[2016-12-28] MEDS: LEVALBUTEROL NEB 1.25 MG/3 ML AMP INHALATION SCH (08:42)
[2016-12-28 09:03] VITALS: PULSE 80
[2016-12-28 10:36] LABS: Glucose,Whole Blood 92 mg/dL (75-99)
--- NOTE | 2016-12-28 10:46 | PN ---
REASON FOR FOLLOW: Tracheobronchitis and question of possible pneumonia. INTERVAL HISTORY: The patient is afebrile. Her breathing has improved. The cough has increased in intensity. ( ) drainage. Denies any chest pain. No abdominal pain or any diarrhea. On examination, blood pressure is 133/76 with a pulse of 72, temperature 98. She is 96% on room air. General description is a middle aged female up in the room in no distress. Respiratory system: Unlabored breathing. Clear to auscultation anteriorly. Heart S1, S2 regular rate and rhythm. Abdomen soft, no tenderness. LABS: Hemoglobin is 12.8, white count 4.02. BUN 17, creatinine 0.97. Blood culture has been obtained which is currently negative. DIAGNOSTIC IMPRESSION AND PLAN: The patient was admitted to the hospital with difficulty breathing and did have cough with atelectasis ( ) stable. More likely pointing towards possible atelectasis. Clinically ( ) pneumonia. Currently on Zosyn that can be switched to a short course of oral doxycycline 100 mg twice a day for about 7 to 10 days to finish course of therapy. Continue supportive care. MTDD
--- NOTE | 2016-12-28 10:47 | P.DS ---
Providers Date of admission: 12/25/16 15:07 Expected date of discharge: 12/28/16 Attending physician: Valery Campos Consults: 12/24/16 13:57 Consult Physician Routine Consulting Provider: Al Cobb Consult Reason/Comments: copd exacerbation, pneumonia Do you want consulting provider notified?: Yes 12/25/16 11:06 Consult Physician Routine Consulting Provider: Gi Gould Consult Reason/Comments: pneumonia and antibiotic coverage Do you want consulting provider notified?: Yes Primary care physician: Valery Beth [place] Hospital Course: Discharge diagnosis 1. Acute COPD exacerbation: on Xopenex and Atrovent. Switch IV Solu-Medrol to oral prednisone. Continue her Pulmicort nebulizer treatments. Pulmonary service consulted. 2. Possible pneumonia: Chest x-ray showing a patchy density in the right lower lobe. Check sputum culture. Patient started on tobramycin, azithromycin and Zosyn in the emergency room. Continue Mucinex to help break up congestion. Chest x-ray from this morning shows either atelectasis or early infiltrate. Encourage incentive spirometry use continue antibiotics. Infectious disease consulted. Tobramycin was discontinued. Appreciate his recommendations. 3. History of lung cancer status post chemo and radiation treatment with a right middle lobectomy 4. Hypothyroidism continue Synthroid. Thyroid studies within normal range 5. Sinus tachycardia continue telemetry monitoring. Heart rate has improved since the adjustment of nebulizer treatments to Xopenex and treating patient COPD 6. Insomnia: He is standing still 0.5 at bedtime 7. Diabetes mellitus type 2: now with steroid-induced hyperglycemia requiring insulin drip. Switch back to her home dose of insulin when possible. 8. Essential hypertension: Pressures are stable continue with current medications 9. Headache improved with [place] 10. Hypomagnesemia: Replaced Hospital course This is a 51-year-old female with a known past medical history of COPD, pneumonia, right lung cancers status post chemo and radiation treatments as well as a right middle lobectomy. Patient reports that she recently seen Dr. Fragoso, her oncologist and had a repeat computed tomography scan of the chest. She was told that there is no reoccurrence of cancer. Patient reports over the last couple a days she's had increasing shortness of breath and a nonproductive cough. She states that she's been more fatigued not feeling well and not sleeping well because of the cough. Patient also reports that her heart feels like it's racing. Patient had chest x-ray in the emergency room showing a patchy density in the right lower lobe may reflect developing infiltrate. Chronic elevation in the right hemidiaphragm. Postsurgical changes in the right infrahilar region. This has been started on IV steroids and IV antibiotics in the emergency room. She's been treated for COPD exacerbation and possible pneumonia. Patient was started on IV tobramycin, azithromycin and Zosyn in the emergency room. He was evaluated by both pulmonary and infectious disease services. Infectious disease did discontinue the tobramycin during the admission. Patient's symptoms did improve. Her cough and shortness of breath did improve. She's been cleared by consulting physicians for discharge. Infectious diseases recommending doxycycline 100 mg twice a day for 7 days. Patient is complaining of a vaginal yeast infection and oral thrush. She'll be sent home with nystatin swish and swallow and Diflucan. She is also requesting refill on her cough syrup. She has likely stable for discharge. She'll follow- up with pulmonary service and Dr. Campos in 1 week. Patient Condition at Discharge: Stable Plan - Discharge Summary New Discharge Prescriptions: New Doxycycline [Vibramycin] 100 mg PO Q12HR #14 capsule Fluconazole [Diflucan] 100 mg PO DAILY #8 tablet Ipratropium Nebulized [Atrovent Nebulized] 0.5 mg INHALATION Q6HR #1 box Nystatin 100,000 Unit/ml Susp [Mycostatin Oral Susp] 5 ml PO QID #140 ml Promethazine HCl/Codeine [Prometh-Codein 6.25-10 mg/5 ml] 5 ml PO Q8H #300 ml predniSONE 10 mg PO DIRECTED #12 tab Continue metFORMIN HCL 1,000 mg PO BID Cholecalciferol [Vitamin D3] 1,000 unit PO DAILY Simvastatin [Zocor] 10 mg PO HS Omeprazole [PriLOSEC] 20 mg PO AC-BID Ipratropium-Albuterol Nebulize [Duoneb 0.5 mg-3 mg/3 ml Soln] 3 ml INHALATION RT-QID 30 Days Montelukast [Singulair] 10 mg PO HS Insulin Glargine,Hum.rec.anlog [Lantus Solostar] 70 unit SQ HS Levothyroxine Sodium [Synthroid] 25 mcg PO DAILY Budesonide [Pulmicort] 0.5 mg INHALATION RT-BID Albuterol Inhaler [Ventolin Hfa Inhaler] 1 - 2 puff INHALATION RT-Q6H PRN PRN Reason: Shortness Of Breath Insulin Glulisine [Apidra] See Protocol SQ AC-TID Insulin Glulisine [Apidra] 18 unit SQ AC-TID Losartan [Cozaar] 25 mg PO DAILY #30 tab Verapamil [Isoptin] 40 mg PO TID #60 tab Multivitamin/Iron/Folic Acid [Centrum Women Tablet] 1 tab PO DAILY Spironolactone [Aldactone] 25 mg PO DAILY Discharge Medication List metFORMIN HCL 1,000 mg PO BID 10/13/13 [History] Cholecalciferol [Vitamin D3] 1,000 unit PO DAILY 10/20/13 [History] Simvastatin [Zocor] 10 mg PO HS 08/16/14 [History] Omeprazole [PriLOSEC] 20 mg PO AC-BID 08/18/14 [History] Ipratropium-Albuterol Nebulize [Duoneb 0.5 mg-3 mg/3 ml Soln] 3 ml INHALATION RT -QID 30 Days 08/21/14 [Rx] Montelukast [Singulair] 10 mg PO HS 01/29/15 [History] Insulin Glargine,Hum.rec.anlog [Lantus Solostar] 70 unit SQ HS 06/20/15 [History ] Levothyroxine Sodium [Synthroid] 25 mcg PO DAILY 06/22/15 [History] Budesonide [Pulmicort] 0.5 mg INHALATION RT-BID 07/25/15 [History] Albuterol Inhaler [Ventolin Hfa Inhaler] 1 - 2 puff INHALATION RT-Q6H PRN [History] Insulin Glulisine [Apidra] 18 unit SQ AC-TID 06/12/16 [History] Insulin Glulisine [Apidra] See Protocol SQ AC-TID 06/12/16 [History] Losartan [Cozaar] 25 mg PO DAILY #30 tab 06/15/16 [Rx] Verapamil [Isoptin] 40 mg PO TID #60 tab 09/13/16 [Rx] Multivitamin/Iron/Folic Acid [Centrum Women Tablet] 1 tab PO DAILY 11/11/16 [ History] Spironolactone [Aldactone] 25 mg PO DAILY 11/11/16 [History] Doxycycline [Vibramycin] 100 mg PO Q12HR #14 capsule 12/28/16 [Rx] Fluconazole [Diflucan] 100 mg PO DAILY #8 tablet 12/28/16 [Rx] Ipratropium Nebulized [Atrovent Nebulized] 0.5 mg INHALATION Q6HR #1 box [Rx] Nystatin 100,000 Unit/ml Susp [Mycostatin Oral Susp] 5 ml PO QID #140 ml [Rx] Promethazine HCl/Codeine [Prometh-Codein 6.25-10 mg/5 ml] 5 ml PO Q8H #300 ml [Rx] predniSONE 10 mg PO DIRECTED #12 tab 12/28/16 [Rx] Follow up Appointment(s)/Referral(s): Valery Campos MD [Primary Care Provider] - 1 Week Al Cobb MD [STAFF PHYSICIAN] - 1 Week Activity/Diet/Wound Care/Special Instructions: Diet: diabetic Activity: as tolerated Discharge Disposition: HOME SELF-CARE
--- NOTE | 2016-12-28 15:30 | PN ---
DATE OF SERVICE: 12/28/16 REASON FOR FOLLOW UP: Tracheobronchitis and question of pneumonia. INTERVAL HISTORY: The patient is afebrile. She is breathing comfortably. She did have some mild cough, not bringing up any sputum. Denies chest pain. No abdominal pain or any diarrhea. On examination, blood pressure 115/75, pulse 79, temperature 97.1, she is 97% on room air. General description is an middle aged female, up in the room in no distress. Respiratory: Unlabored breathing. Decreased in intensity. No wheeze. Heart: S1, S2 regular rate and rhythm. Abdomen soft, no tenderness. Labs: Hemoglobin 13.1, white count 8.1 with a BUN 16, creatinine 0.85. DIAGNOSTIC IMPRESSION AND PLAN: Patient admitted to the hospital with difficulty breathing with question of possible tracheobronchitis or pneumonia. The patients blood culture has been negative. No fever. Elevated white count. Plan to finish therapy with oral doxycycline 100 mg twice a day for about a week. The patient has been advised about ( ) reaction ( ) antibiotic. MTDD
== END 2016-12-28 11:25 | disposition home or self-care (01) | DRG 190 ==
LOC: EC 10:27 → 5MS5E 12:49 → OBSVTOIN 12-25 15:07
PROVIDERS: ADMIT Internal Medicine; ATTEND Internal Medicine
DX: J44.0 Chronic obstructive pulmonary disease with (acute) lower respiratory infection (principal); J18.9 Pneumonia, unspecified organism; J96.01 Acute respiratory failure with hypoxia; E11.65 Type 2 diabetes mellitus with hyperglycemia; B37.0 Candidal stomatitis; E11.42 Type 2 diabetes mellitus with diabetic polyneuropathy; J70.1 Chronic and other pulmonary manifestations due to radiation; J44.1 Chronic obstructive pulmonary disease with (acute) exacerbation; I10 Essential (primary) hypertension; E83.42 Hypomagnesemia; T38.0X5A Adverse effect of glucocorticoids and synthetic analogues, initial encounter; B37.3 Candidiasis of vulva and vagina; E03.9 Hypothyroidism, unspecified; R00.0 Tachycardia, unspecified; R32 Unspecified urinary incontinence; R11.10 Vomiting, unspecified; E78.5 Hyperlipidemia, unspecified; K21.9 Gastro-esophageal reflux disease without esophagitis; G47.00 Insomnia, unspecified; F32.9 Major depressive disorder, single episode, unspecified; R53.1 Weakness; R51 Headache; Z80.3 Family history of malignant neoplasm of breast; Z87.891 Personal history of nicotine dependence; Z85.118 Personal history of other malignant neoplasm of bronchus and lung; Z92.3 Personal history of irradiation; Z92.21 Personal history of antineoplastic chemotherapy; Z88.1 Allergy status to other antibiotic agents; Z88.2 Allergy status to sulfonamides; Z87.01 Personal history of pneumonia (recurrent); Z87.440 Personal history of urinary (tract) infections; Z80.1 Family history of malignant neoplasm of trachea, bronchus and lung; Z82.5 Family history of asthma and other chronic lower respiratory diseases; Z79.899 Other long term (current) drug therapy; Z79.4 Long term (current) use of insulin; Z86.19 Personal history of other infectious and parasitic diseases; Z91.040 Latex allergy status; Z79.51 Long term (current) use of inhaled steroids; Z90.49 Acquired absence of other specified parts of digestive tract; Z90.710 Acquired absence of both cervix and uterus; Z98.51 Tubal ligation status; Z90.2 Acquired absence of lung [part of]; Z82.49 Family history of ischemic heart disease and other diseases of the circulatory system; Y84.2 Radiological procedure and radiotherapy as the cause of abnormal reaction of the patient, or of later complication, without mention of misadventure at the time of the procedure
CPT/HCPCS: 36415; 71020; 80048; 80053; 80200; 82550; 82553; 83036; 83735; 83880; 84439; 84443; 84484; 85025; 85610; 85730; 87040; 93005; 94640; 94644; 94760; 96365; 96366; 96375; 99285

== ENCOUNTER 2017-02-04 12:01 | Inpatient (IN) | payer OTHER ==
[2017-02-04] MEDS ORDERED: IPRATROPIUM-ALBUTEROL 3 ML NEB INHALATION STA (12:47)
--- NOTE | 2017-02-04 12:53 | ED ---
General Adult HPI - General Chief complaint: Shortness of Breath Stated complaint: SOB Time Seen by Provider: 02/04/17 12:43 Source: patient, RN notes reviewed Mode of arrival: ambulatory Limitations: no limitations - History of Present Illness Initial comments: Patient is a pleasant 51-year-old female presenting to the emergency department with dyspnea. Onset of symptoms was a couple of days ago. Symptoms have progressively worsened. Patient has occasional cough that is nonproductive. Patient does have a history of similar symptoms previously associated with radiation damage to her lungs from history of lung cancer. No chest pain. No fevers. - Related Data Home Medications Medication Instructions Recorded Confirmed metFORMIN HCL 1,000 mg PO BID 10/13/13 02/04/17 Cholecalciferol [Vitamin D3] 1,000 unit PO DAILY 10/20/13 02/04/17 Simvastatin [Zocor] 10 mg PO HS 08/16/14 02/04/17 Omeprazole [PriLOSEC] 20 mg PO AC-BID 08/18/14 02/04/17 Montelukast [Singulair] 10 mg PO HS 01/29/15 02/04/17 Insulin Glargine,Hum.rec.anlog 70 unit SQ HS 06/20/15 02/04/17 [Lantus Solostar] Levothyroxine Sodium [Synthroid] 25 mcg PO DAILY 06/22/15 02/04/17 Budesonide [Pulmicort] 0.5 mg INHALATION RT-BID 07/25/15 02/04/17 Albuterol Inhaler [Ventolin Hfa 1 - 2 puff INHALATION RT-Q6H PRN 06/12/16 Inhaler] Insulin Glulisine [Apidra] 18 unit SQ AC-TID 06/12/16 02/04/17 Insulin Glulisine [Apidra] See Protocol SQ AC-TID 06/12/16 02/04/17 Multivitamin/Iron/Folic Acid 1 tab PO DAILY 11/11/16 02/04/17 [Centrum Women Tablet] Spironolactone [Aldactone] 25 mg PO DAILY 11/11/16 02/04/17 Previous Rx's Medication Instructions Recorded Ipratropium-Albuterol Nebulize 3 ml INHALATION RT-QID 30 Days 08/21/14 [Duoneb 0.5 mg-3 mg/3 ml Soln] Losartan [Cozaar] 25 mg PO DAILY #30 tab 06/15/16 Verapamil [Isoptin] 40 mg PO TID #60 tab 09/13/16 Promethazine HCl/Codeine 5 ml PO Q8H #300 ml 12/28/16 [Prometh-Codein 6.25-10 mg/5 ml] Allergies Allergy/AdvReac Type Severity Reaction Status Date / Time ciprofloxacin HCl Allergy Severe Rash/Hives Verified 02/04/17 13:03 [From Cipro] latex Allergy Severe Rash/Hives Verified 02/04/17 13:03 cephalexin monohydrate Allergy Intermediate Rash/Hives Verified 02/04/17 13:03 [From Keflex] sulfamethoxazole Allergy Intermediate Rash/Hives Verified 02/04/17 13:03 [From Septra] trimethoprim [From Septra] Allergy Intermediate Rash/Hives Verified 02/04/17 13: 03 Review of Systems ROS Statement: Those systems with pertinent positive or pertinent negative responses have been documented in the HPI. ROS Other: All systems not noted in ROS Statement are negative. Constitutional: Denies: fever Eyes: Denies: eye pain ENT: Denies: ear pain Respiratory: Reports: cough, dyspnea Cardiovascular: Reports: palpitations. Denies: chest pain Endocrine: Denies: fatigue Gastrointestinal: Denies: abdominal pain Genitourinary: Denies: dysuria Musculoskeletal: Denies: back pain Skin: Denies: rash Neurological: Denies: weakness Past Medical History Past Medical History: Cancer, COPD, Diabetes Mellitus, GERD/Reflux, Hyperlipidemia, Hypertension, Pneumonia, Respiratory Disorder, Thyroid Disorder Additional Past Medical History / Comment(s): 2013 Rt lung CA completed-6 chemo TXs and 26 radiation tx, URINARY INCONT-WEARS A PULL UP, NEUROPATHY IN FEET. History of Any Multi-Drug Resistant Organisms: Other MDRO Date of last positivie culture/infection: 2014 MDRO Source:: e-coli in urine Past Surgical History: Appendectomy, Cholecystectomy, Hysterectomy, Tonsillectomy, Tubal Ligation Additional Past Surgical History / Comment(s): R lung biopsy 09/2013, rt middle lobe lobectomy. Past Anesthesia/Blood Transfusion Reactions: Postoperative Nausea & Vomiting ( PONV) Past Psychological History: Depression Smoking Status: Former smoker Past Alcohol Use History: None Reported Past Drug Use History: None Reported - Past Family History Mother Sister(s) Family Medical History: Cancer Additional Family Medical History / Comment(s): from breast ca at age 65 Sister(s) Family Medical History: Cancer Additional Family Medical History / Comment(s): Sister of lung cancer at the age of 53yrs. Father Family Medical History: COPD Additional Family Medical History / Comment(s): had cabg, from a blood infection at age 64 General Exam Limitations: no limitations General appearance: alert, in no apparent distress Head exam: Present: atraumatic Eye exam: Present: normal appearance, PERRL ENT exam: Present: normal oropharynx Neck exam: Present: normal inspection Respiratory exam: Present: decreased breath sounds Cardiovascular Exam: Present: tachycardia GI/Abdominal exam: Present: soft. Absent: tenderness Extremities exam: Present: normal inspection. Absent: pedal edema, calf tenderness Back exam: Present: normal inspection Neurological exam: Present: alert Psychiatric exam: Present: normal affect, normal mood Skin exam: Present: normal color Course Vital Signs 02/04/17 02/04/17 02/04/17 12:15 12:40 13:10 Temperature 99.2 F Pulse Rate 117 H 117 H 103 H Respiratory 24 20 Rate Blood Pressure 120/68 123/89 O2 Sat by Pulse 99 98 Oximetry 02/04/17 02/04/17 13:19 13:32 Temperature Pulse Rate 100 108 H Respiratory 22 Rate Blood Pressure 123/65 O2 Sat by Pulse 95 Oximetry - Reevaluation(s) Reevaluation #1: 02/04/17 14:35 Patient has possible pneumonia and will be covered with IV antibiotics until further evaluated by pulmonary. Based on assumption of pneumonia patient does meet sepsis criteria at 1435. Blood cultures and lactic acid and IV antibiotics have been ordered. 02/04/17 14:48 Case was discussed in detail with Dr. Jean, who will admit for Dr. Campos. EKG Findings - EKG Comments: EKG Findings:: Sinus tachycardia 111. MS 116. QRS 72. QT 340. QTc 462. Normal axis. Normal QRS. Normal ST-T. Medical Decision Making - Medical Decision Making Patient reevaluated and updated. Dr. Campos has been paged for admission. Patient states she previously has seen Dr. Cobb. - Lab Data Result diagrams: 02/04/17 12:38 02/04/17 13:45 Lab Results 02/04/17 02/04/17 02/04/17 Range/Units 12:38 12:38 12:38 WBC 8.8 (3.8-10.6) k/uL RBC 4.64 (3.80-5.40) m/uL Hgb 14.2 (11.4-16.0) gm/dL Hct 39.8 (34.0-46.0) % MCV 85.7 (80.0-100.0) fL MCH 30.6 (25.0-35.0) pg MCHC 35.7 (31.0-37.0) g/dL RDW 14.9 (11.5-15.5) % Plt Count 199 (150-450) k/uL Neutrophils % 64 % Lymphocytes % 28 % Monocytes % 4 % Eosinophils % 1 % Basophils % 1 % Neutrophils # 5.6 (1.3-7.7) k/uL Lymphocytes # 2.5 (1.0-4.8) k/uL Monocytes # 0.4 (0-1.0) k/uL Eosinophils # 0.1 (0-0.7) k/uL Basophils # 0.1 (0-0.2) k/uL PT 10.0 (9.0-12.0) sec INR 1.0 (<1.2) APTT 24.4 (22.0-30.0) sec D-Dimer 0.45 (<0.60) mg/L FEU Sodium (137-145) mmol/L Potassium (3.5-5.1) mmol/L Chloride (98-107) mmol/L Carbon Dioxide (22-30) mmol/L Anion Gap mmol/L BUN (7-17) mg/dL Creatinine (0.52-1.04) mg/dL Est GFR (MDRD) Af Amer (>60 ml/min/1.73 sqM) Est GFR (MDRD) Non-Af (>60 ml/min/1.73 sqM) Glucose (74-99) mg/dL POC Glucose (mg/dL) (75-99) mg/dL POC Glu Research Assistant Professor ID Calcium (8.4-10.2) mg/dL Total Bilirubin (0.2-1.3) mg/dL AST (14-36) U/L ALT (9-52) U/L Alkaline Phosphatase (38-126) U/L Total Creatine Kinase (30-135) U/L CK-MB (CK-2) (0.0-2.4) ng/mL CK-MB (CK-2) Rel Index Troponin I (0.000-0.034) ng/mL NT-Pro-B Natriuret Pep 64 pg/mL Total Protein (6.3-8.2) g/dL Albumin (3.5-5.0) g/dL 02/04/17 02/04/17 02/04/17 Range/Units 13:45 13:45 14:22 WBC (3.8-10.6) k/uL RBC (3.80-5.40) m/uL Hgb (11.4-16.0) gm/dL Hct (34.0-46.0) % MCV (80.0-100.0) fL MCH (25.0-35.0) pg MCHC (31.0-37.0) g/dL RDW (11.5-15.5) % Plt Count (150-450) k/uL Neutrophils % % Lymphocytes % % Monocytes % % Eosinophils % % Basophils % % Neutrophils # (1.3-7.7) k/uL Lymphocytes # (1.0-4.8) k/uL Monocytes # (0-1.0) k/uL Eosinophils # (0-0.7) k/uL Basophils # (0-0.2) k/uL PT (9.0-12.0) sec INR (<1.2) APTT (22.0-30.0) sec D-Dimer (<0.60) mg/L FEU Sodium 139 (137-145) mmol/L Potassium 4.6 (3.5-5.1) mmol/L Chloride 99 (98-107) mmol/L Carbon Dioxide 28 (22-30) mmol/L Anion Gap 12 mmol/L BUN 22 H (7-17) mg/dL Creatinine 1.10 H (0.52-1.04) mg/dL Est GFR (MDRD) Af Amer >60 (>60 ml/min/1.73 sqM) Est GFR (MDRD) Non-Af 52 (>60 ml/min/1.73 sqM) Glucose 106 H (74-99) mg/dL POC Glucose (mg/dL) 116 H (75-99) mg/dL POC Glu Research Assistant Professor ID Lenora Rios Calcium 10.0 (8.4-10.2) mg/dL Total Bilirubin 0.6 (0.2-1.3) mg/dL AST 27 (14-36) U/L ALT 37 (9-52) U/L Alkaline Phosphatase 96 (38-126) U/L Total Creatine Kinase 151 H (30-135) U/L CK-MB (CK-2) 1.3 (0.0-2.4) ng/mL CK-MB (CK-2) Rel Index 0.9 Troponin I <0.012 (0.000-0.034) ng/mL NT-Pro-B Natriuret Pep pg/mL Total Protein 7.0 (6.3-8.2) g/dL Albumin 4.4 (3.5-5.0) g/dL - Radiology Data Radiology results: image reviewed (Chest x-ray shows possible right middle lobe pneumonia. Previous x-ray reviewed.) Critical Care Time Critical Care Time: Yes Total Critical Care Time: 31 Disposition Clinical Impression: COPD exacerbation, Pneumonia, Sepsis Disposition: ADMITTED IP TO THIS HOSP Referrals: Valery Campos MD [Primary Care Provider] - 1-2 days Decision Time: 14:37
[2017-02-04 13:07] LABS: Basophils # (A) 0.1 k/uL (0-0.2); Basophils % (A) 1 %; CH 31.3; CHCM 36.6; Eosinophils # (A) 0.1 k/uL (0-0.7); Eosinophils % (A) 1 %; HCT 39.8 % (34.0-46.0); HGB 14.2 gm/dL (11.4-16.0); Luc # (Auto) 0.19; Luc % (Auto) 2; Lymphocytes # (A) 2.5 k/uL (1.0-4.8); Lymphocytes % (A) 28 %; MCH 30.6 pg (25.0-35.0); MCHC 35.7 g/dL (31.0-37.0); MCV 85.7 fL (80.0-100.0); Mean Platelet Volume 8.2; Monocytes # (A) 0.4 k/uL (0-1.0); Monocytes % (A) 4 %; Neutrophils # (A) 5.6 k/uL (1.3-7.7); Neutrophils % (A) 64 %; RBC 4.64 m/uL (3.80-5.40); RDW 14.9 % (11.5-15.5); WBC 8.8 k/uL (3.8-10.6); WBC (Perox) 8.42
--- NOTE | 2017-02-04 13:13 | XR ---
EXAMINATION TYPE: XR chest 2V DATE OF EXAM: 02/04/2017 HISTORY: difficulty breathing. REFERENCE: Previous study dated 12/25/2016. FINDINGS: The study is mildly rotated. This is giving increased opacity at the right side of the ches t. No corresponding abnormality is seen in the lateral projection. Left lung is clear. Pleural space are clear. The heart is not enlarged. IMPRESSION: 1. ROTATED FILM. 2. I COULD NOT EXCLUDE A DEVELOPING RIGHT MIDDLE LOBE PNEUMONIA.
[2017-02-04 13:20] LABS: Partial Thromboplastin Time 24.4 sec (22.0-30.0)
[2017-02-04] MEDS ORDERED: ACETAMINOPHEN TAB 325 MG TAB PO STA (13:40)
[2017-02-04 14:12] LABS: ALT 37 U/L (9-52); AST 27 U/L (14-36); Alkaline Phosphatase 96 U/L (38-126); Anion Gap 12 mmol/L; Blood Urea Nitrogen 22 mg/dL (7-17); Carbon Dioxide 28 mmol/L (22-30); Chloride 99 mmol/L (98-107); Glucose 106 mg/dL (74-99); Non-African American GFR(MDRD) 52 (>60 ml/min/1.73 sqM); Potassium 4.6 mmol/L (3.5-5.1); Sodium 139 mmol/L (137-145); Total Bilirubin 0.6 mg/dL (0.2-1.3)
[2017-02-04 14:23] LABS: Glucose,Whole Blood 116 mg/dL (75-99)
[2017-02-04 14:25] LABS: Creatine Kinase 151 U/L (30-135)
[2017-02-04] MEDS ORDERED: TOBRAMYCIN PER PHARMACY MISCELLANE PRN (14:31)
[2017-02-04] MEDS ORDERED: PNEUMONIA PROTOCOL UTILIZED 1 EACH MISC PO PRN (14:31)
[2017-02-04] MEDS ORDERED: IPRATROPIUM-ALBUTEROL 3 ML NEB INHALATION PRN (14:31)
[2017-02-04] MEDS ORDERED: AZITHROMYCIN 500 MG in SODIUM CHLORIDE 0.9% 250 ML IVPB STA (14:31)
[2017-02-04] MEDS ORDERED: PIPERACILLIN-TAZOBACTAM 3.375 GM in DEXTROSE/WATER 1 50ML.BAG IVPB STA (14:31)
[2017-02-04 14:39] LABS: Creatine Kinase MB 1.3 ng/mL (0.0-2.4); Troponin I <0.012 ng/mL (0.000-0.034)
[2017-02-04] MEDS: SODIUM CHLORIDE 0.9% 1,000 ML IV SCH (14:56)
--- NOTE | 2017-02-04 16:15 | P.CNPUL ---
History of Present Illness Consult date: 02/04/17 Requesting physician: Valery Campos Reason for consult: dyspnea Chief complaint: shortness of breath History of present illness: This is a 51-year-old female patient being seen examined and evaluated today on the fifth floor. This patient is well-known to our services. This patient came into the emergency room after having progressive severity in her shortness of breath and a congested cough. The patient was in our office last week and did receive an antibiotic for tracheobronchitis however her symptoms have not improved. She was worked up in the emergency room and her chest x-ray revealed that a possible right middle lobe pneumonia could not be examined included due to the patient having a rotated film. She was admitted to the hospital with sepsis, pneumonia and acute exacerbation of COPD, along with failed outpatient treatment. Patient is known have a past medical history significant for COPD, pneumonia, right lung cancer status post chemo and radiation treatment as well as a right middle lobectomy. Patient also follows with Dr. Bishop. She was started on IV antibiotics and steroids along with breathing treatments. Upon examination the patient's resting up in bed on 2 L of supplemental oxygen, she does not use oxygen at home. She states she is short of breath with any exertion and/or activity. She has a congested cough and however is unable to bring up her secretions due to them being very tenacious and she states she feels like they get stuck in her throat. She is afebrile denies any chills or night sweats, no nausea or vomiting. Review of Systems 14 point review of systems was completed and is negative unless stated above in the HPI. Past Medical History Past Medical History: Cancer, COPD, Diabetes Mellitus, GERD/Reflux, Hyperlipidemia, Hypertension, Pneumonia, Respiratory Disorder, Thyroid Disorder Additional Past Medical History / Comment(s): 2013 Rt lung CA completed-6 chemo TXs and 26 radiation tx, URINARY INCONT-WEARS A PULL UP, NEUROPATHY IN FEET. History of Any Multi-Drug Resistant Organisms: Other MDRO Date of last positivie culture/infection: 2014 MDRO Source:: e-coli in urine Past Surgical History: Appendectomy, Cholecystectomy, Hysterectomy, Tonsillectomy, Tubal Ligation Additional Past Surgical History / Comment(s): R lung biopsy 09/2013, rt middle lobe lobectomy. Past Anesthesia/Blood Transfusion Reactions: Postoperative Nausea & Vomiting ( PONV) Past Psychological History: Depression Smoking Status: Former smoker Past Alcohol Use History: None Reported Past Drug Use History: None Reported - Past Family History Mother Sister(s) Family Medical History: Cancer Additional Family Medical History / Comment(s): from breast ca at age 65 Sister(s) Family Medical History: Cancer Additional Family Medical History / Comment(s): Sister of lung cancer at the age of 53yrs. Father Family Medical History: COPD Additional Family Medical History / Comment(s): had cabg, from a blood infection at age 64 Medications and Allergies Home Medications Medication Instructions Recorded Confirmed Type metFORMIN HCL 1,000 mg PO BID 10/13/13 02/04/17 History Cholecalciferol [Vitamin D3] 1,000 unit PO DAILY 10/20/13 02/04/17 History Simvastatin [Zocor] 10 mg PO HS 08/16/14 02/04/17 History Omeprazole [PriLOSEC] 20 mg PO AC-BID 08/18/14 02/04/17 History Ipratropium-Albuterol Nebulize 3 ml INHALATION RT-QID 30 Days 08/21/14 02/04/17 Rx [Duoneb 0.5 mg-3 mg/3 ml Soln] Montelukast [Singulair] 10 mg PO HS 01/29/15 02/04/17 History Insulin Glargine,Hum.rec.anlog 70 unit SQ HS 06/20/15 02/04/17 History [Lantus Solostar] Levothyroxine Sodium [Synthroid] 25 mcg PO DAILY 06/22/15 02/04/17 History Budesonide [Pulmicort] 0.5 mg INHALATION RT-BID 07/25/15 02/04/17 History Albuterol Inhaler [Ventolin Hfa 1 - 2 puff INHALATION RT-Q6H PRN 06/12/16 History Inhaler] Insulin Glulisine [Apidra] 18 unit SQ AC-TID 06/12/16 02/04/17 History Insulin Glulisine [Apidra] See Protocol SQ AC-TID 06/12/16 02/04/17 History Losartan [Cozaar] 25 mg PO DAILY #30 tab 06/15/16 02/04/17 Rx Verapamil [Isoptin] 40 mg PO TID #60 tab 09/13/16 02/04/17 Rx Multivitamin/Iron/Folic Acid 1 tab PO DAILY 11/11/16 02/04/17 History [Centrum Women Tablet] Spironolactone [Aldactone] 25 mg PO DAILY 11/11/16 02/04/17 History Promethazine HCl/Codeine 5 ml PO Q8H #300 ml 12/28/16 02/04/17 Rx [Prometh-Codein 6.25-10 mg/5 ml] Allergies Allergy/AdvReac Type Severity Reaction Status Date / Time ciprofloxacin HCl Allergy Severe Rash/Hives Verified 02/04/17 13:03 [From Cipro] latex Allergy Severe Rash/Hives Verified 02/04/17 13:03 cephalexin monohydrate Allergy Intermediate Rash/Hives Verified 02/04/17 13:03 [From Keflex] sulfamethoxazole Allergy Intermediate Rash/Hives Verified 02/04/17 13:03 [From Septra] trimethoprim [From Septra] Allergy Intermediate Rash/Hives Verified 02/04/17 13: 03 Physical Exam Vitals: Vital Signs Temp Pulse Resp BP Pulse Ox 02/04/17 15:03 97.4 F L 101 H 20 118/73 97 02/04/17 13:32 108 H 22 123/65 95 02/04/17 13:19 100 02/04/17 13:10 103 H 02/04/17 12:40 117 H 20 123/89 98 02/04/17 12:15 99.2 F 117 H 24 120/68 99 Intake and Output 02/04/17 02/04/17 02/04/17 06:59 14:59 22:59 Other: Weight 82.1 kg Patient Weight 02/05/17 06:59 Weight 82.1 kg GENERAL EXAM: Alert, active, comfortable in no apparent distress. HEAD: Normocephalic. EYES: Normal reaction of pupils, equal size. NOSE: Clear with pink turbinates. THROAT: No erythema or exudates. NECK: No masses, no JVD. CHEST: No chest wall deformity. LUNGS: Lung sounds noted to be tight and slightly coarse throughout with some faint expiratory wheezing. Bases diminished. CVS: S1 and S2 normal with no audible mumurs, regular rhythm. ABDOMEN: No hepatosplenomegaly, normal bowel sounds, no guarding or rigidity. EXTREMITIES: No edema noted, pedal pulses palpable. SKIN: No rashes CENTRAL NERVOUS SYSTEM: No focal deficits, tone is normal in all 4 extremities. Results - Laboratory Findings CBC and BMP: 02/04/17 12:38 02/04/17 13:45 PT/INR, D-dimer PT 10.0 sec (9.0-12.0) 02/04/17 12:38 INR 1.0 (<1.2) 02/04/17 12:38 D-Dimer 0.45 mg/L FEU (<0.60) 02/04/17 12:38 Abnormal lab findings: Abnormal Labs 02/04/17 02/04/17 02/04/17 13:45 13:45 14:22 BUN 22 H Creatinine 1.10 H Glucose 106 H POC Glucose (mg/dL) 116 H Total Creatine Kinase 151 H - Diagnostic Findings Chest x-ray: report reviewed, image reviewed Assessment and Plan Plan: Assessment Acute exacerbation of COPD Tracheobronchitis Acute hypoxic respiratory failure Probable right lobe pneumonia, suspect mixed bacterial History of lung cancer status post chemo and radiation treatment with a right middle lobectomy Hypothyroidism Diabetes mellitus type 2 Essential hypertension Insomnia Plan Medications have been reviewed and will be continued as ordered. Patient should be continued on IV antibiotics and steroids. We will add budesonide to her current nebulizer treatments. Initiate and encourage incentive spirometer. We will obtain a sputum culture, blood cultures pending. Add Mucinex to help with secretions. Continue with pulmonary hygiene, coughing and deep breathing exercises, and supportive care. Supplemental oxygen to maintain oxygen saturations of 92% or better. Continue nebulizer treatments. GI and DVT prophylaxis. Increase activity as tolerated. We will continue to monitor labs/ results and adjust treatment as necessary. Further recommendations pending. I performed an examination of the patient and discussed their management with the nurse practitioner. I have reviewed the nurse practitioner's note and agree with the documented findings and plan of care.
[2017-02-04] MEDS: methylPREDNISolone SOD SUCCI 125 MG/2 ML VIAL IV SCH ×3 (16:56→23:40)
[2017-02-04] MEDS: PIPERACILLIN-TAZOBACTAM 3.375 GM in DEXTROSE/WATER 1 50ML.BAG IVPB SCH ×2 (17:12→23:39)
[2017-02-04] MEDS: HYDROcodone/APAP 5-325MG 1 EACH TAB PO PRN ×2 (17:24→21:23)
[2017-02-04] MEDS: INSULIN LISPRO (humaLOG) 300 UNIT/3 ML VIAL SQ SCH ×3 (17:43→21:20)
[2017-02-04 17:44] LABS: Glucose,Whole Blood 108 mg/dL (75-99)
[2017-02-04] MEDS: metFORMIN 500 MG TAB PO SCH (17:44)
[2017-02-04] MEDS: BUDESONIDE 0.5 MG/2 ML NEBU INHALATION SCH (18:40)
[2017-02-04] MEDS: IPRATROPIUM-ALBUTEROL 3 ML NEB INHALATION SCH ×2 (18:40→18:46)
[2017-02-04 20:09] LABS: Glucose,Whole Blood 203 mg/dL (75-99)
[2017-02-04 21:08] LABS: Hemoglobin A1C 7.8 % (4.2-6.1)
[2017-02-04] MEDS: SODIUM CHLORIDE 0.9% IVPB SCH (21:15)
[2017-02-04] MEDS: TOBRAMYCIN SULFATE IVPB SCH (21:15)
[2017-02-04] MEDS: MONTELUKAST 10 MG TAB PO SCH (21:20)
[2017-02-04] MEDS: INSULIN GLARGINE 100 UNIT/ML 10 ML VIAL SQ SCH (21:20)
[2017-02-04] MEDS: ATORVASTATIN 10 MG TAB PO SCH (21:20)
[2017-02-04] MEDS: VERAPAMIL 40 MG TAB PO SCH (21:20)
[2017-02-04] MEDS: guaiFENesin 600 MG TABLET.ER PO SCH (21:20)
[2017-02-04] MEDS: PROMETHAZ-COD 6.25-10 MG/5 ML 5 ML CUP PO PRN (21:23)
[2017-02-05] MEDS: HYDROcodone/APAP 5-325MG 1 EACH TAB PO PRN ×5 (02:30→21:34)
[2017-02-05] MEDS: LEVOTHYROXINE 25 MCG TAB PO SCH (05:56)
[2017-02-05] MEDS: methylPREDNISolone SOD SUCCI 125 MG/2 ML VIAL IV SCH (05:56)
[2017-02-05] MEDS: PROMETHAZ-COD 6.25-10 MG/5 ML 5 ML CUP PO PRN ×2 (06:19→14:35)
[2017-02-05] MEDS: IPRATROPIUM-ALBUTEROL 3 ML NEB INHALATION SCH ×4 (06:51→20:58)
[2017-02-05] MEDS: BUDESONIDE 0.5 MG/2 ML NEBU INHALATION SCH ×2 (06:51→20:58)
[2017-02-05 07:00] LABS: Glucose,Whole Blood 299 mg/dL (75-99)
[2017-02-05] MEDS: SODIUM CHLORIDE 0.9% IVPB SCH (07:46)
[2017-02-05] MEDS: TOBRAMYCIN SULFATE IVPB SCH (07:46)
[2017-02-05] MEDS: VERAPAMIL 40 MG TAB PO SCH ×3 (07:48→20:38)
[2017-02-05] MEDS: LOSARTAN 25 MG TAB PO SCH (07:49)
[2017-02-05] MEDS: MULTIVITAMINS, THERA 1 EACH TAB PO SCH (07:49)
[2017-02-05] MEDS: PANTOPRAZOLE 40 MG TABLET PO SCH (07:50)
[2017-02-05] MEDS: CHOLECALCIFEROL 1,000 UNIT TAB PO SCH (07:50)
[2017-02-05] MEDS: guaiFENesin 600 MG TABLET.ER PO SCH ×2 (07:50→20:36)
[2017-02-05] MEDS: SPIRONOLACTONE 25 MG TAB PO SCH (07:50)
[2017-02-05] MEDS: metFORMIN 500 MG TAB PO SCH ×2 (07:50→17:00)
[2017-02-05] MEDS: INSULIN LISPRO (humaLOG) 300 UNIT/3 ML VIAL SQ SCH ×7 (07:51→20:36)
[2017-02-05] MEDS: AZITHROMYCIN 500 MG TAB PO SCH (07:51)
--- NOTE | 2017-02-05 08:02 | XR ---
EXAMINATION TYPE: XR chest 2V DATE OF EXAM: 02/05/2017 HISTORY: pneumonia. REFERENCE: Previous study dated 02/04/2017. FINDINGS: There continues to be increased opacity overlying the right middle lobe. The left lung is c lear. Pleural space are clear. Heart size is within normal limits. IMPRESSION: CONTINUING INTERSTITIAL DENSITY OVERLYING THE RIGHT MIDDLE LOBE. I CANNOT EXCLUDE AN ATYPICAL PNEUMON IA.
[2017-02-05] MEDS: PIPERACILLIN-TAZOBACTAM 3.375 GM in DEXTROSE/WATER 1 50ML.BAG IVPB SCH ×2 (09:12→16:59)
[2017-02-05 10:54] VITALS: BMI 31.0
[2017-02-05 11:16] LABS: Glucose,Whole Blood 227 mg/dL (75-99)
[2017-02-05] MEDS ORDERED: Potassium Replacement Protocol 1 EACH MISC MISCELLANE PRN (13:44)
[2017-02-05] MEDS ORDERED: Magnesium Replacement Protocol 1 EACH MISC MISCELLANE PRN (13:44)
--- NOTE | 2017-02-05 13:50 | P.HPIM ---
History of Present Illness H&P Date: 02/05/17 Chief Complaint: Shortness of breath This is a 51-year-old female with a very complex past medical history significant for underlying COPD and history of lung cancer status post right lobectomy with radiation and chemo treatment that presented to the hospital with worsening shortness of breath and cough. Patient said that her symptoms started few days ago and is being getting progressively worse. She said that she is having, but generally is nonproductive and occasionally productive of yellowish sputum. No fevers or chills. Patient was evaluated in the emergency room and chest x-ray shows suspected right lung pneumonia but chest x-ray was rotated and not clear. Patient was started on broad-spectrum antibiotic and was admitted to the hospital for further evaluation. She is currently receiving IV steroids and inhaled bronchodilators. She stated that she is feeling relatively better compared to yesterday. Her magnesium was found to be low and IV replacement was started. Review of Systems Review of system: 14 points review of systems were obtained and were negative except to what were mentioned in the HPI. Past Medical History Past Medical History: Cancer, COPD, Diabetes Mellitus, GERD/Reflux, Hyperlipidemia, Hypertension, Pneumonia, Respiratory Disorder, Thyroid Disorder Additional Past Medical History / Comment(s): 2013 Rt lung CA completed-6 chemo TXs and 26 radiation tx, URINARY INCONT-WEARS A PULL UP, NEUROPATHY IN FEET. History of Any Multi-Drug Resistant Organisms: Other MDRO Date of last positivie culture/infection: 2014 MDRO Source:: e-coli in urine Past Surgical History: Appendectomy, Cholecystectomy, Hysterectomy, Tonsillectomy, Tubal Ligation Additional Past Surgical History / Comment(s): R lung biopsy 09/2013, rt middle lobe lobectomy. Past Anesthesia/Blood Transfusion Reactions: Postoperative Nausea & Vomiting ( PONV) Smoking Status: Former smoker - Past Family History Mother Sister(s) Family Medical History: Cancer Additional Family Medical History / Comment(s): from breast ca at age 65 Sister(s) Family Medical History: Cancer Additional Family Medical History / Comment(s): Sister of lung cancer at the age of 53yrs. Father Family Medical History: COPD Additional Family Medical History / Comment(s): had cabg, from a blood infection at age 64 Medications and Allergies Home Medications Medication Instructions Recorded Confirmed Type metFORMIN HCL 1,000 mg PO BID 10/13/13 02/04/17 History Cholecalciferol [Vitamin D3] 1,000 unit PO DAILY 10/20/13 02/04/17 History Simvastatin [Zocor] 10 mg PO HS 08/16/14 02/04/17 History Omeprazole [PriLOSEC] 20 mg PO AC-BID 08/18/14 02/04/17 History Ipratropium-Albuterol Nebulize 3 ml INHALATION RT-QID 30 Days 08/21/14 02/04/17 Rx [Duoneb 0.5 mg-3 mg/3 ml Soln] Montelukast [Singulair] 10 mg PO HS 01/29/15 02/04/17 History Insulin Glargine,Hum.rec.anlog 70 unit SQ HS 06/20/15 02/04/17 History [Lantus Solostar] Levothyroxine Sodium [Synthroid] 25 mcg PO DAILY 06/22/15 02/04/17 History Budesonide [Pulmicort] 0.5 mg INHALATION RT-BID 07/25/15 02/04/17 History Albuterol Inhaler [Ventolin Hfa 1 - 2 puff INHALATION RT-Q6H PRN 06/12/16 History Inhaler] Insulin Glulisine [Apidra] 18 unit SQ AC-TID 06/12/16 02/04/17 History Insulin Glulisine [Apidra] See Protocol SQ AC-TID 06/12/16 02/04/17 History Losartan [Cozaar] 25 mg PO DAILY #30 tab 06/15/16 02/04/17 Rx Verapamil [Isoptin] 40 mg PO TID #60 tab 09/13/16 02/04/17 Rx Multivitamin/Iron/Folic Acid 1 tab PO DAILY 11/11/16 02/04/17 History [Centrum Women Tablet] Spironolactone [Aldactone] 25 mg PO DAILY 11/11/16 02/04/17 History Promethazine HCl/Codeine 5 ml PO Q8H #300 ml 12/28/16 02/04/17 Rx [Prometh-Codein 6.25-10 mg/5 ml] Allergies Allergy/AdvReac Type Severity Reaction Status Date / Time ciprofloxacin HCl Allergy Severe Rash/Hives Verified 02/04/17 13:03 [From Cipro] latex Allergy Severe Rash/Hives Verified 02/04/17 13:03 cephalexin monohydrate Allergy Intermediate Rash/Hives Verified 02/04/17 13:03 [From Keflex] sulfamethoxazole Allergy Intermediate Rash/Hives Verified 02/04/17 13:03 [From Septra] trimethoprim [From Septra] Allergy Intermediate Rash/Hives Verified 02/04/17 13: 03 Physical Exam Vitals: Vital Signs Temp Pulse Pulse Resp BP BP Pulse Ox 02/05/17 11:58 103 H 16 02/05/17 08:00 104 H 14 02/05/17 07:07 96 14 02/05/17 07:00 97.6 F 104 H 115/69 100 02/05/17 06:52 96 14 98 02/05/17 02:42 100 02/05/17 02:32 100 02/05/17 00:00 94 18 02/04/17 21:32 98.4 F 101 H 18 106/65 95 02/04/17 18:53 102 H 02/04/17 18:40 102 H 02/04/17 15:03 97.4 F L 101 H 20 118/73 97 Intake and Output 02/04/17 02/05/17 02/05/17 22:59 06:59 14:59 Intake Total 130 240 Balance 130 240 Intake: Intake, IV Titration 130 Amount Piperacillin-Tazobactam 3 50 .375 gm In Dextrose/Water 1 50ml.bag @ 12.5 mls/hr IVPB Q8HR [facility] Rx#: [id number] Sodium Chloride 0.9% 1, 80 000 ml @ 20 mls/hr IV . Q24H SIMIN Rx#:[id number] Oral 240 Other: Voiding Method Toilet # Voids 1 1 1 Weight 82.1 kg Patient Weight 02/06/17 06:59 Weight 82.1 kg General: The patient is awake and alert, in no distress Eye: there is normal conjunctiva bilaterally. Neck: The neck is supple, there is no JVD. Cardiovascular: Normal S1-S2, no S3-S4, no murmurs. Respiratory: Lungs are diminished with mild end expiratory wheezing Gastrointestinal: Abdomen is soft, nontender Musculoskeletal: There is no pedal edema. Neurological:. Speech is normal. Skin: Skin is warm and dry Results CBC & Chem 7: 08/31/17 12:38 02/04/17 13:45 Labs: Abnormal Lab Results - Last 24 Hours (Table) 02/04/17 02/04/17 02/04/17 Range/Units 12:38 13:45 13:45 BUN 22 H (7-17) mg/dL Creatinine 1.10 H (0.52-1.04) mg/dL Glucose 106 H (74-99) mg/dL POC Glucose (mg/dL) (75-99) mg/dL Hemoglobin A1c 7.8 H (4.2-6.1) % Magnesium (1.6-2.3) mg/dL Total Creatine Kinase 151 H (30-135) U/L 02/04/17 02/04/17 02/04/17 Range/Units 14:22 17:42 20:08 BUN (7-17) mg/dL Creatinine (0.52-1.04) mg/dL Glucose (74-99) mg/dL POC Glucose (mg/dL) 116 H 108 H 203 H (75-99) mg/dL Hemoglobin A1c (4.2-6.1) % Magnesium (1.6-2.3) mg/dL Total Creatine Kinase (30-135) U/L 02/05/17 02/05/17 02/05/17 Range/Units 06:57 11:14 11:56 BUN (7-17) mg/dL Creatinine (0.52-1.04) mg/dL Glucose (74-99) mg/dL POC Glucose (mg/dL) 299 H 227 H (75-99) mg/dL Hemoglobin A1c (4.2-6.1) % Magnesium 1.1 L (1.6-2.3) mg/dL Total Creatine Kinase (30-135) U/L Thrombosis Risk Factor Assmnt - Choose All That Apply Any of the Below Risk Factors Present?: Yes Each Factor Represents 1 point: Abnormal pulmonary function (COPD), Age 41-60 years Other Risk Factors: No Other congenital or acquired thrombophilia - If yes, enter type in comment: No Thrombosis Risk Factor Assessment Total Risk Factor Score: 2 Thrombosis Risk Factor Assessment Level: Low Risk Assessment and Plan Plan: 1. Acute COPD exacerbation on IV steroids and bronchodilators 2. Suspected right lung pneumonia on broad-spectrum antibiotic with Zosyn, azithromycin, and tobramycin. I would consult infectious disease for further evaluation and antibiotic management 3. History of lung cancer status post right middle lobectomy with chemo and radiation therapy in the past 4. Chronic radiation-induced pneumonitis 5. Hypothyroidism 6. Type 2 diabetes mellitus, insulin-dependent 7. Hypomagnesemia replaced by protocol Today, I reviewed her medication list" resolved. Continue current management as ordered. Repeat lab work in the morning. Appreciate beverage sales consultant's recommendations.
[2017-02-05] MEDS ORDERED: DOCUSATE 100 MG CAP PO PRN (13:57)
[2017-02-05] MEDS: MAGNESIUM SULFATE-D5W PMX 1 GM in DEXTROSE/WATER 1 100ML.BAG IVPB SCH ×2 (14:20→15:37)
[2017-02-05] MEDS: SODIUM CHLORIDE 0.9% 1,000 ML IV SCH (15:37)
[2017-02-05] MEDS: methylPREDNISolone SOD SUCCI 40 MG/ML 1 ML VIAL IV SCH (16:59)
[2017-02-05 17:06] LABS: Glucose,Whole Blood 143 mg/dL (75-99)
[2017-02-05] MEDS ORDERED: RX INFO: IV CONTRAST WAS GIVEN 1 EACH MISC MISCELLANE PRN (18:20)
--- NOTE | 2017-02-05 18:37 | P.PN ---
Subjective This is a 51-year-old female patient being seen examined and evaluated today on the fifth floor. This patient is well-known to our services. This patient came into the emergency room after having progressive severity in her shortness of breath and a congested cough. The patient was in our office last week and did receive an antibiotic for tracheobronchitis however her symptoms have not improved. She was worked up in the emergency room and her chest x-ray revealed that a possible right middle lobe pneumonia could not be examined included due to the patient having a rotated film. She was admitted to the hospital with sepsis, pneumonia and acute exacerbation of COPD, along with failed outpatient treatment. Patient is known have a past medical history significant for COPD, pneumonia, right lung cancer status post chemo and radiation treatment as well as a right middle lobectomy. Patient also follows with Dr. Bishop. She was started on IV antibiotics and steroids along with breathing treatments. Upon examination the patient's resting up in bed on 2 L of supplemental oxygen, she does not use oxygen at home. She states she is short of breath with any exertion and/or activity. She has a congested cough and however is unable to bring up her secretions due to them being very tenacious and she states she feels like they get stuck in her throat. She is afebrile denies any chills or night sweats, no nausea or vomiting. The patient is seen again today 02/05/2017 in follow-up on the regular medical floor. We are covering for Dr. Cobb. She is awake and alert in no acute distress. She states she is breathing easier today as compared to yesterday. She is currently maintaining O2 saturations up to 100% on room air. She is afebrile. Her chest x-ray continues to show interstitial density overlying the right middle lobe. She remains on Zosyn. She does have a previous history of lung cancer and a right middle lobectomy. She was also known to have a 4 mm stable nodule in the left lower lobe. She was due for a CAT scan with Dr. Bishop several months ago but did not follow-up. Objective - Vital Signs Vital signs: Vital Signs Temp 98.1 F 02/05/17 15:00 Pulse 100 02/05/17 16:18 Resp 16 02/05/17 16:00 BP 107/64 02/05/17 15:00 Pulse Ox 100 02/05/17 16:03 Intake & Output 02/04/17 02/05/17 02/05/17 18:59 06:59 18:59 Intake Total 370 1090 Balance 370 1090 Weight 82.1 kg 82.1 kg Intake: Intake, IV Titration 130 370 Amount Magnesium Sulfate-D5w Pmx 100 1 gm In Dextrose/Water 1 100ml.bag @ 100 mls/hr IVPB Q1H [facility] Rx#: [id number] Piperacillin-Tazobactam 3 50 50 .375 gm In Dextrose/Water 1 50ml.bag @ 12.5 mls/hr IVPB Q8HR [facility] Rx#: [id number] Sodium Chloride 0.9% 1, 80 120 000 ml @ 20 mls/hr IV . Q24H [facility] Rx#:[id number] Tobramycin Sulfate 110 mg 100 In Sodium Chloride 0.9% 100 ml @ 102.75 mls/hr IVPB Q12H [facility] Rx#: [id number] Oral 240 720 Other: Voiding Method Toilet # Voids 1 3 - Exam GENERAL EXAM: Alert, active, comfortable in no apparent distress. HEAD: Normocephalic. EYES: Normal reaction of pupils, equal size. NOSE: Clear with pink turbinates. THROAT: No erythema or exudates. NECK: No masses, no JVD. CHEST: No chest wall deformity. LUNGS: Equal air entry with no crackles, wheeze, rhonchi or dullness. Diminished. CVS: S1 and S2 normal with no audible mumurs, regular rhythm. ABDOMEN: No hepatosplenomegaly, normal bowel sounds, no guarding or rigidity. SPINE: No scoliosis or deformity SKIN: No rashes CENTRAL NERVOUS SYSTEM: No focal deficits, tone is normal in all 4 extremities. Extremities: There is no significant peripheral edema. No clubbing, no cyanosis. Peripheral pulses are intact. - Labs CBC & Chem 7: 02/04/17 12:38 02/04/17 13:45 Labs: Abnormal Lab Results - Last 24 Hours (Table) 02/04/17 02/04/17 02/05/17 Range/Units 12:38 20:08 06:57 POC Glucose (mg/dL) 203 H 299 H (75-99) mg/dL Hemoglobin A1c 7.8 H (4.2-6.1) % Magnesium (1.6-2.3) mg/dL 02/05/17 02/05/17 02/05/17 Range/Units 11:14 11:56 17:05 POC Glucose (mg/dL) 227 H 143 H (75-99) mg/dL Hemoglobin A1c (4.2-6.1) % Magnesium 1.1 L (1.6-2.3) mg/dL Microbiology - Last 24 Hours (Table) 02/04/17 15:35 Blood Culture - Preliminary Blood No Growth after 24 hours 02/04/17 12:38 Blood Culture - Preliminary Blood No Growth after 24 hours Assessment and Plan Plan: Impression: #1 Acute exacerbation of chronic obstructive pulmonary disease, complicated by acute tracheobronchitis. #2 Acute hypoxic respiratory failure secondary to above. #3 Interstitial density over the right middle lobe cannot exclude atypical pneumonia, chronic radiation pneumonitis versus chronic changes from previous right middle lobectomy. #4 History of lung cancer status post right middle lobe lobectomy, status post chemoradiation. #5 History of 4 mm pulmonary nodule in the left lower lobe. #6 History of chronic tobacco use. #7 Diabetes mellitus. #8 Hyperlipidemia. #9 Hypertension. #10 Hypothyroidism. Plan: The patient was seen and evaluated by Dr. Mercedes. Her chest x-rays were reviewed. We'll go ahead and obtain a computed tomography scan of the chest based on her previous history of lung cancer and is past due for follow-up. We' ll continue with her current medications including bronchodilators along with Pulmicort inhalations, Singulair, IV Cymetra. She remains on antibiotics in the form of Zosyn and azithromycin. We will increase her activity as tolerated. We'll continue to follow and make further recommendations based on her clinical status.
[2017-02-05 19:58] LABS: Glucose,Whole Blood 146 mg/dL (75-99)
--- NOTE | 2017-02-05 20:12 | CT ---
EXAMINATION TYPE: CT chest w con DATE OF EXAM: 02/05/2017 COMPARISON: 05/26/2015 HISTORY: History of lung cancer right middle lobe. Cough and shortness of breath. CT DLP: 392.80 mGycm Automated exposure control for dose reduction was used. CONTRAST: CT scan of the chest is performed with IV Contrast, patient injected with 80 mL of Visipaque 320. FINDINGS: There is some patchy reticular infiltrate around the right pulmonary hilum. There are clips at the [facility] pulmonary hilum. I see no pulmonary mass. The left lung is clear of consolidation. There is a 4 m m low-density nodule in the subpleural left lower lobe. There is some coarsening of interstitial segundo ings in the right mid and lower lung field. There is minimal pulmonary emphysema. Heart size is neo l. There is no mediastinal adenopathy. There is no pericardial effusion. There is no pleural effusion . There is no adrenal mass. I see no pathologic enhancement. There is a 1 cm pretracheal lymph node. IMPRESSION: Surgery at the right pulmonary hilum. Coarse interstitial infiltrate in the right midlun g field that is improved compared to 06/03/2015. This is consistent with pulmonary fibrosis. I see no evidence of recurrent tumor.
[2017-02-05] MEDS: INSULIN GLARGINE 100 UNIT/ML 10 ML VIAL SQ SCH (20:35)
[2017-02-05] MEDS: ATORVASTATIN 10 MG TAB PO SCH (20:37)
[2017-02-05] MEDS: MONTELUKAST 10 MG TAB PO SCH (20:37)
[2017-02-06] MEDS: PROMETHAZ-COD 6.25-10 MG/5 ML 5 ML CUP PO PRN ×3 (00:33→17:42)
[2017-02-06] MEDS: PIPERACILLIN-TAZOBACTAM 3.375 GM in DEXTROSE/WATER 1 50ML.BAG IVPB SCH ×4 (00:34→23:32)
[2017-02-06] MEDS: methylPREDNISolone SOD SUCCI 40 MG/ML 1 ML VIAL IV SCH ×4 (01:03→23:31)
[2017-02-06] MEDS: HYDROcodone/APAP 5-325MG 1 EACH TAB PO PRN ×4 (04:58→21:35)
[2017-02-06] MEDS: LEVOTHYROXINE 25 MCG TAB PO SCH (06:28)
[2017-02-06 06:53] LABS: Basophils % (A) 0 %; CH 29.8; CHCM 34.4; Eosinophils % (A) 0 %; HCT 38.4 % (34.0-46.0); HDW 2.85; HGB 13.2 gm/dL (11.4-16.0); Luc % (Auto) 1; Lymphocytes # (A) 1.2 k/uL (1.0-4.8); Lymphocytes % (A) 12 %; MCHC 34.5 g/dL (31.0-37.0); MCV 87.1 fL (80.0-100.0); Mean Platelet Volume 7.8; Monocytes # (A) 0.2 k/uL (0-1.0); Monocytes % (A) 3 %; Neutrophils % (A) 84 %; RBC 4.41 m/uL (3.80-5.40); RDW 14.1 % (11.5-15.5); WBC 9.6 k/uL (3.8-10.6); WBC (Perox) 10.08
[2017-02-06 07:10] LABS: ALT 46 U/L (9-52); AST 27 U/L (14-36); Alkaline Phosphatase 91 U/L (38-126); Anion Gap 13 mmol/L; Blood Urea Nitrogen 20 mg/dL (7-17); Calcium 9.7 mg/dL (8.4-10.2); Carbon Dioxide 24 mmol/L (22-30); Chloride 98 mmol/L (98-107); Glucose 261 mg/dL (74-99); Magnesium 1.5 mg/dL (1.6-2.3); Non-African American GFR(MDRD) >60 (>60 ml/min/1.73 sqM); Potassium 4.9 mmol/L (3.5-5.1); Sodium 135 mmol/L (137-145); Total Bilirubin 0.4 mg/dL (0.2-1.3); Total Protein 6.9 g/dL (6.3-8.2)
[2017-02-06 07:36] LABS: Glucose,Whole Blood 261 mg/dL (75-99)
[2017-02-06] MEDS: INSULIN LISPRO (humaLOG) 300 UNIT/3 ML VIAL SQ SCH ×7 (09:11→21:06)
[2017-02-06] MEDS: VERAPAMIL 40 MG TAB PO SCH ×3 (09:13→21:05)
[2017-02-06] MEDS: LOSARTAN 25 MG TAB PO SCH (09:13)
[2017-02-06] MEDS: PANTOPRAZOLE 40 MG TABLET PO SCH (09:13)
[2017-02-06] MEDS: metFORMIN 500 MG TAB PO SCH ×3 (09:14→17:33)
[2017-02-06] MEDS: MULTIVITAMINS, THERA 1 EACH TAB PO SCH (09:14)
[2017-02-06] MEDS: guaiFENesin 600 MG TABLET.ER PO SCH ×2 (09:14→21:05)
[2017-02-06] MEDS: SPIRONOLACTONE 25 MG TAB PO SCH (09:15)
[2017-02-06] MEDS: CHOLECALCIFEROL 1,000 UNIT TAB PO SCH (09:16)
[2017-02-06] MEDS: AZITHROMYCIN 500 MG TAB PO SCH (09:16)
[2017-02-06] MEDS: IPRATROPIUM-ALBUTEROL 3 ML NEB INHALATION SCH ×4 (09:38→22:01)
[2017-02-06] MEDS: BUDESONIDE 0.5 MG/2 ML NEBU INHALATION SCH ×2 (09:38→22:01)
--- NOTE | 2017-02-06 09:56 | CONS ---
CONSULTATION DATE OF SERVICE: 02/05/2017. REASON FOR CONSULTATION: Pneumonia. HISTORY OF PRESENT ILLNESS: The patient is a 51-year-old, female, with past medical history significant for lung cancer. Status post right middle lobectomy on radiation and chemotherapy. The patient recently started having increasing shortness of breath. She did have some cough but unable to bring up any sputum. No significant chest pain. The patient was evaluated in the outpatient setting by Dr. Cobb. Where the patient has been treated with a one week course of oral Levaquin. However, the patient did not have any significant improvement. The patient continued to have increasing shortness of breath along with the palpitation and congested cough but unable to bring up any sputum. No high-grade fevers. No nausea,vomiting, or diarrhea. With these symptoms the patient presented to the [facility] ER. The patient did have a chest x-ray, which does show continued interstitial density overlying the right middle lobe. Cannot exclude atypical pneumonia. The patient has been treated with Zosyn and Zithromax and admitted to the hospital and ID was consulted for further recommendation regarding antibiotic therapy. REVIEW OF SYSTEMS: Constitutional positive for weakness. No high-grade fever. Eyes: No complaint. ENT: No complaint. Respiratory as per HPI. Cardiovascular no complaint. Genitourinary: No complaint. Gastrointestinal: No compliant. Musculoskeletal: No complaint. Integumentary: No complaint. Psychological: No complaint. Endocrine: No complaint. Neurological: No complaint. PAST MEDICAL HISTORY: Significant for COPD, diabetes mellitus, gastroesophageal reflux disease. Hyperlipidemia, hypertension, pneumonia, right mid lung cancer. PAST SURGICAL HISTORY: Appendectomy, cholecystectomy, hysterectomy, tonsillectomy, tubal ligation. The right lung biopsy and right middle lobe lobectomy. SOCIAL HISTORY: Former smoker. No drinking or any drug use. FAMILY HISTORY: Mother and sister from breast cancer. Sister with lung cancer. She was 53. Father history of COPD and from blood infection at age of 64. ALLERGY: CIPROFLOXACIN however has taken Levaquin without any problem. Also ALLERGIES CEPHALEXIN . MEDICATIONS CURRENTLY: The patient is on: 1. [place]. 2. DuoNeb. 3. Lipitor. 4. Zithromax. 5. Pulmicort. 6. Vitamin D3. 7. Colace. 8. Mucinex. 9. Lantus. 10.Humalog. 11.Synthroid. 12.Cozaar. 13.Glucophage. 14.Solu-Medrol. 15.Singulair. 16.Piptazobactam. 17.Aldactone. 18.Verapamil. EXAMINATION: Blood pressure is 107/64 with a pulse of 94, temperature 98.1. She is 98% on room air. General description is middle-aged female up in bed in no distress. No tachypnea or accessory muscles of respiration use. HEENT: Shows no pallor or scleral icterus. Oral mucosa is moist. Neck trachea is central. No thyromegaly. Lungs unlabored breathing. Clear to auscultation. No wheeze or crackle. HEART: S1, S2. Regular rate and rhythm. Abdomen soft, no tenderness. No guarding or rigidity. Extremities no edema of feet. Examination of skin no rash or mass palpable. Neurological: Patient is awake, alert, oriented, and oriented times three. Mood and affect normal. LAB: Hemoglobin 14.1, white count 8.8. BUN of 22 with a creatinine 1.1. Electrolytes have been normal. Liver enzymes are normal. Blood culture currently pending. IMPRESSION AND PLAN: 1. The patient admitted to the hospital with increasing shortness of breath and palpitations and did have a congested cough. Unable to bring any sputum up with right middle lobe infiltrate. There is a question of possible radiation pneumonitis as clinically she is not behaving as pneumonia as the patient with no fever and no elevated white count. Though seems to have increasing shortness of breath. Congested cough with likely chronic obstructive pulmonary disease exacerbation and tracheobronchitis to be considered in addition to the radiation pneumonitis. 2. Patient to have MULTIPLE ANTIBIOTIC ALLERGIES that does limit the number of antibiotics that can be safely used. PLAN: 1. Will try to obtain sputum for culture and sensitivity and check urine for Legionella antigen 2. May consider short course of antibiotics in the form of Zosyn and Zithromax while the patient is here in the hospital, bronchodilators and steroids per Pulmonary. 3. We will follow up on clinical condition and culture to further adjust medication if needed. Thank you for this consultation. Follow the patient along with you. MMODL / IJN: [id number] / TED
[2017-02-06] MEDS: MAGNESIUM OXIDE 400 MG TAB PO SCH (10:38)
[2017-02-06 11:28] LABS: Glucose,Whole Blood 240 mg/dL (75-99)
--- NOTE | 2017-02-06 11:53 | P.PN ---
Subjective Patient is doing better today. Shortness of breath is improving. Objective - Vital Signs Vital signs: Vital Signs Temp 98.4 F 02/06/17 07:00 Pulse 96 02/06/17 09:52 Resp 20 02/06/17 07:00 BP 114/67 02/06/17 07:00 Pulse Ox 96 02/06/17 09:38 Intake & Output 02/05/17 02/06/17 02/06/17 18:59 06:59 18:59 Intake Total 1090 800 Balance 1090 800 Weight 82.1 kg 82.1 kg Intake: IV 160 0.9 160 Intake, IV Titration 370 50 Amount Magnesium Sulfate-D5w Pmx 100 1 gm In Dextrose/Water 1 100ml.bag @ 100 mls/hr IVPB Q1H [facility]IN Rx#: [id number] Piperacillin-Tazobactam 3 50 50 .375 gm In Dextrose/Water 1 50ml.bag @ 12.5 mls/hr IVPB Q8HR SIMIN Rx#: [id number] Sodium Chloride 0.9% 1, 120 000 ml @ 20 mls/hr IV . Q24H SIMIN Rx#:[id number] Tobramycin Sulfate 110 mg 100 In Sodium Chloride 0.9% 100 ml @ 102.75 mls/hr IVPB Q12H SIMIN Rx#: [id number] Oral 720 590 Other: Voiding Method Toilet Toilet Toilet # Voids 3 2 2 - Exam General: The patient is awake and alert, in no distress Eye: there is normal conjunctiva bilaterally. Neck: The neck is supple, there is no JVD. Cardiovascular: Normal S1-S2, no S3-S4, no murmurs. Respiratory: Lungs are diminished with no obvious wheezing Gastrointestinal: Abdomen is soft, nontender Musculoskeletal: There is no pedal edema. Neurological:. Speech is normal. Skin: Skin is warm and dry - Labs CBC & Chem 7: 02/06/17 06:33 02/06/17 06:33 Labs: Abnormal Lab Results - Last 24 Hours (Table) 02/05/17 02/05/17 02/05/17 Range/Units 11:56 17:05 19:57 Neutrophils # (1.3-7.7) k/uL Sodium (137-145) mmol/L BUN (7-17) mg/dL Glucose (74-99) mg/dL POC Glucose (mg/dL) 143 H 146 H (75-99) mg/dL Magnesium 1.1 L (1.6-2.3) mg/dL 02/06/17 02/06/17 02/06/17 Range/Units 06:33 06:33 07:31 Neutrophils # 8.0 H (1.3-7.7) k/uL Sodium 135 L (137-145) mmol/L BUN 20 H (7-17) mg/dL Glucose 261 H (74-99) mg/dL POC Glucose (mg/dL) 261 H (75-99) mg/dL Magnesium 1.5 L (1.6-2.3) mg/dL 02/06/17 Range/Units 11:24 Neutrophils # (1.3-7.7) k/uL Sodium (137-145) mmol/L BUN (7-17) mg/dL Glucose (74-99) mg/dL POC Glucose (mg/dL) 240 H (75-99) mg/dL Magnesium (1.6-2.3) mg/dL Microbiology - Last 24 Hours (Table) 02/04/17 15:35 Blood Culture - Preliminary Blood No Growth after 24 hours 02/04/17 12:38 Blood Culture - Preliminary Blood No Growth after 24 hours Assessment and Plan Plan: 1. Acute COPD exacerbation on IV steroids and bronchodilators 2. Suspected right lung pneumonia on broad-spectrum antibiotic with Zosyn, azithromycin, and tobramycin. I would consult infectious disease for further evaluation and antibiotic management 3. History of lung cancer status post right middle lobectomy with chemo and radiation therapy in the past 4. Chronic radiation-induced pneumonitis 5. Hypothyroidism 6. Type 2 diabetes mellitus, insulin-dependent 7. Hypomagnesemia replaced by protocol Today, I reviewed her medication list" resolved. Continue current management as ordered. Repeat lab work in the morning. Appreciate it support consultant's recommendations.
--- NOTE | 2017-02-06 12:49 | P.PN ---
Subjective This is a 51-year-old female patient being seen examined and evaluated today on the fifth floor. This patient is well-known to our services. This patient came into the emergency room after having progressive severity in her shortness of breath and a congested cough. The patient was in our office last week and did receive an antibiotic for tracheobronchitis however her symptoms have not improved. She was worked up in the emergency room and her chest x-ray revealed that a possible right middle lobe pneumonia could not be examined included due to the patient having a rotated film. She was admitted to the hospital with sepsis, pneumonia and acute exacerbation of COPD, along with failed outpatient treatment. Patient is known have a past medical history significant for COPD, pneumonia, right lung cancer status post chemo and radiation treatment as well as a right middle lobectomy. Patient also follows with Dr. Bishop. She was started on IV antibiotics and steroids along with breathing treatments. Upon examination the patient's resting up in bed on 2 L of supplemental oxygen, she does not use oxygen at home. She states she is short of breath with any exertion and/or activity. She has a congested cough and however is unable to bring up her secretions due to them being very tenacious and she states she feels like they get stuck in her throat. She is afebrile denies any chills or night sweats, no nausea or vomiting. The patient is seen again today 02/05/2017 in follow-up on the regular medical floor. We are covering for Dr. Cobb. She is awake and alert in no acute distress. She states she is breathing easier today as compared to yesterday. She is currently maintaining O2 saturations up to 100% on room air. She is afebrile. Her chest x-ray continues to show interstitial density overlying the right middle lobe. She remains on Zosyn. She does have a previous history of lung cancer and a right middle lobectomy. She was also known to have a 4 mm stable nodule in the left lower lobe. She was due for a CAT scan with Dr. Bishop several months ago but did not follow-up. The patient is seen again today 02/06/2017 in follow-up in the regular medical floor. We are covering for Dr. Cobb. She is currently awake and alert in no acute distress. She is breathing easier today as compared to yesterday. She denies any worsening shortness of breath, cough or congestion. Continues to maintain good O2 saturations in the 90s on room air. She remains afebrile. No leukocytosis. Her computed tomography scan revealed evidence of surgery of the right pulmonary hilum. There is coarse interstitial infiltrate in the right mid lung field that is improved as compared to May 2015. Possible pulmonary fibrosis. No evidence of recurrent tumor. 4 mm low density nodule in the left lower lobe remains stable. Objective - Vital Signs Vital signs: Vital Signs Temp 98.4 F 02/06/17 07:00 Pulse 92 02/06/17 12:39 Resp 20 02/06/17 07:00 BP 114/67 02/06/17 07:00 Pulse Ox 96 02/06/17 09:38 Intake & Output 02/05/17 02/06/17 02/06/17 18:59 06:59 18:59 Intake Total 1090 800 Balance 1090 800 Weight 82.1 kg 82.1 kg Intake: IV 160 0.9 160 Intake, IV Titration 370 50 Amount Magnesium Sulfate-D5w Pmx 100 1 gm In Dextrose/Water 1 100ml.bag @ 100 mls/hr IVPB Q1H [facility] Rx#: [id number] Piperacillin-Tazobactam 3 50 50 .375 gm In Dextrose/Water 1 50ml.bag @ 12.5 mls/hr IVPB Q8HR [facility] Rx#: [id number] Sodium Chloride 0.9% 1, 120 000 ml @ 20 mls/hr IV . Q24H [facility] Rx#:[id number] Tobramycin Sulfate 110 mg 100 In Sodium Chloride 0.9% 100 ml @ 102.75 mls/hr IVPB Q12H [facility] Rx#: [id number] Oral [id number] Other: Voiding Method Toilet Toilet Toilet # Voids 3 2 2 - Exam GENERAL EXAM: Alert, active, comfortable in no apparent distress. HEAD: Normocephalic. EYES: Normal reaction of pupils, equal size. NOSE: Clear with pink turbinates. THROAT: No erythema or exudates. NECK: No masses, no JVD. CHEST: No chest wall deformity. LUNGS: Equal air entry with no crackles, wheeze, rhonchi or dullness. Diminished. CVS: S1 and S2 normal with no audible murmurs, regular rhythm. ABDOMEN: No hepatosplenomegaly, normal bowel sounds, no guarding or rigidity. SPINE: No scoliosis or deformity SKIN: No rashes CENTRAL NERVOUS SYSTEM: No focal deficits, tone is normal in all 4 extremities. Extremities: There is no significant peripheral edema. No clubbing, no cyanosis. Peripheral pulses are intact. - Labs CBC & Chem 7: 02/06/17 06:33 02/06/17 06:33 Labs: Abnormal Lab Results - Last 24 Hours (Table) 02/05/17 02/05/17 02/05/17 Range/Units 11:56 17:05 19:57 Neutrophils # (1.3-7.7) k/uL Sodium (137-145) mmol/L BUN (7-17) mg/dL Glucose (74-99) mg/dL POC Glucose (mg/dL) 143 H 146 H (75-99) mg/dL Magnesium 1.1 L (1.6-2.3) mg/dL 02/06/17 02/06/17 02/06/17 Range/Units 06:33 06:33 07:31 Neutrophils # 8.0 H (1.3-7.7) k/uL Sodium 135 L (137-145) mmol/L BUN 20 H (7-17) mg/dL Glucose 261 H (74-99) mg/dL POC Glucose (mg/dL) 261 H (75-99) mg/dL Magnesium 1.5 L (1.6-2.3) mg/dL 02/06/17 Range/Units 11:24 Neutrophils # (1.3-7.7) k/uL Sodium (137-145) mmol/L BUN (7-17) mg/dL Glucose (74-99) mg/dL POC Glucose (mg/dL) 240 H (75-99) mg/dL Magnesium (1.6-2.3) mg/dL Microbiology - Last 24 Hours (Table) 02/04/17 15:35 Blood Culture - Preliminary Blood No Growth after 24 hours 02/04/17 12:38 Blood Culture - Preliminary Blood No Growth after 24 hours Assessment and Plan Plan: Impression: #1 Acute exacerbation of chronic obstructive pulmonary disease, complicated by acute tracheobronchitis. #2 Acute hypoxic respiratory failure secondary to above. #3 Interstitial density over the right middle lobe cannot exclude atypical pneumonia, chronic radiation pneumonitis versus chronic changes from previous right middle lobectomy. #4 History of lung cancer status post right middle lobe lobectomy, status post chemoradiation. #5 History of 4 mm pulmonary nodule in the left lower lobe. #6 History of chronic tobacco use. #7 Diabetes mellitus. #8 Hyperlipidemia. #9 Hypertension. #10 Hypothyroidism. Plan: The patient was seen and evaluated by Dr. Mercedes. Her CAT scan was reviewed. No new evidence of malignancy. We'll continue with her current medications including bronchodilators along with Pulmicort inhalations, Singulair, continue to titrate the IV Solu-Medrol. She remains on antibiotics in the form of Zosyn and azithromycin. We will increase her activity as tolerated. We'll continue to follow and make further recommendations based on her clinical status. Possibly home in the morning.
[2017-02-06] MEDS: SODIUM CHLORIDE 0.9% 1,000 ML IV SCH (13:49)
[2017-02-06 17:46] LABS: Glucose,Whole Blood 286 mg/dL (75-99)
[2017-02-06] MEDS: INSULIN GLARGINE 100 UNIT/ML 10 ML VIAL SQ SCH (21:04)
[2017-02-06] MEDS: ATORVASTATIN 10 MG TAB PO SCH (21:05)
[2017-02-06] MEDS: MONTELUKAST 10 MG TAB PO SCH (21:05)
[2017-02-06 21:12] LABS: Glucose,Whole Blood 273 mg/dL (75-99)
--- NOTE | 2017-02-06 22:08 | PN ---
PROGRESS NOTE DATE OF SERVICE: 02/06/2017. REASON FOR FOLLOWUP: Pneumonia. INTERVAL HISTORY: The patient is afebrile and she is breathing comfortably. The cough has decreased in intensity. Some congestion, but unable to bring any sputum up. No chest pain. No abdominal pain. No nausea, vomiting or any diarrhea. EXAMINATION: Blood pressure is 112/64 with a pulse of 99, temperature of 98.6. She is 95% on room air. General description is middle-aged female, up in the bed in no distress. RESPIRATORY SYSTEM: Unlabored breathing. Clear to auscultation. HEART: S1, S2. Regular rate and rhythm. ABDOMEN: Soft. No tenderness. LABS: No new labs have been taken today. Blood culture has been negative. She was unable to provide any sputum. DIAGNOSTIC IMPRESSION AND PLAN: Patient admitted to hospital with difficulty in breathing, could be more likely due to underlying chronic obstructive pulmonary disease exacerbation or tracheobronchitis. Clinically, suspicion for pneumonia remains to be low. The patient seems to have improved very quickly. Currently on Zosyn and Zithromax. Might continue for short course, where hopefully she with oral antibiotics. Will continue supportive care. MMODL / IJN: [id number] /
[2017-02-07] MEDS: HYDROcodone/APAP 5-325MG 1 EACH TAB PO PRN ×4 (04:15→21:06)
[2017-02-07] MEDS: LEVOTHYROXINE 25 MCG TAB PO SCH (06:11)
[2017-02-07] MEDS: PROMETHAZ-COD 6.25-10 MG/5 ML 5 ML CUP PO PRN ×2 (07:38→19:48)
[2017-02-07] MEDS: LOSARTAN 25 MG TAB PO SCH (07:41)
[2017-02-07] MEDS: metFORMIN 500 MG TAB PO SCH ×2 (07:41→18:21)
[2017-02-07] MEDS: VERAPAMIL 40 MG TAB PO SCH ×3 (07:42→21:07)
[2017-02-07] MEDS: MULTIVITAMINS, THERA 1 EACH TAB PO SCH (07:42)
[2017-02-07] MEDS: guaiFENesin 600 MG TABLET.ER PO SCH ×2 (07:42→21:06)
[2017-02-07] MEDS: CHOLECALCIFEROL 1,000 UNIT TAB PO SCH (07:42)
[2017-02-07] MEDS: MAGNESIUM OXIDE 400 MG TAB PO SCH (07:42)
[2017-02-07] MEDS: AZITHROMYCIN 500 MG TAB PO SCH (07:42)
[2017-02-07] MEDS: methylPREDNISolone SOD SUCCI 40 MG/ML 1 ML VIAL IV SCH ×3 (07:43→23:29)
[2017-02-07] MEDS: PANTOPRAZOLE 40 MG TABLET PO SCH (07:43)
[2017-02-07] MEDS: PIPERACILLIN-TAZOBACTAM 3.375 GM in DEXTROSE/WATER 1 50ML.BAG IVPB SCH ×3 (07:43→23:28)
[2017-02-07] MEDS: INSULIN LISPRO (humaLOG) 300 UNIT/3 ML VIAL SQ SCH ×7 (07:52→21:07)
[2017-02-07] MEDS: SPIRONOLACTONE 25 MG TAB PO SCH (07:56)
[2017-02-07 07:59] LABS: Glucose,Whole Blood 262 mg/dL (75-99)
[2017-02-07 08:03] LABS: Basophils % (A) 0 %; CH 29.7; CHCM 33.9; Eosinophils % (A) 0 %; HCT 39.7 % (34.0-46.0); HDW 2.76; HGB 13.5 gm/dL (11.4-16.0); Luc # (Auto) 0.11; Luc % (Auto) 1; Lymphocytes # (A) 1.3 k/uL (1.0-4.8); Lymphocytes % (A) 14 %; MCH 29.8 pg (25.0-35.0); MCV 87.7 fL (80.0-100.0); Mean Platelet Volume 7.9; Monocytes # (A) 0.4 k/uL (0-1.0); Monocytes % (A) 4 %; Neutrophils # (A) 8.2 k/uL (1.3-7.7); Neutrophils % (A) 82 %; RBC 4.53 m/uL (3.80-5.40); RDW 14.3 % (11.5-15.5); WBC (Perox) 10.88
[2017-02-07] MEDS: BUDESONIDE 0.5 MG/2 ML NEBU INHALATION SCH ×2 (08:25→20:00)
[2017-02-07] MEDS: IPRATROPIUM-ALBUTEROL 3 ML NEB INHALATION SCH ×4 (08:25→20:01)
[2017-02-07 08:29] LABS: ALT 41 U/L (9-52); AST 19 U/L (14-36); Alkaline Phosphatase 85 U/L (38-126); Anion Gap 13 mmol/L; Blood Urea Nitrogen 21 mg/dL (7-17); Carbon Dioxide 24 mmol/L (22-30); Chloride 102 mmol/L (98-107); Glucose 256 mg/dL (74-99); Magnesium 1.6 mg/dL (1.6-2.3); Non-African American GFR(MDRD) >60 (>60 ml/min/1.73 sqM); Potassium 4.7 mmol/L (3.5-5.1); Sodium 139 mmol/L (137-145); Total Bilirubin 0.4 mg/dL (0.2-1.3); Total Protein 7.2 g/dL (6.3-8.2)
[2017-02-07 11:37] LABS: Glucose,Whole Blood 211 mg/dL (75-99)
--- NOTE | 2017-02-07 13:37 | P.PN ---
Subjective Patient is doing better today. Shortness of breath is improving. Objective - Vital Signs Vital signs: Vital Signs Temp 97.6 F 02/07/17 07:00 Pulse 84 02/07/17 11:50 Resp 20 02/07/17 07:00 BP 125/74 02/07/17 07:00 Pulse Ox 97 02/07/17 07:00 Intake & Output 02/06/17 02/07/17 02/07/17 18:59 06:59 18:59 Intake Total 280 Balance 280 Weight 82.1 kg Intake: IV 230 0.9 230 Intake, IV Titration 50 Amount Piperacillin-Tazobactam 3 50 .375 gm In Dextrose/Water 1 50ml.bag @ 12.5 mls/hr IVPB Q8HR [facility] Rx#: [id number] Other: Voiding Method Toilet Toilet Toilet # Voids 2 2 - Exam General: The patient is awake and alert, in no distress Eye: there is normal conjunctiva bilaterally. Neck: The neck is supple, there is no JVD. Cardiovascular: Normal S1-S2, no S3-S4, no murmurs. Respiratory: Lungs are diminished with no obvious wheezing Gastrointestinal: Abdomen is soft, nontender Musculoskeletal: There is no pedal edema. Neurological:. Speech is normal. Skin: Skin is warm and dry - Labs CBC & Chem 7: 02/07/17 07:09 02/07/17 07:09 Labs: Abnormal Lab Results - Last 24 Hours (Table) 02/06/17 02/06/17 02/07/17 Range/Units 17:44 21:01 07:09 Neutrophils # 8.2 H (1.3-7.7) k/uL BUN (7-17) mg/dL Glucose (74-99) mg/dL POC Glucose (mg/dL) 286 H 273 H (75-99) mg/dL 02/07/17 02/07/17 02/07/17 Range/Units 07:09 07:51 11:35 Neutrophils # (1.3-7.7) k/uL BUN 21 H (7-17) mg/dL Glucose 256 H (74-99) mg/dL POC Glucose (mg/dL) 262 H 211 H (75-99) mg/dL Microbiology - Last 24 Hours (Table) 02/04/17 15:35 Blood Culture - Preliminary Blood No Growth after 48 hours 02/04/17 12:38 Blood Culture - Preliminary Blood No Growth after 48 hours Assessment and Plan Plan: 1. Acute COPD exacerbation on IV steroids and bronchodilators 2. Suspected right lung pneumonia on broad-spectrum antibiotic with Zosyn, azithromycin, and tobramycin. I would consult infectious disease for further evaluation and antibiotic management 3. History of lung cancer status post right middle lobectomy with chemo and radiation therapy in the past 4. Chronic radiation-induced pneumonitis 5. Hypothyroidism 6. Type 2 diabetes mellitus, insulin-dependent 7. Hypomagnesemia replaced by protocol Today, I reviewed her medication list" resolved. Continue current management as ordered. Repeat lab work in the morning. Appreciate sales and service consultant's recommendations. Plan to switch to oral prednisone tomorrow and discharge home.
[2017-02-07] MEDS: SODIUM CHLORIDE 0.9% 1,000 ML IV SCH (15:56)
--- NOTE | 2017-02-07 16:04 | P.PN ---
Subjective This is a 51-year-old female patient being seen examined and evaluated today on the fifth floor. This patient is well-known to our services. This patient came into the emergency room after having progressive severity in her shortness of breath and a congested cough. The patient was in our office last week and did receive an antibiotic for tracheobronchitis however her symptoms have not improved. She was worked up in the emergency room and her chest x-ray revealed that a possible right middle lobe pneumonia could not be examined included due to the patient having a rotated film. She was admitted to the hospital with sepsis, pneumonia and acute exacerbation of COPD, along with failed outpatient treatment. Patient is known have a past medical history significant for COPD, pneumonia, right lung cancer status post chemo and radiation treatment as well as a right middle lobectomy. Patient also follows with Dr. Bishop. She was started on IV antibiotics and steroids along with breathing treatments. Upon examination the patient's resting up in bed on 2 L of supplemental oxygen, she does not use oxygen at home. She states she is short of breath with any exertion and/or activity. She has a congested cough and however is unable to bring up her secretions due to them being very tenacious and she states she feels like they get stuck in her throat. She is afebrile denies any chills or night sweats, no nausea or vomiting. The patient is seen again today 02/05/2017 in follow-up on the regular medical floor. We are covering for Dr. Cobb. She is awake and alert in no acute distress. She states she is breathing easier today as compared to yesterday. She is currently maintaining O2 saturations up to 100% on room air. She is afebrile. Her chest x-ray continues to show interstitial density overlying the right middle lobe. She remains on Zosyn. She does have a previous history of lung cancer and a right middle lobectomy. She was also known to have a 4 mm stable nodule in the left lower lobe. She was due for a CAT scan with Dr. Bishop several months ago but did not follow-up. The patient is seen again today 02/06/2017 in follow-up in the regular medical floor. We are covering for Dr. Cobb. She is currently awake and alert in no acute distress. She is breathing easier today as compared to yesterday. She denies any worsening shortness of breath, cough or congestion. Continues to maintain good O2 saturations in the 90s on room air. She remains afebrile. No leukocytosis. Her computed tomography scan revealed evidence of surgery of the right pulmonary hilum. There is coarse interstitial infiltrate in the right mid lung field that is improved as compared to May 2015. Possible pulmonary fibrosis. No evidence of recurrent tumor. 4 mm low density nodule in the left lower lobe remains stable. On 02/07/2017 I'm seeing this patient for a follow-up. We are covering for Dr. Cobb. The patient is doing well. CAT scan of the chest was done. No evidence of any tumor recurrence. No evidence of any pneumonia. The patient is still being she for an acute COPD exacerbation. She is less short of breath compared to yesterday. She is still on IV Solu-Medrol and I think we can move her to oral prednisone as of tomorrow. She is ambulating. No chest pain. No pleurisy. No other complaints Objective - Vital Signs Vital signs: Vital Signs Temp 97.6 F 02/07/17 07:00 Pulse 84 02/07/17 11:50 Resp 20 02/07/17 07:00 BP 125/74 02/07/17 07:00 Pulse Ox 97 02/07/17 07:00 Intake & Output 02/06/17 02/07/17 02/07/17 18:59 06:59 18:59 Intake Total 280 250 Balance 280 250 Weight 82.1 kg Intake: IV 230 0.9 230 Intake, IV Titration 50 250 Amount Piperacillin-Tazobactam 3 50 50 .375 gm In Dextrose/Water 1 50ml.bag @ 12.5 mls/hr IVPB Q8HR [facility] Rx#: [id number] Sodium Chloride 0.9% 1, 200 000 ml @ 20 mls/hr IV . Q24H [facility] Rx#:[id number] Other: Voiding Method Toilet Toilet Toilet # Voids 2 2 - Exam GENERAL EXAM: Alert, active, comfortable in no apparent distress. HEAD: Normocephalic. EYES: Normal reaction of pupils, equal size. NOSE: Clear with pink turbinates. THROAT: No erythema or exudates. NECK: No masses, no JVD. CHEST: No chest wall deformity. LUNGS: Equal air entry with no crackles, wheeze, rhonchi or dullness. Diminished. CVS: S1 and S2 normal with no audible murmurs, regular rhythm. ABDOMEN: No hepatosplenomegaly, normal bowel sounds, no guarding or rigidity. SPINE: No scoliosis or deformity SKIN: No rashes CENTRAL NERVOUS SYSTEM: No focal deficits, tone is normal in all 4 extremities. Extremities: There is no significant peripheral edema. No clubbing, no cyanosis. Peripheral pulses are intact. - Labs CBC & Chem 7: 02/07/17 07:09 02/07/17 07:09 Labs: Abnormal Lab Results - Last 24 Hours (Table) 02/06/17 02/06/17 02/07/17 Range/Units 17:44 21:01 07:09 Neutrophils # 8.2 H (1.3-7.7) k/uL BUN (7-17) mg/dL Glucose (74-99) mg/dL POC Glucose (mg/dL) 286 H 273 H (75-99) mg/dL 02/07/17 02/07/17 02/07/17 Range/Units 07:09 07:51 11:35 Neutrophils # (1.3-7.7) k/uL BUN 21 H (7-17) mg/dL Glucose 256 H (74-99) mg/dL POC Glucose (mg/dL) 262 H 211 H (75-99) mg/dL Microbiology - Last 24 Hours (Table) 02/04/17 15:35 Blood Culture - Preliminary Blood No Growth after 48 hours 02/04/17 12:38 Blood Culture - Preliminary Blood No Growth after 48 hours Assessment and Plan Plan: Impression: #1 Acute exacerbation of chronic obstructive pulmonary disease, complicated by acute tracheobronchitis. #2 Acute hypoxic respiratory failure secondary to above. #3 Interstitial density over the right middle lobe cannot exclude atypical pneumonia, chronic radiation pneumonitis versus chronic changes from previous right middle lobectomy. #4 History of lung cancer status post right middle lobe lobectomy, status post chemoradiation. #5 History of 4 mm pulmonary nodule in the left lower lobe. #6 History of chronic tobacco use. #7 Diabetes mellitus. #8 Hyperlipidemia. #9 Hypertension. #10 Hypothyroidism. Plan Computed tomography scan of the chest was reviewed and there is no evidence of any tumor recurrence. The patient's history of any cancer this point. She has undergone a right middle lobe resection. Continue same treatment. Switch this patient to oral prednisone as of tomorrow. Recovering from acute COPD exacerbation pH has no new complaints otherwise for now.
[2017-02-07 17:17] LABS: Glucose,Whole Blood 189 mg/dL (75-99)
[2017-02-07 20:25] LABS: Glucose,Whole Blood 278 mg/dL (75-99)
[2017-02-07] MEDS: ATORVASTATIN 10 MG TAB PO SCH (21:06)
[2017-02-07] MEDS: INSULIN GLARGINE 100 UNIT/ML 10 ML VIAL SQ SCH (21:06)
[2017-02-07] MEDS: MONTELUKAST 10 MG TAB PO SCH (21:07)
[2017-02-07 22:54] VITALS: TEMP 98.8
[2017-02-08] MEDS: HYDROcodone/APAP 5-325MG 1 EACH TAB PO PRN ×3 (02:53→13:41)
[2017-02-08] MEDS: LEVOTHYROXINE 25 MCG TAB PO SCH (06:05)
[2017-02-08] MEDS: PROMETHAZ-COD 6.25-10 MG/5 ML 5 ML CUP PO PRN ×2 (06:07→13:41)
[2017-02-08 07:28] LABS: Basophils % (A) 0 %; CH 29.8; CHCM 33.6; Eosinophils % (A) 0 %; HCT 39.3 % (34.0-46.0); HDW 2.74; HGB 13.3 gm/dL (11.4-16.0); Luc # (Auto) 0.12; Luc % (Auto) 1; Lymphocytes # (A) 1.5 k/uL (1.0-4.8); Lymphocytes % (A) 14 %; MCH 30.1 pg (25.0-35.0); MCHC 33.9 g/dL (31.0-37.0); MCV 88.9 fL (80.0-100.0); Mean Platelet Volume 7.9; Monocytes # (A) 0.3 k/uL (0-1.0); Monocytes % (A) 3 %; Neutrophils # (A) 8.6 k/uL (1.3-7.7); Neutrophils % (A) 81 %; RBC 4.41 m/uL (3.80-5.40); RDW 14.2 % (11.5-15.5); WBC 10.6 k/uL (3.8-10.6); WBC (Perox) 10.91
[2017-02-08] MEDS: IPRATROPIUM-ALBUTEROL 3 ML NEB INHALATION SCH ×2 (07:44→11:37)
[2017-02-08] MEDS: BUDESONIDE 0.5 MG/2 ML NEBU INHALATION SCH (07:44)
[2017-02-08 07:58] LABS: Glucose,Whole Blood 225 mg/dL (75-99)
[2017-02-08 08:01] LABS: ALT 38 U/L (9-52); AST 19 U/L (14-36); Alkaline Phosphatase 71 U/L (38-126); Anion Gap 13 mmol/L; Blood Urea Nitrogen 22 mg/dL (7-17); Calcium 9.6 mg/dL (8.4-10.2); Carbon Dioxide 21 mmol/L (22-30); Chloride 103 mmol/L (98-107); Glucose 228 mg/dL (74-99); Magnesium 1.5 mg/dL (1.6-2.3); Non-African American GFR(MDRD) >60 (>60 ml/min/1.73 sqM); Potassium 4.7 mmol/L (3.5-5.1); Sodium 137 mmol/L (137-145); Total Bilirubin 0.4 mg/dL (0.2-1.3); Total Protein 6.3 g/dL (6.3-8.2)
[2017-02-08 08:29] VITALS: BP 143/86; RESP 18
[2017-02-08] MEDS: INSULIN LISPRO (humaLOG) 300 UNIT/3 ML VIAL SQ SCH ×4 (09:17→12:30)
[2017-02-08] MEDS: metFORMIN 500 MG TAB PO SCH (09:17)
[2017-02-08] MEDS: SPIRONOLACTONE 25 MG TAB PO SCH (09:20)
[2017-02-08] MEDS: VERAPAMIL 40 MG TAB PO SCH (09:20)
[2017-02-08] MEDS: MULTIVITAMINS, THERA 1 EACH TAB PO SCH (09:20)
[2017-02-08] MEDS: AZITHROMYCIN 500 MG TAB PO SCH (09:20)
[2017-02-08] MEDS: guaiFENesin 600 MG TABLET.ER PO SCH (09:20)
[2017-02-08] MEDS: MAGNESIUM OXIDE 400 MG TAB PO SCH (09:20)
[2017-02-08] MEDS: methylPREDNISolone SOD SUCCI 40 MG/ML 1 ML VIAL IV SCH (09:20)
[2017-02-08] MEDS: LOSARTAN 25 MG TAB PO SCH (09:20)
[2017-02-08] MEDS: CHOLECALCIFEROL 1,000 UNIT TAB PO SCH (09:21)
[2017-02-08] MEDS: PANTOPRAZOLE 40 MG TABLET PO SCH (09:21)
[2017-02-08] MEDS: PIPERACILLIN-TAZOBACTAM 3.375 GM in DEXTROSE/WATER 1 50ML.BAG IVPB SCH (09:27)
[2017-02-08 11:43] LABS: Glucose,Whole Blood 191 mg/dL (75-99)
[2017-02-08 11:47] VITALS: PULSE 88
[2017-02-08] MEDS: SODIUM CHLORIDE 0.9% 1,000 ML IV SCH (12:31)
--- NOTE | 2017-02-08 12:37 | PN ---
PROGRESS NOTE DATE OF SERVICE: 02/07/2017. REASON FOR FOLLOW UP: Pneumonia. INTERVAL HISTORY: The patient is afebrile. She is breathing more comfortably. She still has some congested cough, but not brining any sputum up. No chest pain. No abdominal pain and no diarrhea. EXAMINATION: Blood pressure 117/66 with a pulse of 76, temperature 98.4. She is 95% on room air. General description is middle-aged female up in the bed in no distress. RESPIRATORY SYSTEM: Unlabored breathing. Clear to auscultation. HEART: S1, S2. Regular rate and rhythm. ABDOMEN: Soft, no tenderness. LAB: Hemoglobin 13.1, white count of 10, BUN of 21 with a creatinine 0.90. DIAGNOSTIC IMPRESSION AND PLAN: Patient admitted with difficulty breathing with likely tracheobronchitis/pneumonia. The patient showed overall improvement and hopefully finish therapy with oral Zithromax and continue supportive care. MMODL / IJN: [id number] /
--- NOTE | 2017-02-08 12:41 | P.DS ---
Providers Date of admission: 02/04/17 14:31 Expected date of discharge: 02/08/17 Attending physician: Valery Campos Consults: 02/04/17 14:31 Consult Physician Routine Consulting Provider: Al Cobb Consult Reason/Comments: dyspnea Do you want consulting provider notified?: Yes 02/05/17 10:39 Consult Physician Routine Consulting Provider: Gi Gould Consult Reason/Comments: anti biotics management for pneumonia? Do you want consulting provider notified?: Yes Primary care physician: Valery Beth Layton Hospital Course: 1. Acute COPD exacerbation 2. Suspected right lung pneumonia 3. History of lung cancer status post right middle lobectomy with chemo and radiation therapy in the past 4. Chronic radiation-induced pneumonitis 5. Hypothyroidism 6. Type 2 diabetes mellitus, insulin-dependent 7. Hypomagnesemia replaced by protocol Patient's overall condition improved significantly throughout her hospital stay. She will be discharged home to finish 5 days course of prednisone and Augmentin. 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 Plan - Discharge Summary New Discharge Prescriptions: New Amoxic-Pot Clav 875-125Mg [Augmentin 875-125] 1 tab PO Q12HR #10 tablet Magnesium Oxide [Mag-Ox] 400 mg PO DAILY #30 tab predniSONE 40 mg PO DAILY #10 tab Continue metFORMIN HCL 1,000 mg PO BID Cholecalciferol [Vitamin D3] 1,000 unit PO DAILY Simvastatin [Zocor] 10 mg PO HS Omeprazole [PriLOSEC] 20 mg PO AC-BID Ipratropium-Albuterol Nebulize [Duoneb 0.5 mg-3 mg/3 ml Soln] 3 ml INHALATION RT-QID 30 Days Montelukast [Singulair] 10 mg PO HS Insulin Glargine,Hum.rec.anlog [Lantus Solostar] 70 unit SQ HS Levothyroxine Sodium [Synthroid] 25 mcg PO DAILY Budesonide [Pulmicort] 0.5 mg INHALATION RT-BID Albuterol Inhaler [Ventolin Hfa Inhaler] 1 - 2 puff INHALATION RT-Q6H PRN PRN Reason: Shortness Of Breath Insulin Glulisine [Apidra] See Protocol SQ AC-TID Insulin Glulisine [Apidra] 18 unit SQ AC-TID Losartan [Cozaar] 25 mg PO DAILY #30 tab Verapamil [Isoptin] 40 mg PO TID #60 tab Multivitamin/Iron/Folic Acid [Centrum Women Tablet] 1 tab PO DAILY Spironolactone [Aldactone] 25 mg PO DAILY Promethazine HCl/Codeine [Prometh-Codein 6.25-10 mg/5 ml] 5 ml PO Q8H #300 ml Discharge Medication List metFORMIN HCL 1,000 mg PO BID 10/13/13 [History] Cholecalciferol [Vitamin D3] 1,000 unit PO DAILY 10/20/13 [History] Simvastatin [Zocor] 10 mg PO HS 08/16/14 [History] Omeprazole [PriLOSEC] 20 mg PO AC-BID 08/18/14 [History] Ipratropium-Albuterol Nebulize [Duoneb 0.5 mg-3 mg/3 ml Soln] 3 ml INHALATION RT -QID 30 Days 08/21/14 [Rx] Montelukast [Singulair] 10 mg PO HS 01/29/15 [History] Insulin Glargine,Hum.rec.anlog [Lantus Solostar] 70 unit SQ HS 06/20/15 [History ] Levothyroxine Sodium [Synthroid] 25 mcg PO DAILY 06/22/15 [History] Budesonide [Pulmicort] 0.5 mg INHALATION RT-BID 07/25/15 [History] Albuterol Inhaler [Ventolin Hfa Inhaler] 1 - 2 puff INHALATION RT-Q6H PRN [History] Insulin Glulisine [Apidra] 18 unit SQ AC-TID 06/12/16 [History] Insulin Glulisine [Apidra] See Protocol SQ AC-TID 06/12/16 [History] Losartan [Cozaar] 25 mg PO DAILY #30 tab 06/15/16 [Rx] Verapamil [Isoptin] 40 mg PO TID #60 tab 09/13/16 [Rx] Multivitamin/Iron/Folic Acid [Centrum Women Tablet] 1 tab PO DAILY 11/11/16 [ History] Spironolactone [Aldactone] 25 mg PO DAILY 11/11/16 [History] Promethazine HCl/Codeine [Prometh-Codein 6.25-10 mg/5 ml] 5 ml PO Q8H #300 ml [Rx] Amoxic-Pot Clav 875-125Mg [Augmentin 875-125] 1 tab PO Q12HR #10 tablet [Rx] Magnesium Oxide [Mag-Ox] 400 mg PO DAILY #30 tab 02/08/17 [Rx] predniSONE 40 mg PO DAILY #10 tab 02/08/17 [Rx] Follow up Appointment(s)/Referral(s): Valery Campos MD [Primary Care Provider] - 1-2 days Discharge Disposition: HOME SELF-CARE
--- NOTE | 2017-02-08 15:00 | P.PN ---
Subjective This is a 51-year-old female patient being seen examined and evaluated today on the fifth floor. This patient is well-known to our services. This patient came into the emergency room after having progressive severity in her shortness of breath and a congested cough. The patient was in our office last week and did receive an antibiotic for tracheobronchitis however her symptoms have not improved. She was worked up in the emergency room and her chest x-ray revealed that a possible right middle lobe pneumonia could not be examined included due to the patient having a rotated film. She was admitted to the hospital with sepsis, pneumonia and acute exacerbation of COPD, along with failed outpatient treatment. Patient is known have a past medical history significant for COPD, pneumonia, right lung cancer status post chemo and radiation treatment as well as a right middle lobectomy. Patient also follows with Dr. Bishop. She was started on IV antibiotics and steroids along with breathing treatments. Upon examination the patient's resting up in bed on 2 L of supplemental oxygen, she does not use oxygen at home. She states she is short of breath with any exertion and/or activity. She has a congested cough and however is unable to bring up her secretions due to them being very tenacious and she states she feels like they get stuck in her throat. She is afebrile denies any chills or night sweats, no nausea or vomiting. The patient is seen again today 02/05/2017 in follow-up on the regular medical floor. We are covering for Dr. Cobb. She is awake and alert in no acute distress. She states she is breathing easier today as compared to yesterday. She is currently maintaining O2 saturations up to 100% on room air. She is afebrile. Her chest x-ray continues to show interstitial density overlying the right middle lobe. She remains on Zosyn. She does have a previous history of lung cancer and a right middle lobectomy. She was also known to have a 4 mm stable nodule in the left lower lobe. She was due for a CAT scan with Dr. Bishop several months ago but did not follow-up. The patient is seen again today 02/06/2017 in follow-up in the regular medical floor. We are covering for Dr. Cobb. She is currently awake and alert in no acute distress. She is breathing easier today as compared to yesterday. She denies any worsening shortness of breath, cough or congestion. Continues to maintain good O2 saturations in the 90s on room air. She remains afebrile. No leukocytosis. Her computed tomography scan revealed evidence of surgery of the right pulmonary hilum. There is coarse interstitial infiltrate in the right mid lung field that is improved as compared to May 2015. Possible pulmonary fibrosis. No evidence of recurrent tumor. 4 mm low density nodule in the left lower lobe remains stable. On 02/07/2017 I'm seeing this patient for a follow-up. We are covering for Dr. Cobb. The patient is doing well. CAT scan of the chest was done. No evidence of any tumor recurrence. No evidence of any pneumonia. The patient is still being she for an acute COPD exacerbation. She is less short of breath compared to yesterday. She is still on IV Solu-Medrol and I think we can move her to oral prednisone as of tomorrow. She is ambulating. No chest pain. No pleurisy. No other complaints On 02/08/2017 I'm seeing this patient in follow-up covering for Dr. Cobb. She is done much better. She is improved. Her COPD exacerbations recovered and the patient is on a prednisone burst taper and she was discharged home today. No fever. No chills. No chest pain. No other complaints otherwise. Objective - Vital Signs Vital signs: Vital Signs Temp 98.8 F 02/07/17 22:53 Pulse 88 02/08/17 11:46 Resp 18 02/08/17 07:00 BP 143/86 02/08/17 07:00 Pulse Ox 94 L 02/08/17 07:00 Intake & Output 02/07/17 02/08/17 02/08/17 18:59 06:59 18:59 Intake Total 250 1040 Balance 250 1040 Intake: IV 160 0.9 160 Intake, IV Titration 250 50 Amount Piperacillin-Tazobactam 3 50 50 .375 gm In Dextrose/Water 1 50ml.bag @ 12.5 mls/hr IVPB Q8HR SIMIN Rx#: [id number] Sodium Chloride 0.9% 1, 200 000 ml @ 20 mls/hr IV . Q24H SIMIN Rx#:[id number] Oral 830 Other: Voiding Method Toilet Toilet Toilet # Voids 1 1 - Exam GENERAL EXAM: Alert, active, comfortable in no apparent distress. HEAD: Normocephalic. EYES: Normal reaction of pupils, equal size. NOSE: Clear with pink turbinates. THROAT: No erythema or exudates. NECK: No masses, no JVD. CHEST: No chest wall deformity. LUNGS: Equal air entry with no crackles, wheeze, rhonchi or dullness. Diminished. CVS: S1 and S2 normal with no audible murmurs, regular rhythm. ABDOMEN: No hepatosplenomegaly, normal bowel sounds, no guarding or rigidity. SPINE: No scoliosis or deformity SKIN: No rashes CENTRAL NERVOUS SYSTEM: No focal deficits, tone is normal in all 4 extremities. Extremities: There is no significant peripheral edema. No clubbing, no cyanosis. Peripheral pulses are intact. - Labs CBC & Chem 7: 02/08/17 06:32 02/08/17 06:32 Labs: Abnormal Lab Results - Last 24 Hours (Table) 02/07/17 02/07/17 02/08/17 Range/Units 17:14 20:24 06:32 Neutrophils # 8.6 H (1.3-7.7) k/uL Carbon Dioxide (22-30) mmol/L BUN (7-17) mg/dL Glucose (74-99) mg/dL POC Glucose (mg/dL) 189 H 278 H (75-99) mg/dL Magnesium (1.6-2.3) mg/dL 02/08/17 02/08/17 02/08/17 Range/Units 06:32 07:54 11:31 Neutrophils # (1.3-7.7) k/uL Carbon Dioxide 21 L (22-30) mmol/L BUN 22 H (7-17) mg/dL Glucose 228 H (74-99) mg/dL POC Glucose (mg/dL) 225 H 191 H (75-99) mg/dL Magnesium 1.5 L (1.6-2.3) mg/dL Microbiology - Last 24 Hours (Table) 02/04/17 15:35 Blood Culture - Preliminary Blood No Growth after 72 hours 02/04/17 12:38 Blood Culture - Preliminary Blood No Growth after 72 hours Assessment and Plan Plan: Impression: #1 Acute exacerbation of chronic obstructive pulmonary disease, complicated by acute tracheobronchitis. The patient improved and her acute COPD exacerbation essentially recovered. #2 Acute hypoxic respiratory failure secondary to above. #3 Interstitial density over the right middle lobe cannot exclude atypical pneumonia, chronic radiation pneumonitis versus chronic changes from previous right middle lobectomy. #4 History of lung cancer status post right middle lobe lobectomy, status post chemoradiation. #5 History of 4 mm pulmonary nodule in the left lower lobe. #6 History of chronic tobacco use. #7 Diabetes mellitus. #8 Hyperlipidemia. #9 Hypertension. #10 Hypothyroidism. Plan Computed tomography scan of the chest was reviewed and there is no evidence of any tumor recurrence. The patient's history of any cancer this point. She has undergone a right middle lobe resection. Agree on discharging this patient home prednisone burst taper in addition to routine bronchodilators and respiratory medications.
--- NOTE | 2017-02-08 19:04 | PN ---
PROGRESS NOTE DATE OF SERVICE: 02/08/2017. REASON FOR FOLLOWUP: Pneumonia. INTERVAL HISTORY: The patient is afebrile. She is breathing comfortably. The patient denies any chest pain, no shortness of breath. Very minimal cough. Not bringing up any sputum. No abdominal pain. No diarrhea. EXAMINATION: Blood pressure is 143/86, pulse of 70, temperature 98.8. She is 94% on room air. General description is a middle-aged female up in the bed in no distress. RESPIRATORY SYSTEM: Unlabored breathing. Clear to auscultation. No wheeze or crackles. Heart is S1, S2. Regular rate and rhythm. Abdomen soft. No tenderness. LABORATORY DATA: Hemoglobin 13.1, white count 10.6, BUN of 22, creatinine 0.91, blood culture is negative. Sputum was not provided. DIAGNOSTIC IMPRESSION AND PLAN: 1. The patient admitted to the hospital with difficulty breathing likely multifactorial in a patient who does have tracheobronchitis and question of pneumonia. Overall improvement on Zosyn and Zithromax. 2. The patient plan is to discharge home on oral Augmentin for about a week with close outpatient followup. 3. MMODL / IJN: [id number] /
--- NOTE | 2017-02-13 06:25 | CDI ---
In responding to this query, please exercise your independent professional judgment. The [facility] Coding Staff and Clinical Documentation Specialists appreciate your assistance in clarifying documentation, maintaining compliance with coding guidelines, accurately documenting patients condition and capturing severity of illness. The fact that a question is asked does not imply that any particular answer is desired or expected. Communication forms are a method of clarifying documentation and are not made part of the Legal Health Record. Thank you in advance for your clarification. Last Revision, April 2015 Documentation Clarification Form Date: 02/13/2017 6:03:00 AM From: LAURIE Singh Deborah Biskner, Flight Deck Officer Admit Date: 02/04/2017 2:31:00 PM Patient Name: Carleen Devries Visit Number: [id number] Discharge Date: Dr. Eric Vo Sepsis is documented in ED, consult dated 02/04, and consult progress notes starting 02/05 through 02/08. Patient admitted with pneumonia and COPD exacerbation. ED vitals at 12:15 02/04 are temp 99.2, pulse 117, resp 24 and BP 120/68 WBC 8.8. Broad-spectrum antibiotics were initiated with Zosyn, azithromycin and tobramycin. The documentation of sepsis is not clearly documented throughout the record. In your professional opinion, can you please clarify if you agree with consultants assessment? Sepsis POA No Sepsis Other Unable to determine Please document as an addendum to progress notes and/or discharge summary in order to capture severity of illness and risk of mortality. Include clinical findings that support your diagnosis. FYI: Press F11 to launch patient chart. If you have a question about this query, please contact Linda Madden, Flight Deck Officer at [phone] between 8am and 5pm. NO sepsis MTDD
== END 2017-02-08 13:55 | disposition home or self-care (01) | DRG 190 ==
LOC: EC 12:01 → 5MS5E 14:31
PROVIDERS: ADMIT Internal Medicine; ATTEND Internal Medicine
DX: J44.0 Chronic obstructive pulmonary disease with (acute) lower respiratory infection (principal); J18.9 Pneumonia, unspecified organism; J96.01 Acute respiratory failure with hypoxia; Z90.2 Acquired absence of lung [part of]; Z85.118 Personal history of other malignant neoplasm of bronchus and lung; Z92.3 Personal history of irradiation; J44.1 Chronic obstructive pulmonary disease with (acute) exacerbation; Z92.21 Personal history of antineoplastic chemotherapy; K21.9 Gastro-esophageal reflux disease without esophagitis; I10 Essential (primary) hypertension; E78.5 Hyperlipidemia, unspecified; E11.9 Type 2 diabetes mellitus without complications; Z87.891 Personal history of nicotine dependence; Z80.3 Family history of malignant neoplasm of breast; Z80.1 Family history of malignant neoplasm of trachea, bronchus and lung; Z82.5 Family history of asthma and other chronic lower respiratory diseases; Z79.84 Long term (current) use of oral hypoglycemic drugs; Z79.899 Other long term (current) drug therapy; Z79.4 Long term (current) use of insulin; Z91.040 Latex allergy status; Z88.1 Allergy status to other antibiotic agents; Z88.3 Allergy status to other anti-infective agents; Z88.2 Allergy status to sulfonamides; Y84.2 Radiological procedure and radiotherapy as the cause of abnormal reaction of the patient, or of later complication, without mention of misadventure at the time of the procedure; E03.9 Hypothyroidism, unspecified; E83.42 Hypomagnesemia; R91.1 Solitary pulmonary nodule; J20.9 Acute bronchitis, unspecified
CPT/HCPCS: 36415; 71020; 71260; 80053; 82550; 82553; 83036; 83605; 83735; 83880; 84484; 85025; 85379; 85610; 85730; 87040; 87449; 93005; 94640; 94760; 99291

== ENCOUNTER 2017-07-25 11:50 | Emergency (ER) | payer OTHER ==
[2017-07-25 12:01] VITALS: TEMP 98.1
[2017-07-25] MEDS ORDERED: IPRATROPIUM-ALBUTEROL 3 ML NEB INHALATION STA (12:15)
[2017-07-25] MEDS ORDERED: SODIUM CHLORIDE 0.9% 1,000 ML IV STA (12:15)
[2017-07-25] MEDS ORDERED: methylPREDNISolone SOD SUCCI 125 MG/2 ML VIAL IV STA (12:15)
--- NOTE | 2017-07-25 12:38 | ED ---
General Adult HPI - General Chief complaint: Shortness of Breath Stated complaint: SOB COPD Time Seen by Provider: 07/25/17 12:07 Source: patient, RN notes reviewed, old records reviewed Mode of arrival: ambulatory Limitations: no limitations - History of Present Illness Initial comments: Chief complaint history of present illness a 52-year-old female with history of COPD problems. Complains of shortness of breath with past 5 days. States she is using her updraft machine every 4 hours at home. Chest feels heavy but not painful. No radiation. Patient does report occasional takes deep breath hurts. Patient denies any fever. Patient still smoking - Related Data Home Medications Medication Instructions Recorded Confirmed metFORMIN HCL 1,000 mg PO BID 10/13/13 07/25/17 Cholecalciferol [Vitamin D3] 1,000 unit PO DAILY 10/20/13 07/25/17 Simvastatin [Zocor] 10 mg PO HS 08/16/14 07/25/17 Omeprazole [PriLOSEC] 20 mg PO AC-BID 08/18/14 07/25/17 Montelukast [Singulair] 10 mg PO HS 01/29/15 07/25/17 Insulin Glargine,Hum.rec.anlog 70 unit SQ HS 06/20/15 07/25/17 [Lantus Solostar] Levothyroxine Sodium [Synthroid] 25 mcg PO DAILY 06/22/15 07/25/17 Budesonide [Pulmicort] 0.5 mg INHALATION RT-BID 07/25/15 07/25/17 Albuterol Inhaler [Ventolin Hfa 1 - 2 puff INHALATION RT-Q6H PRN 06/12/16 Inhaler] Insulin Glulisine [Apidra] 18 unit SQ AC-TID 06/12/16 07/25/17 Insulin Glulisine [Apidra] See Protocol SQ AC-TID 06/12/16 07/25/17 Multivitamin/Iron/Folic Acid 1 tab PO DAILY 11/11/16 07/25/17 [Centrum Women Tablet] Spironolactone [Aldactone] 25 mg PO DAILY 11/11/16 07/25/17 Promethazine HCl/Codeine 5 ml PO Q8H PRN 05/06/17 07/25/17 [Prometh-Codein 6.25-10 mg/5 ml] HYDROcodone/APAP 10-325MG [Baker 1 tab PO Q6H PRN 07/25/17 07/25/17 10-325] Previous Rx's Medication Instructions Recorded Ipratropium-Albuterol Nebulize 3 ml INHALATION RT-QID 30 Days 08/21/14 [Duoneb 0.5 mg-3 mg/3 ml Soln] ampul.neb Losartan [Cozaar] 25 mg PO DAILY #30 tab 06/15/16 Verapamil [Isoptin] 40 mg PO TID #60 tab 09/13/16 Magnesium Oxide [Mag-Ox] 400 mg PO DAILY #30 tab 02/08/17 methylPREDNISolone Dose Pack 4 mg PO DIRECTED #21 package 07/25/17 [Medrol Dose Pack] Allergies Allergy/AdvReac Type Severity Reaction Status Date / Time ciprofloxacin HCl Allergy Severe Rash/Hives Verified 07/25/17 12:45 [From Cipro] latex Allergy Severe Rash/Hives Verified 07/25/17 12:45 cephalexin monohydrate Allergy Intermediate Rash/Hives Verified 07/25/17 12:45 [From Keflex] sulfamethoxazole Allergy Intermediate Rash/Hives Verified 07/25/17 12:45 [From Septra] trimethoprim [From Septra] Allergy Intermediate Rash/Hives Verified 07/25/17 12: 45 Review of Systems ROS Statement: Those systems with pertinent positive or pertinent negative responses have been documented in the HPI. Review of systems; no complaint of headache or neck pain she has chronic shortness of breath with COPD, no GI/ or neuro deficits. All systems are reviewed. Patient did complain of blurred vision right eye for the past 4 days. She's never had a history of glaucoma this will be checked. Past medical problems patient had right lower lung cancer removed 4 years ago. COPD, insulin-dependent diabetes mellitus, GERD, hyperlipidemia, hypertension. History of pneumonia in the past hypothyroidism. The patient's surgeries include appendectomy, cholecystectomy and partial hysterectomy, tonsillectomy, bilateral tubal ligation. The patient's family history mother had breast cancer. Other members have had other types of cancer she can't member. The patient has started stop smoking currently smoking again. Strongly encouraged to stop. Denies alcohol use. 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 ROS Other: All systems not noted in ROS Statement are negative. Past Medical History Past Medical History: Cancer, COPD, Diabetes Mellitus, GERD/Reflux, Hyperlipidemia, Hypertension, Pneumonia, Respiratory Disorder, Thyroid Disorder Additional Past Medical History / Comment(s): 2013 Rt lung CA completed-6 chemo TXs and 26 radiation tx, URINARY INCONT-WEARS A PULL UP, NEUROPATHY IN FEET. History of Any Multi-Drug Resistant Organisms: Other MDRO Date of last positivie culture/infection: 2014 MDRO Source:: e-coli in urine Past Surgical History: Appendectomy, Cholecystectomy, Hysterectomy, Tonsillectomy, Tubal Ligation Additional Past Surgical History / Comment(s): R lung biopsy 09/2013, rt middle lobe lobectomy. Past Anesthesia/Blood Transfusion Reactions: Postoperative Nausea & Vomiting ( PONV) Past Psychological History: Depression Smoking Status: Current every day smoker Past Alcohol Use History: None Reported Past Drug Use History: None Reported - Past Family History Mother Sister(s) Family Medical History: Cancer Additional Family Medical History / Comment(s): from breast ca at age 65 Sister(s) Family Medical History: Cancer Additional Family Medical History / Comment(s): Sister of lung cancer at the age of 53yrs. Father Family Medical History: COPD Additional Family Medical History / Comment(s): had cabg, from a blood infection at age 64 General Exam - General Exam Comments Initial Comments: General: The patient is awake and alert, has 2 complaints the first of which is difficulty breathing with history of COPD. Also some blurred vision right eye. The patient does wear glasses. Vital signs temperature 98.1 pulse 106 respiratory rate 20 pulse ox 99% room air blood pressure 122/70 Eye: Pupils are equal, round and reactive to light, extra-ocular movements are intact ; there is normal conjunctiva bilaterally. No signs of icterus. She does complain of blurred vision for the past 4 days on the right eye. Tonometry measured pressure of 29. Ears, nose, mouth and throat: There are moist mucous membranes and no oral lesions. Neck: The neck is supple, there is no tenderness . Cardiovascular: Tachycardic heart rate, 106. No murmur, rub or gallop is appreciated. Respiratory: Lungs are clear to auscultation, respirations are non-labored, breath sounds are equal. No wheezes, stridor, rales, or rhonchi. Patient does have a dry cough, history of COPD, complains of shortness of breath. Gastrointestinal: Soft, non-distended, non-tender abdomen without masses or organomegaly noted. There is no rebound or guarding present. No CVA tenderness. Bowel sounds are unremarkable. Back: There is no tenderness to palpation in the midline. There is no obvious deformity. No rashes noted. Musculoskeletal: Normal ROM, no tenderness, There is no pedal edema. There is no calf tenderness or swelling. Sensation intact. Pulses equal bilaterally 2+. Neurological: No neuro deficits. No complaint of any weakness or dizziness. Skin: Skin is warm and dry and no rashes or lesions are noted. Limitations: no limitations Course Vital Signs 07/25/17 07/25/17 07/25/17 11:57 12:27 12:36 Temperature 98.1 F Pulse Rate 106 H 100 108 H Respiratory 20 Rate Blood Pressure 122/70 O2 Sat by Pulse 99 Oximetry 07/25/17 07/25/17 07/25/17 13:15 13:30 13:46 Temperature Pulse Rate 98 92 92 Respiratory 16 18 Rate Blood Pressure 129/67 O2 Sat by Pulse 100 96 99 Oximetry EKG Findings - EKG Comments: EKG Findings:: EKG was done and reviewed at 1241 showing normal sinus rhythm no acute ST elevation no ectopy no ischemic changes. Rate 98 NH interval is 120 QRS [address]RS [address] Valdez. Medical Decision Making - Medical Decision Making GENERAL: Blurry vision on the right eye for the past 4 days a tonometry was used to check the pressure in that eye and was measured and averaged 29. Visual acuity, able to count fingers at 5 feet with the right eye. Normal with glasses in the left eye. Tonometry pressures on the left eye averaged 17. Patient reports she is feeling much better after the DuoNeb updraft and IV steroids. Labs show a white count 7.6 hemoglobin 14 hematocrit 42, d-dimer 59. Troponin less than 0.012 magnesium 1.4 patient advised to take over-the- counter magnesium supplements. The patient's potassium is 3.9 with a BUN 17 creatinine 0.69 and GFR greater than 60, glucose 161. Patient states she is feeling much better at this time after duo neb updraft and IV steroids. The patient will be calling and following up with her property caretaker tomorrow. 4 elevated tonometry measurements of 29 on the right eye and normal, 17 on the left. The patient's complaint started over 4 days ago without getting progressively worse. I discussed the case and the tonometry findings with Dr. García. His opinion is that the patient can be seen tomorrow by her property caretaker as this is an unchanged situation for 4 straight days. Without getting worse. Patient denies pain just blurred vision. Unchanged for 4 days. Patient be off work until she sees her property caretaker. ] - Lab Data Result diagrams: 07/25/17 12:45 07/25/17 12:45 Lab Results 07/25/17 07/25/17 07/25/17 Range/Units 12:45 12:45 12:45 WBC 7.6 (3.8-10.6) k/uL RBC 4.87 (3.80-5.40) m/uL Hgb 14.2 (11.4-16.0) gm/dL Hct 42.5 (34.0-46.0) % MCV 87.4 (80.0-100.0) fL MCH 29.2 (25.0-35.0) pg MCHC 33.4 (31.0-37.0) g/dL RDW 14.3 (11.5-15.5) % Plt Count 196 (150-450) k/uL Neutrophils % 63 % Lymphocytes % 28 % Monocytes % 5 % Eosinophils % 2 % Basophils % 1 % Neutrophils # 4.8 (1.3-7.7) k/uL Lymphocytes # 2.1 (1.0-4.8) k/uL Monocytes # 0.3 (0-1.0) k/uL Eosinophils # 0.2 (0-0.7) k/uL Basophils # 0.0 (0-0.2) k/uL D-Dimer (<0.60) mg/L FEU Sodium 142 (137-145) mmol/L Potassium 3.9 (3.5-5.1) mmol/L Chloride 105 (98-107) mmol/L Carbon Dioxide 25 (22-30) mmol/L Anion Gap 12 mmol/L BUN 7 (7-17) mg/dL Creatinine 0.69 (0.52-1.04) mg/dL Est GFR (MDRD) Af Amer >60 (>60 ml/min/1.73 sqM) Est GFR (MDRD) Non-Af >60 (>60 ml/min/1.73 sqM) Glucose 161 H (74-99) mg/dL POC Glucose (mg/dL) (75-99) mg/dL POC Glu Labor And Delivery Nurse ID Calcium 9.8 (8.4-10.2) mg/dL Magnesium 1.4 L (1.6-2.3) mg/dL Total Bilirubin 0.4 (0.2-1.3) mg/dL AST 22 (14-36) U/L ALT 28 (9-52) U/L Alkaline Phosphatase 102 (38-126) U/L Total Creatine Kinase 96 (30-135) U/L CK-MB (CK-2) 1.1 (0.0-2.4) ng/mL CK-MB (CK-2) Rel Index 1.1 Troponin I <0.012 (0.000-0.034) ng/mL NT-Pro-B Natriuret Pep pg/mL Total Protein 6.9 (6.3-8.2) g/dL Albumin 4.1 (3.5-5.0) g/dL 07/25/17 07/25/17 07/25/17 Range/Units 12:45 12:45 13:10 WBC (3.8-10.6) k/uL RBC (3.80-5.40) m/uL Hgb (11.4-16.0) gm/dL Hct (34.0-46.0) % MCV (80.0-100.0) fL MCH (25.0-35.0) pg MCHC (31.0-37.0) g/dL RDW (11.5-15.5) % Plt Count (150-450) k/uL Neutrophils % % Lymphocytes % % Monocytes % % Eosinophils % % Basophils % % Neutrophils # (1.3-7.7) k/uL Lymphocytes # (1.0-4.8) k/uL Monocytes # (0-1.0) k/uL Eosinophils # (0-0.7) k/uL Basophils # (0-0.2) k/uL D-Dimer 0.59 (<0.60) mg/L FEU Sodium (137-145) mmol/L Potassium (3.5-5.1) mmol/L Chloride (98-107) mmol/L Carbon Dioxide (22-30) mmol/L Anion Gap mmol/L BUN (7-17) mg/dL Creatinine (0.52-1.04) mg/dL Est GFR (MDRD) Af Amer (>60 ml/min/1.73 sqM) Est GFR (MDRD) Non-Af (>60 ml/min/1.73 sqM) Glucose (74-99) mg/dL POC Glucose (mg/dL) 143 H (75-99) mg/dL POC Glu Labor And Delivery Nurse ID Minesh Elizabeth Calcium (8.4-10.2) mg/dL Magnesium (1.6-2.3) mg/dL Total Bilirubin (0.2-1.3) mg/dL AST (14-36) U/L ALT (9-52) U/L Alkaline Phosphatase (38-126) U/L Total Creatine Kinase (30-135) U/L CK-MB (CK-2) (0.0-2.4) ng/mL CK-MB (CK-2) Rel Index Troponin I (0.000-0.034) ng/mL NT-Pro-B Natriuret Pep 135 pg/mL Total Protein (6.3-8.2) g/dL Albumin (3.5-5.0) g/dL Disposition Clinical Impression: COPD exacerbation, Glaucoma (increased eye pressure) Disposition: HOME SELF-CARE Condition: Stable Instructions: COPD (Chronic Obstructive Pulmonary Disease) (ED), Chronic Bronchitis (ED), Glaucoma (ED) Additional Instructions: Use Medrol Dosepak as directed. Continue home updrafts. Stop smoking. Call follow up with your eye doctor tomorrow. Prescriptions: methylPREDNISolone Dose Pack [Medrol Dose Pack] 4 mg PO DIRECTED #21 package Referrals: Valery Campos MD [Primary Care Provider] - 1-2 days Time of Disposition: 14:11
[2017-07-25 12:58] LABS: Basophils % (A) 1 %; Eosinophils # (A) 0.2 k/uL (0-0.7); Eosinophils % (A) 2 %; HCT 42.5 % (34.0-46.0); HGB 14.2 gm/dL (11.4-16.0); Lymphocytes # (A) 2.1 k/uL (1.0-4.8); Lymphocytes % (A) 28 %; MCH 29.2 pg (25.0-35.0); MCHC 33.4 g/dL (31.0-37.0); MCV 87.4 fL (80.0-100.0); Mean Platelet Volume 7.1; Monocytes # (A) 0.3 k/uL (0-1.0); Monocytes % (A) 5 %; Neutrophils # (A) 4.8 k/uL (1.3-7.7); Neutrophils % (A) 63 %; Platelet Count 196 k/uL (150-450); RBC 4.87 m/uL (3.80-5.40); RDW 14.3 % (11.5-15.5); WBC 7.6 k/uL (3.8-10.6)
--- NOTE | 2017-07-25 13:10 | XR ---
EXAMINATION TYPE: XR chest 2V DATE OF EXAM: 07/25/2017 HISTORY: difficulty breathing. REFERENCE: Previous study dated 05/06/2017. FINDINGS: There are chronic interstitial changes in the right midlung. Lungs are otherwise clear. Ple ural spaces are clear. The heart is not enlarged. IMPRESSION: NO INTERVAL CHANGE IN THE APPEARANCE OF THE CHEST AND NO ACUTE INTRATHORACIC ABNORMALITY.
[2017-07-25 13:15] LABS: ALT 28 U/L (9-52); AST 22 U/L (14-36); Albumin 4.1 g/dL (3.5-5.0); Alkaline Phosphatase 102 U/L (38-126); Anion Gap 12 mmol/L; Blood Urea Nitrogen 7 mg/dL (7-17); Calcium 9.8 mg/dL (8.4-10.2); Carbon Dioxide 25 mmol/L (22-30); Chloride 105 mmol/L (98-107); Glucose 161 mg/dL (74-99); Magnesium 1.4 mg/dL (1.6-2.3); Potassium 3.9 mmol/L (3.5-5.1); Sodium 142 mmol/L (137-145); Total Bilirubin 0.4 mg/dL (0.2-1.3); Total Protein 6.9 g/dL (6.3-8.2)
[2017-07-25 13:26] LABS: Creatine Kinase 96 U/L (30-135)
[2017-07-25 13:33] VITALS: PULSE 92
[2017-07-25 13:39] LABS: Creatine Kinase MB 1.1 ng/mL (0.0-2.4); Troponin I <0.012 ng/mL (0.000-0.034)
[2017-07-25 13:40] LABS: Glucose,Whole Blood 143 mg/dL (75-99)
[2017-07-25 14:01] VITALS: RESP 18
[2017-07-25 14:02] VITALS: BP 129/67
== END 2017-07-25 14:28 | disposition home or self-care (01) ==
LOC: EC 11:50
DX: J44.1 Chronic obstructive pulmonary disease with (acute) exacerbation (principal); H40.9 Unspecified glaucoma; E11.9 Type 2 diabetes mellitus without complications; K21.9 Gastro-esophageal reflux disease without esophagitis; E78.5 Hyperlipidemia, unspecified; I10 Essential (primary) hypertension; E07.9 Disorder of thyroid, unspecified; F17.200 Nicotine dependence, unspecified, uncomplicated; Z85.118 Personal history of other malignant neoplasm of bronchus and lung; Z90.2 Acquired absence of lung [part of]; Z79.4 Long term (current) use of insulin; Z79.51 Long term (current) use of inhaled steroids; Z79.899 Other long term (current) drug therapy; Z88.1 Allergy status to other antibiotic agents; Z88.2 Allergy status to sulfonamides
CPT/HCPCS: 36415; 94640; 93005; 85379; 83880; 80053; 82550; 82553; 83735; 84484; 85025; 71046; 99285; 96374; J2930

== ENCOUNTER 2017-08-09 13:52 | Inpatient (IN) | payer OTHER ==
[2017-08-09 14:53] LABS: Basophils % (A) 0 %; Eosinophils # (A) 0.1 k/uL (0-0.7); Eosinophils % (A) 2 %; HCT 37.1 % (34.0-46.0); HGB 12.7 gm/dL (11.4-16.0); Lymphocytes # (A) 1.9 k/uL (1.0-4.8); Lymphocytes % (A) 30 %; MCH 29.4 pg (25.0-35.0); MCHC 34.4 g/dL (31.0-37.0); MCV 85.6 fL (80.0-100.0); Mean Platelet Volume 7.9; Monocytes # (A) 0.3 k/uL (0-1.0); Monocytes % (A) 4 %; Neutrophils # (A) 3.9 k/uL (1.3-7.7); Neutrophils % (A) 62 %; Platelet Count 183 k/uL (150-450); RBC 4.33 m/uL (3.80-5.40); WBC 6.4 k/uL (3.8-10.6)
[2017-08-09 15:03] LABS: Prothrombin Time 9.7 sec (9.0-12.0)
[2017-08-09 15:09] LABS: Albumin 3.6 g/dL (3.5-5.0); Anion Gap 9 mmol/L; Blood Urea Nitrogen 8 mg/dL (7-17); Carbon Dioxide 27 mmol/L (22-30); Chloride 106 mmol/L (98-107); Potassium 3.9 mmol/L (3.5-5.1); Sodium 142 mmol/L (137-145); Total Bilirubin 0.3 mg/dL (0.2-1.3); Total Protein 6.2 g/dL (6.3-8.2)
[2017-08-09 15:12] LABS: ALT 22 U/L (9-52); AST 16 U/L (14-36); Alkaline Phosphatase 95 U/L (38-126); Calcium 9.3 mg/dL (8.4-10.2); Glucose 194 mg/dL (74-99)
[2017-08-09 15:14] LABS: Creatine Kinase 77 U/L (30-135)
--- NOTE | 2017-08-09 15:15 | XR ---
EXAMINATION TYPE: XR chest 2V DATE OF EXAM: 08/09/2017 COMPARISON: Chest x-ray July 25, [address] chest February 05, 2017. HISTORY: Shortness of breath, cough, and congestion. TECHNIQUE: Frontal and lateral views of the chest are obtained. FINDINGS: There are persistent reticulonodular opacities in the right mid to lower lung which have b een present since comparison CT. Left lung remains clear. Patient is rotated to right on current stud y. No pleural effusion or pneumothorax is seen bilaterally. The cardiac silhouette size is within nor mal limits. The osseous structures are intact. IMPRESSION: Chronic right lower lung reticulonodular infiltrates. No new infiltrates are seen.
[2017-08-09] MEDS ORDERED: IPRATROPIUM 0.5 MG/2.5 ML NEBU INHALATION STA (15:23)
[2017-08-09] MEDS ORDERED: SODIUM CHLORIDE 0.9% 1,000 ML IV STA ×2 (15:23)
[2017-08-09] MEDS ORDERED: methylPREDNISolone SOD SUCCI 125 MG/2 ML VIAL IV STA (15:23)
[2017-08-09] MEDS ORDERED: ALBUTEROL NEBULIZED 2.5 MG/3 ML INHALATION STA (15:23)
[2017-08-09 15:27] LABS: Creatine Kinase MB 0.7 ng/mL (0.0-2.4); Troponin I <0.012 ng/mL (0.000-0.034)
--- NOTE | 2017-08-09 15:46 | ED ---
General Adult HPI - General Chief complaint: Shortness of Breath Stated complaint: SOB Time Seen by Provider: 08/09/17 15:23 Source: patient, RN notes reviewed, old records reviewed Mode of arrival: ambulatory Limitations: no limitations - History of Present Illness Initial comments: This is a 52-year-old female the ER for evaluation regarding shortness of breath. Increasing shortness of breath cough and congestion. Patient does smoke is continue to smoke has history of COPD. 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 Patient seen in the emergency room but a week ago for similar complaint. She was outpatient treatment medically breathing treatments steroids, patient had no improvement. No fevers no travel history, she does have increased cough and congestion again. Significant shortness of breath with exertion - Related Data Home Medications Medication Instructions Recorded Confirmed metFORMIN HCL 1,000 mg PO BID 10/13/13 07/25/17 Cholecalciferol [Vitamin D3] 1,000 unit PO DAILY 10/20/13 07/25/17 Simvastatin [Zocor] 10 mg PO HS 08/16/14 07/25/17 Omeprazole [PriLOSEC] 20 mg PO AC-BID 08/18/14 07/25/17 Montelukast [Singulair] 10 mg PO HS 01/29/15 07/25/17 Insulin Glargine,Hum.rec.anlog 70 unit SQ HS 06/20/15 07/25/17 [Lantus Solostar] Levothyroxine Sodium [Synthroid] 25 mcg PO DAILY 06/22/15 07/25/17 Budesonide [Pulmicort] 0.5 mg INHALATION RT-BID 07/25/15 07/25/17 Albuterol Inhaler [Ventolin Hfa 1 - 2 puff INHALATION RT-Q6H PRN 06/12/16 Inhaler] Insulin Glulisine [Apidra] 18 unit SQ AC-TID 06/12/16 07/25/17 Insulin Glulisine [Apidra] See Protocol SQ AC-TID 06/12/16 07/25/17 Multivitamin/Iron/Folic Acid 1 tab PO DAILY 11/11/16 07/25/17 [Centrum Women Tablet] Spironolactone [Aldactone] 25 mg PO DAILY 11/11/16 07/25/17 Promethazine HCl/Codeine 5 ml PO Q8H PRN 05/06/17 07/25/17 [Prometh-Codein 6.25-10 mg/5 ml] HYDROcodone/APAP 10-325MG [Industry 1 tab PO Q6H PRN 07/25/17 07/25/17 10-325] Previous Rx's Medication Instructions Recorded Ipratropium-Albuterol Nebulize 3 ml INHALATION RT-QID 30 Days 08/21/14 [Duoneb 0.5 mg-3 mg/3 ml Soln] ampul.neb Losartan [Cozaar] 25 mg PO DAILY #30 tab 06/15/16 Verapamil [Isoptin] 40 mg PO TID #60 tab 09/13/16 Magnesium Oxide [Mag-Ox] 400 mg PO DAILY #30 tab 02/08/17 methylPREDNISolone Dose Pack 4 mg PO DIRECTED #21 package 07/25/17 [Medrol Dose Pack] Allergies Allergy/AdvReac Type Severity Reaction Status Date / Time ciprofloxacin HCl Allergy Severe Rash/Hives Verified 08/09/17 14:00 [From Cipro] latex Allergy Severe Rash/Hives Verified 08/09/17 14:00 cephalexin monohydrate Allergy Intermediate Rash/Hives Verified 08/09/17 14:00 [From Keflex] sulfamethoxazole Allergy Intermediate Rash/Hives Verified 08/09/17 14:00 [From Septra] trimethoprim [From Septra] Allergy Intermediate Rash/Hives Verified 08/09/17 14: 00 Review of Systems ROS Statement: Those systems with pertinent positive or pertinent negative responses have been documented in the HPI. ROS Other: All systems not noted in ROS Statement are negative. Past Medical History Past Medical History: Cancer, COPD, Diabetes Mellitus, GERD/Reflux, Hyperlipidemia, Hypertension, Pneumonia, Respiratory Disorder, Thyroid Disorder Additional Past Medical History / Comment(s): 2013 Rt lung CA completed-6 chemo TXs and 26 radiation tx, URINARY INCONT-WEARS A PULL UP, NEUROPATHY IN FEET. History of Any Multi-Drug Resistant Organisms: Other MDRO Date of last positivie culture/infection: 2014 MDRO Source:: e-coli in urine Past Surgical History: Appendectomy, Cholecystectomy, Hysterectomy, Tonsillectomy, Tubal Ligation Additional Past Surgical History / Comment(s): R lung biopsy 09/2013, rt middle lobe lobectomy. Past Anesthesia/Blood Transfusion Reactions: Postoperative Nausea & Vomiting ( PONV) Past Psychological History: No Psychological Hx Reported Smoking Status: Current every day smoker Past Alcohol Use History: None Reported Past Drug Use History: None Reported - Past Family History Mother Sister(s) Family Medical History: Cancer Additional Family Medical History / Comment(s): from breast ca at age 65 Sister(s) Family Medical History: Cancer Additional Family Medical History / Comment(s): Sister of lung cancer at the age of 53yrs. Father Family Medical History: COPD Additional Family Medical History / Comment(s): had cabg, from a blood infection at age 64 General Exam Limitations: no limitations General appearance: alert, in no apparent distress, anxious Head exam: Present: atraumatic, normocephalic, normal inspection Eye exam: Present: normal appearance, PERRL, EOMI. Absent: scleral icterus, conjunctival injection, periorbital swelling ENT exam: Present: normal exam, mucous membranes moist Neck exam: Present: normal inspection. Absent: tenderness, meningismus, lymphadenopathy Respiratory exam: Present: respiratory distress, wheezes, accessory muscle use, decreased breath sounds, prolonged expiratory. Absent: rales, rhonchi, stridor Cardiovascular Exam: Present: normal rhythm, tachycardia, normal heart sounds. Absent: systolic murmur, diastolic murmur, rubs, gallop, clicks GI/Abdominal exam: Present: soft, normal bowel sounds. Absent: distended, tenderness, guarding, rebound, rigid Extremities exam: Present: normal inspection, full ROM, normal capillary refill. Absent: tenderness, pedal edema, joint swelling, calf tenderness Back exam: Present: normal inspection Neurological exam: Present: alert, oriented X3, CN II-XII intact Psychiatric exam: Present: normal affect, normal mood Skin exam: Present: warm, dry, intact, normal color. Absent: rash Course Vital Signs 08/09/17 13:58 Temperature 98.7 F Pulse Rate 119 H Respiratory 20 Rate Blood Pressure 134/69 O2 Sat by Pulse 100 Oximetry - Reevaluation(s) Reevaluation #1: 08/09/17 15:45 Patient with prolonged breathing treatment, mild improvement Medical Decision Making - Medical Decision Making 51 female the ER for evaluation of COPD exacerbation, patient has failed outpatient treatment, will admit for pulmonary support, breathing treatment steroids - Lab Data Result diagrams: 08/09/17 14:40 08/09/17 14:40 Lab Results 08/09/17 08/09/17 08/09/17 Range/Units 14:40 14:40 14:40 WBC 6.4 (3.8-10.6) k/uL RBC 4.33 (3.80-5.40) m/uL Hgb 12.7 (11.4-16.0) gm/dL Hct 37.1 (34.0-46.0) % MCV 85.6 (80.0-100.0) fL MCH 29.4 (25.0-35.0) pg MCHC 34.4 (31.0-37.0) g/dL RDW 14.0 (11.5-15.5) % Plt Count 183 (150-450) k/uL Neutrophils % 62 % Lymphocytes % 30 % Monocytes % 4 % Eosinophils % 2 % Basophils % 0 % Neutrophils # 3.9 (1.3-7.7) k/uL Lymphocytes # 1.9 (1.0-4.8) k/uL Monocytes # 0.3 (0-1.0) k/uL Eosinophils # 0.1 (0-0.7) k/uL Basophils # 0.0 (0-0.2) k/uL PT (9.0-12.0) sec INR (<1.2) APTT (22.0-30.0) sec D-Dimer (<0.60) mg/L FEU Sodium 142 (137-145) mmol/L Potassium 3.9 (3.5-5.1) mmol/L Chloride 106 (98-107) mmol/L Carbon Dioxide 27 (22-30) mmol/L Anion Gap 9 mmol/L BUN 8 (7-17) mg/dL Creatinine 0.62 (0.52-1.04) mg/dL Est GFR (MDRD) Af Amer >60 (>60 ml/min/1.73 sqM) Est GFR (MDRD) Non-Af >60 (>60 ml/min/1.73 sqM) Glucose 194 H (74-99) mg/dL Calcium 9.3 (8.4-10.2) mg/dL Magnesium (1.6-2.3) mg/dL Total Bilirubin 0.3 (0.2-1.3) mg/dL AST 16 (14-36) U/L ALT 22 (9-52) U/L Alkaline Phosphatase 95 (38-126) U/L Total Creatine Kinase 77 (30-135) U/L CK-MB (CK-2) 0.7 (0.0-2.4) ng/mL CK-MB (CK-2) Rel Index 0.9 Troponin I <0.012 (0.000-0.034) ng/mL Total Protein 6.2 L (6.3-8.2) g/dL Albumin 3.6 (3.5-5.0) g/dL 08/09/17 08/09/17 08/09/17 Range/Units 14:40 14:40 14:40 WBC (3.8-10.6) k/uL RBC (3.80-5.40) m/uL Hgb (11.4-16.0) gm/dL Hct (34.0-46.0) % MCV (80.0-100.0) fL MCH (25.0-35.0) pg MCHC (31.0-37.0) g/dL RDW (11.5-15.5) % Plt Count (150-450) k/uL Neutrophils % % Lymphocytes % % Monocytes % % Eosinophils % % Basophils % % Neutrophils # (1.3-7.7) k/uL Lymphocytes # (1.0-4.8) k/uL Monocytes # (0-1.0) k/uL Eosinophils # (0-0.7) k/uL Basophils # (0-0.2) k/uL PT 9.7 (9.0-12.0) sec INR 1.0 (<1.2) APTT 23.0 (22.0-30.0) sec D-Dimer 0.68 H (<0.60) mg/L FEU Sodium (137-145) mmol/L Potassium (3.5-5.1) mmol/L Chloride (98-107) mmol/L Carbon Dioxide (22-30) mmol/L Anion Gap mmol/L BUN (7-17) mg/dL Creatinine (0.52-1.04) mg/dL Est GFR (MDRD) Af Amer (>60 ml/min/1.73 sqM) Est GFR (MDRD) Non-Af (>60 ml/min/1.73 sqM) Glucose (74-99) mg/dL Calcium (8.4-10.2) mg/dL Magnesium 1.4 L (1.6-2.3) mg/dL Total Bilirubin (0.2-1.3) mg/dL AST (14-36) U/L ALT (9-52) U/L Alkaline Phosphatase (38-126) U/L Total Creatine Kinase (30-135) U/L CK-MB (CK-2) (0.0-2.4) ng/mL CK-MB (CK-2) Rel Index Troponin I (0.000-0.034) ng/mL Total Protein (6.3-8.2) g/dL Albumin (3.5-5.0) g/dL - Radiology Data Radiology results: report reviewed (Chest x-rays negative for acute disease), image reviewed Disposition Clinical Impression: COPD (chronic obstructive pulmonary disease) with chronic bronchitis, Acute exacerbation of chronic obstructive airways disease, Failure of outpatient treatment Disposition: ADMITTED IP TO THIS HOSP Condition: Fair Referrals: Valery Campos MD [Primary Care Provider] - 1-2 days
[2017-08-09 17:37] VITALS: BMI 29.7
[2017-08-09] MEDS: methylPREDNISolone SOD SUCCI 125 MG/2 ML VIAL IV SCH ×2 (18:00→23:05)
--- NOTE | 2017-08-09 18:03 | P.CNPUL ---
History of Present Illness Consult date: 08/09/17 Reason for consult: dyspnea, cough, COPD, hypoxemia Chief complaint: Acute COPD exacerbation History of present illness: Sundeep is a 52-year-old female well-known to me him a patient presented to ER for evaluation regarding shortness of breath. Increasing shortness of breath cough and congestion. Patient does smoke is continue to smoke has history of COPD and lung cancer Patient was seen in urgent care and spoke with our office recently sent to emergency room. Patient seen in the emergency room but a week ago for similar complaint. She was outpatient treatment medically breathing treatments steroids, patient had no improvement. No fevers no travel history, she does have increased cough and congestion again. Significant shortness of breath with exertion Review of Systems All systems: negative Past Medical History Past Medical History: Cancer, COPD, Diabetes Mellitus, GERD/Reflux, Hyperlipidemia, Hypertension, Pneumonia, Respiratory Disorder, Thyroid Disorder Additional Past Medical History / Comment(s): 2013 Rt lung CA completed-6 chemo TXs and 26 radiation tx, URINARY INCONT-WEARS A PULL UP, NEUROPATHY IN FEET. History of Any Multi-Drug Resistant Organisms: None Reported, Other MDRO Date of last positivie culture/infection: 2014 MDRO Source:: e-coli in urine Past Surgical History: Appendectomy, Cholecystectomy, Hysterectomy, Tonsillectomy, Tubal Ligation Additional Past Surgical History / Comment(s): R lung biopsy 09/2013, rt middle lobe lobectomy. Past Anesthesia/Blood Transfusion Reactions: Postoperative Nausea & Vomiting ( PONV) Past Psychological History: No Psychological Hx Reported Additional Psychological History / Comment(s): Lives with her daughter, thanh in a 2 story home but pt stays on 1st floor and there are 4 steps to get outside. has 1 pet cat.Pt is independant gets no out side services at this time. She has a nebulizer. 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 Smoking Status: Current some day smoker Past Alcohol Use History: None Reported Additional Past Alcohol Use History / Comment(s): started smoking at age 12, ( 1977) was smoking 1.5 ppd, QUIT 2013 and then Started back up. Past Drug Use History: None Reported - Past Family History Mother Sister(s) Family Medical History: Cancer Additional Family Medical History / Comment(s): from breast ca at age 65 Sister(s) Family Medical History: Cancer Additional Family Medical History / Comment(s): Sister of lung cancer at the age of 53yrs. Mother Family Medical History: Cancer Additional Family Medical History / Comment(s): breast cancer, at age 65 yrs Father Family Medical History: COPD Additional Family Medical History / Comment(s): had cabg, from a blood infection at age 64 Medications and Allergies Home Medications Medication Instructions Recorded Confirmed Type metFORMIN HCL 1,000 mg PO BID 10/13/13 08/09/17 History Cholecalciferol [Vitamin D3] 1,000 unit PO DAILY 10/20/13 08/09/17 History Simvastatin [Zocor] 10 mg PO HS 08/16/14 08/09/17 History Omeprazole [PriLOSEC] 20 mg PO AC-BID 08/18/14 08/09/17 History Ipratropium-Albuterol Nebulize 3 ml INHALATION RT-QID 30 Days 08/21/14 08/09/17 Rx [Duoneb 0.5 mg-3 mg/3 ml Soln] ampul.neb Montelukast [Singulair] 10 mg PO HS 01/29/15 08/09/17 History Insulin Glargine,Hum.rec.anlog 70 unit SQ HS 06/20/15 08/09/17 History [Lantus Solostar] Levothyroxine Sodium [Synthroid] 25 mcg PO DAILY 06/22/15 08/09/17 History Budesonide [Pulmicort] 0.5 mg INHALATION RT-BID 07/25/15 08/09/17 History Albuterol Inhaler [Ventolin Hfa 1 - 2 puff INHALATION RT-Q6H PRN 06/12/16 History Inhaler] Insulin Glulisine [Apidra] 18 unit SQ AC-TID 06/12/16 08/09/17 History Insulin Glulisine [Apidra] See Protocol SQ AC-TID 06/12/16 08/09/17 History Losartan [Cozaar] 25 mg PO DAILY #30 tab 06/15/16 08/09/17 Rx Verapamil [Isoptin] 40 mg PO TID #60 tab 09/13/16 08/09/17 Rx Multivitamin/Iron/Folic Acid 1 tab PO DAILY 11/11/16 08/09/17 History [Centrum Women Tablet] Spironolactone [Aldactone] 25 mg PO DAILY 11/11/16 08/09/17 History Magnesium Oxide [Mag-Ox] 400 mg PO DAILY #30 tab 02/08/17 08/09/17 Rx Promethazine HCl/Codeine 5 ml PO Q8H PRN 05/06/17 08/09/17 History [Prometh-Codein 6.25-10 mg/5 ml] HYDROcodone/APAP 10-325MG [Boring 1 tab PO Q6H PRN 07/25/17 08/09/17 History 10-325] Allergies Allergy/AdvReac Type Severity Reaction Status Date / Time ciprofloxacin HCl Allergy Severe Rash/Hives Verified 08/09/17 17:38 [From Cipro] latex Allergy Severe Rash/Hives Verified 08/09/17 17:38 cephalexin monohydrate Allergy Intermediate Rash/Hives Verified 08/09/17 17:38 [From Keflex] sulfamethoxazole Allergy Intermediate Rash/Hives Verified 08/09/17 17:38 [From Septra] trimethoprim [From Septra] Allergy Intermediate Rash/Hives Verified 08/09/17 17: 38 Physical Exam Vitals: Vital Signs Temp Pulse Pulse Resp BP BP Pulse Ox 08/09/17 16:20 98.6 F 100 18 131/76 98 08/09/17 16:15 98.2 F 115 H 16 131/73 97 08/09/17 16:11 110 H 08/09/17 15:45 96 20 120/78 98 08/09/17 13:58 98.7 F 119 H 20 134/69 100 Intake and Output 08/09/17 08/09/17 08/09/17 06:59 14:59 22:59 Other: Weight 78.471 kg 78.471 kg Patient Weight 08/10/17 06:59 Weight 78.471 kg General appearance: alert, in no apparent distress, anxious Head exam: Present: atraumatic, normocephalic, normal inspection Eye exam: Present: normal appearance, PERRL, EOMI. Absent: scleral icterus, conjunctival injection, periorbital swelling ENT exam: Present: normal exam, mucous membranes moist Neck exam: Present: normal inspection. Absent: tenderness, meningismus, lymphadenopathy Respiratory exam: Present: respiratory distress, wheezes, accessory muscle use, decreased breath sounds, prolonged expiratory. No rales, rhonchi, stridor noted Cardiovascular Exam: Present: normal rhythm, tachycardia, normal heart sounds. Absent: systolic murmur, diastolic murmur, rubs, gallop, clicks GI/Abdominal exam: Present: soft, normal bowel sounds. Absent: distended, tenderness, guarding, rebound, rigid Extremities exam: Present: normal inspection, full ROM, normal capillary refill. Absent: tenderness, pedal edema, joint swelling, calf tenderness Back exam: Present: normal inspection Neurological exam: Present: alert, oriented X3, CN II-XII intact Psychiatric exam: Present: normal affect, normal mood Skin exam: Present: warm, dry, intact, normal color. 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
[2017-08-09] MEDS ORDERED: MAGNESIUM OXIDE 400 MG TAB PO STA (18:57)
[2017-08-09] MEDS: HYDROcodone/APAP 10-325MG 1 EACH TAB PO PRN (19:32)
[2017-08-09] MEDS: IPRATROPIUM-ALBUTEROL 3 ML NEB INHALATION SCH ×2 (20:19→20:41)
[2017-08-09] MEDS ORDERED: INSULIN DETEMIR 100 UNIT/ML 10 ML VIAL SQ SCH (21:00)
[2017-08-09] MEDS ORDERED: INSULIN ASPART 100 UNIT/ML 1 ML 10 ML VIAL SQ SCH (21:00)
[2017-08-09 21:01] LABS: Glucose,Whole Blood 267 mg/dL (75-99)
[2017-08-09] MEDS: ATORVASTATIN 10 MG TAB PO SCH (21:02)
[2017-08-09] MEDS: VERAPAMIL 40 MG TAB PO SCH (21:02)
[2017-08-09] MEDS: MONTELUKAST 10 MG TAB PO SCH (21:02)
[2017-08-09] MEDS: DOXYCYCLINE 50 MG CAP PO SCH (21:21)
[2017-08-09] MEDS: PROMETHAZ-COD 6.25-10 MG/5 ML 5 ML CUP PO PRN (21:25)
[2017-08-09] MEDS ORDERED: INSULIN REGULAR BOLUS (FROM DRIP BAG) IV ONE (22:21)
[2017-08-09] MEDS ORDERED: INSULIN REGULAR 100 UNIT in SODIUM CHLORIDE 0.9% 100 ML IV SCH (22:30)
[2017-08-09 23:25] LABS: Glucose,Whole Blood 256 mg/dL (75-99)
[2017-08-10 00:07] LABS: Glucose,Whole Blood 232 mg/dL (75-99)
[2017-08-10] MEDS: SODIUM CHLORIDE 0.9% 1,000 ML IV SCH ×2 (01:27→02:27)
[2017-08-10 02:10] LABS: Glucose,Whole Blood 178 mg/dL (75-99)
[2017-08-10] MEDS: HYDROcodone/APAP 10-325MG 1 EACH TAB PO PRN ×3 (02:19→16:14)
[2017-08-10 04:03] LABS: Glucose,Whole Blood 167 mg/dL (75-99)
[2017-08-10] MEDS: LEVOTHYROXINE 25 MCG TAB PO SCH (06:04)
[2017-08-10] MEDS: methylPREDNISolone SOD SUCCI 125 MG/2 ML VIAL IV SCH ×3 (06:04→18:23)
[2017-08-10] MEDS: PROMETHAZ-COD 6.25-10 MG/5 ML 5 ML CUP PO PRN ×3 (06:09→23:59)
[2017-08-10 06:10] LABS: Glucose,Whole Blood 163 mg/dL (75-99)
[2017-08-10 07:00] LABS: Glucose,Whole Blood 167 mg/dL (75-99)
[2017-08-10] MEDS ORDERED: INSULIN ASPART 100 UNIT/ML 1 ML 10 ML VIAL SQ SCH ×2 (07:30)
[2017-08-10] MEDS ORDERED: metFORMIN 500 MG TAB PO SCH (07:30)
[2017-08-10] MEDS: PANTOPRAZOLE 40 MG TABLET PO SCH (08:20)
[2017-08-10] MEDS: CHOLECALCIFEROL 1,000 UNIT TAB PO SCH (08:21)
[2017-08-10] MEDS: DOXYCYCLINE 50 MG CAP PO SCH (08:21)
[2017-08-10] MEDS: ENOXAPARIN 40 MG/0.4 ML SYRINGE SQ SCH (08:22)
[2017-08-10] MEDS: NICOTINE 21MG/24HR PATCH TRANSDERM SCH (08:22)
[2017-08-10] MEDS: LOSARTAN 25 MG TAB PO SCH (08:22)
[2017-08-10] MEDS: VERAPAMIL 40 MG TAB PO SCH ×2 (08:23→16:14)
[2017-08-10] MEDS: SPIRONOLACTONE 25 MG TAB PO SCH (08:23)
[2017-08-10] MEDS: IPRATROPIUM-ALBUTEROL 3 ML NEB INHALATION SCH ×4 (08:59→20:49)
[2017-08-10 09:01] LABS: Glucose,Whole Blood 252 mg/dL (75-99)
[2017-08-10] MEDS: INSULIN REGULAR 100 UNIT in SODIUM CHLORIDE 0.9% 100 ML IV SCH ×2 (09:25→16:17)
[2017-08-10 11:06] LABS: Glucose,Whole Blood 238 mg/dL (75-99)
[2017-08-10] MEDS ORDERED: IPRATROPIUM-ALBUTEROL 3 ML NEB INHALATION PRN (11:34)
--- NOTE | 2017-08-10 11:44 | P.HPIM ---
History of Present Illness H&P Date: 08/10/17 Chief Complaint: Cough and shortness of breath This is a 52-year-old female with a known history of lung cancer status post resection with radiation treatment, COPD, diabetes mellitus and hypertension. Patient is still smoking about 6 cigarettes a day. Patient presents to the emergency room with complaints of worsening shortness of breath and cough and congestion. Patient reports she had been to the ER recently. Weeks ago and was given prednisone for COPD exacerbation. Patient has not had improvement in symptoms. And came into the emergency room for further evaluation and treatment. She started on doxycycline and IV steroids for an acute bronchitis and COPD exacerbation. Pulmonary service consulted. Chest x-ray showing chronic right lower lung reticulonodular infiltrates. No new infiltrates seen. Patient denies any fever or chills or sweats. Denies any nausea or vomiting. Denies any bowel movement changes or urinary symptoms. Review of Systems Please refer to HPI otherwise unremarkable Past Medical History Past Medical History: Cancer, COPD, Diabetes Mellitus, GERD/Reflux, Hyperlipidemia, Hypertension, Pneumonia, Respiratory Disorder, Thyroid Disorder Additional Past Medical History / Comment(s): 2013 Rt lung CA completed-6 chemo TXs and 26 radiation tx, URINARY INCONT-WEARS A PULL UP, NEUROPATHY IN FEET. History of Any Multi-Drug Resistant Organisms: None Reported, Other MDRO Date of last positivie culture/infection: 2014 MDRO Source:: e-coli in urine Past Surgical History: Appendectomy, Cholecystectomy, Hysterectomy, Tonsillectomy, Tubal Ligation Additional Past Surgical History / Comment(s): R lung biopsy 09/2013, rt middle lobe lobectomy. Past Anesthesia/Blood Transfusion Reactions: Postoperative Nausea & Vomiting ( PONV) Past Psychological History: No Psychological Hx Reported Additional Psychological History / Comment(s): Lives with her daughter, thanh in a 2 story home but pt stays on 1st floor and there are 4 steps to get outside. has 1 pet cat.Pt is independant gets no out side services at this time. She has a nebulizer. 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 Smoking Status: Current some day smoker Past Alcohol Use History: None Reported Additional Past Alcohol Use History / Comment(s): started smoking at age 12, ( 1977) was smoking 1.5 ppd, QUIT 2013 and then Started back up. Past Drug Use History: None Reported - Past Family History Mother Sister(s) Family Medical History: Cancer Additional Family Medical History / Comment(s): from breast ca at age 65 Sister(s) Family Medical History: Cancer Additional Family Medical History / Comment(s): Sister of lung cancer at the age of 53yrs. Mother Family Medical History: Cancer Additional Family Medical History / Comment(s): breast cancer, at age 65 yrs Father Family Medical History: COPD Additional Family Medical History / Comment(s): had cabg, from a blood infection at age 64 Medications and Allergies Home Medications Medication Instructions Recorded Confirmed Type metFORMIN HCL 1,000 mg PO BID 10/13/13 08/09/17 History Cholecalciferol [Vitamin D3] 1,000 unit PO DAILY 10/20/13 08/09/17 History Simvastatin [Zocor] 10 mg PO HS 08/16/14 08/09/17 History Omeprazole [PriLOSEC] 20 mg PO AC-BID 08/18/14 08/09/17 History Ipratropium-Albuterol Nebulize 3 ml INHALATION RT-QID 30 Days 08/21/14 08/09/17 Rx [Duoneb 0.5 mg-3 mg/3 ml Soln] ampul.neb Montelukast [Singulair] 10 mg PO HS 01/29/15 08/09/17 History Insulin Glargine,Hum.rec.anlog 70 unit SQ HS 06/20/15 08/09/17 History [Lantus Solostar] Levothyroxine Sodium [Synthroid] 25 mcg PO DAILY 06/22/15 08/09/17 History Budesonide [Pulmicort] 0.5 mg INHALATION RT-BID 07/25/15 08/09/17 History Albuterol Inhaler [Ventolin Hfa 1 - 2 puff INHALATION RT-Q6H PRN 06/12/16 History Inhaler] Insulin Glulisine [Apidra] 18 unit SQ AC-TID 06/12/16 08/09/17 History Insulin Glulisine [Apidra] See Protocol SQ AC-TID 06/12/16 08/09/17 History Losartan [Cozaar] 25 mg PO DAILY #30 tab 06/15/16 08/09/17 Rx Verapamil [Isoptin] 40 mg PO TID #60 tab 09/13/16 08/09/17 Rx Multivitamin/Iron/Folic Acid 1 tab PO DAILY 11/11/16 08/09/17 History [Centrum Women Tablet] Spironolactone [Aldactone] 25 mg PO DAILY 11/11/16 08/09/17 History Magnesium Oxide [Mag-Ox] 400 mg PO DAILY #30 tab 02/08/17 08/09/17 Rx Promethazine HCl/Codeine 5 ml PO Q8H PRN 05/06/17 08/09/17 History [Prometh-Codein 6.25-10 mg/5 ml] HYDROcodone/APAP 10-325MG [[place] 1 tab PO Q6H PRN 07/25/17 08/09/17 History 10-325] Allergies Allergy/AdvReac Type Severity Reaction Status Date / Time ciprofloxacin HCl Allergy Severe Rash/Hives Verified 08/09/17 17:38 [From Cipro] latex Allergy Severe Rash/Hives Verified 08/09/17 17:38 cephalexin monohydrate Allergy Intermediate Rash/Hives Verified 08/09/17 17:38 [From Keflex] sulfamethoxazole Allergy Intermediate Rash/Hives Verified 08/09/17 17:38 [From Septra] trimethoprim [From Septra] Allergy Intermediate Rash/Hives Verified 08/09/17 17: 38 Physical Exam Vitals: Vital Signs Temp Pulse Pulse Resp BP BP Pulse Ox 08/10/17 09:11 88 08/10/17 08:59 80 08/10/17 08:07 98.4 F 97 20 118/76 97 08/10/17 01:00 97.4 F L 92 20 127/73 96 08/09/17 23:57 18 08/09/17 21:05 98.1 F 18 126/75 96 08/09/17 20:50 102 H 08/09/17 20:43 102 H 08/09/17 19:48 18 08/09/17 17:30 100 18 08/09/17 16:20 98.6 F 100 18 131/76 98 08/09/17 16:15 98.2 F 115 H 16 131/73 97 08/09/17 16:11 110 H 08/09/17 15:45 96 20 120/78 98 08/09/17 13:58 98.7 F 119 H 20 134/69 100 Intake and Output 08/09/17 08/10/17 08/10/17 22:59 06:59 14:59 Intake Total 210.5 Balance 210.5 Intake: Intake, IV Titration 10.5 Amount Insulin Regular 100 unit 10.5 In Sodium Chloride 0.9% 100 ml @ Titrate IV .Q0M [facility] Rx#:[id number] Oral 200 Other: Voiding Method Toilet Toilet # Voids 1 1 Weight 78.471 kg Head normocephalic Neck supple Lungs diminished bilaterally Heart regular rate and rhythm S1-S2, no rub or gallop Abdomen is soft nontender nondistended positive bowel sounds no hepatosplenomegaly Extremities no edema Neuro alert and orientated to 3 Results CBC & Chem 7: 08/09/17 14:40 08/09/17 14:40 Labs: Abnormal Lab Results - Last 24 Hours (Table) 08/09/17 08/09/17 08/09/17 Range/Units 14:40 14:40 14:40 D-Dimer 0.68 H (<0.60) mg/L FEU Glucose 194 H (74-99) mg/dL POC Glucose (mg/dL) (75-99) mg/dL Magnesium 1.4 L (1.6-2.3) mg/dL Total Protein 6.2 L (6.3-8.2) g/dL 08/09/17 08/09/17 08/10/17 Range/Units 20:58 23:13 00:05 D-Dimer (<0.60) mg/L FEU Glucose (74-99) mg/dL POC Glucose (mg/dL) 267 H 256 H 232 H (75-99) mg/dL Magnesium (1.6-2.3) mg/dL Total Protein (6.3-8.2) g/dL 08/10/17 08/10/17 08/10/17 Range/Units 02:08 04:00 06:02 D-Dimer (<0.60) mg/L FEU Glucose (74-99) mg/dL POC Glucose (mg/dL) 178 H 167 H 163 H (75-99) mg/dL Magnesium (1.6-2.3) mg/dL Total Protein (6.3-8.2) g/dL 08/10/17 08/10/17 08/10/17 Range/Units 06:58 08:48 08:58 D-Dimer (<0.60) mg/L FEU Glucose (74-99) mg/dL POC Glucose (mg/dL) 167 H 252 H (75-99) mg/dL Magnesium 1.2 L (1.6-2.3) mg/dL Total Protein (6.3-8.2) g/dL 08/10/17 Range/Units 11:04 D-Dimer (<0.60) mg/L FEU Glucose (74-99) mg/dL POC Glucose (mg/dL) 238 H (75-99) mg/dL Magnesium (1.6-2.3) mg/dL Total Protein (6.3-8.2) g/dL Thrombosis Risk Factor Assmnt - Choose All That Apply Any of the Below Risk Factors Present?: Yes Each Factor Represents 1 point: Abnormal pulmonary function (COPD), Age 41-60 years, Obesity (BMI >25) Other congenital or acquired thrombophilia - If yes, enter type in comment: No Thrombosis Risk Factor Assessment Total Risk Factor Score: 3 Thrombosis Risk Factor Assessment Level: Moderate Risk Assessment and Plan Assessment: 1. Acute COPD exacerbation: Failed outpatient treatment. Patient started on IV Solu-Medrol and bronchodilators. 2. Acute tracheobronchitis: Failed outpatient treatment. Pulmonary following place patient on doxycycline. Chest x-ray shows no new infiltrates 3. 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 Followed by pulmonary service 4. Lung cancer status post resection and radiation treatment 5. Hypomagnesemia patient receiving magnesium supplement. Repeat magnesium level in a.m. 6. Diabetes mellitus insulin-dependent: Elevated blood sugar secondary to steroids. Patient requiring insulin drip 7. Essential hypertension resume home medications 8. Nicotine dependence: Discussed smoking cessation. Add nicotine patch Patient has no medical insurance. network services project manager following. We'll await their further recommendations GI prophylaxis Protonix and DVT prophylaxis Lovenox Time with Patient: Greater than 30 (Greater than 50% of the total time spent in counseling and coordination of care.I performed an examination of the patient and discussed their management with the physician Straw Hat Brusher. I have reviewed the Physician Straw Hat Brusher's notes and agree with the documented findings and plan of care)
[2017-08-10] MEDS: MAGNESIUM SULFATE-D5W PMX 1 GM in DEXTROSE/WATER 1 100ML.BAG IVPB SCH ×2 (12:22→13:38)
[2017-08-10] MEDS: MULTIVITAMINS, THERA 1 EACH TAB PO SCH (12:22)
[2017-08-10] MEDS: MAGNESIUM OXIDE 400 MG TAB PO SCH (12:22)
[2017-08-10] MEDS: IBUPROFEN 400 MG TAB PO PRN (12:24)
[2017-08-10 13:09] LABS: Glucose,Whole Blood 173 mg/dL (75-99)
[2017-08-10] MEDS ORDERED: RX INFO: IV CONTRAST WAS GIVEN 1 EACH MISC MISCELLANE PRN (13:16)
[2017-08-10] MEDS: DOCUSATE 100 MG CAP PO SCH (13:43)
[2017-08-10] MEDS: guaiFENesin 600 MG TABLET.ER PO SCH (13:44)
[2017-08-10] MEDS: LORATADINE 10 MG TAB PO SCH (13:44)
--- NOTE | 2017-08-10 15:38 | CT ---
EXAMINATION TYPE: CT chest angio for PE DATE OF EXAM: 08/10/2017 COMPARISON: NONE HISTORY: Elevated d-dimer and difficulty breathing CT DLP: 517 mGycm Automated exposure control for dose reduction was used. CONTRAST: CT Chest for pulmonary embolism performed with with IV Contrast, patient injected with 100 mL of Omni paque 350. Three-dimensional reconstructions performed on an alternate workstation. FINDINGS: LUNGS: The lungs are remarkable for emphysematous changes, interstitial changes within the right lung , there are areas of interlobular septal thickening, groundglass opacity in the right lung with bronc hial wall thickening and honeycombing, there is no concerning parenchymal mass or nodule identified. There is no pleural effusion or pneumothorax seen. The tracheobronchial tree is patent. MEDIASTINUM: There is satisfactory enhancement of the pulmonary artery and its branches, there is no CT evidence for pulmonary embolism. There are no greater than 1 cm hilar or mediastinal lymph nodes. Surgical clips in the right hilum. Volume loss in the right hemithorax. There are coronary artery ca lcifications present. No pericardial effusion is seen. AORTA: 4 super aortic branch vessels are present. OTHER: The spleen is enlarged. IMPRESSION: No evident pulmonary embolus. Postop changes. Splenomegaly. Interstitial lung disease again noted. Co ronary artery disease.
--- NOTE | 2017-08-10 15:52 | US ---
EXAMINATION TYPE: US venous doppler duplex LE DATE OF EXAM: 08/10/2017 3:35 PM COMPARISON: NONE CLINICAL HISTORY: elevated d-dimer, rule out dvt. SOB, COPD, elevated d-dimer SIDE PERFORMED: Bilateral TECHNIQUE: The lower extremity deep venous system is examined utilizing real time linear array sonog ant with graded compression, doppler sonography and color-flow sonography. VESSELS IMAGED: External Iliac Vein (EIV) Common Femoral Vein Deep Femoral Vein Greater Saphenous Vein * Femoral Vein Popliteal Vein Small Saphenous Vein * Proximal Calf Veins (* superficial vessels) Right Leg: No evidence of DVT Left Leg: No evidence of DVT IMPRESSION: Grayscale, color doppler, spectral doppler imaging performed of the deep veins of the lo wer extremities. There is normal flow, compressibility, vascular waveforms. No evident deep venous thrombosis at or above the knees
[2017-08-10 16:13] LABS: Glucose,Whole Blood 257 mg/dL (75-99)
[2017-08-10 16:18] LABS: Hemoglobin A1C 6.6 % (4.0-6.0)
[2017-08-10 18:21] LABS: Glucose,Whole Blood 284 mg/dL (75-99)
--- NOTE | 2017-08-10 19:13 | P.PN ---
Subjective Progress Note Date: 08/10/17 Principal diagnosis: Acute COPD exacerbation, purulent tracheobronchitis, right midlung field pulmonary fibrosis and chronic scarring, lung cancer status post a resection and XRT with the residue of pulmonary fibrosis and middle right lung field, uncontrolled diabetes and hyperglycemia, electrolyte imbalance and hypokalemia and hypo-magnesium anemia, elevated d-dimer 08/10/2017, patient seen and evaluated examined continued to have a pleuritic right-sided chest pain severity is slightly better cough congestion is still there patient noted to have elevated d-dimer care plan discussed with the primary service given patient does have risk factors for DVT PE will check duplex ultrasound lower extremity as well as spiral CT scan of the chest, continue other supportive care and treatment for now 52-year-old female well-known to me him a patient presented to ER for evaluation regarding shortness of breath. Increasing shortness of breath cough and congestion. Patient does smoke is continue to smoke has history of COPD and lung cancer Patient was seen in urgent care and spoke with our office recently sent to emergency room. Patient seen in the emergency room but a week ago for similar complaint. She was outpatient treatment medically breathing treatments steroids, patient had no improvement. No fevers no travel history, she does have increased cough and congestion again. Significant shortness of breath with exertion Objective - Vital Signs Vital signs: Vital Signs Temp 98.4 F 08/10/17 15:58 Pulse 80 08/10/17 16:51 Resp 18 08/10/17 15:58 BP 112/73 08/10/17 15:58 Pulse Ox 94 L 08/10/17 15:58 Intake & Output 08/10/17 08/10/17 08/11/17 06:59 18:59 06:59 Intake Total 240.733 Balance 240.733 Intake: Intake, IV Titration 40.733 Amount Insulin Regular 100 unit 40.733 In Sodium Chloride 0.9% 100 ml @ Titrate IV .Q0M [facility] Rx#:[id number] Oral 200 Other: Voiding Method Toilet # Voids 1 2 - Exam General appearance: alert, in no apparent distress, anxious Head exam: Present: atraumatic, normocephalic, normal inspection Eye exam: Present: normal appearance, PERRL, EOMI. Absent: scleral icterus, conjunctival injection, periorbital swelling ENT exam: Present: normal exam, mucous membranes moist Neck exam: Present: normal inspection. Absent: tenderness, meningismus, lymphadenopathy Respiratory exam: Present: respiratory distress, wheezes, accessory muscle use, decreased breath sounds, prolonged expiratory. No rales, rhonchi, stridor noted Cardiovascular Exam: Present: normal rhythm, tachycardia, normal heart sounds. Absent: systolic murmur, diastolic murmur, rubs, gallop, clicks GI/Abdominal exam: Present: soft, normal bowel sounds. Absent: distended, tenderness, guarding, rebound, rigid Extremities exam: Present: normal inspection, full ROM, normal capillary refill. Absent: tenderness, pedal edema, joint swelling, calf tenderness Back exam: Present: normal inspection Neurological exam: Present: alert, oriented X3, CN II-XII intact Psychiatric exam: Present: normal affect, normal mood Skin exam: Present: warm, dry, intact, normal color. Absent: rash - Labs CBC & Chem 7: 08/09/17 14:40 08/09/17 14:40 Labs: Abnormal Lab Results - Last 24 Hours (Table) 08/09/17 08/09/17 08/09/17 Range/Units 14:40 20:58 23:13 POC Glucose (mg/dL) 267 H 256 H (75-99) mg/dL Hemoglobin A1c 6.6 H (4.0-6.0) % Magnesium (1.6-2.3) mg/dL 08/10/17 08/10/17 08/10/17 Range/Units 00:05 02:08 04:00 POC Glucose (mg/dL) 232 H 178 H 167 H (75-99) mg/dL Hemoglobin A1c (4.0-6.0) % Magnesium (1.6-2.3) mg/dL 08/10/17 08/10/17 08/10/17 Range/Units 06:02 06:58 08:48 POC Glucose (mg/dL) 163 H 167 H (75-99) mg/dL Hemoglobin A1c (4.0-6.0) % Magnesium 1.2 L (1.6-2.3) mg/dL 08/10/17 08/10/17 08/10/17 Range/Units 08:58 11:04 13:07 POC Glucose (mg/dL) 252 H 238 H 173 H (75-99) mg/dL Hemoglobin A1c (4.0-6.0) % Magnesium (1.6-2.3) mg/dL 08/10/17 08/10/17 Range/Units 16:12 18:14 POC Glucose (mg/dL) 257 H 284 H (75-99) mg/dL Hemoglobin A1c (4.0-6.0) % Magnesium (1.6-2.3) mg/dL Assessment and Plan Assessment: Elevated d-dimer Acute COPD exacerbation Purulent tracheobronchitis Failed outpatient therapy for exacerbation 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 and pulmonary fibrosis Lung cancer status post resection and XRT Uncontrolled diabetes and hyperglycemia Electrolyte imbalance with hypomagnesemia borderline hypokalemia Plan: Nebulizer therapy Continue doxycycline 100 mg by mouth twice a day Spiral CT scan of his chest with duplex ultrasound the lower extremity IV steroids Smoking cessation counseling and education DVT and peptic ulcer disease prophylaxis Continue home medications Monitor sugar and sliding scale insulin as per his steroid protocol Further recommendations pending plan of care as per clinical response of the patient Time with Patient: Greater than 30
[2017-08-10 20:18] LABS: Glucose,Whole Blood 215 mg/dL (75-99)
[2017-08-10 22:18] LABS: Glucose,Whole Blood 205 mg/dL (75-99)
[2017-08-11] MEDS: MONTELUKAST 10 MG TAB PO SCH (00:01)
[2017-08-11] MEDS: DOXYCYCLINE 50 MG CAP PO SCH ×2 (00:01→08:31)
[2017-08-11] MEDS: guaiFENesin 600 MG TABLET.ER PO SCH ×2 (00:01→08:31)
[2017-08-11] MEDS: VERAPAMIL 40 MG TAB PO SCH ×3 (00:01→16:20)
[2017-08-11] MEDS: methylPREDNISolone SOD SUCCI 125 MG/2 ML VIAL IV SCH ×3 (00:01→12:49)
[2017-08-11] MEDS: ATORVASTATIN 10 MG TAB PO SCH (00:02)
[2017-08-11 00:09] LABS: Glucose,Whole Blood 209 mg/dL (75-99)
[2017-08-11 02:03] LABS: Glucose,Whole Blood 284 mg/dL (75-99)
[2017-08-11 04:05] LABS: Glucose,Whole Blood 258 mg/dL (75-99)
[2017-08-11] MEDS: IBUPROFEN 400 MG TAB PO PRN (05:28)
[2017-08-11] MEDS: LEVOTHYROXINE 25 MCG TAB PO SCH (06:05)
[2017-08-11 06:09] LABS: Glucose,Whole Blood 150 mg/dL (75-99)
[2017-08-11 07:02] LABS: Basophils % (A) 0 %; Eosinophils % (A) 0 %; HCT 37.4 % (34.0-46.0); HGB 12.6 gm/dL (11.4-16.0); Lymphocytes # (A) 1.2 k/uL (1.0-4.8); Lymphocytes % (A) 11 %; MCH 29.3 pg (25.0-35.0); MCHC 33.8 g/dL (31.0-37.0); MCV 86.6 fL (80.0-100.0); Mean Platelet Volume 7.5; Monocytes # (A) 0.5 k/uL (0-1.0); Monocytes % (A) 4 %; Neutrophils % (A) 83 %; Platelet Count 192 k/uL (150-450); RBC 4.32 m/uL (3.80-5.40); RDW 14.1 % (11.5-15.5); WBC 10.8 k/uL (3.8-10.6)
[2017-08-11 07:13] LABS: ALT 23 U/L (9-52); AST 16 U/L (14-36); Albumin 3.5 g/dL (3.5-5.0); Alkaline Phosphatase 89 U/L (38-126); Anion Gap 9 mmol/L; Blood Urea Nitrogen 19 mg/dL (7-17); Calcium 9.4 mg/dL (8.4-10.2); Carbon Dioxide 25 mmol/L (22-30); Chloride 106 mmol/L (98-107); Glucose 119 mg/dL (74-99); Potassium 4.2 mmol/L (3.5-5.1); Sodium 140 mmol/L (137-145); Total Bilirubin 0.3 mg/dL (0.2-1.3); Total Protein 6.2 g/dL (6.3-8.2)
[2017-08-11] MEDS: PANTOPRAZOLE 40 MG TABLET PO SCH (08:12)
[2017-08-11 08:18] LABS: Glucose,Whole Blood 148 mg/dL (75-99)
[2017-08-11] MEDS: ENOXAPARIN 40 MG/0.4 ML SYRINGE SQ SCH (08:25)
[2017-08-11] MEDS: NICOTINE 21MG/24HR PATCH TRANSDERM SCH (08:26)
[2017-08-11] MEDS: HYDROcodone/APAP 10-325MG 1 EACH TAB PO PRN ×3 (08:27→14:18)
[2017-08-11] MEDS: PROMETHAZ-COD 6.25-10 MG/5 ML 5 ML CUP PO PRN (08:28)
[2017-08-11] MEDS: LOSARTAN 25 MG TAB PO SCH (08:30)
[2017-08-11] MEDS: CHOLECALCIFEROL 1,000 UNIT TAB PO SCH (08:31)
[2017-08-11] MEDS: LORATADINE 10 MG TAB PO SCH (08:31)
[2017-08-11] MEDS: DOCUSATE 100 MG CAP PO SCH ×2 (08:32)
[2017-08-11] MEDS: SPIRONOLACTONE 25 MG TAB PO SCH (08:33)
[2017-08-11] MEDS: IPRATROPIUM-ALBUTEROL 3 ML NEB INHALATION SCH ×2 (08:59→12:35)
[2017-08-11 10:06] LABS: Glucose,Whole Blood 273 mg/dL (75-99)
[2017-08-11] MEDS: INSULIN REGULAR 100 UNIT in SODIUM CHLORIDE 0.9% 100 ML IV SCH (12:40)
[2017-08-11 12:43] LABS: Glucose,Whole Blood 225 mg/dL (75-99)
[2017-08-11] MEDS: MULTIVITAMINS, THERA 1 EACH TAB PO SCH (12:49)
[2017-08-11] MEDS: MAGNESIUM OXIDE 400 MG TAB PO SCH (12:49)
[2017-08-11 14:34] LABS: Glucose,Whole Blood 297 mg/dL (75-99)
[2017-08-11 16:05] LABS: Glucose,Whole Blood 263 mg/dL (75-99)
[2017-08-11 16:12] VITALS: BP 145/81; PULSE 92; RESP 18; TEMP 97.6
--- NOTE | 2017-08-11 18:11 | P.DS ---
Providers Date of admission: 08/09/17 15:43 Expected date of discharge: 08/11/17 Attending physician: Valery Campos Consults: 08/09/17 15:43 Consult Physician Routine Consulting Provider: Al Cobb Consult Reason/Comments: known Do you want consulting provider notified?: Yes Primary care physician: Valery [facility] Course: Diagnoses on discharge: 1. Acute COPD exacerbation: Failed outpatient treatment. Patient started on IV Solu-Medrol and bronchodilators. 2. Acute tracheobronchitis: Failed outpatient treatment. Pulmonary following place patient on doxycycline. Chest x-ray shows no new infiltrates 3. 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 Followed by pulmonary service 4. Lung cancer status post resection and radiation treatment 5. Hypomagnesemia patient receiving magnesium supplement. Repeat magnesium level in a.m. 6. Diabetes mellitus insulin-dependent: Elevated blood sugar secondary to steroids. Patient requiring insulin drip 7. Essential hypertension resume home medications 8. Nicotine dependence: Discussed smoking cessation. Add nicotine patch Hospital course: This is a 52-year-old female with a known history of lung cancer status post resection with radiation treatment, COPD, diabetes mellitus and hypertension. Patient is still smoking about 6 cigarettes a day. Patient presents to the emergency room with complaints of worsening shortness of breath and cough and congestion. Patient reports she had been to the ER recently. Weeks ago and was given prednisone for COPD exacerbation. Patient has not had improvement in symptoms. And came into the emergency room for further evaluation and treatment. She started on doxycycline and IV steroids for an acute bronchitis and COPD exacerbation. Pulmonary service consulted. Chest x-ray showing chronic right lower lung reticulonodular infiltrates. No new infiltrates seen. Patient denies any fever or chills or sweats. Denies any nausea or vomiting. Denies any bowel movement changes or urinary symptoms. Patient was admitted to telemetry floor she was seen by Dr. Dawson registered nurse practitioner she was given IV antibiotic and IV steroids she improved she was discharged home on oral steroids she will be followed in our office within 1 week Patient Condition at Discharge: Fair Plan - Discharge Summary Discharge Rx Participant: Yes New Discharge Prescriptions: No Action metFORMIN HCL 1,000 mg PO BID Cholecalciferol [Vitamin D3] 1,000 unit PO DAILY Simvastatin [Zocor] 10 mg PO HS Omeprazole [PriLOSEC] 20 mg PO AC-BID Ipratropium-Albuterol Nebulize [Duoneb 0.5 mg-3 mg/3 ml Soln] 3 ml INHALATION RT-QID 30 Days ampul.neb Montelukast [Singulair] 10 mg PO HS Insulin Glargine,Hum.rec.anlog [Lantus Solostar] 70 unit SQ HS Levothyroxine Sodium [Synthroid] 25 mcg PO DAILY Budesonide [Pulmicort] 0.5 mg INHALATION RT-BID Albuterol Inhaler [Ventolin Hfa Inhaler] 1 - 2 puff INHALATION RT-Q6H PRN PRN Reason: Shortness Of Breath Insulin Glulisine [Apidra] See Protocol SQ AC-TID Insulin Glulisine [Apidra] 18 unit SQ AC-TID Losartan [Cozaar] 25 mg PO DAILY #30 tab Verapamil [Isoptin] 40 mg PO TID #60 tab Multivitamin/Iron/Folic Acid [Centrum Women Tablet] 1 tab PO DAILY Spironolactone [Aldactone] 25 mg PO DAILY Magnesium Oxide [Mag-Ox] 400 mg PO DAILY #30 tab Promethazine HCl/Codeine [Prometh-Codein 6.25-10 mg/5 ml] 5 ml PO Q8H PRN PRN Reason: cough/congestion HYDROcodone/APAP 10-325MG [[place] 10-325] 1 tab PO Q6H PRN PRN Reason: Pain Discharge Medication List metFORMIN HCL 1,000 mg PO BID 10/13/13 [History] Cholecalciferol [Vitamin D3] 1,000 unit PO DAILY 10/20/13 [History] Simvastatin [Zocor] 10 mg PO HS 08/16/14 [History] Omeprazole [PriLOSEC] 20 mg PO AC-BID 08/18/14 [History] Ipratropium-Albuterol Nebulize [Duoneb 0.5 mg-3 mg/3 ml Soln] 3 ml INHALATION RT -QID 30 Days ampul.neb 08/21/14 [Rx] Montelukast [Singulair] 10 mg PO HS 01/29/15 [History] Insulin Glargine,Hum.rec.anlog [Lantus Solostar] 70 unit SQ HS 06/20/15 [History ] Levothyroxine Sodium [Synthroid] 25 mcg PO DAILY 06/22/15 [History] Budesonide [Pulmicort] 0.5 mg INHALATION RT-BID 07/25/15 [History] Albuterol Inhaler [Ventolin Hfa Inhaler] 1 - 2 puff INHALATION RT-Q6H PRN [History] Insulin Glulisine [Apidra] 18 unit SQ AC-TID 06/12/16 [History] Insulin Glulisine [Apidra] See Protocol SQ AC-TID 06/12/16 [History] Losartan [Cozaar] 25 mg PO DAILY #30 tab 06/15/16 [Rx] Verapamil [Isoptin] 40 mg PO TID #60 tab 09/13/16 [Rx] Multivitamin/Iron/Folic Acid [Centrum Women Tablet] 1 tab PO DAILY 11/11/16 [ History] Spironolactone [Aldactone] 25 mg PO DAILY 11/11/16 [History] Magnesium Oxide [Mag-Ox] 400 mg PO DAILY #30 tab 02/08/17 [Rx] Promethazine HCl/Codeine [Prometh-Codein 6.25-10 mg/5 ml] 5 ml PO Q8H PRN [History] HYDROcodone/APAP 10-325MG [[place] 10-325] 1 tab PO Q6H PRN 07/25/17 [History] Follow up Appointment(s)/Referral(s): Valery Campos MD [Primary Care Provider] - 08/16/17 3:45 pm Patient Instructions/Handouts: COPD (Chronic Obstructive Pulmonary Disease) (DC ) Activity/Diet/Wound Care/Special Instructions: [facility] (free or reduced health care and/or medications) - [phone] Discharge Disposition: Left Against Medical Advice
--- NOTE | 2017-08-11 19:59 | P.PN ---
Subjective Progress Note Date: 08/11/17 Principal diagnosis: Acute COPD exacerbation, purulent tracheobronchitis, right midlung field pulmonary fibrosis and chronic scarring, lung cancer status post a resection and XRT with the residue of pulmonary fibrosis and middle right lung field, uncontrolled diabetes and hyperglycemia, electrolyte imbalance and hypokalemia and hypo-magnesium anemia, elevated d-dimer 08/11/2017, patient seen eval examined during the rounds patient underwent duplex ultrasound lower extremity as well as computed tomography scan of the chest results and report reviewed with the patient findings are significant for interstitial lung disease and volume loss in right hemithorax related to prior radiation therapy no PE noted, duplex ultrasound of lower extremities negative for DVT patient has been doing well from [facility] standpoint and expressed desire to go home 08/10/2017, patient seen and evaluated examined continued to have a pleuritic right-sided chest pain severity is slightly better cough congestion is still there patient noted to have elevated d-dimer care plan discussed with the primary service given patient does have risk factors for DVT PE will check duplex ultrasound lower extremity as well as spiral CT scan of the chest, continue other supportive care and treatment for now 52-year-old female well-known to me him a patient presented to ER for evaluation regarding shortness of breath. Increasing shortness of breath cough and congestion. Patient does smoke is continue to smoke has history of COPD and lung cancer Patient was seen in urgent care and spoke with our office recently sent to emergency room. Patient seen in the emergency room but a week ago for similar complaint. She was outpatient treatment medically breathing treatments steroids, patient had no improvement. No fevers no travel history, she does have increased cough and congestion again. Significant shortness of breath with exertion Objective - Vital Signs Vital signs: Vital Signs Temp 97.6 F 08/11/17 15:00 Pulse 92 08/11/17 15:00 Resp 18 08/11/17 15:00 BP 145/81 08/11/17 15:00 Pulse Ox 98 08/11/17 15:00 Intake & Output 08/11/17 08/11/17 08/12/17 06:59 18:59 06:59 Intake Total 786.351 27.500 Balance 786.351 27.500 Intake: Intake, IV Titration 66.351 27.500 Amount Insulin Regular 100 unit 66.351 27.500 In Sodium Chloride 0.9% 100 ml @ Titrate IV .Q0M SIMIN Rx#:[id number] Oral 720 Other: # Voids 1 - Exam General appearance: alert, in no apparent distress, anxious Head exam: Present: atraumatic, normocephalic, normal inspection Eye exam: Present: normal appearance, PERRL, EOMI. Absent: scleral icterus, conjunctival injection, periorbital swelling ENT exam: Present: normal exam, mucous membranes moist Neck exam: Present: normal inspection. Absent: tenderness, meningismus, lymphadenopathy Respiratory exam: Present: respiratory distress, wheezes, accessory muscle use, decreased breath sounds, prolonged expiratory. No rales, rhonchi, stridor noted Cardiovascular Exam: Present: normal rhythm, tachycardia, normal heart sounds. Absent: systolic murmur, diastolic murmur, rubs, gallop, clicks GI/Abdominal exam: Present: soft, normal bowel sounds. Absent: distended, tenderness, guarding, rebound, rigid Extremities exam: Present: normal inspection, full ROM, normal capillary refill. Absent: tenderness, pedal edema, joint swelling, calf tenderness Back exam: Present: normal inspection Neurological exam: Present: alert, oriented X3, CN II-XII intact Psychiatric exam: Present: normal affect, normal mood Skin exam: Present: warm, dry, intact, normal color. Absent: rash - Labs CBC & Chem 7: 08/11/17 06:41 08/11/17 06:41 Labs: Abnormal Lab Results - Last 24 Hours (Table) 08/10/17 08/10/17 08/11/17 Range/Units 20:07 22:15 00:07 WBC (3.8-10.6) k/uL Neutrophils # (1.3-7.7) k/uL BUN (7-17) mg/dL Glucose (74-99) mg/dL POC Glucose (mg/dL) 215 H 205 H 209 H (75-99) mg/dL Total Protein (6.3-8.2) g/dL 08/11/17 08/11/17 08/11/17 Range/Units 02:02 04:03 06:06 WBC (3.8-10.6) k/uL Neutrophils # (1.3-7.7) k/uL BUN (7-17) mg/dL Glucose (74-99) mg/dL POC Glucose (mg/dL) 284 H 258 H 150 H (75-99) mg/dL Total Protein (6.3-8.2) g/dL 08/11/17 08/11/17 08/11/17 Range/Units 06:41 06:41 08:08 WBC 10.8 H (3.8-10.6) k/uL Neutrophils # 9.0 H (1.3-7.7) k/uL BUN 19 H (7-17) mg/dL Glucose 119 H (74-99) mg/dL POC Glucose (mg/dL) 148 H (75-99) mg/dL Total Protein 6.2 L (6.3-8.2) g/dL 08/11/17 08/11/17 08/11/17 Range/Units 10:02 12:32 14:25 WBC (3.8-10.6) k/uL Neutrophils # (1.3-7.7) k/uL BUN (7-17) mg/dL Glucose (74-99) mg/dL POC Glucose (mg/dL) 273 H 225 H 297 H (75-99) mg/dL Total Protein (6.3-8.2) g/dL 08/11/17 Range/Units 16:01 WBC (3.8-10.6) k/uL Neutrophils # (1.3-7.7) k/uL BUN (7-17) mg/dL Glucose (74-99) mg/dL POC Glucose (mg/dL) 263 H (75-99) mg/dL Total Protein (6.3-8.2) g/dL Assessment and Plan Assessment: Pulmonary fibrosis related to prior to Ajuvent radiation therapy for lung cancer Elevated d-dimer I likely related chronic inflammatory process Acute COPD exacerbation Purulent tracheobronchitis Failed outpatient therapy for exacerbation 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 and pulmonary fibrosis Lung cancer status post resection and XRT Uncontrolled diabetes and hyperglycemia Electrolyte imbalance with hypomagnesemia borderline hypokalemia Plan: Nebulizer therapy Continue doxycycline 100 mg by mouth twice a day Spiral CT scan of his chest with duplex ultrasound the lower extremity reviewed IV steroids Smoking cessation counseling and education DVT and peptic ulcer disease prophylaxis Continue home medications Monitor sugar and sliding scale insulin as per his steroid protocol Further recommendations pending plan of care as per clinical response of the patient, can be discharged home with follow-up in outpatient setting Time with Patient: Greater than 30
== END 2017-08-11 16:15 | disposition left against medical advice (07) | DRG 192 ==
LOC: EC 13:52 → 6PED 15:43
PROVIDERS: ADMIT Internal Medicine; ATTEND Internal Medicine
DX: J44.0 Chronic obstructive pulmonary disease with (acute) lower respiratory infection (principal); E11.40 Type 2 diabetes mellitus with diabetic neuropathy, unspecified; J84.10 Pulmonary fibrosis, unspecified; E11.65 Type 2 diabetes mellitus with hyperglycemia; E83.42 Hypomagnesemia; J98.4 Other disorders of lung; J20.9 Acute bronchitis, unspecified; J44.1 Chronic obstructive pulmonary disease with (acute) exacerbation; I10 Essential (primary) hypertension; E78.5 Hyperlipidemia, unspecified; R79.1 Abnormal coagulation profile; F17.210 Nicotine dependence, cigarettes, uncomplicated; K21.9 Gastro-esophageal reflux disease without esophagitis; E07.9 Disorder of thyroid, unspecified; R09.02 Hypoxemia; R32 Unspecified urinary incontinence; T38.0X5A Adverse effect of glucocorticoids and synthetic analogues, initial encounter; Z92.3 Personal history of irradiation; Z85.118 Personal history of other malignant neoplasm of bronchus and lung; Z86.19 Personal history of other infectious and parasitic diseases; Z90.49 Acquired absence of other specified parts of digestive tract; Z90.710 Acquired absence of both cervix and uterus; Z82.5 Family history of asthma and other chronic lower respiratory diseases; Z80.1 Family history of malignant neoplasm of trachea, bronchus and lung; Z79.4 Long term (current) use of insulin; Z79.51 Long term (current) use of inhaled steroids; Z79.899 Other long term (current) drug therapy; Z88.2 Allergy status to sulfonamides; Z88.1 Allergy status to other antibiotic agents; Z91.040 Latex allergy status; Z87.01 Personal history of pneumonia (recurrent)
CPT/HCPCS: 36415; 71046; 71275; 80053; 82550; 82553; 83036; 83735; 83880; 84484; 85025; 85379; 85610; 85730; 93005; 93970; 94640; 96361; 96374; 99285

== ENCOUNTER → 2019-07-21 | Outpatient (CLI) | payer OTHER ==
--- NOTE | 2019-07-21 15:27 | XR ---
EXAMINATION TYPE: XR chest 2V DATE OF EXAM: 07/21/2019 COMPARISON: Prior chest x-ray dated 08/09/2017 HISTORY: Cough, COPD, history of lung carcinoma TECHNIQUE: Frontal and lateral views of the chest are obtained. FINDINGS: Prominent interstitium in the right lower lung, postop changes to the right hilum, volume loss in the right hemithorax all again noted. No evident pneumothorax or pleural effusion. There is t enting of the right hemidiaphragm. Surgical clips present in the right upper quadrant. IMPRESSION: No acute cardiopulmonary process. Interstitial lung disease.
== END | disposition home or self-care (01) ==
LOC: RADXRMAIN 15:07
PROVIDERS: ATTEND Family Medicine
DX: J84.9 Interstitial pulmonary disease, unspecified (principal); J44.9 Chronic obstructive pulmonary disease, unspecified
CPT/HCPCS: 71046

== ENCOUNTER → 2019-08-04 | Outpatient (CLI) | payer OTHER ==
[2019-08-04 16:03] LABS: African American GFR (CKD) >90 (>60 ml/min/1.73 sqM); Blood Urea Nitrogen 10 mg/dL (7-17); Non-African American GFR(CKD) 78 (>60 ml/min/1.73 sqM)
--- NOTE | 2019-08-06 22:15 | CT ---
EXAMINATION TYPE: CT chest w con DATE OF EXAM: 08/04/2019 COMPARISON: 02/05/2017 and 08/10/2017 HISTORY: 54-year-old female Cough x2 months. History of COPD and right middle lobe lung cancer TECHNIQUE: Contiguous axial scanning of the chest after the administration of 100ml mL of Isovue 300. Coronal/sagittal reconstructions performed. CT DLP: 401.5mGycm. Automatic exposure control utilized for a dose reduction. FINDINGS: Heart normal size without pericardial effusion. Slight volume loss within the right hemithorax secondary to prior right middle lobectomy. No thoracic lymphadenopathy. COPD with mild to moderate emphysema particularly on the right. Generalized reticular opacities throu ghout the right lung and some subtle scattered 4 mm and smaller nodularity on the right was seen back to 02/05/2017 though the overall reticular changes have increased from that time. Reticular changes ov erall similar to 08/10/2017. Some midlung nodularity along the superior aspect of the staple line measures 1 cm, slightly more pro nounced from prior exam, possible partial volume averaging artifact. 5 mm peripheral left lower lobe pulmonary nodule is unchanged suggesting a benign etiology. Some new mild patchy subpleural groundglass peripheral right midlung, axial image 35. No additional consolidation or pleural effusion. No thoracic lymphadenopathy by CT size criteria. There may be underlying fatty infiltration of the liver. Cholecystectomy clips. Spleen mildly enlarge d at 14.2 cm. Similar mild nodularity left adrenal gland. Bones: No osseous destructive process. IMPRESSION: 1. COPD with [id number] emphysema, particularly on the right. 2. Generalized reticular changes/fibrosis throughout the right lung, suspect posttreatment change. St atus post right middle lobectomy. 3. Right midlung 1 cm nodularity along the superior aspect of the staple line is slightly more pronou nced, possibly from partial volume averaging artifact. 3-6 month follow-up recommended to reassess. 4. Some new patchy groundglass peripheral right midlung could represent a small infectious/inflammato ry focus and can also be reassessed at follow-up. 5. Suspect underlying hepatic steatosis. Mild splenomegaly at 14.2 cm.
== END | disposition home or self-care (01) ==
LOC: RADCTMAIN 15:34
PROVIDERS: ATTEND Family Medicine
DX: J43.9 Emphysema, unspecified (principal); J84.10 Pulmonary fibrosis, unspecified; R91.1 Solitary pulmonary nodule; R16.1 Splenomegaly, not elsewhere classified; Z90.2 Acquired absence of lung [part of]
CPT/HCPCS: 82565; 84520; 71260; 36415; Q9967

== ENCOUNTER 2019-08-10 15:03 | Inpatient (IN) | payer OTHER ==
--- NOTE | 2019-08-10 18:30 | P.CNPUL ---
History of Present Illness Consult date: 08/10/19 Reason for consult: dyspnea, cough, COPD Chief complaint: Shortness of breath cough with congested feeling going on for one month History of present illness: This is a 54-year-old with extensive history of smoking and nicotine use, patient has a history of lung cancer status post XRT, she presented into the hospital with one month history of progressive increased shortness of breath and failed outpatient therapy, she feel congested inability to produce phlegm and sputum, patient has a prior history of bronchoscopy for pulmonary toilet due to mucus plugging was proceed with bronchoscopy not only therapeutic but also diagnostic procedure has been explained to the patient Review of Systems All systems: negative Past Medical History Past Medical History: Cancer, COPD, Diabetes Mellitus, GERD/Reflux, Hyperlipidemia, Hypertension, Pneumonia, Respiratory Disorder, Thyroid Disorder Additional Past Medical History / Comment(s): 2013 Rt lung CA completed-6 chemo TXs and 26 radiation tx, URINARY INCONT-WEARS A PULL UP, NEUROPATHY IN FEET. History of Any Multi-Drug Resistant Organisms: None Reported Date of last positivie culture/infection: 2014 MDRO Source:: e-coli in urine Past Surgical History: Appendectomy, Cholecystectomy, Hysterectomy, Tonsillectomy, Tubal Ligation Additional Past Surgical History / Comment(s): R lung biopsy 09/2013, rt middle lobe lobectomy. Past Anesthesia/Blood Transfusion Reactions: Postoperative Nausea & Vomiting (PONV) Past Psychological History: No Psychological Hx Reported Additional Psychological History / Comment(s): Patient lives with her [id number], her niece and her boyfriend in a 2 story home. Smoking Status: Current every day smoker Past Alcohol Use History: None Reported Past Drug Use History: None Reported - Past Family History Mother Sister(s) Family Medical History: Cancer Additional Family Medical History / Comment(s): from breast ca at age 65 Sister(s) Family Medical History: Cancer Additional Family Medical History / Comment(s): Sister of lung cancer at the age of 53yrs. Mother Family Medical History: Cancer Additional Family Medical History / Comment(s): breast cancer, at age 65 yrs Father Family Medical History: COPD Additional Family Medical History / Comment(s): had cabg, from a blood infection at age 64 Medications and Allergies Home Medications Medication Instructions Recorded Confirmed Type Omeprazole [PriLOSEC] 20 mg PO AC-BID 08/18/14 08/10/19 History Montelukast [Singulair] 10 mg PO HS 01/29/15 08/10/19 History Albuterol Inhaler [Ventolin Hfa 2 puff INHALATION RT-Q6H PRN 06/12/16 08/10/19 History Inhaler] Multivitamin/Iron/Folic Acid 1 tab PO DAILY 11/11/16 08/10/19 History [Centrum Women Tablet] Magnesium Oxide [Mag-Ox] 400 mg PO DAILY #30 tab 02/08/17 08/10/19 Rx Atorvastatin [Lipitor] 20 mg PO HS 08/10/19 08/10/19 History Budesonide [Pulmicort Flexhaler] 1 puff INHALATION RT-BID 08/10/19 08/10/19 History HYDROcodone/APAP 7.5-325MG [[place] 1 tab PO BID 08/10/19 08/10/19 History 7.5-325] Losartan [Cozaar] 50 mg PO DAILY 08/10/19 08/10/19 History glipiZIDE [Glucotrol] 5 mg PO AC-BRKFST 08/10/19 08/10/19 History metFORMIN HCL [Glucophage] 500 mg PO BID 08/10/19 08/10/19 History Allergies Allergy/AdvReac Type Severity Reaction Status Date / Time ciprofloxacin HCl Allergy Severe Rash/Hives Verified 08/10/19 18:15 [From Cipro] latex Allergy Severe Rash/Hives Verified 08/10/19 18:15 cephalexin monohydrate Allergy Intermediate Rash/Hives Verified 08/10/19 18:15 [From Keflex] sulfamethoxazole Allergy Intermediate Rash/Hives Verified 08/10/19 18:15 [From Septra] trimethoprim [From Septra] Allergy Intermediate Rash/Hives Verified 08/10/19 18:15 Physical Exam Vitals: Vital Signs Temp Pulse Resp BP Pulse Ox 08/10/19 16:00 90 16 08/10/19 15:22 99 F 90 16 134/82 97 Intake and Output 08/10/19 08/10/19 08/10/19 06:59 14:59 22:59 Intake Total 240 Balance 240 Intake: Oral 240 Other: Weight 90.265 kg - Constitutional General appearance: average body habitus, disheveled, mild distress - EENT Eyes: EOMI, PERRLA, normal appearance ENT: normal oropharynx Ears: bilateral: normal - Neck Neck: normal ROM Carotids: bilateral: upstroke normal Thyroid: bilateral: normal size - Respiratory Respiratory: bilateral: diminished, negative: CTA, dullness, rales, rhonchi, wheezing (Course pressed sounds with inspiratory expiratory) - Cardiovascular Rhythm: regular Heart sounds: normal: S1, S2 - Gastrointestinal General gastrointestinal: decreased bowel sounds, soft - Integumentary Integumentary: normal turgor - Neurologic Neurologic: CNII-XII intact - Musculoskeletal Musculoskeletal: gait normal, generalized weakness, strength equal bilaterally - Psychiatric Psychiatric: A&O x's 3, appropriate affect, intact judgment & insight Assessment and Plan Assessment: Tracheobronchitis purulent History of lung cancer Radiation pneumonitis Extensive history of smoking and nicotine use Morbid obesity Plan: Agree with plans for antibiotics breathing treatment and steroids, we will schedule patient for endoscopy tomorrow for pulmonary toilet and obtained secretions from the dependent part of the lungs, procedure explained to the patient
[2019-08-10] MEDS ORDERED: ALBUTEROL NEBULIZED 2.5 MG/3 ML INHALATION PRN (19:19)
[2019-08-10] MEDS ORDERED: IPRATROPIUM-ALBUTEROL 3 ML NEB INHALATION PRN (19:24)
[2019-08-10] MEDS: metFORMIN 500 MG TAB PO SCH (19:55)
[2019-08-10] MEDS: HYDROcodone/APAP 7.5-325MG 1 EACH TAB PO SCH (19:55)
[2019-08-10] MEDS: SODIUM CHLORIDE 0.9% 1,000 ML IV SCH (19:55)
[2019-08-10] MEDS: ATORVASTATIN 20 MG TAB PO SCH (19:55)
[2019-08-10] MEDS: MONTELUKAST 10 MG TAB PO SCH (19:55)
[2019-08-10] MEDS: FLUTICASONE 110 MCG INHALER INHALATION SCH (20:04)
[2019-08-10] MEDS: IPRATROPIUM-ALBUTEROL 3 ML NEB INHALATION SCH (20:04)
[2019-08-10 20:12] LABS: Glucose,Whole Blood 149 mg/dL (75-99)
[2019-08-10 20:47] LABS: Basophils % (A) 1 %; Eosinophils # (A) 0.1 k/uL (0-0.7); Eosinophils % (A) 2 %; HCT 41.7 % (34.0-46.0); HGB 13.8 gm/dL (11.4-16.0); Lymphocytes # (A) 1.9 k/uL (1.0-4.8); Lymphocytes % (A) 32 %; MCH 29.9 pg (25.0-35.0); MCHC 33.1 g/dL (31.0-37.0); MCV 90.5 fL (80.0-100.0); Mean Platelet Volume 8.2; Monocytes # (A) 0.2 k/uL (0-1.0); Monocytes % (A) 4 %; Neutrophils # (A) 3.4 k/uL (1.3-7.7); Neutrophils % (A) 58 %; Platelet Count 177 k/uL (150-450); RBC 4.61 m/uL (3.80-5.40); RDW 13.3 % (11.5-15.5); WBC 5.8 k/uL (3.8-10.6)
[2019-08-10 21:02] LABS: ALT 22 U/L (4-34); AST 26 U/L (14-36); African American GFR (CKD) >90 (>60 ml/min/1.73 sqM); Alkaline Phosphatase 82 U/L (38-126); Anion Gap 8 mmol/L; Blood Urea Nitrogen 12 mg/dL (7-17); Calcium 9.5 mg/dL (8.4-10.2); Carbon Dioxide 29 mmol/L (22-30); Chloride 103 mmol/L (98-107); Glucose 149 mg/dL (74-99); Non-African American GFR(CKD) >90 (>60 ml/min/1.73 sqM); Potassium 3.8 mmol/L (3.5-5.1); Sodium 140 mmol/L (137-145); Total Bilirubin 0.3 mg/dL (0.2-1.3); Total Protein 6.7 g/dL (6.3-8.2)
[2019-08-10] MEDS: NICOTINE 21MG/24HR PATCH TRANSDERM SCH (21:29)
[2019-08-10] MEDS: INSULIN ASPART (NovoLOG) 100 UNIT/ML VIAL SQ SCH (21:29)
[2019-08-10] MEDS: CLINDAMYCIN 150 MG CAP PO SCH (21:29)
[2019-08-11] MEDS: methylPREDNISolone SOD SUCCI 125 MG/2 ML VIAL IV SCH ×4 (00:09→23:31)
[2019-08-11 04:28] LABS: Hemoglobin A1C 8.1 % (4.0-6.0)
[2019-08-11 07:14] LABS: Glucose,Whole Blood 288 mg/dL (75-99)
[2019-08-11] MEDS: IPRATROPIUM-ALBUTEROL 3 ML NEB INHALATION SCH ×4 (07:16→19:06)
[2019-08-11] MEDS: FLUTICASONE 110 MCG INHALER INHALATION SCH ×2 (07:16→19:07)
--- NOTE | 2019-08-11 08:00 | HP ---
HISTORY AND PHYSICAL This is a white female who had CAT scan showed right middle lobe basilar pneumonia and bad COPD. She failed outpatient treatment with antibiotics, updraft treatments, and steroids. She , shortness of breath, coughing, wheezing, worsening over the past month, inability to breathe at home. She was admitted to the hospital. She has prior history of bronchoscopy for pulmonary toilet due to mucus plugging and patient is requesting another one of these. She is started on IV Cleocin and Levaquin. She is admitted. Pulmonary consult. PAST MEDICAL HISTORY: Lung cancer, COPD, diabetes mellitus, GERD, dyslipidemia, hypertension, pneumonia, hypothyroidism, right lung cancer, completed chemo 6 treatments, 26 radiation treatments, urinary incontinence, neuropathy in her feet possibly due to radiation. SURGERIES: Appendectomy, cholecystectomy, hysterectomy, tonsillectomy, tubal ligation, right lung biopsy, 09/18, right middle lobe lobectomy. SOCIAL HISTORY: Lives with [id number], her niece and her boyfriend in a two-story home. Current everyday smoker. Alcohol and drugs are negative. FAMILY HISTORY: Mother cancer of the breast. Sister lung cancer. Breast cancer in her mother and father from CABG and heart disease. MEDICATIONS: Medications include: 1. Prilosec 20 mg b.i.d. 2. Singulair 10 mg daily. 3. Ventolin HFA 2 puffs q.4 hours p.r.n. 4. Mag oxide 400 mg daily. 5. Lipitor 20 daily. 6. Pulmicort 1 puff b.i.d. 7. [place] 7.5 b.i.d. 8. Cozaar 50 daily. 9. Glucotrol 5 mg a.c. breakfast. 10.Glucophage 500 b.i.d. ALLERGIES: CIPRO, KEFLEX, SEPTRA. PHYSICAL EXAMINATION: VITAL SIGNS: O2 of 95% to 96% on room air. Heart rate is 105, respiratory 16 to 20 to 25, temp 99. CARDIOVASCULAR: S1, S2, some tachycardia. LUNGS: Show scattered wheeze and rhonchi x4. HEMATOLOGY: Negative Homans. PSYCH: Appears to be in a little bit of distress respiratory napoles when breathing. GI: Distended, obesity. ASSESSMENT: 1. Purulent tracheobronchitis. 2. Radiation pneumonitis. 3. Abnormal CAT scan showing right middle lobe pneumonia with severe chronic obstructive pulmonary disease. 4. History of lung cancer. 5. Nicotine addiction. 6. Morbid obesity. 7. Diabetes mellitus. 8. Hypertension. Continue with IV antibiotics. IV steroids. Bronchoscopy is going to be done tomorrow. Please see further orders. MMODL / IJN: [id number] /
[2019-08-11] MEDS: NICOTINE 21MG/24HR PATCH TRANSDERM SCH (08:12)
[2019-08-11] MEDS: MAGNESIUM OXIDE 400 MG TAB PO SCH (08:13)
[2019-08-11] MEDS: MULTIVITAMINS, THERA 1 EACH TAB PO SCH (08:13)
[2019-08-11] MEDS: PANTOPRAZOLE 40 MG TABLET PO SCH ×2 (08:13→17:03)
[2019-08-11] MEDS: metFORMIN 500 MG TAB PO SCH ×2 (08:13→17:03)
[2019-08-11] MEDS: LOSARTAN 50 MG TAB PO SCH (08:14)
[2019-08-11] MEDS: glipiZIDE 5 MG TAB PO SCH (08:20)
[2019-08-11] MEDS: HYDROcodone/APAP 7.5-325MG 1 EACH TAB PO SCH ×2 (08:20→20:36)
[2019-08-11] MEDS: CLINDAMYCIN 150 MG CAP PO SCH ×3 (08:22→20:35)
[2019-08-11] MEDS: INSULIN ASPART (NovoLOG) 100 UNIT/ML VIAL SQ SCH ×4 (08:22→20:36)
[2019-08-11] MEDS ORDERED: MIDAZOLAM 2 MG/2 ML VIAL ONE (08:55)
[2019-08-11] MEDS ORDERED: LIDOCAINE 1% INJ 10MG/ML (20 ML MDV) ONE (08:55)
[2019-08-11] MEDS ORDERED: KETAMINE 10 MG/ML 20 ML VIAL ONE (08:55)
[2019-08-11] MEDS ORDERED: PROPOFOL 10 MG/ML 20 ML VIAL IV ONE (08:55)
[2019-08-11] MEDS ORDERED: fentaNYL (PF) 50 MCG/ML 2 ML AMP ONE (08:55)
[2019-08-11] MEDS ORDERED: IV FLUID CONTINUATION 1,000 ML IV ONE ×2 (09:02)
[2019-08-11] MEDS ORDERED: LIDOCAINE 2% INJ 20 MG/ML INTRATRACH ONE (09:17)
[2019-08-11] MEDS: SODIUM CHLORIDE 0.9% 1,000 ML IV SCH ×2 (10:31→20:41)
[2019-08-11 11:12] LABS: Glucose,Whole Blood 231 mg/dL (75-99)
--- NOTE | 2019-08-11 14:51 | P.PN ---
Subjective Progress Note Date: 08/11/19 Principal diagnosis: Tracheobronchitis purulent History of lung cancer Radiation pneumonitis Extensive history of smoking and nicotine use Morbid obesity 08/11/2019, patient seen eval examined breathing remains stable but short of breath denies any chest pain still of ongoing cough and poor sputum production feel congested in the chest, patient has a prior history of mucoid impacted patient into the lung will proceed with diagnostic and therapeutic bronchoscopy This is a 54-year-old with extensive history of smoking and nicotine use, patient has a history of lung cancer status post XRT, she presented into the hospital with one month history of progressive increased shortness of breath and failed outpatient therapy, she feel congested inability to produce phlegm and sputum, patient has a prior history of bronchoscopy for pulmonary toilet due to mucus plugging was proceed with bronchoscopy not only therapeutic but also diagnostic procedure has been explained to the patient Objective - Vital Signs Vital signs: Vital Signs Temp 98.4 F 08/11/19 11:08 Pulse 111 H 08/11/19 11:08 Resp 18 08/11/19 11:08 BP 134/85 08/11/19 11:08 Pulse Ox 95 08/11/19 11:08 Intake & Output 08/10/19 08/11/19 08/11/19 18:59 06:59 18:59 Intake Total 240 1565 1000 Balance 240 1565 1000 Weight 90.265 kg Intake: IV 350 Intake, IV Titration 965 650 Amount Sodium Chloride 0.9% 1, 965 650 000 ml @ 75 mls/hr IV . [id number] COUNT INCLUDES THE [facility] Rx#:[id number] Oral 240 600 Other: Voiding Method Toilet # Voids 2 - Exam - Constitutional General appearance: average body habitus, disheveled, mild distress - EENT Eyes: EOMI, PERRLA, normal appearance ENT: normal oropharynx Ears: bilateral: normal - Neck Neck: normal ROM Carotids: bilateral: upstroke normal Thyroid: bilateral: normal size - Respiratory Respiratory: bilateral: diminished, negative: CTA, dullness, rales, rhonchi, wheezing (Course pressed sounds with inspiratory expiratory) - Cardiovascular Rhythm: regular Heart sounds: normal: S1, S2 - Gastrointestinal General gastrointestinal: decreased bowel sounds, soft - Integumentary Integumentary: normal turgor - Neurologic Neurologic: CNII-XII intact - Musculoskeletal Musculoskeletal: gait normal, generalized weakness, strength equal bilaterally - Psychiatric Psychiatric: A&O x's 3, appropriate affect, intact judgment & insight - Labs CBC & Chem 7: 08/10/19 20:08 08/10/19 20:08 Labs: Abnormal Lab Results - Last 24 Hours (Table) 08/10/19 08/10/19 08/10/19 Range/Units 20:08 20:08 20:10 Glucose 149 H (74-99) mg/dL POC Glucose (mg/dL) 149 H (75-99) mg/dL Hemoglobin A1c 8.1 H (4.0-6.0) % 08/11/19 08/11/19 Range/Units 07:01 11:10 Glucose (74-99) mg/dL POC Glucose (mg/dL) 288 H 231 H (75-99) mg/dL Hemoglobin A1c (4.0-6.0) % Assessment and Plan Assessment: Tracheobronchitis purulent History of lung cancer Radiation pneumonitis Extensive history of smoking and nicotine use Morbid obesity Plan: Agree with plans for antibiotics breathing treatment and steroids, we will proceed with bronchoscopy later on today for pulmonary toilet and obtained secretions from the dependent part of the lungs, procedure explained to the patient Time with Patient: Greater than 30
--- NOTE | 2019-08-11 14:56 | P.PCN ---
Date of Procedure: 08/11/19 Preoperative Diagnosis: Pneumonia, Purulent tracheobronchitis, acute COPD exacerbation, likely mucoid impacted patient of pulmonary secretions, radiation pneumonitis, history of lung cancer Postoperative Diagnosis: As above Anesthesia: MAC Surgeon: Al Cobb Condition: stable Disposition: floor Indications for Procedure: As above Operative Findings: As below Description of Procedure: Patient prepared and draped in a usual fashion anesthesia given by nurse manager of housekeeping please refer to the flowsheet, fiberoptic bronchoscope was passed from the right nares the vocal cords were normal structure and function tip of the scope was has beyond the vocal cords into trachea diffuse right heme and edema present bilaterally along with extensive pearly kincaid thick mucous plugs which was suctioned and cleaned BAL was performed from the right lower lobe right upper lobe and left lower lobe, patient tolerated the procedure well no complication noted
[2019-08-11 15:34] LABS: Appearance,BF Hazy; Color,BF Colorless; Nucleated Cells, Body Fluid 250 /uL; RBC, Body Fluid 20 /uL
[2019-08-11 15:41] LABS: Mononuclear WBC,Body Fluid 26 %; Polynuclear WBC,Body Fluid 74 %; Total Cells Counted,Body Fluid 100
[2019-08-11 17:05] LABS: Glucose,Whole Blood 229 mg/dL (75-99)
[2019-08-11 20:10] LABS: Glucose,Whole Blood 210 mg/dL (75-99)
[2019-08-11] MEDS: MONTELUKAST 10 MG TAB PO SCH (20:35)
[2019-08-11] MEDS: ATORVASTATIN 20 MG TAB PO SCH (20:35)
[2019-08-12 07:11] LABS: Glucose,Whole Blood 302 mg/dL (75-99)
[2019-08-12] MEDS: INSULIN ASPART (NovoLOG) 100 UNIT/ML VIAL SQ SCH ×4 (07:45→20:38)
[2019-08-12] MEDS: PANTOPRAZOLE 40 MG TABLET PO SCH ×2 (07:47→17:41)
[2019-08-12] MEDS: HYDROcodone/APAP 7.5-325MG 1 EACH TAB PO SCH ×2 (07:47→20:36)
[2019-08-12] MEDS: MAGNESIUM OXIDE 400 MG TAB PO SCH (07:47)
[2019-08-12] MEDS: LOSARTAN 50 MG TAB PO SCH (07:48)
[2019-08-12] MEDS: methylPREDNISolone SOD SUCCI 125 MG/2 ML VIAL IV SCH ×3 (07:48→22:49)
[2019-08-12] MEDS: MULTIVITAMINS, THERA 1 EACH TAB PO SCH (07:48)
[2019-08-12] MEDS: metFORMIN 500 MG TAB PO SCH ×2 (07:48→17:41)
[2019-08-12] MEDS: NICOTINE 21MG/24HR PATCH TRANSDERM SCH (07:49)
[2019-08-12] MEDS: glipiZIDE 5 MG TAB PO SCH (07:52)
[2019-08-12] MEDS: CLINDAMYCIN 150 MG CAP PO SCH ×3 (07:52→22:47)
[2019-08-12] MEDS: FLUTICASONE 110 MCG INHALER INHALATION SCH ×2 (09:14→21:49)
[2019-08-12] MEDS: IPRATROPIUM-ALBUTEROL 3 ML NEB INHALATION SCH ×4 (09:14→21:49)
[2019-08-12 12:18] LABS: Glucose,Whole Blood 190 mg/dL (75-99)
--- NOTE | 2019-08-12 13:01 | P.PN ---
Subjective Progress Note Date: 08/12/19 Principal diagnosis: Tracheobronchitis purulent History of lung cancer Radiation pneumonitis Extensive history of smoking and nicotine use Morbid obesity 08/12/2019, patient seen eval examined during the rounds labs reviewed medications reviewed, cytology in bronchial washing pending and no positive cultures have been unsteady identified in bronchial washing 08/11/2019, patient seen eval examined breathing remains stable but short of breath denies any chest pain still of ongoing cough and poor sputum production feel congested in the chest, patient has a prior history of mucoid impacted patient into the lung will proceed with diagnostic and therapeutic bronchoscopy This is a 54-year-old with extensive history of smoking and nicotine use, patient has a history of lung cancer status post XRT, she presented into the hospital with one month history of progressive increased shortness of breath and failed outpatient therapy, she feel congested inability to produce phlegm and sputum, patient has a prior history of bronchoscopy for pulmonary toilet due to mucus plugging was proceed with bronchoscopy not only therapeutic but also diagnostic procedure has been explained to the patient Objective - Vital Signs Vital signs: Vital Signs Temp 98 F 08/12/19 12:55 Pulse 103 H 08/12/19 12:55 Resp 17 08/12/19 12:55 BP 124/79 08/12/19 12:55 Pulse Ox 96 08/12/19 12:55 Intake & Output 08/11/19 08/12/19 08/12/19 18:59 06:59 18:59 Intake Total 1000 925 Balance 1000 925 Intake: IV 350 Intake, IV Titration 650 925 Amount Sodium Chloride 0.9% 1, 650 925 000 ml @ 75 mls/hr IV . [id number] [facility] Rx#:[id number] Other: Voiding Method Toilet # Bowel Movements 1 - Exam - Constitutional General appearance: average body habitus, disheveled, mild distress - EENT Eyes: EOMI, PERRLA, normal appearance ENT: normal oropharynx Ears: bilateral: normal - Neck Neck: normal ROM Carotids: bilateral: upstroke normal Thyroid: bilateral: normal size - Respiratory Respiratory: bilateral: diminished, negative: CTA, dullness, rales, rhonchi, wheezing (Course pressed sounds with inspiratory expiratory) - Cardiovascular Rhythm: regular Heart sounds: normal: S1, S2 - Gastrointestinal General gastrointestinal: decreased bowel sounds, soft - Integumentary Integumentary: normal turgor - Neurologic Neurologic: CNII-XII intact - Musculoskeletal Musculoskeletal: gait normal, generalized weakness, strength equal bilaterally - Psychiatric Psychiatric: A&O x's 3, appropriate affect, intact judgment & insight - Labs CBC & Chem 7: 08/10/19 20:08 08/10/19 20:08 Labs: Abnormal Lab Results - Last 24 Hours (Table) 08/11/19 08/11/19 08/12/19 Range/Units 17:03 20:09 07:04 POC Glucose (mg/dL) 229 H 210 H 302 H (75-99) mg/dL 08/12/19 Range/Units 11:57 POC Glucose (mg/dL) 190 H (75-99) mg/dL Microbiology - Last 24 Hours (Table) 08/11/19 09:14 Acid Fast Bacilli Smear - Final Bronchial Washings - Right Acid Fast Bacilli Culture - Preliminary 08/11/19 09:14 Gram Stain - Preliminary Bronchial Washings - Right Bronchial Washings Culture - Preliminary 08/11/19 09:14 Fungal Culture - Preliminary Bronchial Washings - Right Assessment and Plan Assessment: Tracheobronchitis purulent History of lung cancer Radiation pneumonitis Extensive history of smoking and nicotine use Morbid obesity Plan: Agree with plans for antibiotics breathing treatment and steroids, reviewed results of bronchoscopy with the patient Time with Patient: Greater than 30
[2019-08-12] MEDS: SODIUM CHLORIDE 0.9% 1,000 ML IV SCH (13:14)
[2019-08-12 17:19] LABS: Glucose,Whole Blood 294 mg/dL (75-99)
[2019-08-12 20:06] LABS: Glucose,Whole Blood 240 mg/dL (75-99)
[2019-08-12] MEDS: ATORVASTATIN 20 MG TAB PO SCH (20:38)
[2019-08-12] MEDS: MONTELUKAST 10 MG TAB PO SCH (20:38)
--- NOTE | 2019-08-12 20:48 | PN ---
PROGRESS NOTE 54-year-old white female admitted with bilateral pneumonia, COPD exacerbation. She feels much better with her breathing treatments which she will need. I gave her a script for a nebulizer today. Remains on IV Cleocin, IV Solu-Medrol, IV Protonix. Possible discharge home. She had a scope that showed no residual signs of any cancer on bronchoscopy. She is exposed to a large amount of smoking at home. Cardiovascular S1-S2. Lungs show scattered rhonchi and wheeze. Hematology: Negative Homans. Psych: Fair mood and affect. PLAN: Continue with IV steroids, IV antibiotics. Possible discharge home tomorrow with nebulizer. She is improving. Again, smoking cessation explained to her. MMODL / IJN: [id number] /
[2019-08-13 04:43] VITALS: BP 123/79; RESP 20; TEMP 97.8
[2019-08-13 06:48] LABS: Glucose,Whole Blood 252 mg/dL (75-99)
[2019-08-13] MEDS: IPRATROPIUM-ALBUTEROL 3 ML NEB INHALATION SCH ×2 (07:03→10:40)
[2019-08-13] MEDS: FLUTICASONE 110 MCG INHALER INHALATION SCH (07:03)
[2019-08-13] MEDS ORDERED: predniSONE 20 MG TAB PO SCH (09:00)
[2019-08-13] MEDS: MAGNESIUM OXIDE 400 MG TAB PO SCH (09:43)
[2019-08-13] MEDS: MULTIVITAMINS, THERA 1 EACH TAB PO SCH (09:43)
[2019-08-13] MEDS: INSULIN ASPART (NovoLOG) 100 UNIT/ML VIAL SQ SCH ×2 (09:44→12:37)
[2019-08-13] MEDS: PANTOPRAZOLE 40 MG TABLET PO SCH (09:44)
[2019-08-13] MEDS: NICOTINE 21MG/24HR PATCH TRANSDERM SCH (09:44)
[2019-08-13] MEDS: HYDROcodone/APAP 7.5-325MG 1 EACH TAB PO SCH (09:44)
[2019-08-13] MEDS: LOSARTAN 50 MG TAB PO SCH (09:44)
[2019-08-13] MEDS: CLINDAMYCIN 150 MG CAP PO SCH (09:45)
[2019-08-13] MEDS: glipiZIDE 5 MG TAB PO SCH (09:45)
[2019-08-13] MEDS: metFORMIN 500 MG TAB PO SCH (09:49)
--- NOTE | 2019-08-13 10:23 | P.PN ---
Subjective Progress Note Date: 08/13/19 Principal diagnosis: Tracheobronchitis purulent History of lung cancer Radiation pneumonitis Extensive history of smoking and nicotine use Morbid obesity 08/13/2019, patient has been doing well IVs off steroids have been switched to oral, agree with discharge planning and follow-up in office in 2-4 weeks, bronchial washing and cultures remains negative so far, with cytology pending 08/12/2019, patient seen eval examined during the rounds labs reviewed medications reviewed, cytology in bronchial washing pending and no positive cultures have been unsteady identified in bronchial washing 08/11/2019, patient seen eval examined breathing remains stable but short of breath denies any chest pain still of ongoing cough and poor sputum production feel congested in the chest, patient has a prior history of mucoid impacted patient into the lung will proceed with diagnostic and therapeutic bronchoscopy This is a 54-year-old with extensive history of smoking and nicotine use, patient has a history of lung cancer status post XRT, she presented into the hospital with one month history of progressive increased shortness of breath and failed outpatient therapy, she feel congested inability to produce phlegm and sputum, patient has a prior history of bronchoscopy for pulmonary toilet due to mucus plugging was proceed with bronchoscopy not only therapeutic but also diag nostic procedure has been explained to the patient Objective - Vital Signs Vital signs: Vital Signs Temp 97.8 F 08/13/19 04:42 Pulse 80 08/13/19 07:16 Resp 20 08/13/19 04:42 BP 123/79 08/13/19 04:42 Pulse Ox 97 08/13/19 04:42 Intake & Output 08/12/19 08/13/19 08/13/19 17:59 06:59 18:59 Intake Total Balance Intake: Oral Other: Voiding Method # Voids - Exam - Constitutional General appearance: average body habitus, disheveled, mild distress - EENT Eyes: EOMI, PERRLA, normal appearance ENT: normal oropharynx Ears: bilateral: normal - Neck Neck: normal ROM Carotids: bilateral: upstroke normal Thyroid: bilateral: normal size - Respiratory Respiratory: bilateral: diminished, negative: CTA, dullness, rales, rhonchi, wheezing (Course pressed sounds with inspiratory expiratory) - Cardiovascular Rhythm: regular Heart sounds: normal: S1, S2 - Gastrointestinal General gastrointestinal: decreased bowel sounds, soft - Integumentary Integumentary: normal turgor - Neurologic Neurologic: CNII-XII intact - Musculoskeletal Musculoskeletal: gait normal, generalized weakness, strength equal bilaterally - Psychiatric Psychiatric: A&O x's 3, appropriate affect, intact judgment & insight - Labs CBC & Chem 7: 08/10/19 20:08 08/10/19 20:08 Labs: Abnormal Lab Results - Last 24 Hours (Table) 08/12/19 08/12/19 08/12/19 Range/Units 11:57 17:09 20:05 POC Glucose (mg/dL) 190 H 294 H 240 H (75-99) mg/dL 08/13/19 Range/Units 06:47 POC Glucose (mg/dL) 252 H (75-99) mg/dL Assessment and Plan Assessment: Tracheobronchitis purulent History of lung cancer Radiation pneumonitis Extensive history of smoking and nicotine use Morbid obesity Plan: Agree with plans for antibiotics breathing treatment and steroids, reviewed results of bronchoscopy with the patient, can be discharged from pulmonary standpoint follow-up in 2-4 weeks Time with Patient: Greater than 30
[2019-08-13 11:03] VITALS: PULSE 95
[2019-08-13 12:09] LABS: Glucose,Whole Blood 126 mg/dL (75-99)
[2019-08-13] MEDS: SODIUM CHLORIDE 0.9% 1,000 ML IV SCH (12:37)
[2019-08-13] MEDS: methylPREDNISolone SOD SUCCI 125 MG/2 ML VIAL IV SCH (12:41)
== END 2019-08-13 13:35 | disposition home or self-care (01) | DRG 206 ==
LOC: 5NMEDONC 15:13
PROVIDERS: ADMIT Family Medicine; ATTEND Family Medicine
PROC: 0B9C8ZX Drainage of Right Upper Lung Lobe, Via Natural or Artificial Opening Endoscopic, Diagnostic (ICD-10-PCS; principal; 2019-08-11 09:55)
PROC: 0B9F8ZX Drainage of Right Lower Lung Lobe, Via Natural or Artificial Opening Endoscopic, Diagnostic (ICD-10-PCS; principal; 2019-08-11 09:55)
PROC: 0B9J8ZX Drainage of Left Lower Lung Lobe, Via Natural or Artificial Opening Endoscopic, Diagnostic (ICD-10-PCS; principal; 2019-08-11 09:55)
DX: J70.0 Acute pulmonary manifestations due to radiation (principal); T17.890A Other foreign object in other parts of respiratory tract causing asphyxiation, initial encounter; J44.0 Chronic obstructive pulmonary disease with (acute) lower respiratory infection; J44.1 Chronic obstructive pulmonary disease with (acute) exacerbation; C34.2 Malignant neoplasm of middle lobe, bronchus or lung; E11.40 Type 2 diabetes mellitus with diabetic neuropathy, unspecified; G62.9 Polyneuropathy, unspecified; J20.9 Acute bronchitis, unspecified; I10 Essential (primary) hypertension; K21.9 Gastro-esophageal reflux disease without esophagitis; E78.5 Hyperlipidemia, unspecified; E03.9 Hypothyroidism, unspecified; R32 Unspecified urinary incontinence; E66.01 Morbid (severe) obesity due to excess calories; Z68.34 Body mass index [BMI] 34.0-34.9, adult; F17.210 Nicotine dependence, cigarettes, uncomplicated; Z71.6 Tobacco abuse counseling; Y84.2 Radiological procedure and radiotherapy as the cause of abnormal reaction of the patient, or of later complication, without mention of misadventure at the time of the procedure; Z79.84 Long term (current) use of oral hypoglycemic drugs; Z79.51 Long term (current) use of inhaled steroids; Z79.899 Other long term (current) drug therapy; Z90.2 Acquired absence of lung [part of]; Z92.3 Personal history of irradiation; Z92.21 Personal history of antineoplastic chemotherapy; Z90.49 Acquired absence of other specified parts of digestive tract; Z98.890 Other specified postprocedural states; Z90.710 Acquired absence of both cervix and uterus; Z98.51 Tubal ligation status; Z88.1 Allergy status to other antibiotic agents; Z88.2 Allergy status to sulfonamides; Z91.040 Latex allergy status; Z80.1 Family history of malignant neoplasm of trachea, bronchus and lung; Z80.3 Family history of malignant neoplasm of breast; Z82.5 Family history of asthma and other chronic lower respiratory diseases; Z82.49 Family history of ischemic heart disease and other diseases of the circulatory system
CPT/HCPCS: 31624; 80053; 83036; 83605; 85025; 87070; 87102; 87116; 87205; 87206; 87252; 87496; 87498; 87502; 87529; 87541; 87634; 87798; 88108; 88305; 89050; 94640

== ENCOUNTER 2020-03-01 11:19 | Inpatient (IN) | payer OTHER ==
[2020-03-01] MEDS ORDERED: methylPREDNISolone SOD SUCCI 125 MG/2 ML VIAL IV STA (11:57)
[2020-03-01] MEDS ORDERED: LEVOFLOXACIN 500MG-D5W PMX 500 MG in DEXTROSE/WATER 1 100ML.BAG IVPB SCH (12:00)
[2020-03-01 12:04] LABS: Glucose,Whole Blood 200 mg/dL (75-99)
[2020-03-01] MEDS ORDERED: NICOTINE 14MG/24HR PATCH TRANSDERM SCH (12:15)
[2020-03-01 12:53] LABS: Basophils % (A) 0 %; Eosinophils # (A) 0.2 k/uL (0-0.7); Eosinophils % (A) 2 %; HCT 44.1 % (34.0-46.0); HGB 14.8 gm/dL (11.4-16.0); Lymphocytes # (A) 2.2 k/uL (1.0-4.8); Lymphocytes % (A) 21 %; MCH 29.8 pg (25.0-35.0); MCHC 33.5 g/dL (31.0-37.0); Mean Platelet Volume 8.3; Monocytes # (A) 0.4 k/uL (0-1.0); Monocytes % (A) 4 %; Neutrophils # (A) 7.4 k/uL (1.3-7.7); Neutrophils % (A) 72 %; Platelet Count 177 k/uL (150-450); RBC 4.96 m/uL (3.80-5.40); RDW 14.1 % (11.5-15.5); WBC 10.3 k/uL (3.8-10.6)
[2020-03-01] MEDS: NICOTINE 21MG/24HR PATCH TRANSDERM SCH (13:11)
[2020-03-01] MEDS: PANTOPRAZOLE 40 MG/10 ML VIAL IVP SCH (13:11)
[2020-03-01] MEDS: INSULIN ASPART (NovoLOG) 100 UNIT/ML VIAL SQ SCH ×4 (13:12→21:05)
[2020-03-01] MEDS: SODIUM CHLORIDE 0.9% 1,000 ML IV SCH (13:25)
--- NOTE | 2020-03-01 14:06 | P.CNPUL ---
History of Present Illness Consult date: 03/01/20 Reason for consult: dyspnea, cough, COPD, pulmonary fibrosis Chief complaint: Increased cough congestion shortness of breath History of present illness: This is a 54-year-old female well-known to me patient has a history of right- sided lung cancer status post wedge dissection followed by radiation therapy resulting in pulmonary fibrosis localized, patient came into the hospital with the 2-3 weeks of increased cuff congestion shortness of breath not feeling well denies any hemoptysis, patient admitted from the [facility] care office directly, currently being treated with continuation of home medicines also on IV clin damycin with bronchodilators and IV steroids, patient continued to smoke intermittently Review of Systems All systems: negative Past Medical History Past Medical History: Cancer, COPD, Diabetes Mellitus, GERD/Reflux, Hy perlipidemia, Hypertension, Pneumonia, Respiratory Disorder, Thyroid Disorder Additional Past Medical History / Comment(s): 2013 Rt lung CA completed-6 chemo TXs and 26 radiation tx, URINARY INCONT-WEARS A PULL UP, NEUROPATHY IN FEET. History of Any Multi-Drug Resistant Organisms: None Reported Date of last positivie culture/infection: 2014 MDRO Source:: e-coli in urine Past Surgical History: Appendectomy, Cholecystectomy, Hysterectomy, Tonsillectomy, Tubal Ligation Additional Past Surgical History / Comment(s): R lung biopsy 09/2013, rt middle lobe lobectomy. Past Anesthesia/Blood Transfusion Reactions: Postoperative Nausea & Vomiting (PONV) Past Psychological History: No Psychological Hx Reported Additional Psychological History / Comment(s): Patient lives with her [id number], her niece and her boyfriend in a 2 story home. Smoking Status: Current every day smoker Past Alcohol Use History: None Reported Additional Past Alcohol Use History / Comment(s): started smoking at age 12, ( 1977) was smoking 1.5 ppd, QUIT 2013 and then Started back up. Past Drug Use History: None Reported - Past Family History Mother Sister(s) Family Medical History: Cancer Additional Family Medical History / Comment(s): from breast ca at age 65 Sister(s) Family Medical History: Cancer Additional Family Medical History / Comment(s): Sister of lung cancer at the age of 53yrs. Mother Family Medical History: Cancer Additional Family Medical History / Comment(s): breast cancer, at age 65 yrs Father Family Medical History: COPD Additional Family Medical History / Comment(s): had cabg, from a blood infection at age 64 Medications and Allergies Home Medications Medication Instructions Recorded Confirmed Type Montelukast [Singulair] 10 mg PO DAILY 01/29/15 03/01/20 History Multivitamin/Iron/Folic Acid 1 tab PO DAILY 11/11/16 03/01/20 History [[place] Women Tablet] Magnesium Oxide [Mag-Ox] 400 mg PO DAILY #30 tab 02/08/17 03/01/20 Rx Atorvastatin [Lipitor] 20 mg PO HS 08/10/19 03/01/20 History HYDROcodone/APAP 7.5-325MG [[place] 1 tab PO TID 08/10/19 03/01/20 History 7.5-325] glipiZIDE [Glucotrol] 5 mg PO AC-BRKFST 08/10/19 03/01/20 History Albuterol Sulfate [Ventolin HFA] 2 puff INHALATION RT-Q4H PRN 03/01/20 03/01/20 History Beclomethasone Dipropionate [Qvar 2 puff INHALATION RT-BID 03/01/20 03/01/20 History 80mcg Redihaler] Ipratropium-Albuterol Nebulize 3 ml INHALATION RT-Q4H PRN 03/01/20 03/01/20 History [Duoneb 0.5 mg-3 mg/3 ml Soln] Repaglinide [Prandin] 0.5 mg PO AC-BID 03/01/20 03/01/20 History atenoloL [Atenolol] 25 mg PO DAILY 03/01/20 03/01/20 History Allergies Allergy/AdvReac Type Severity Reaction Status Date / Time ciprofloxacin HCl Allergy Severe Rash/Hives Verified 08/10/19 18:15 [From Cipro] latex Allergy Severe Rash/Hives Verified 08/10/19 18:15 cephalexin monohydrate Allergy Intermediate Rash/Hives Verified 08/10/19 18:15 [From Keflex] sulfamethoxazole Allergy Intermediate Rash/Hives Verified 08/10/19 18:15 [From Septra] trimethoprim [From Septra] Allergy Intermediate Rash/Hives Verified 08/10/19 18:15 Physical Exam Vitals: Vital Signs Temp Pulse BP Pulse Ox 03/01/20 12:06 98.8 F 87 146/89 95 Intake and Output 02/29/20 03/01/20 03/01/20 22:59 06:59 14:59 Other: Weight 87.8 kg - Constitutional General appearance: average body habitus, cooperative, disheveled - Neck Neck: normal ROM Carotids: bilateral: upstroke normal Thyroid: bilateral: normal size - Respiratory Respiratory: bilateral: wheezing (Fine bilateral and expiratory) - Cardiovascular Rhythm: regular Heart sounds: normal: S1, S2 - Gastrointestinal General gastrointestinal: normal bowel sounds - Integumentary Integumentary: normal - Neurologic Neurologic: CNII-XII intact - Musculoskeletal Musculoskeletal: gait normal, generalized weakness, strength equal bilaterally - Psychiatric Psychiatric: A&O x's 3, appropriate affect, intact judgment & insight Results - Laboratory Findings CBC and BMP: 03/01/20 12:38 Abnormal lab findings: Abnormal Labs 03/01/20 12:03 POC Glucose (mg/dL) 200 H - Diagnostic Findings Chest x-ray: pending Assessment and Plan Assessment: Acute COPD exacerbation Tracheobronchitis History of lung cancer status post resection Status post XRT resulting fibrosis of the lung Major depression Generalized anxiety disorder Ooj-syoyhad-nwlqdertz diabetes mellitus/type 2 diabetes mellitus Hypertension hypertensive cardiovascular disease Plan: Agree with broad-spectrum antibiotics breathing treatments along with bronchodilators and follow clinical course closely would send sputum for Gram stain and culture further plan of care and recommendations pending as per find ing on studies Time with Patient: Greater than 30
[2020-03-01] MEDS: CLINDAMYCIN 300 MG in DEXTROSE 5% IN WATER 50 ML IVPB SCH ×4 (14:20→21:05)
[2020-03-01] MEDS: methylPREDNISolone SOD SUCCI 125 MG/2 ML VIAL IV SCH ×2 (14:22→23:45)
[2020-03-01] MEDS: IPRATROPIUM-ALBUTEROL 3 ML NEB INHALATION SCH ×3 (14:22→19:13)
[2020-03-01] MEDS: BUDESONIDE 0.5 MG/2 ML NEBU INHALATION SCH ×2 (14:23→19:14)
[2020-03-01 16:49] LABS: Glucose,Whole Blood 300 mg/dL (75-99)
[2020-03-01] MEDS: HYDROcodone/APAP 7.5-325MG 1 EACH TAB PO PRN ×2 (17:56→23:54)
[2020-03-01] MEDS: REPAGLINIDE 1 MG TAB PO SCH (17:57)
[2020-03-01 19:24] LABS: African American GFR (CKD) 96.2 (60.0-200.0); Albumin 4.2 g/dL (3.80-4.90); Albumin/Globulin Ratio 2.21 (1.60-3.17); Anion Gap 7.8 mmol/L (4.00-12.00); Calcium 9.4 mg/dL (8.7-10.3); Carbon Dioxide 26.2 mmol/L (21.6-31.8); Globulin 1.9 g/dL (1.6-3.3); Magnesium 1.4 mg/dL (1.5-2.4); Potassium 4.2 mmol/L (3.5-5.5); Total Bilirubin 0.5 mg/dL (0.2-1.2); Total Protein 6.1 g/dL (6.2-8.2)
[2020-03-01 20:49] LABS: Glucose,Whole Blood 462 mg/dL (75-99)
[2020-03-01 20:49] LABS: Glucose,Whole Blood 497 mg/dL (75-99)
[2020-03-01] MEDS: ATORVASTATIN 20 MG TAB PO SCH (21:05)
[2020-03-01] MEDS: metFORMIN 500 MG TAB PO SCH (21:05)
[2020-03-01 22:45] LABS: Glucose,Whole Blood 419 mg/dL (75-99)
[2020-03-01] MEDS: INSULIN REGULAR 100 UNIT in SODIUM CHLORIDE 0.9% 100 ML IV SCH (23:11)
[2020-03-01 23:51] LABS: Glucose,Whole Blood 372 mg/dL (75-99)
[2020-03-02 00:20] LABS: Glucose,Whole Blood 345 mg/dL (75-99)
[2020-03-02 00:53] LABS: Glucose,Whole Blood 286 mg/dL (75-99)
[2020-03-02 01:21] LABS: Glucose,Whole Blood 257 mg/dL (75-99)
[2020-03-02 01:55] LABS: Glucose,Whole Blood 231 mg/dL (75-99)
[2020-03-02 03:55] LABS: Glucose,Whole Blood 232 mg/dL (75-99)
[2020-03-02] MEDS: IPRATROPIUM-ALBUTEROL 3 ML NEB INHALATION PRN (04:33)
[2020-03-02 05:54] LABS: Glucose,Whole Blood 259 mg/dL (75-99)
[2020-03-02] MEDS: CLINDAMYCIN 300 MG in DEXTROSE 5% IN WATER 50 ML IVPB SCH ×6 (06:02→21:03)
[2020-03-02] MEDS: INSULIN REGULAR 100 UNIT in SODIUM CHLORIDE 0.9% 100 ML IV SCH ×2 (06:02→15:36)
[2020-03-02 07:01] LABS: Glucose,Whole Blood 229 mg/dL (75-99)
[2020-03-02] MEDS: INSULIN ASPART (NovoLOG) 100 UNIT/ML VIAL SQ SCH ×7 (07:15→17:24)
[2020-03-02] MEDS: glipiZIDE 5 MG TAB PO SCH (07:15)
[2020-03-02] MEDS: REPAGLINIDE 1 MG TAB PO SCH ×2 (07:16→15:42)
[2020-03-02] MEDS: metFORMIN 500 MG TAB PO SCH ×2 (07:17→21:34)
[2020-03-02] MEDS: BUDESONIDE 0.5 MG/2 ML NEBU INHALATION SCH ×2 (07:47→20:09)
[2020-03-02] MEDS: IPRATROPIUM-ALBUTEROL 3 ML NEB INHALATION SCH ×4 (07:47→20:09)
[2020-03-02] MEDS: atenoloL 25 MG TAB PO SCH (09:02)
[2020-03-02] MEDS: HYDROcodone/APAP 7.5-325MG 1 EACH TAB PO PRN ×3 (09:02→21:05)
[2020-03-02] MEDS: methylPREDNISolone SOD SUCCI 125 MG/2 ML VIAL IV SCH ×3 (09:03→23:02)
[2020-03-02] MEDS: MULTIVITAMINS, THERA 1 EACH TAB PO SCH (09:03)
[2020-03-02] MEDS: MAGNESIUM OXIDE 400 MG TAB PO SCH (09:03)
[2020-03-02] MEDS: SODIUM CHLORIDE 0.9% 1,000 ML IV SCH (09:06)
[2020-03-02 09:07] LABS: Glucose,Whole Blood 344 mg/dL (75-99)
[2020-03-02] MEDS: NICOTINE 21MG/24HR PATCH TRANSDERM SCH (09:25)
[2020-03-02] MEDS: PANTOPRAZOLE 40 MG/10 ML VIAL IVP SCH (09:32)
[2020-03-02] MEDS ORDERED: MAG HYDROX/AL HYDROX/SIMETH 30 ML CUP PO PRN (10:45)
[2020-03-02 11:10] LABS: Glucose,Whole Blood 349 mg/dL (75-99)
[2020-03-02] MEDS ORDERED: ALPRAZolam 0.25 MG TAB PO PRN (12:08)
[2020-03-02] MEDS: HEPARIN SODIUM,PORCINE 5,000 UNIT/ML 1 ML VIAL SQ SCH ×2 (12:31→21:05)
[2020-03-02 13:12] LABS: Glucose,Whole Blood 361 mg/dL (75-99)
--- NOTE | 2020-03-02 13:42 | HP ---
HISTORY AND PHYSICAL DATE OF SERVICE: 03/02/2020 I am covering for Dr. Lindsey. CHIEF COMPLAINT: Shortness of breath. HISTORY OF PRESENT ILLNESS: This is a 54-year-old woman with a past medical history of multiple medical problems including COPD, history of diabetes, GERD, hypertension, hyperlipidemia, history of pneumonia being followed by Dr. Lindsey in the outpatient setting. The patient was not feeling well over the past several weeks. The patient had history of right-sided lung cancer status post wedge resection followed by radiation therapy. The patient has localized pulmonary fibrosis. The patient had increased shortness of breath and the patient was directly admitted from Dr. Lindsey's office and is being closely monitored at this time. Dr. Cobb's pulmonology evaluation is in progress at this time. There is no history of fever, rigors, chills. No history of headache, loss of consciousness, seizures. Broad-spectrum antibiotics were started. The patient is started on IV steroids and started getting elevated blood sugars. The patient is on IV insulin drip also. PAST MEDICAL HISTORY: History COPD, diabetes, hypertension, hyperlipidemia, appendectomy, cholecystomy lung cancer. MEDICATIONS: Home medications are atenolol, Glucotrol, Prandin, multivitamin, Singulair, magnesium oxide, DuoNeb, [place], QVAR, Lipitor, Ventolin. Doses reviewed. ALLERGIES: CIPRO, LATEX, KEFLEX, SEPTRA. FAMILY HISTORY: History of cancer in the family. SOCIAL HISTORY: History of smoking. Continued ongoing history of alcohol intake. REVIEW OF SYSTEMS: ENT: No diminished hearing. Diminished vision. CARDIOVASCULAR: No angina. RESPIRATORY: As mentioned earlier. GI: No nausea or vomiting. : No dysuria. NERVOUS SYSTEM: No numbness or weakness. ALLERGY/IMMUNOLOGY: No asthma or hayfever. MUSCULOSKELETAL: As mentioned earlier. HEMATOLOGY/ONCOLOGY: As mentioned earlier. ENDOCRINE: As mentioned earlier. Diabetes mellitus. CONSTITUTIONAL: As mentioned earlier. DERMATOLOGY: Negative. RHEUMATOLOGY: Negative. PSYCHIATRY: As mentioned earlier. PHYSICAL EXAMINATION: Alert oriented x3. VITAL SIGNS: The pulse is 89, blood pressure 107/74, respiration 20, temperature 97.8, pulse ox 93% on room air. HEENT: Conjunctivae normal. Oral mucosa moist. NECK: No jugular venous distention. No carotid bruits. No lymph node enlargement. CARDIOVASCULAR: S1 and S2 muffled. No S3 or S4. Breath sounds diminished in the bases. Bilateral scattered rhonchi and crackles. Expiratory wheezing also present. Breathing efforts are markedly increased. ABDOMEN: Soft, obese, nontender. No mass palpable. EXTREMITIES: Legs no edema, no swelling. NERVOUS SYSTEM: Higher functions as mentioned earlier. Moves all 4 limbs. No focal motor or sensory deficits. LYMPHATICS: No lymph nodes in the neck or axillae. SKIN: No rash. JOINTS: No active deforming arthropathy. LABS: Admission lab showed CBC within normal. Sugars are 372, 349 and glucose 178, BUN is 8. IMAGING: Chest x-ray is not available. ASSESSMENT: 1. Chronic obstructive pulmonary disease acute exacerbation with acute purulent tracheobronchitis. Rule out pneumonia with failure of outpatient treatment. 2. History of lung cancer with surgery and radiation. 3. Diabetes mellitus type 2, uncontrolled with hyperglycemia, on insulin drip secondary to steroids. 4. History of gastroesophageal reflux disease. 5. History of hypertension. 6. History of hyperlipidemia. 7. History of pneumonia. 8. History of hypothyroidism. 9. History of urinary incontinence. 10.History of appendectomy. 11.History of cholecystectomy. 12.Obesity with body mass index of 33.6. 13.Continued ongoing nicotine dependence. RECOMMENDATIONS AND DISCUSSION: This 54-year-old woman presented with multiple complex medical issues. We will continue the current management and continue symptomatic treatment. Will optimize the bronchodilator treatment. Continue insulin drip. Monitor blood sugars closely. Closely follow with Pulmonary. Currently the patient is on IV steroids 60 mg IV q.8. Otherwise we will continue the rest of medications. DVT prophylaxis. Proton pump inhibitors. Guarded prognosis because of multiple complex medical issues. Further recommendations to follow. I would also recommend a chest x-ray. MMODL / IJN: [id number] /
[2020-03-02 15:00] LABS: Glucose,Whole Blood 383 mg/dL (75-99)
[2020-03-02 17:04] LABS: Glucose,Whole Blood 243 mg/dL (75-99)
[2020-03-02 18:58] LABS: Glucose,Whole Blood 304 mg/dL (75-99)
[2020-03-02] MEDS: FLUTICASONE 110 MCG INHALER INHALATION SCH (20:09)
[2020-03-02 20:58] LABS: Glucose,Whole Blood 236 mg/dL (75-99)
[2020-03-02] MEDS: ATORVASTATIN 20 MG TAB PO SCH (21:03)
[2020-03-02 22:53] LABS: Glucose,Whole Blood 251 mg/dL (75-99)
[2020-03-03 01:03] LABS: Glucose,Whole Blood 231 mg/dL (75-99)
[2020-03-03 03:06] LABS: Glucose,Whole Blood 275 mg/dL (75-99)
[2020-03-03] MEDS: INSULIN REGULAR 100 UNIT in SODIUM CHLORIDE 0.9% 100 ML IV SCH ×2 (04:01→18:50)
[2020-03-03] MEDS: IPRATROPIUM-ALBUTEROL 3 ML NEB INHALATION PRN (04:07)
[2020-03-03 05:01] LABS: Glucose,Whole Blood 278 mg/dL (75-99)
[2020-03-03] MEDS: CLINDAMYCIN 300 MG in DEXTROSE 5% IN WATER 50 ML IVPB SCH ×6 (06:08→21:10)
[2020-03-03 06:49] LABS: Basophils % (A) 0 %; Eosinophils % (A) 0 %; HCT 45.1 % (34.0-46.0); HGB 14.5 gm/dL (11.4-16.0); Lymphocytes # (A) 1.1 k/uL (1.0-4.8); Lymphocytes % (A) 9 %; MCH 29.5 pg (25.0-35.0); MCHC 32.2 g/dL (31.0-37.0); MCV 91.8 fL (80.0-100.0); Mean Platelet Volume 8.7; Monocytes # (A) 0.3 k/uL (0-1.0); Monocytes % (A) 3 %; Neutrophils # (A) 11.7 k/uL (1.3-7.7); Neutrophils % (A) 88 %; Platelet Count 170 k/uL (150-450); RBC 4.91 m/uL (3.80-5.40); RDW 14.4 % (11.5-15.5); WBC 13.3 k/uL (3.8-10.6)
[2020-03-03 07:19] LABS: Glucose,Whole Blood 261 mg/dL (75-99)
[2020-03-03] MEDS: methylPREDNISolone SOD SUCCI 125 MG/2 ML VIAL IV SCH (07:25)
[2020-03-03] MEDS: ACETAMINOPHEN TAB 325 MG TAB PO PRN (07:26)
[2020-03-03] MEDS: atenoloL 25 MG TAB PO SCH (07:27)
[2020-03-03] MEDS: INSULIN ASPART (NovoLOG) 100 UNIT/ML VIAL SQ SCH ×3 (07:28→17:06)
[2020-03-03] MEDS: BUDESONIDE 0.5 MG/2 ML NEBU INHALATION SCH ×2 (08:35→19:41)
[2020-03-03] MEDS: IPRATROPIUM-ALBUTEROL 3 ML NEB INHALATION SCH ×5 (08:35→19:41)
[2020-03-03] MEDS: FLUTICASONE 110 MCG INHALER INHALATION SCH ×2 (08:37→19:41)
[2020-03-03] MEDS: glipiZIDE 5 MG TAB PO SCH (08:51)
[2020-03-03] MEDS: REPAGLINIDE 1 MG TAB PO SCH ×2 (08:51→15:52)
[2020-03-03] MEDS: HEPARIN SODIUM,PORCINE 5,000 UNIT/ML 1 ML VIAL SQ SCH ×2 (08:52→21:07)
[2020-03-03] MEDS: metFORMIN 500 MG TAB PO SCH ×2 (08:52→21:07)
[2020-03-03] MEDS: NICOTINE 21MG/24HR PATCH TRANSDERM SCH (08:59)
[2020-03-03] MEDS: MONTELUKAST 10 MG TAB PO SCH (09:00)
[2020-03-03] MEDS: MULTIVITAMINS, THERA 1 EACH TAB PO SCH (09:00)
[2020-03-03] MEDS: PANTOPRAZOLE 40 MG/10 ML VIAL IVP SCH (09:00)
[2020-03-03] MEDS: MAGNESIUM OXIDE 400 MG TAB PO SCH (09:00)
[2020-03-03 09:07] LABS: Glucose,Whole Blood 249 mg/dL (75-99)
[2020-03-03 09:47] LABS: African American GFR (CKD) 83.4 (60.0-200.0); Calcium 9.7 mg/dL (8.7-10.3); Potassium 4.5 mmol/L (3.5-5.5)
[2020-03-03 11:47] LABS: Glucose,Whole Blood 229 mg/dL (75-99)
--- NOTE | 2020-03-03 11:54 | XR ---
EXAMINATION TYPE: XR chest 1V portable DATE OF EXAM: 03/03/2020 COMPARISON: 07/21/2019 INDICATION: Pneumonia TECHNIQUE: Single frontal view of the chest is obtained. FINDINGS: The heart size is normal. The pulmonary vasculature is normal. There is some mild linear opacities at the right dome of the diaphragm suggestive for atelectasis. Radha ngs otherwise appear clear IMPRESSION: 1. Mild infiltrate at the right lower lobe adjacent to the diaphragm. Correlate for atelectasis.
[2020-03-03] MEDS: HYDROcodone/APAP 7.5-325MG 1 EACH TAB PO PRN ×2 (11:59→21:09)
[2020-03-03 13:01] LABS: Glucose,Whole Blood 248 mg/dL (75-99)
[2020-03-03 15:13] LABS: Glucose,Whole Blood 308 mg/dL (75-99)
[2020-03-03] MEDS: methylPREDNISolone SOD SUCCI 40 MG/ML 1 ML VIAL IV SCH ×2 (16:35→22:57)
[2020-03-03 17:04] LABS: Glucose,Whole Blood 347 mg/dL (75-99)
[2020-03-03 18:56] LABS: Glucose,Whole Blood 339 mg/dL (75-99)
--- NOTE | 2020-03-03 19:20 | PN ---
PROGRESS NOTE DATE OF SERVICE: 03/03/2020 I am covering for Dr. Lindsey. This 54-year-old woman was admitted with shortness of breath, COPD exacerbation, admitted from Dr. Lindsey's office directly, is being closely monitored. The patient is started on bronchodilators, steroids and antibiotics. Dr. Cobb is following the patient closely. A chest x-ray done showed mild infiltrate in the right lower lobe indicating some pneumonic process. Dr. Cobb is following the patient closely. Past medical history reviewed. REVIEW OF SYSTEMS: CARDIOVASCULAR system: No angina or palpitations. RESPIRATORY: As mentioned earlier. GI: As mentioned earlier. : No dysuria. NERVOUS SYSTEM: No numbness or weakness. MEDICATIONS: Reviewed and include: 1. Tylenol. 2. [place]. 3. Maalox. 4. DuoNeb. 5. Xanax. 6. Tenormin. 7. Lipitor. 8. Clindamycin. 9. Flovent. 10.Glucotrol. 11.Heparin. 12.NovoLog. 13.Magnesium oxide. 14.Glucophage. 15.Solu-Medrol. 16.Multivitamins. 17.Protonix. 18.Prandin. PHYSICAL EXAM: Patient is alert, oriented x3. Pulse is 88, blood pressure 119/74, respirations 16, temperature 98.2, pulse ox 94% on room air. HEENT is conjunctivae normal. NECK: No JVD. CARDIOVASCULAR: S1, S2 muffled. RESPIRATION: Breath sounds diminished in the bases. Bilateral scattered rhonchi and crackles. ABDOMEN: Soft, nontender. LEGS are no edema. No swelling. NERVOUS SYSTEM: No focal deficits. LABS: Glucose 347. Otherwise WBC 13.3. ASSESSMENT: 1. Chronic obstructive pulmonary disease acute exacerbation with possible right lower lobe pneumonia possibly gram-negative with failure of outpatient treatment. 2. History of lung cancer with surgery, radiation. 3. Diabetes mellitus type 2, uncontrolled with hyperglycemia, on insulin drip secondary to steroids. 4. History of gastroesophageal reflux disease. 5. Hypertension. 6. Hyperlipidemia. 7. History of pneumonia. 8. History of hypothyroidism. 9. History of urinary incontinence. 10.History of appendectomy. 11.History of cholecystectomy. 12.Obesity with body mass index of 33.6. 13.Continued ongoing nicotine dependence. 14.Increased WBC possibly secondary to steroids. RECOMMENDATIONS AND DISCUSSION: Recommend to continue current medications, management. Covid-19 is negative. I would recommend continue the IV insulin drip and then taper the dose of Solu-Medrol. Otherwise prognosis guarded because of multiple complex medical issues. Further recommendations to follow. Dr. Lindsey will follow tomorrow. MMODL / IJN: [id number] /
[2020-03-03 21:02] LABS: Glucose,Whole Blood 267 mg/dL (75-99)
[2020-03-03] MEDS: ATORVASTATIN 20 MG TAB PO SCH (21:09)
[2020-03-03 22:59] LABS: Glucose,Whole Blood 244 mg/dL (75-99)
[2020-03-04 01:02] LABS: Glucose,Whole Blood 256 mg/dL (75-99)
[2020-03-04 03:01] LABS: Glucose,Whole Blood 251 mg/dL (75-99)
[2020-03-04 05:09] LABS: Glucose,Whole Blood 261 mg/dL (75-99)
[2020-03-04] MEDS: CLINDAMYCIN 300 MG in DEXTROSE 5% IN WATER 50 ML IVPB SCH ×4 (06:07→13:03)
[2020-03-04 06:39] LABS: Basophils % (A) 0 %; Eosinophils # (A) 0.1 k/uL (0-0.7); Eosinophils % (A) 1 %; HCT 44.5 % (34.0-46.0); HGB 14.9 gm/dL (11.4-16.0); Lymphocytes # (A) 1.5 k/uL (1.0-4.8); Lymphocytes % (A) 10 %; MCH 30.5 pg (25.0-35.0); MCHC 33.6 g/dL (31.0-37.0); Mean Platelet Volume 8.4; Monocytes # (A) 0.4 k/uL (0-1.0); Monocytes % (A) 2 %; Neutrophils # (A) 12.8 k/uL (1.3-7.7); Neutrophils % (A) 86 %; Platelet Count 164 k/uL (150-450); RBC 4.89 m/uL (3.80-5.40); RDW 14.4 % (11.5-15.5); WBC 14.9 k/uL (3.8-10.6)
[2020-03-04 07:05] LABS: Glucose,Whole Blood 210 mg/dL (75-99)
[2020-03-04] MEDS: HEPARIN SODIUM,PORCINE 5,000 UNIT/ML 1 ML VIAL SQ SCH (07:14)
[2020-03-04] MEDS: metFORMIN 500 MG TAB PO SCH (07:14)
[2020-03-04] MEDS: glipiZIDE 5 MG TAB PO SCH (07:15)
[2020-03-04] MEDS: REPAGLINIDE 1 MG TAB PO SCH ×2 (07:15→17:20)
[2020-03-04] MEDS: PANTOPRAZOLE 40 MG/10 ML VIAL IVP SCH (07:24)
[2020-03-04] MEDS: methylPREDNISolone SOD SUCCI 40 MG/ML 1 ML VIAL IV SCH ×2 (07:24→15:35)
[2020-03-04] MEDS: INSULIN ASPART (NovoLOG) 100 UNIT/ML VIAL SQ SCH ×3 (07:24→17:31)
[2020-03-04] MEDS: MULTIVITAMINS, THERA 1 EACH TAB PO SCH (07:25)
[2020-03-04] MEDS: HYDROcodone/APAP 7.5-325MG 1 EACH TAB PO PRN (07:25)
[2020-03-04] MEDS: atenoloL 25 MG TAB PO SCH (07:25)
[2020-03-04] MEDS: NICOTINE 21MG/24HR PATCH TRANSDERM SCH (07:25)
[2020-03-04] MEDS: MONTELUKAST 10 MG TAB PO SCH (07:26)
[2020-03-04] MEDS: MAGNESIUM OXIDE 400 MG TAB PO SCH (07:26)
[2020-03-04] MEDS: BUDESONIDE 0.5 MG/2 ML NEBU INHALATION SCH (07:58)
[2020-03-04] MEDS: IPRATROPIUM-ALBUTEROL 3 ML NEB INHALATION SCH ×3 (07:58→15:11)
[2020-03-04] MEDS: FLUTICASONE 110 MCG INHALER INHALATION SCH (08:02)
[2020-03-04] MEDS: INSULIN REGULAR 100 UNIT in SODIUM CHLORIDE 0.9% 100 ML IV SCH (08:09)
[2020-03-04 08:18] VITALS: RESP 18
[2020-03-04 09:02] LABS: Glucose,Whole Blood 262 mg/dL (75-99)
[2020-03-04 09:08] LABS: African American GFR (CKD) 83.4 (60.0-200.0); Anion Gap 8.1 mmol/L (4.00-12.00); BUN/Creat Ratio 21.11 Ratio (12.00-20.00); Calcium 9.6 mg/dL (8.7-10.3); Carbon Dioxide 23.9 mmol/L (21.6-31.8); Potassium 4.7 mmol/L (3.5-5.5)
[2020-03-04 11:02] LABS: Glucose,Whole Blood 243 mg/dL (75-99)
[2020-03-04 13:00] LABS: Glucose,Whole Blood 338 mg/dL (75-99)
[2020-03-04] MEDS: ACETAMINOPHEN TAB 325 MG TAB PO PRN (14:37)
[2020-03-04 14:46] VITALS: BP 111/73; TEMP 97.9
[2020-03-04 14:56] VITALS: BMI 33.6
[2020-03-04 15:24] VITALS: PULSE 84
[2020-03-04 15:39] LABS: Glucose,Whole Blood 353 mg/dL (75-99)
--- NOTE | 2020-03-04 15:54 | P.PN ---
Subjective Progress Note Date: 03/04/20 Principal diagnosis: Acute COPD exacerbation Tracheobronchitis History of lung cancer status post resection Status post XRT resulting fibrosis of the lung Major depression Generalized anxiety disorder Syf-mrjhqqi-xajsluibn diabetes mellitus/type 2 diabetes mellitus Hypertension hypertensive cardiovascular disease 03/04/2020, patient seen eval examined during the rounds labs reviewed medications reviewed her cough congestion shortness of breath significantly improved now, admitted chest x-ray suggestive of right lower lobe infiltrate, patient remains on clindamycin which she tolerating very well, will get a follow-up chest x-ray This is a 54-year-old female well-known to me patient has a history of right- sided lung cancer status post wedge dissection followed by radiation therapy resulting in pulmonary fibrosis localized, patient came into the hospital with the 2-3 weeks of increased cuff congestion shortness of breath not feeling well denies any hemoptysis, [facility], currently being treated with continuation of home medicines also on IV clindamycin with bronchodilators and IV steroids, patient continued to smoke intermittently Objective - Vital Signs Vital signs: Vital Signs Temp 97.9 F 03/04/20 14:45 Pulse 84 03/04/20 15:23 Resp 18 03/04/20 14:45 BP 111/73 03/04/20 14:45 Pulse Ox 96 03/04/20 14:45 Intake & Output 03/03/20 03/04/20 03/04/20 18:59 06:59 18:59 Intake Total 531.449 119.417 646.666 Balance 531.449 119.417 646.666 Weight 88.9 kg Intake: Intake, IV Titration 91.449 119.417 66.666 Amount Clindamycin 300 mg In 50 Dextrose 5% in Water 50 ml @ 50 mls/hr IVPB Q8H SIMIN Rx#:[id number] Insulin Regular 100 unit 91.449 69.417 66.666 In Sodium Chloride 0.9% 100 ml @ Titrate IV .Q0M SIMIN Rx#:[id number] Oral 440 580 Other: Voiding Method Toilet Toilet # Voids 2 2 - Exam - Constitutional General appearance: average body habitus, cooperative, disheveled - Neck Neck: normal ROM Carotids: bilateral: upstroke normal Thyroid: bilateral: normal size - Respiratory Respiratory: bilateral: wheezing (Fine bilateral and expiratory) - Cardiovascular Rhythm: regular Heart sounds: normal: S1, S2 - Gastrointestinal General gastrointestinal: normal bowel sounds - Integumentary Integumentary: normal - Neurologic Neurologic: CNII-XII intact - Musculoskeletal Musculoskeletal: gait normal, generalized weakness, strength equal bilaterally - Psychiatric Psychiatric: A&O x's 3, appropriate affect, intact judgment & insight - Labs CBC & Chem 7: 03/04/20 06:16 03/04/20 06:16 Labs: Abnormal Lab Results - Last 24 Hours (Table) 03/03/20 03/03/20 03/03/20 Range/Units 06:02 17:02 18:52 WBC (3.8-10.6) k/uL Neutrophils # (1.3-7.7) k/uL BUN/Creatinine Ratio (12.00-20.00) Ratio Glucose (70-110) mg/dL POC Glucose (mg/dL) 347 H 339 H (75-99) mg/dL Hemoglobin A1c 9.0 H (4.0-6.0) % 03/03/20 03/03/20 03/04/20 Range/Units 21:00 22:56 00:58 WBC (3.8-10.6) k/uL Neutrophils # (1.3-7.7) k/uL BUN/Creatinine Ratio (12.00-20.00) Ratio Glucose (70-110) mg/dL POC Glucose (mg/dL) 267 H 244 H 256 H (75-99) mg/dL Hemoglobin A1c (4.0-6.0) % 03/04/20 03/04/20 03/04/20 Range/Units 02:59 05:07 06:16 WBC 14.9 H (3.8-10.6) k/uL Neutrophils # 12.8 H (1.3-7.7) k/uL BUN/Creatinine Ratio (12.00-20.00) Ratio Glucose (70-110) mg/dL POC Glucose (mg/dL) 251 H 261 H (75-99) mg/dL Hemoglobin A1c (4.0-6.0) % 03/04/20 03/04/20 03/04/20 Range/Units 06:16 07:03 09:01 WBC (3.8-10.6) k/uL Neutrophils # (1.3-7.7) k/uL BUN/Creatinine Ratio 21.11 H (12.00-20.00) Ratio Glucose 229 H (70-110) mg/dL POC Glucose (mg/dL) 210 H 262 H (75-99) mg/dL Hemoglobin A1c (4.0-6.0) % 03/04/20 03/04/20 03/04/20 Range/Units 11:01 12:59 15:33 WBC (3.8-10.6) k/uL Neutrophils # (1.3-7.7) k/uL BUN/Creatinine Ratio (12.00-20.00) Ratio Glucose (70-110) mg/dL POC Glucose (mg/dL) 243 H 338 H 353 H (75-99) mg/dL Hemoglobin A1c (4.0-6.0) % Assessment and Plan Assessment: Right lower lobe pneumonia Acute COPD exacerbation Tracheobronchitis History of lung cancer status post resection Status post XRT resulting fibrosis of the lung Major depression Generalized anxiety disorder Tte-vobmyfa-iuaqxvtky diabetes mellitus/type 2 diabetes mellitus Hypertension hypertensive cardiovascular disease Plan: Agree with broad-spectrum antibiotics breathing treatments along with bronchodilators and follow clinical course closely and culture further plan of care and recommendations pending as per finding on studies, unable to obtain sputum for Gram stain and culture, will repeat chest x-ray Time with Patient: Greater than 30
[2020-03-04 17:19] LABS: Glucose,Whole Blood 237 mg/dL (75-99)
[2020-03-05] MEDS ORDERED: PANTOPRAZOLE 40 MG TABLET PO SCH (07:30)
--- NOTE | 2020-03-17 07:12 | DS ---
DISCHARGE SUMMARY DATE OF ADMISSION: 03/01/2020 DATE OF DISCHARGE: 03/04/2020 DISCHARGE MEDICATIONS: Singulair 10 mg daily, multivitamin daily, Mag oxide 400 mg daily, Lipitor 20 mg daily, Glucotrol 5 mg a.c. breakfast, [place] 7.5 t.i.d., atenolol 25 mg daily, Prandin 0.5 mg b.i.d., Qvar 80 mcg b.i.d. RediHaler 2 puffs b.i.d., Ventolin HFA 2 puffs q.4 hours p.r.n. DuoNeb q.i.d. p.r.n. CONDITION: Stable. PROGNOSIS: Guarded. ACTIVITY: Ambulate as tolerated. HOSPITAL COURSE: White female who came into the hospital with shortness of breath, COPD exacerbation. Steroids, antibiotics, bronchodilators were given. The right lower lobe pneumonia was treated with COPD exacerbation. Patient stabilized over the next few days. She was sent home in stable condition on oral medicines. Follow up as an outpatient. Regular diet. MMODL / IJN: [id number] /
== END 2020-03-04 18:30 | disposition home or self-care (01) | DRG 190 ==
LOC: 4SSUR 11:34
PROVIDERS: ADMIT Family Medicine; ATTEND Family Medicine
DX: J44.1 Chronic obstructive pulmonary disease with (acute) exacerbation (principal); J15.6 Pneumonia due to other Gram-negative bacteria; J44.0 Chronic obstructive pulmonary disease with (acute) lower respiratory infection; I11.9 Hypertensive heart disease without heart failure; J84.10 Pulmonary fibrosis, unspecified; E11.42 Type 2 diabetes mellitus with diabetic polyneuropathy; E11.65 Type 2 diabetes mellitus with hyperglycemia; E03.9 Hypothyroidism, unspecified; E66.9 Obesity, unspecified; E78.5 Hyperlipidemia, unspecified; F17.210 Nicotine dependence, cigarettes, uncomplicated; F32.9 Major depressive disorder, single episode, unspecified; F41.1 Generalized anxiety disorder; T38.0X5A Adverse effect of glucocorticoids and synthetic analogues, initial encounter; K21.9 Gastro-esophageal reflux disease without esophagitis; R32 Unspecified urinary incontinence; Z20.828 Contact with and (suspected) exposure to other viral communicable diseases; J20.9 Acute bronchitis, unspecified; Z68.33 Body mass index [BMI] 33.0-33.9, adult; Z79.84 Long term (current) use of oral hypoglycemic drugs; Z79.899 Other long term (current) drug therapy; Z88.1 Allergy status to other antibiotic agents; Z91.040 Latex allergy status; Z85.118 Personal history of other malignant neoplasm of bronchus and lung; Z87.01 Personal history of pneumonia (recurrent); Z90.49 Acquired absence of other specified parts of digestive tract; Z90.710 Acquired absence of both cervix and uterus; Z92.3 Personal history of irradiation; Z90.2 Acquired absence of lung [part of]; Z88.2 Allergy status to sulfonamides; Z87.19 Personal history of other diseases of the digestive system; Z92.21 Personal history of antineoplastic chemotherapy; Z98.51 Tubal ligation status; Z80.1 Family history of malignant neoplasm of trachea, bronchus and lung; Z80.3 Family history of malignant neoplasm of breast; Z82.5 Family history of asthma and other chronic lower respiratory diseases
CPT/HCPCS: 71045; 80048; 80053; 83036; 83735; 85025; 94640

== ENCOUNTER 2020-07-29 15:15 | Observation (INO) | payer OTHER ==
[2020-07-29] MEDS ORDERED: RX INFO: IV CONTRAST WAS GIVEN 1 EACH MISC MISCELLANE PRN (17:24)
[2020-07-29 17:43] LABS: African American GFR (CKD) >90 (>60 ml/min/1.73 sqM); Anion Gap 9 mmol/L; Blood Urea Nitrogen 8 mg/dL (7-17); Calcium 9.3 mg/dL (8.4-10.2); Carbon Dioxide 27 mmol/L (22-30); Chloride 104 mmol/L (98-107); Glucose 154 mg/dL (74-99); Non-African American GFR(CKD) 90 (>60 ml/min/1.73 sqM); Potassium 4.1 mmol/L (3.5-5.1); Sodium 140 mmol/L (137-145)
[2020-07-29] MEDS: SODIUM CHLORIDE 0.9% 1,000 ML IV SCH (18:11)
[2020-07-29] MEDS: methylPREDNISolone SOD SUCCI 125 MG/2 ML VIAL IV SCH (18:11)
[2020-07-29] MEDS: CLINDAMYCIN 300 MG in DEXTROSE 5% IN WATER 50 ML IVPB SCH ×2 (18:33)
[2020-07-29] MEDS: HEPARIN SODIUM,PORCINE 5,000 UNIT/ML 1 ML VIAL SQ SCH (19:18)
[2020-07-29] MEDS: IPRATROPIUM-ALBUTEROL 3 ML NEB INHALATION PRN (19:25)
[2020-07-29] MEDS: FLUTICASONE 220 MCG INHALER INHALATION SCH (19:26)
[2020-07-29] MEDS: HYDROcodone/APAP 7.5-325MG 1 EACH TAB PO SCH (20:13)
[2020-07-29] MEDS: ATORVASTATIN 20 MG TAB PO SCH (20:13)
[2020-07-29] MEDS: atenoloL 25 MG TAB PO SCH (20:13)
[2020-07-29 20:15] LABS: Glucose,Whole Blood 277 mg/dL (75-99)
--- NOTE | 2020-07-29 20:49 | XR ---
EXAMINATION TYPE: XR chest 2V DATE OF EXAM: 07/29/2020 COMPARISON: 03/03/2020. HISTORY: Shortness of breath. TECHNIQUE: Frontal and lateral views of the chest are obtained. FINDINGS: There is chronic right basilar interstitial opacity with associated mild hazy opacity. No pleural effusion, or pneumothorax seen. The cardiac silhouette size is within normal limits. The o sseous structures are intact. IMPRESSION: Right basilar chronic interstitial opacity, with superimposed acute component not exclude d.
--- NOTE | 2020-07-29 21:13 | CT ---
EXAMINATION TYPE: CT chest w con DATE OF EXAM: 07/29/2020 COMPARISON: CT 08/04/2019. Same-day radiograph. HISTORY: chest discomfort CT DLP: 435.8 mGycm Automated exposure control for dose reduction was used. TECHNIQUE: CT scan of the chest is performed with IV Contrast, patient injected with 100 mL of Isovue 300. MIP Images are created on CT scanner and reviewed. 3D reconstructed images are created on an independent workstation and reviewed. FINDINGS: LUNGS: Redemonstrated moderate fibrosis of the right lung most pronounced in the mid to lower lung. T here is associated chronic opacity. There are scattered multiple bilateral pulmonary nodules measurin g up to 5 mm is similar to prior study. No definite new opacity, pleural effusion or pneumothorax. MEDIASTINUM: There are no greater than 1 cm hilar or mediastinal lymph nodes. No pericardial effusi on is seen. Mild to moderate thoracic aorta and coronary atherosclerotic disease. OTHER: No additional significant abnormality is seen. IMPRESSION: Right lung fibrosis with associated chronic opacity, similar to prior study. Grossly unchanged multiple small bilateral pulmonary nodules. Please note at least 2 years of follow- up is required to meet criteria for stability. No definite new abnormality.
[2020-07-30] MEDS: HEPARIN SODIUM,PORCINE 5,000 UNIT/ML 1 ML VIAL SQ SCH ×3 (00:04→16:10)
[2020-07-30] MEDS: methylPREDNISolone SOD SUCCI 125 MG/2 ML VIAL IV SCH ×3 (00:05→16:11)
[2020-07-30] MEDS: CLINDAMYCIN 300 MG in DEXTROSE 5% IN WATER 50 ML IVPB SCH ×6 (00:05→16:11)
[2020-07-30 00:20] LABS: Appearance,Urine Clear (Clear); Bacteria,Urine Rare /hpf; Bilirubin,Urine Negative (Negative); Blood,Urine Negative (Negative); Color,Urine Light Yellow; Glucose,Urine (UA) 4+ (Negative); Ketones,Urine Negative (Negative); Leukocyte Esterase,Urine Negative (Negative); Mucus,Urine Rare /hpf; Nitrite,Urine Positive (Negative); Protein,Urine Negative (Negative); Specific Gravity,Urine 1.025 (1.001-1.035); Squamous Epithelial Cell,Urine <1 /hpf (0-4); Urobilinogen,Urine <2.0 mg/dL (<2.0); WBC,Urine 2 /hpf (0-5)
[2020-07-30 01:25] LABS: Basophils # (A) 0.06 X 10*3/uL (0.00-0.10); Basophils % (A) 0.8 %; Eosinophils # (A) 0.14 X 10*3/uL (0.04-0.35); Eosinophils % (A) 1.8 %; HGB 14.3 g/dL (12.0-15.0); Lymphocytes # (A) 2.23 X 10*3/uL (0.90-5.00); Lymphocytes % (A) 29.4 %; MCH 29.4 pg (27.0-32.0); MCHC 33.3 g/dL (32.0-37.0); MCV 88.5 fL (80.0-97.0); Mean Platelet Volume 11.9 fL (9.5-12.2); Monocytes # (A) 0.49 X 10*3/uL (0.20-1.00); Monocytes % (A) 6.5 %; Neutrophils # (A) 4.64 X 10*3/uL (1.80-7.70); Neutrophils % (A) 61.2 %; Platelet Count 192 X 10*3/uL (140-440); RBC 4.86 X 10*6/uL (4.10-5.20); RDW 13.6 % (11.5-14.5); WBC 7.58 X 10*3/uL (4.50-10.00)
[2020-07-30] MEDS: SODIUM CHLORIDE 0.9% 1,000 ML IV SCH ×2 (05:44→20:28)
[2020-07-30 07:14] LABS: Glucose,Whole Blood 322 mg/dL (75-99)
[2020-07-30] MEDS: IPRATROPIUM-ALBUTEROL 3 ML NEB INHALATION PRN ×3 (07:16→19:53)
[2020-07-30] MEDS: FLUTICASONE 220 MCG INHALER INHALATION SCH ×2 (07:16→19:53)
[2020-07-30] MEDS: INSULIN ASPART (NovoLOG) 100 UNIT/ML VIAL SQ SCH ×4 (08:21→20:37)
[2020-07-30] MEDS: MONTELUKAST 10 MG TAB PO SCH (08:22)
[2020-07-30] MEDS: MAGNESIUM OXIDE 400 MG TAB PO SCH (08:22)
[2020-07-30] MEDS: LINAGLIPTIN 5 MG TABLET PO SCH (08:22)
[2020-07-30] MEDS: atenoloL 25 MG TAB PO SCH ×2 (08:22→20:41)
[2020-07-30] MEDS: PANTOPRAZOLE 40 MG TABLET PO SCH (08:22)
[2020-07-30] MEDS: MULTIVITAMINS, THERA 1 EACH TAB PO SCH (08:22)
[2020-07-30] MEDS: HYDROcodone/APAP 7.5-325MG 1 EACH TAB PO SCH ×2 (08:22→16:11)
[2020-07-30 11:53] LABS: Glucose,Whole Blood 306 mg/dL (75-99)
[2020-07-30 17:01] LABS: Glucose,Whole Blood 335 mg/dL (75-99)
--- NOTE | 2020-07-30 18:08 | HP ---
HISTORY AND PHYSICAL This patient is a 55-year-old white female who was admitted with COPD exacerbation, tracheobronchitis, severe atypical chest pain with shortness of breath, started on IV steroids, updraft treatments and nebulizer. She has been placed on Accu-Chek protocol due to diabetes and elevated blood sugars. She has positive nitrite in her urine. She was admitted with acute hypoxemic pulmonary consult is pending. CT scan shows pulmonary fibrosis, chronic opacities. HOME MEDICINES: Home medicines include atenolol 25 b.i.d., atorvastatin 20 mg daily, fluticasone daily, [place] 7.5 t.i.d., Tradjenta 5 mg daily, magnesium oxide 400 mg daily, Singulair 10 mg daily, multivitamin daily, Protonix 40 mg daily. REVIEW OF SYSTEMS: Fourteen-point review of systems negative except for mentioned in HPI. PHYSICAL EXAMINATION: O2 is 94% to 97% on room air, blood pressure 113 to 118 over 70s, pulse is 87 to 92, respiratory rate 16 to 18, temperature 98.1. CARDIOVASCULAR: S1, S2. LUNGS: Scattered wheeze x4. HEMATOLOGY: Negative Homans. GI: Soft. NEUROLOGIC: Alert and oriented x3. PSYCH: Fair mood and affect. ASSESSMENT: 1. Chronic obstructive pulmonary disease exacerbation. 2. Tracheobronchitis. CT scan shows pulmonary fibrosis. Continue with IV Cleocin, IV steroids, nebulizer treatments. We are going to run a troponin and an EKG today and then continue to treat for COPD and pulmonary fibrosis exacerbation. Condition is stable. Prognosis guarded. 24 to 48 hours. MMODL / IJN: [id number] /
[2020-07-30 20:36] LABS: Glucose,Whole Blood 403 mg/dL (75-99)
[2020-07-30] MEDS: ATORVASTATIN 20 MG TAB PO SCH (20:41)
[2020-07-30] MEDS ORDERED: INSULIN ASPART (NovoLOG) 100 UNIT/ML VIAL SQ ONE (20:45)
[2020-07-31] MEDS: HEPARIN SODIUM,PORCINE 5,000 UNIT/ML 1 ML VIAL SQ SCH ×3 (00:53→08:40)
[2020-07-31] MEDS: CLINDAMYCIN 300 MG in DEXTROSE 5% IN WATER 50 ML IVPB SCH ×4 (00:53→08:40)
[2020-07-31] MEDS: methylPREDNISolone SOD SUCCI 125 MG/2 ML VIAL IV SCH ×2 (00:54→08:39)
[2020-07-31] MEDS: HYDROcodone/APAP 7.5-325MG 1 EACH TAB PO SCH ×2 (00:58→08:25)
[2020-07-31 07:06] LABS: Glucose,Whole Blood 334 mg/dL (75-99)
[2020-07-31] MEDS: FLUTICASONE 220 MCG INHALER INHALATION SCH (07:56)
[2020-07-31] MEDS: IPRATROPIUM-ALBUTEROL 3 ML NEB INHALATION PRN ×2 (07:56→11:36)
[2020-07-31] MEDS: INSULIN ASPART (NovoLOG) 100 UNIT/ML VIAL SQ SCH ×2 (08:24→13:29)
[2020-07-31] MEDS: atenoloL 25 MG TAB PO SCH (08:26)
[2020-07-31] MEDS: LINAGLIPTIN 5 MG TABLET PO SCH (08:26)
[2020-07-31] MEDS: MULTIVITAMINS, THERA 1 EACH TAB PO SCH (08:39)
[2020-07-31] MEDS: MONTELUKAST 10 MG TAB PO SCH (08:39)
[2020-07-31] MEDS: PANTOPRAZOLE 40 MG TABLET PO SCH (08:39)
[2020-07-31] MEDS: MAGNESIUM OXIDE 400 MG TAB PO SCH (08:39)
[2020-07-31] MEDS: SODIUM CHLORIDE 0.9% 1,000 ML IV SCH (08:40)
[2020-07-31 10:14] VITALS: BP 135/83; RESP 18; TEMP 98.1
--- NOTE | 2020-07-31 11:27 | P.CNPUL ---
History of Present Illness Consult date: 07/31/20 Reason for consult: dyspnea, cough, abnormal CXR/CT Chief complaint: Shortness of breath and cough History of present illness: Patient is a 55-year-old female well-known to me with prior history of lung cancer and states severe COPD patient has a history of lung cancer status post right upper lobe resection followed by radiation therapy with development of pulmonary fibrosis came into the hospital with increased cough shortness of breath and poor response to outpatient therapy was admitted to the hospital, chest x-ray showed right basilar interstitial opacity with likely superimposed inflammatory changes, computed tomography scan of the chest was positive for right lung fibrosis and opacity essentially unchanged, bilateral pulmonary nodules nonspecific also not changed Review of Systems All systems: negative Past Medical History Past Medical History: Cancer, COPD, Diabetes Mellitus, GERD/Reflux, Hyperlipidemia, Hypertension, Pneumonia, Respiratory Disorder, Thyroid Disorder Additional Past Medical History / Comment(s): 2013 Rt lung CA completed-6 chemo TXs and 26 radiation tx, URINARY INCONT-WEARS A PULL UP, NEUROPATHY IN FEET. History of Any Multi-Drug Resistant Organisms: None Reported Date of last positivie culture/infection: 2014 MDRO Source:: e-coli in urine Past Surgical History: Appendectomy, Cholecystectomy, Hysterectomy, Tonsillectomy, Tubal Ligation Additional Past Surgical History / Comment(s): R lung biopsy 09/2013, rt middle lobe lobectomy. Past Anesthesia/Blood Transfusion Reactions: Postoperative Nausea & Vomiting (PONV) Past Psychological History: No Psychological Hx Reported Additional Psychological History / Comment(s): Patient lives with her [id number], her niece and her boyfriend in a 2 story home. Smoking Status: Former smoker Past Alcohol Use History: None Reported Additional Past Alcohol Use History / Comment(s): started smoking at age 12, (1977) was smoking 1.5 ppd, QUIT 2013 and then Started back up. Past Drug Use History: None Reported - Past Family History Mother Sister(s) Family Medical History: Cancer Additional Family Medical History / Comment(s): from breast ca at age 65 Sister(s) Family Medical History: Cancer Additional Family Medical History / Comment(s): Sister of lung cancer at the age of 53yrs. Mother Family Medical History: Cancer Additional Family Medical History / Comment(s): breast cancer, at age 65 yrs Father Family Medical History: COPD Additional Family Medical History / Comment(s): had cabg, from a blood infection at age 64 Medications and Allergies Home Medications Medication Instructions Recorded Confirmed Type Montelukast [Singulair] 10 mg PO DAILY 01/29/15 07/29/20 History Multivitamin/Iron/Folic Acid 1 tab PO DAILY 11/11/16 07/29/20 History [Centrum Women Tablet] Magnesium Oxide [Mag-Ox] 400 mg PO DAILY #30 tab 02/08/17 07/29/20 Rx Atorvastatin [Lipitor] 20 mg PO HS 08/10/19 07/29/20 History HYDROcodone/APAP 7.5-325MG [[place] 1 tab PO TID 08/10/19 07/29/20 History 7.5-325] Albuterol Sulfate [Ventolin HFA] 2 puff INHALATION RT-Q4H PRN 03/01/20 07/29/20 History Ipratropium-Albuterol Nebulize 3 ml INHALATION RT-Q4H PRN 03/01/20 07/29/20 History [Duoneb 0.5 mg-3 mg/3 ml Soln] atenoloL [Atenolol] 25 mg PO BID 03/01/20 07/29/20 History Fluticasone Propionate [Flovent 1 puff INHALATION RT-BID 07/29/20 07/29/20 History Hfa 220 mcg] Pantoprazole Sodium [Protonix] 40 mg PO DAILY 07/29/20 07/29/20 History metFORMIN HCL [Glucophage] 1,000 mg PO BID 07/29/20 07/29/20 History sitaGLIPtin PHOSPHATE [Januvia] 100 mg PO DAILY 07/29/20 07/29/20 History Allergies Allergy/AdvReac Type Severity Reaction Status Date / Time ciprofloxacin HCl Allergy Severe Rash/Hives Verified 07/29/20 16:51 [From Cipro] latex Allergy Severe Rash/Hives Verified 07/29/20 16:51 cephalexin monohydrate Allergy Intermediate Rash/Hives Verified 07/29/20 16:51 [From Keflex] sulfamethoxazole Allergy Intermediate Rash/Hives Verified 07/29/20 16:51 [From Septra] trimethoprim [From Septra] Allergy Intermediate Rash/Hives Verified 07/29/20 16:51 Physical Exam Vitals: Vital Signs Temp Pulse Pulse Resp BP Pulse Ox 07/31/20 08:08 82 07/31/20 07:57 80 07/31/20 07:00 98.1 F 75 18 135/83 98 07/31/20 03:24 97.6 F 69 16 118/77 98 07/30/20 20:02 90 07/30/20 19:54 87 07/30/20 19:28 98.1 F 91 16 110/74 92 L 07/30/20 15:00 98.1 F 92 17 113/75 94 L 07/30/20 11:40 92 07/30/20 11:27 94 Intake and Output 07/30/20 07/31/20 07/31/20 22:59 06:59 14:59 Intake Total 236 Balance 236 Intake: Oral 236 Other: # Voids 2 - Constitutional General appearance: average body habitus, cooperative, disheveled - EENT Eyes: PERRLA ENT: hearing grossly normal Ears: bilateral: normal - Neck Carotids: bilateral: upstroke normal - Respiratory Respiratory: bilateral: CTA - Cardiovascular Rhythm: regular Heart sounds: normal: S1, S2 - Gastrointestinal General gastrointestinal: normal bowel sounds - Integumentary Integumentary: normal - Musculoskeletal Musculoskeletal: gait normal, generalized weakness, strength equal bilaterally - Psychiatric Psychiatric: A&O x's 3, appropriate affect, intact judgment & insight Results - Laboratory Findings CBC and BMP: 07/29/20 17:06 07/29/20 17:06 Abnormal lab findings: Abnormal Labs 07/29/20 07/29/20 07/30/20 17:06 20:09 00:01 Glucose 154 H POC Glucose (mg/dL) 277 H Urine Glucose (UA) 4+ H Urine Nitrite Positive H Urine Bacteria Rare H Urine Mucus Rare H 07/30/20 07/30/20 07/30/20 07:12 11:52 16:59 Glucose POC Glucose (mg/dL) 322 H 306 H 335 H Urine Glucose (UA) Urine Nitrite Urine Bacteria Urine Mucus 07/30/20 07/31/20 20:34 07:04 Glucose POC Glucose (mg/dL) 403 H 334 H Urine Glucose (UA) Urine Nitrite Urine Bacteria Urine Mucus - Diagnostic Findings Chest x-ray: report reviewed, image reviewed CT scan - chest: report reviewed, image reviewed (Finding as noted above) Assessment and Plan Assessment: Acute COPD exacerbation Tracheobronchitis History of lung cancer Residual lung fibrosis due to radiation induced fibrosis Active history of smoking and nicotine use Diabetes mellitus Plan: Plan is to continue breathing treatments broad-spectrum antibiotics IV steroids continue bronchodilator with anteriorly could try any inhibitors overall appears to be responding well acutely with discharge planning follow-up on outpatient basis Time with Patient: Greater than 30
[2020-07-31 11:41] LABS: Glucose,Whole Blood 413 mg/dL (75-99)
[2020-07-31 11:52] VITALS: PULSE 88
[2020-07-31] MEDS ORDERED: CLINDAMYCIN 150 MG CAP PO SCH (16:00)
[2020-08-01] MEDS ORDERED: predniSONE 20 MG TAB PO SCH (09:00)
== END 2020-07-31 14:28 | disposition home or self-care (01) ==
LOC: 6NMEDSUR 15:28
PROVIDERS: ADMIT Family Medicine; ATTEND Family Medicine
DX: J44.1 Chronic obstructive pulmonary disease with (acute) exacerbation (principal); E11.65 Type 2 diabetes mellitus with hyperglycemia; I10 Essential (primary) hypertension; J84.10 Pulmonary fibrosis, unspecified; E78.5 Hyperlipidemia, unspecified; Y84.2 Radiological procedure and radiotherapy as the cause of abnormal reaction of the patient, or of later complication, without mention of misadventure at the time of the procedure; Z90.710 Acquired absence of both cervix and uterus; Z87.891 Personal history of nicotine dependence; Z90.2 Acquired absence of lung [part of]; Z85.118 Personal history of other malignant neoplasm of bronchus and lung; Z82.5 Family history of asthma and other chronic lower respiratory diseases; Z80.3 Family history of malignant neoplasm of breast; Z80.1 Family history of malignant neoplasm of trachea, bronchus and lung; Z79.899 Other long term (current) drug therapy; Z79.84 Long term (current) use of oral hypoglycemic drugs; Z79.51 Long term (current) use of inhaled steroids
CPT/HCPCS: 96376 ×2; 96361 ×2; 96365; 96366; 96372; 96375; 94640 ×6; 80048; 84484; 85025; 81001; 87040; 71046; 71260; G0379; G0378 ×3; J1644; J2930 ×3; Q9967

== ENCOUNTER 2020-10-03 14:53 | Emergency (ER) | payer OTHER ==
[2020-10-03 15:02] VITALS: RESP 16; TEMP 99.1
[2020-10-03] MEDS ORDERED: IPRATROPIUM-ALBUTEROL 3 ML NEB INHALATION STA (15:22)
[2020-10-03] MEDS ORDERED: methylPREDNISolone SOD SUCCI 125 MG/2 ML VIAL IV STA (15:22)
--- NOTE | 2020-10-03 15:27 | ED ---
SOB HPI - General Chief Complaint: Shortness of Breath Stated Complaint: Chest Tightness Time Seen by Provider: 10/03/20 15:08 Source: patient Mode of arrival: ambulatory Limitations: no limitations - History of Present Illness Initial Comments: 55-year-old female with history of COPD, lung cancer, right middle lobectomy presenting to the emergency department with the chief complaint is shortness of breath. Patient reports the symptoms of started about 2-3 days ago after she went outside and the newly cut grass along with pollen exacerbated her symptoms. Patient reports using Flovent at home with no significant permanent symptoms. Patient reports typically she is also given IV steroids whenever her symptoms get leg this. She denies any wheezing, fevers or chills. No history of Covid or vaccination. She denies any chest pain, lightheadedness, dizziness, nausea or vomiting. - Related Data Home Medications Medication Instructions Recorded Confirmed Montelukast [Singulair] 10 mg PO DAILY 01/29/15 10/03/20 Multivitamin/Iron/Folic Acid 1 tab PO DAILY 11/11/16 10/03/20 [Centrum Women Tablet] Atorvastatin [Lipitor] 20 mg PO HS 08/10/19 10/03/20 HYDROcodone/APAP 7.5-325MG [[place] 1 tab PO TID PRN 08/10/19 10/03/20 7.5-325] Ipratropium-Albuterol Nebulize 3 ml INHALATION RT-QID PRN 03/01/20 10/03/20 [Duoneb 0.5 mg-3 mg/3 ml Soln] Fluticasone Propionate [Flovent 2 puff INHALATION RT-BID 07/29/20 10/03/20 Hfa 220 mcg] Pantoprazole Sodium [Protonix] 40 mg PO DAILY 07/29/20 10/03/20 metFORMIN HCL [Glucophage] 1,000 mg PO 1400,2100 07/29/20 10/03/20 sitaGLIPtin PHOSPHATE [Januvia] 100 mg PO DAILY 07/29/20 10/03/20 Albuterol Sulfate [Proair Hfa] 2 puff INHALATION RT-Q4H PRN 08/28/20 10/03/20 Aspirin [Adult Low Dose Aspirin EC] 81 mg PO DAILY 08/28/20 10/03/20 Atenolol [Tenormin] 50 mg PO BID 08/28/20 10/03/20 Loratadine [Claritin] 10 mg PO DAILY 10/03/20 10/03/20 Olopatadine HCl [Pataday] 2 - 3 drops BOTH EYES BID 10/03/20 10/03/20 Previous Rx's Medication Instructions Recorded Magnesium Oxide [Mag-Ox] 400 mg PO DAILY #30 tab 02/08/17 Allergies Allergy/AdvReac Type Severity Reaction Status Date / Time ciprofloxacin HCl Allergy Severe Rash/Hives Verified 10/03/20 16:24 [From Cipro] latex Allergy Severe Rash/Hives Verified 10/03/20 16:24 cephalexin monohydrate Allergy Intermediate Rash/Hives Verified 10/03/20 16:24 [From Keflex] sulfamethoxazole Allergy Intermediate Rash/Hives Verified 10/03/20 16:24 [From Septra] trimethoprim [From Septra] Allergy Intermediate Rash/Hives Verified 10/03/20 16:24 Review of Systems ROS Statement: Those systems with pertinent positive or pertinent negative responses have been documented in the HPI. ROS Other: All systems not noted in ROS Statement are negative. Past Medical History Past Medical History: Asthma, Cancer, Chest Pain / Angina, COPD, Diabetes Mellitus, GERD/Reflux, Hypertension, Pneumonia Additional Past Medical History / Comment(s): 2013 Rt lung CA completed-6 chemo TXs and 26 radiation tx, URINARY leakage-wears a pad, NEUROPATHY julio cesar feet, hiatal hernia, History of Any Multi-Drug Resistant Organisms: None Reported Date of last positivie culture/infection: 2014 MDRO Source:: e-coli in urine Past Surgical History: Appendectomy, Breast Surgery, Cholecystectomy, Hysterectomy, Tonsillectomy, Tubal Ligation Additional Past Surgical History / Comment(s): Rt lung biopsy, rt middle lobe lobectomy. cyst removed from rt breast Past Anesthesia/Blood Transfusion Reactions: Postoperative Nausea & Vomiting (PONV) Past Psychological History: No Psychological Hx Reported Smoking Status: Former smoker, Second hand smoke exposure Past Alcohol Use History: None Reported Past Drug Use History: None Reported - Past Family History Mother Sister(s) Family Medical History: Cancer Sister(s) Family Medical History: Cancer Additional Family Medical History / Comment(s): Sister of lung cancer Mother Family Medical History: Cancer Additional Family Medical History / Comment(s): breast cancer Father Family Medical History: COPD General Exam Limitations: no limitations General appearance: alert, in no apparent distress, obese Head exam: Present: atraumatic, normocephalic, normal inspection Eye exam: Present: normal appearance, PERRL, EOMI Pupils: Present: normal accommodation ENT exam: Present: normal exam, normal oropharynx, mucous membranes moist, TM's normal bilaterally, normal external ear exam Neck exam: Present: normal inspection, full ROM. Absent: tenderness Respiratory exam: Present: normal lung sounds bilaterally. Absent: respiratory distress, wheezes, rales, rhonchi, stridor, chest wall tenderness, accessory muscle use Cardiovascular Exam: Present: regular rate, normal rhythm, normal heart sounds. Absent: systolic murmur GI/Abdominal exam: Present: soft. Absent: distended, tenderness Extremities exam: Present: normal inspection, full ROM, normal capillary refill. Absent: tenderness, pedal edema, joint swelling Back exam: Present: normal inspection, full ROM. Absent: tenderness, CVA tenderness (R), CVA tenderness (L) Neurological exam: Present: alert, oriented X3, normal gait Psychiatric exam: Present: normal affect, normal mood Skin exam: Present: warm, dry, intact, normal color Course Vital Signs 10/03/20 10/03/20 10/03/20 15:00 15:41 15:58 Temperature 99.1 F Pulse Rate 93 90 94 Respiratory 16 Rate Blood Pressure 131/86 O2 Sat by Pulse 97 Oximetry 10/03/20 17:32 Temperature Pulse Rate 98 Respiratory 16 Rate Blood Pressure 145/69 O2 Sat by Pulse 94 L Oximetry Medical Decision Making - Medical Decision Making 55-year-old female presents to the emergency department with a chief complaint of shortness of breath. On physical examination, patient is slightly tachypneic. Although, lungs are clear to auscultation. CBC is unremarkable. CMP reveals mild hypomagnesemia and slight elevation in blood glucose of 265. She was given magnesium oxide 400 mg. Coags within normal limits. Elevated d- dimer. Negative troponins. CT angiogram performed showed no signs of pulmonary embolism. Patient was given 125 mg of Solu-Medrol and a DuoNeb treatment. Reevaluation, she reports feeling improvement in her symptoms. She feels comf ortable going home. She will be discharged with 5 days of steroids. Return parameters discussed the patient was understanding and agreeable. Case discussed with Dr. Cline. - Lab Data Result diagrams: 10/03/20 15:29 10/03/20 15:29 Lab Results 10/03/20 10/03/20 10/03/20 Range/Units 15:29 15:29 15:29 WBC 9.6 (3.8-10.6) k/uL RBC 5.04 (3.80-5.40) m/uL Hgb 15.0 (11.4-16.0) gm/dL Hct 44.3 (34.0-46.0) % MCV 87.9 (80.0-100.0) fL MCH 29.7 (25.0-35.0) pg MCHC 33.8 (31.0-37.0) g/dL RDW 13.9 (11.5-15.5) % Plt Count 193 (150-450) k/uL MPV 8.1 Neutrophils % 73 % Lymphocytes % 20 % Monocytes % 4 % Eosinophils % 2 % Basophils % 1 % Neutrophils # 7.0 (1.3-7.7) k/uL Lymphocytes # 1.9 (1.0-4.8) k/uL Monocytes # 0.4 (0-1.0) k/uL Eosinophils # 0.2 (0-0.7) k/uL Basophils # 0.1 (0-0.2) k/uL PT 9.7 (9.0-12.0) sec INR 0.9 (<1.2) APTT 23.4 (22.0-30.0) sec D-Dimer 0.77 H (<0.60) mg/L FEU Sodium 136 L (137-145) mmol/L Potassium 4.2 (3.5-5.1) mmol/L Chloride 104 (98-107) mmol/L Carbon Dioxide 24 (22-30) mmol/L Anion Gap 8 mmol/L BUN 11 (7-17) mg/dL Creatinine 0.78 (0.52-1.04) mg/dL Est GFR (CKD-EPI)AfAm >90 (>60 ml/min/1.73 sqM) Est GFR (CKD-EPI)NonAf 86 (>60 ml/min/1.73 sqM) Glucose 265 H (74-99) mg/dL Calcium 9.4 (8.4-10.2) mg/dL Magnesium 1.4 L (1.6-2.3) mg/dL Total Bilirubin 0.4 (0.2-1.3) mg/dL AST 34 (14-36) U/L ALT 24 (4-34) U/L Alkaline Phosphatase 126 (38-126) U/L Troponin I (0.000-0.034) ng/mL Total Protein 6.9 (6.3-8.2) g/dL Albumin 4.3 (3.5-5.0) g/dL Influenza Type A (PCR) (Not Detectd) Influenza Type B (PCR) (Not Detectd) RSV (PCR) (Not Detectd) SARS-CoV-2 (PCR) (Not Detectd) 10/03/20 10/03/20 Range/Units 15:29 15:29 WBC (3.8-10.6) k/uL RBC (3.80-5.40) m/uL Hgb (11.4-16.0) gm/dL Hct (34.0-46.0) % MCV (80.0-100.0) fL MCH (25.0-35.0) pg MCHC (31.0-37.0) g/dL RDW (11.5-15.5) % Plt Count (150-450) k/uL MPV Neutrophils % % Lymphocytes % % Monocytes % % Eosinophils % % Basophils % % Neutrophils # (1.3-7.7) k/uL Lymphocytes # (1.0-4.8) k/uL Monocytes # (0-1.0) k/uL Eosinophils # (0-0.7) k/uL Basophils # (0-0.2) k/uL PT (9.0-12.0) sec INR (<1.2) APTT (22.0-30.0) sec D-Dimer (<0.60) mg/L FEU Sodium (137-145) mmol/L Potassium (3.5-5.1) mmol/L Chloride (98-107) mmol/L Carbon Dioxide (22-30) mmol/L Anion Gap mmol/L BUN (7-17) mg/dL Creatinine (0.52-1.04) mg/dL Est GFR (CKD-EPI)AfAm (>60 ml/min/1.73 sqM) Est GFR (CKD-EPI)NonAf (>60 ml/min/1.73 sqM) Glucose (74-99) mg/dL Calcium (8.4-10.2) mg/dL Magnesium (1.6-2.3) mg/dL Total Bilirubin (0.2-1.3) mg/dL AST (14-36) U/L ALT (4-34) U/L Alkaline Phosphatase (38-126) U/L Troponin I <0.012 (0.000-0.034) ng/mL Total Protein (6.3-8.2) g/dL Albumin (3.5-5.0) g/dL Influenza Type A (PCR) Not Detected (Not Detectd) Influenza Type B (PCR) Not Detected (Not Detectd) RSV (PCR) Not Detected (Not Detectd) SARS-CoV-2 (PCR) Not Detected (Not Detectd) Disposition Clinical Impression: COPD exacerbation, Hypomagnesemia, Hyperglycemia Disposition: HOME SELF-CARE Condition: Stable Instructions (If sedation given, give patient instructions): COPD (Chronic Obstructive Pulmonary Disease) (DC) Additional Instructions: Please return to the Emergency Department if symptoms worsen or any other concerns. Is patient prescribed a controlled substance at d/c from ED?: No Referrals: Ariel Lindsey MD [Primary Care Provider] - 1-2 days Time of Disposition: 18:04
[2020-10-03 15:42] LABS: Basophils # (A) 0.1 k/uL (0-0.2); Basophils % (A) 1 %; Eosinophils # (A) 0.2 k/uL (0-0.7); Eosinophils % (A) 2 %; HCT 44.3 % (34.0-46.0); Lymphocytes # (A) 1.9 k/uL (1.0-4.8); Lymphocytes % (A) 20 %; MCH 29.7 pg (25.0-35.0); MCHC 33.8 g/dL (31.0-37.0); MCV 87.9 fL (80.0-100.0); Mean Platelet Volume 8.1; Monocytes # (A) 0.4 k/uL (0-1.0); Monocytes % (A) 4 %; Neutrophils % (A) 73 %; Platelet Count 193 k/uL (150-450); RBC 5.04 m/uL (3.80-5.40); RDW 13.9 % (11.5-15.5); WBC 9.6 k/uL (3.8-10.6)
[2020-10-03 15:58] LABS: ALT 24 U/L (4-34); AST 34 U/L (14-36); African American GFR (CKD) >90 (>60 ml/min/1.73 sqM); Albumin 4.3 g/dL (3.5-5.0); Alkaline Phosphatase 126 U/L (38-126); Anion Gap 8 mmol/L; Blood Urea Nitrogen 11 mg/dL (7-17); Calcium 9.4 mg/dL (8.4-10.2); Carbon Dioxide 24 mmol/L (22-30); Chloride 104 mmol/L (98-107); Glucose 265 mg/dL (74-99); Magnesium 1.4 mg/dL (1.6-2.3); Non-African American GFR(CKD) 86 (>60 ml/min/1.73 sqM); Potassium 4.2 mmol/L (3.5-5.1); Sodium 136 mmol/L (137-145); Total Bilirubin 0.4 mg/dL (0.2-1.3); Total Protein 6.9 g/dL (6.3-8.2)
[2020-10-03 16:09] LABS: INR 0.9 (<1.2); Partial Thromboplastin Time 23.4 sec (22.0-30.0); Prothrombin Time 9.7 sec (9.0-12.0)
--- NOTE | 2020-10-03 16:29 | XR ---
EXAMINATION TYPE: XR chest 2V DATE OF EXAM: 10/03/2020 COMPARISON: Chest x-ray and CT chest July 29, 2020. HISTORY: History of lung cancer along with asthma and COPD presents with shortness of breath and glory estion. TECHNIQUE: Frontal and lateral views of the chest are obtained. FINDINGS: There is postsurgical change right hilar region. Reticular fibrotic posttreatment changes right mid to lower lung are redemonstrated. No new suspicious focal airspace opacity or pleural effus ion seen bilaterally The cardiac silhouette size remains within normal limits. The osseous structur es are intact. Cholecystectomy clips are demonstrated on lateral view IMPRESSION: Chronic changes without new acute pulmonary process.
[2020-10-03 16:35] LABS: D-Dimer 0.77 mg/L FEU (<0.60)
[2020-10-03 17:33] VITALS: BP 145/69; PULSE 98
[2020-10-03] MEDS ORDERED: MAGNESIUM OXIDE 400 MG TAB PO STA (17:40)
--- NOTE | 2020-10-03 17:41 | CT ---
EXAMINATION TYPE: CT CHEST ANGIO FOR PE WITH CONTRAST AND WITH 3-D RECONSTRUCTION RENDERINGS DATE OF EXAM: 10/03/2020 COMPARISON: CT 07/29/2020 HISTORY: Elevated d-dimer. CT DLP: 393 mGycm Automated exposure control for dose reduction was used. CONTRAST: CT Chest for pulmonary embolism performed with with IV Contrast, patient injected with 100 mL of Isovue 370. FINDINGS: LUNGS: There is redemonstration of the previously described moderate fibrosis of the right lung most pronounced in the mid to lower lung. There is associated chronic opacity. There are scattered multipl e bilateral pulmonary nodules measuring up to 5 mm is similar to prior study. The subtle groundglass opacity bilaterally, mild in degree and much more prominent on the right. This pattern is superimposed over the above chronic findings. This finding can correlate with a clinical diagnosis of pneumonitis vs. assymmetric mild interstitial phase pulmonary edema. PLEURAL SPACES: No pleural effusion or pneumothorax. MEDIASTINUM: There is satisfactory enhancement of the pulmonary artery and its branches, with no CT e vidence for pulmonary embolism. The aorta is negative for acute findings. There is no pericardial eff usion or cardiomegaly. However, coronary calcifications are noted. OTHER: No additional significant abnormality is seen. IMPRESSION: 1. Negative for pulmonary embolism. 2. Subtle bilateral groundglass opacity pattern, more prominent on the right. 3. Artery calcifications.
== END 2020-10-03 18:24 | disposition home or self-care (01) ==
LOC: EC 14:53
DX: J44.9 Chronic obstructive pulmonary disease, unspecified (principal); I10 Essential (primary) hypertension; E11.65 Type 2 diabetes mellitus with hyperglycemia; K21.9 Gastro-esophageal reflux disease without esophagitis; Z87.891 Personal history of nicotine dependence; Z85.118 Personal history of other malignant neoplasm of bronchus and lung; Z90.49 Acquired absence of other specified parts of digestive tract; Z90.710 Acquired absence of both cervix and uterus; Z90.09 Acquired absence of other part of head and neck; Z98.51 Tubal ligation status; Z79.84 Long term (current) use of oral hypoglycemic drugs
CPT/HCPCS: 36415; 94640; 85379; 80053; 83735; 84484; 85025; 85610; 85730; 87636; 71046; 71275; 99285; 96374; J2930; Q9967; 93005

== ENCOUNTER 2020-12-26 13:50 | Inpatient (IN) | payer OTHER ==
[2020-12-26] MEDS ORDERED: ALBUTEROL NEBULIZED 2.5 MG/3 ML INHALATION PRN (17:25)
[2020-12-26 18:01] LABS: Glucose,Whole Blood 169 mg/dL (75-99)
[2020-12-26 18:06] LABS: Basophils % (A) 1 %; Eosinophils # (A) 0.1 k/uL (0-0.7); Eosinophils % (A) 1 %; HCT 43.7 % (34.0-46.0); HGB 14.4 gm/dL (11.4-16.0); Lymphocytes # (A) 1.8 k/uL (1.0-4.8); Lymphocytes % (A) 24 %; MCH 29.7 pg (25.0-35.0); MCHC 32.8 g/dL (31.0-37.0); MCV 90.5 fL (80.0-100.0); Mean Platelet Volume 9.3; Monocytes # (A) 0.3 k/uL (0-1.0); Monocytes % (A) 4 %; Neutrophils # (A) 5.3 k/uL (1.3-7.7); Neutrophils % (A) 69 %; Platelet Count 167 k/uL (150-450); RBC 4.83 m/uL (3.80-5.40); RDW 14.1 % (11.5-15.5); WBC 7.6 k/uL (3.8-10.6)
[2020-12-26 18:16] LABS: ALT 21 U/L (4-34); AST 33 U/L (14-36); African American GFR (CKD) 83 (>60 ml/min/1.73 sqM); Albumin/Globulin Ratio 1.7; Alkaline Phosphatase 108 U/L (38-126); Anion Gap 5 mmol/L; Blood Urea Nitrogen 7 mg/dL (7-17); Calcium 9.2 mg/dL (8.4-10.2); Carbon Dioxide 29 mmol/L (22-30); Chloride 106 mmol/L (98-107); Globulin 2.3 g/dL; Glucose 163 mg/dL (74-99); Non-African American GFR(CKD) 72 (>60 ml/min/1.73 sqM); Potassium 3.9 mmol/L (3.5-5.1); Sodium 140 mmol/L (137-145); Total Bilirubin 0.3 mg/dL (0.2-1.3); Total Protein 6.3 g/dL (6.3-8.2)
--- NOTE | 2020-12-26 18:53 | XR ---
EXAMINATION: XR chest 2V DATE AND TIME: 12/26/2020 6:20 PM CLINICAL INDICATION: PHH; dyspnea TECHNIQUE: Departmental protocol COMPARISON: 10/03/2020 FINDINGS: Airways are unremarkable. The previously seen right mid lung 7 cm geographic zone of partially groundglass partially consolidat eugene consolidative opacity is moderately prominent on the present study. This silhouettes the right pu lmonary vasculature. This finding was seen on the prior study but was mild in degree at time. Finding s can correlate with a clinical diagnosis of pneumonia. Lungs are otherwise unremarkable. The pleural spaces are negative. The cardiac silhouette is not enlarged. The remainder of the mediastinal silhouette is unremarkable. The skeletal structures and soft tissues are negative for acute findings. IMPRESSION: Right mid/lower lung zone findings.
[2020-12-26] MEDS: BUDESONIDE 0.5 MG/2 ML NEBU INHALATION SCH (19:07)
[2020-12-26] MEDS: IPRATROPIUM-ALBUTEROL 3 ML NEB INHALATION SCH (19:07)
[2020-12-26] MEDS ORDERED: SPIRIVA INHALATION SCH (20:00)
[2020-12-26] MEDS: methylPREDNISolone SOD SUCCI 40 MG/ML 1 ML VIAL IV SCH ×2 (20:08→23:52)
[2020-12-26] MEDS: AZITHROMYCIN 500 MG in SODIUM CHLORIDE 0.9% 250 ML IVPB SCH (20:08)
[2020-12-26] MEDS: ATORVASTATIN 20 MG TAB PO SCH (20:09)
[2020-12-26] MEDS: atenoloL 50 MG TAB PO SCH (20:09)
[2020-12-26] MEDS: guaiFENesin 600 MG TABLET.ER PO SCH (20:10)
[2020-12-26 20:12] LABS: Glucose,Whole Blood 196 mg/dL (75-99)
[2020-12-26] MEDS: FLUTICASONE 220 MCG INHALER INHALATION SCH (20:24)
[2020-12-26] MEDS: HYDROcodone/APAP 7.5-325MG 1 EACH TAB PO SCH (21:37)
[2020-12-26] MEDS: INSULIN ASPART (NovoLOG) 100 UNIT/ML VIAL SQ SCH (21:38)
[2020-12-26] MEDS: NON FORMULARY DRUG (Dapagliflozin Propanediol [Farxiga] 5 MG Tablet) PO SCH (21:47)
[2020-12-27 07:10] LABS: Glucose,Whole Blood 290 mg/dL (75-99)
[2020-12-27] MEDS: HYDROcodone/APAP 7.5-325MG 1 EACH TAB PO SCH ×3 (07:21→21:31)
[2020-12-27] MEDS: metFORMIN 500 MG TAB PO SCH ×2 (07:21→12:00)
[2020-12-27] MEDS: LINAGLIPTIN 5 MG TABLET PO SCH (07:21)
[2020-12-27] MEDS: guaiFENesin 600 MG TABLET.ER PO SCH ×2 (07:22→21:32)
[2020-12-27] MEDS: LORATADINE 10 MG TAB PO SCH (07:22)
[2020-12-27] MEDS: MULTIVITAMINS, THERA 1 EACH TAB PO SCH (07:22)
[2020-12-27] MEDS: MAGNESIUM OXIDE 400 MG TAB PO SCH (07:22)
[2020-12-27] MEDS: ASPIRIN 325 MG TAB PO SCH (07:22)
[2020-12-27] MEDS: MONTELUKAST 10 MG TAB PO SCH (07:22)
[2020-12-27] MEDS: atenoloL 50 MG TAB PO SCH ×2 (07:22→21:31)
[2020-12-27] MEDS: PANTOPRAZOLE 40 MG TABLET PO SCH (07:22)
[2020-12-27] MEDS: methylPREDNISolone SOD SUCCI 40 MG/ML 1 ML VIAL IV SCH ×3 (07:23→23:39)
[2020-12-27] MEDS: INSULIN ASPART (NovoLOG) 100 UNIT/ML VIAL SQ SCH ×4 (07:23→21:32)
[2020-12-27] MEDS: BUDESONIDE 0.5 MG/2 ML NEBU INHALATION SCH ×2 (07:45→19:04)
[2020-12-27] MEDS: IPRATROPIUM-ALBUTEROL 3 ML NEB INHALATION SCH ×4 (07:45→19:04)
[2020-12-27] MEDS: FLUTICASONE 220 MCG INHALER INHALATION SCH ×2 (07:47→19:06)
[2020-12-27 08:34] LABS: ALT 23 U/L (4-34); AST 25 U/L (14-36); African American GFR (CKD) >90 (>60 ml/min/1.73 sqM); Albumin/Globulin Ratio 1.5; Alkaline Phosphatase 105 U/L (38-126); Anion Gap 8 mmol/L; Blood Urea Nitrogen 13 mg/dL (7-17); Calcium 9.4 mg/dL (8.4-10.2); Carbon Dioxide 26 mmol/L (22-30); Chloride 102 mmol/L (98-107); Globulin 2.6 g/dL; Glucose 309 mg/dL (74-99); Non-African American GFR(CKD) >90 (>60 ml/min/1.73 sqM); Potassium 4.6 mmol/L (3.5-5.1); Sodium 136 mmol/L (137-145); Total Bilirubin 0.5 mg/dL (0.2-1.3); Total Protein 6.6 g/dL (6.3-8.2)
[2020-12-27] MEDS ORDERED: NON FORMULARY DRUG (Potassium Gluconate [Potassium Gluconate] 99 MG Tablet.Er) PO SCH (09:00)
[2020-12-27 11:06] LABS: Basophils # (A) 0.02 X 10*3/uL (0.00-0.10); Basophils % (A) 0.2 %; Eosinophils # (A) 0 X 10*3/uL (0.04-0.35); Eosinophils % (A) 0 %; HCT 46.2 % (37.2-46.3); HGB 15.2 g/dL (12.0-15.0); Lymphocytes # (A) 0.97 X 10*3/uL (0.90-5.00); Lymphocytes % (A) 9.5 %; MCH 29.1 pg (27.0-32.0); MCHC 32.9 g/dL (32.0-37.0); MCV 88.5 fL (80.0-97.0); Mean Platelet Volume 11.7 fL (9.5-12.2); Monocytes # (A) 0.11 X 10*3/uL (0.20-1.00); Monocytes % (A) 1.1 %; Neutrophils % (A) 88.6 %; Platelet Count 198 X 10*3/uL (140-440); RBC 5.22 X 10*6/uL (4.10-5.20); RDW 13.8 % (11.5-14.5); WBC 10.26 X 10*3/uL (4.50-10.00)
[2020-12-27 11:47] LABS: Glucose,Whole Blood 246 mg/dL (75-99)
--- NOTE | 2020-12-27 15:33 | HP ---
HISTORY AND PHYSICAL This is a 55-year-old white female failed outpatient treatment with steroids, two sets of antibiotics, steroids and updraft treatments with significant shortness of breath, cough, congestion, status post recent COVID. She has been sick over a month or two, progressively worsening. She was admitted with failed outpatient treatment. Started on IV Solu-Medrol, Pulmicort, azithromycin, Tenormin, aspirin, Lipitor, Ventolin. She has history of coronary artery disease, PTCA, COPD, nicotine addiction, obesity, dyslipidemia, GERD, diabetes. REVIEW OF SYSTEMS: 14 point review of system as mentioned above. Negative hemoptysis. Negative hematemesis. PHYSICAL EXAMINATION: Vital signs reviewed. CARDIOVASCULAR: S1, S2. LUNGS: Decreased breath sounds x4. Scattered wheeze x4. OPHTHALMOLOGIC: Pupils equal, round, reactive. ENDOCRINE: BMI is over 30. PSYCH: Poor mood and affect. VASCULAR: Normal dorsalis pedis posterior radial pulse. NEUROLOGIC: Alert and oriented x3. ASSESSMENT: Chronic obstructive pulmonary disease exacerbation, tracheobronchitis, failed outpatient treatment. Continue with IV steroids, updraft, antibiotics. Possibly do a CT scan as she has a right mid lower lung zone findings. Prognosis guarded. MMODL / IJN: [id number] /
[2020-12-27 17:13] LABS: Glucose,Whole Blood 296 mg/dL (75-99)
[2020-12-27] MEDS: AZITHROMYCIN 500 MG in SODIUM CHLORIDE 0.9% 250 ML IVPB SCH (17:39)
[2020-12-27 20:13] LABS: Glucose,Whole Blood 314 mg/dL (75-99)
[2020-12-27] MEDS: ATORVASTATIN 20 MG TAB PO SCH (21:31)
[2020-12-27] MEDS: NON FORMULARY DRUG (Dapagliflozin Propanediol [Farxiga] 5 MG Tablet) PO SCH (21:32)
[2020-12-28 06:53] LABS: Glucose,Whole Blood 394 mg/dL (75-99)
--- NOTE | 2020-12-28 06:55 | PN ---
PROGRESS NOTE A 55-year-old white female who remains on DuoNeb, Tenormin, Lipitor, azithromycin, Ventolin, Flovent, Pulmicort, Mucinex, Tradjenta, NovoLog, Claritin, Mag-Ox. The patient's breathing is slowly improving. She looks like she has pneumonia on chest x-ray. Remains on broad-spectrum antibiotics and IV steroids, updraft treatments. Cardiovascular S1-S2. Lungs scattered rhonchi and wheeze. General she is lightheaded and dizzy with exertion. ASSESSMENT: Community-acquired pneumonia, failed outpatient treatment with 2-3 antibiotics, IV steroids updraft treatments. Prognosis extremely guarded. Wait for Dr. Cobb's for consult. MMODL / IJN: [id number] /
[2020-12-28] MEDS: MONTELUKAST 10 MG TAB PO SCH (07:12)
[2020-12-28] MEDS: MAGNESIUM OXIDE 400 MG TAB PO SCH (07:12)
[2020-12-28] MEDS: LORATADINE 10 MG TAB PO SCH (07:12)
[2020-12-28] MEDS: guaiFENesin 600 MG TABLET.ER PO SCH (07:12)
[2020-12-28] MEDS: ASPIRIN 325 MG TAB PO SCH (07:12)
[2020-12-28] MEDS: PANTOPRAZOLE 40 MG TABLET PO SCH (07:12)
[2020-12-28] MEDS: LINAGLIPTIN 5 MG TABLET PO SCH (07:12)
[2020-12-28] MEDS: metFORMIN 500 MG TAB PO SCH ×2 (07:12→12:02)
[2020-12-28] MEDS: MULTIVITAMINS, THERA 1 EACH TAB PO SCH (07:12)
[2020-12-28] MEDS: atenoloL 50 MG TAB PO SCH (07:12)
[2020-12-28] MEDS: methylPREDNISolone SOD SUCCI 40 MG/ML 1 ML VIAL IV SCH (07:13)
[2020-12-28] MEDS: HYDROcodone/APAP 7.5-325MG 1 EACH TAB PO SCH (07:13)
[2020-12-28] MEDS: INSULIN ASPART (NovoLOG) 100 UNIT/ML VIAL SQ SCH ×2 (07:15→12:01)
[2020-12-28 07:24] VITALS: BP 131/84; RESP 18; TEMP 97.7
[2020-12-28] MEDS: FLUTICASONE 220 MCG INHALER INHALATION SCH (08:30)
[2020-12-28] MEDS: BUDESONIDE 0.5 MG/2 ML NEBU INHALATION SCH (08:30)
[2020-12-28] MEDS: IPRATROPIUM-ALBUTEROL 3 ML NEB INHALATION SCH ×2 (08:30→12:13)
[2020-12-28 08:54] VITALS: PULSE 90
[2020-12-28 11:38] LABS: Glucose,Whole Blood 333 mg/dL (75-99)
== END 2020-12-28 13:23 | disposition home or self-care (01) | DRG 192 ==
LOC: 4SSUR 15:39
PROVIDERS: ADMIT Family Medicine; ATTEND Family Medicine
DX: J44.1 Chronic obstructive pulmonary disease with (acute) exacerbation (principal); K21.9 Gastro-esophageal reflux disease without esophagitis; Z87.891 Personal history of nicotine dependence; J44.0 Chronic obstructive pulmonary disease with (acute) lower respiratory infection; I25.10 Atherosclerotic heart disease of native coronary artery without angina pectoris; E78.5 Hyperlipidemia, unspecified; E11.9 Type 2 diabetes mellitus without complications
CPT/HCPCS: 71046; 80053; 84484; 85025; 85379; 93005; 94640

== ENCOUNTER 2021-08-04 15:07 | Emergency (ER) | payer OTHER ==
[2021-08-04 15:16] VITALS: TEMP 99.1
[2021-08-04] MEDS ORDERED: IPRATROPIUM-ALBUTEROL 3 ML NEB INHALATION STA (15:36)
--- NOTE | 2021-08-04 15:43 | ED ---
SOB HPI - General Chief Complaint: Shortness of Breath Stated Complaint: Fluid in Lungs Time Seen by Provider: 08/04/21 15:18 Source: patient, RN notes reviewed Mode of arrival: ambulatory Limitations: no limitations - History of Present Illness Initial Comments: 56-year-old female with a history of COPD history of right lung cancer status post partial resection of the right long history of chemotherapy radiation therapy 2013 who states for the past 5 days she's had increasing shortness of breath cough with burning sensation in her lungs she states she is coughing up some phlegm but has been able to clear it. She denies any overt chills or sweats. She has been using her home medications without much relief. She initially did call her doctor who referred her to the emergency department. Patient does have a history of COVID-19 several months ago. She states she hasn't quite been right since then. No other current complaints modifying fac tors MD Complaint: shortness of breath, cough - Related Data Home Medications Medication Instructions Recorded Confirmed Montelukast [Singulair] 10 mg PO DAILY 01/29/15 08/04/21 Multivitamin/Iron/Folic Acid 1 tab PO DAILY 11/11/16 08/04/21 [Centrum Women Tablet] Atorvastatin [Lipitor] 20 mg PO HS 08/10/19 08/04/21 HYDROcodone/APAP 7.5-325MG [[place] 1 tab PO TID 08/10/19 08/04/21 7.5-325] Ipratropium-Albuterol Nebulize 3 ml INHALATION RT-QID PRN 03/01/20 08/04/21 [Duoneb 0.5 mg-3 mg/3 ml Soln] Fluticasone Propionate [Flovent 2 puff INHALATION RT-BID 07/29/20 08/04/21 Hfa 220 mcg] Pantoprazole Sodium [Protonix] 40 mg PO BID 07/29/20 08/04/21 metFORMIN HCL [Glucophage] 1,000 mg PO BID@1200,2100 07/29/20 08/04/21 sitaGLIPtin PHOSPHATE [Januvia] 100 mg PO DAILY 07/29/20 08/04/21 Albuterol Sulfate [Proair Hfa] 2 puff INHALATION RT-Q4H PRN 08/28/20 08/04/21 Atenolol [Tenormin] 50 mg PO BID 08/28/20 08/04/21 Budesonide [Pulmicort] 0.5 mg INHALATION RT-BID 12/26/20 08/04/21 Dapagliflozin Propanediol [Farxiga] 10 mg PO HS 12/26/20 08/04/21 Aspirin EC [Ecotrin Low Dose] 81 mg PO DAILY 08/04/21 08/04/21 Previous Rx's Medication Instructions Recorded Magnesium Oxide [Mag-Ox] 400 mg PO DAILY #30 tab 02/08/17 Azithromycin [Zithromax Z-pack (6 250 mg PO DIRECTED 5 Days #6 tab 08/04/21 tabs)] Allergies Allergy/AdvReac Type Severity Reaction Status Date / Time ciprofloxacin HCl Allergy Severe Rash/Hives Verified 08/04/21 17:24 [From Cipro] latex Allergy Severe Rash/Hives Verified 08/04/21 17:24 cephalexin monohydrate Allergy Intermediate Rash/Hives Verified 08/04/21 17:24 [From Keflex] sulfamethoxazole Allergy Intermediate Rash/Hives Verified 08/04/21 17:24 [From Septra] trimethoprim [From Septra] Allergy Intermediate Rash/Hives Verified 08/04/21 17:24 Review of Systems ROS Statement: Those systems with pertinent positive or pertinent negative responses have been documented in the HPI. ROS Other: All systems not noted in ROS Statement are negative. Past Medical History Past Medical History: Asthma, Cancer, Chest Pain / Angina, COPD, Diabetes Mellitus, GERD/Reflux, Hypertension, Pneumonia Additional Past Medical History / Comment(s): 2013 Rt lung CA completed-6 chemo TXs and 26 radiation tx, URINARY leakage-wears a pad, NEUROPATHY julio cesar feet, hiatal hernia, History of Any Multi-Drug Resistant Organisms: None Reported Date of last positivie culture/infection: 2014 MDRO Source:: e-coli in urine Past Surgical History: Appendectomy, Breast Surgery, Cholecystectomy, Hysterectomy, Tonsillectomy, Tubal Ligation Additional Past Surgical History / Comment(s): Rt lung biopsy, rt middle lobe lobectomy. cyst removed from rt breast Past Anesthesia/Blood Transfusion Reactions: Postoperative Nausea & Vomiting (PONV) Past Psychological History: No Psychological Hx Reported Smoking Status: Second hand smoke exposure Past Alcohol Use History: None Reported Past Drug Use History: None Reported - Past Family History Mother Sister(s) Family Medical History: Cancer Sister(s) Family Medical History: Cancer Additional Family Medical History / Comment(s): Sister of lung cancer Mother Family Medical History: Cancer Additional Family Medical History / Comment(s): breast cancer Father Family Medical History: COPD General Exam - General Exam Comments Initial Comments: This is a well-developed well-nourished awake alert oriented 3 female Limitations: no limitations General appearance: alert, anxious Head exam: Present: atraumatic, normocephalic, normal inspection Eye exam: Present: normal appearance, PERRL, EOMI. Absent: scleral icterus, conjunctival injection, periorbital swelling ENT exam: Present: mucous membranes dry Neck exam: Present: normal inspection, full ROM, other (No stridor JVD or bruits). Absent: tenderness, meningismus, lymphadenopathy Respiratory exam: Present: wheezes, decreased breath sounds, other (Some expiratory wheezes noted more so on the right than the left). Absent: respiratory distress, rales, rhonchi, stridor Cardiovascular Exam: Present: regular rate, normal rhythm, normal heart sounds. Absent: systolic murmur, diastolic murmur, rubs, gallop, clicks GI/Abdominal exam: Present: soft, normal bowel sounds. Absent: distended, tenderness, guarding, rebound, rigid Extremities exam: Present: normal inspection, full ROM, normal capillary refill. Absent: tenderness, pedal edema, joint swelling, calf tenderness Back exam: Present: normal inspection Neurological exam: Present: alert, oriented X3, CN II-XII intact Psychiatric exam: Present: normal affect, normal mood Skin exam: Present: warm, dry, intact, normal color. Absent: rash Course Vital Signs 08/04/21 08/04/21 08/04/21 15:15 16:11 16:22 Temperature 99.1 F Pulse Rate 93 92 86 Respiratory 18 Rate Blood Pressure 115/76 O2 Sat by Pulse 99 Oximetry Medical Decision Making - Medical Decision Making Patient is feeling much improved after treatment she does have steroids at the pharmacy. She additionally started on some oral antibiotics - Lab Data Result diagrams: 08/04/21 15:43 08/04/21 15:43 Lab Results 08/04/21 08/04/21 08/04/21 Range/Units 15:43 15:43 15:43 WBC 7.4 (3.8-10.6) k/uL RBC 5.18 (3.80-5.40) m/uL Hgb 15.3 (11.4-16.0) gm/dL Hct 46.9 H (34.0-46.0) % MCV 90.5 (80.0-100.0) fL MCH 29.6 (25.0-35.0) pg MCHC 32.7 (31.0-37.0) g/dL RDW 14.6 (11.5-15.5) % Plt Count 193 (150-450) k/uL MPV 8.3 Neutrophils % 62 % Lymphocytes % 30 % Monocytes % 5 % Eosinophils % 2 % Basophils % 1 % Neutrophils # 4.6 (1.3-7.7) k/uL Lymphocytes # 2.2 (1.0-4.8) k/uL Monocytes # 0.4 (0-1.0) k/uL Eosinophils # 0.1 (0-0.7) k/uL Basophils # 0.1 (0-0.2) k/uL PT 10.1 (9.0-12.0) sec INR 0.9 (<1.2) APTT 24.9 (22.0-30.0) sec D-Dimer 0.71 H (<0.60) mg/L FEU Sodium 136 L (137-145) mmol/L Potassium 4.2 (3.5-5.1) mmol/L Chloride 102 (98-107) mmol/L Carbon Dioxide 25 (22-30) mmol/L Anion Gap 9 mmol/L BUN 11 (7-17) mg/dL Creatinine 0.72 (0.52-1.04) mg/dL Est GFR (CKD-EPI)AfAm >90 (>60 ml/min/1.73 sqM) Est GFR (CKD-EPI)NonAf >90 (>60 ml/min/1.73 sqM) Glucose 268 H (74-99) mg/dL Plasma Lactic Acid [place] (0.7-2.0) mmol/L Calcium 9.5 (8.4-10.2) mg/dL Magnesium 1.6 (1.6-2.3) mg/dL Total Bilirubin 0.6 (0.2-1.3) mg/dL AST 29 (14-36) U/L ALT 17 (4-34) U/L Alkaline Phosphatase 97 (38-126) U/L Troponin I (0.000-0.034) ng/mL NT-Pro-B Natriuret Pep pg/mL Total Protein 7.2 (6.3-8.2) g/dL Albumin 4.3 (3.5-5.0) g/dL 08/04/21 08/04/21 08/04/21 Range/Units 15:43 15:43 15:43 WBC (3.8-10.6) k/uL RBC (3.80-5.40) m/uL Hgb (11.4-16.0) gm/dL Hct (34.0-46.0) % MCV (80.0-100.0) fL MCH (25.0-35.0) pg MCHC (31.0-37.0) g/dL RDW (11.5-15.5) % Plt Count (150-450) k/uL MPV Neutrophils % % Lymphocytes % % Monocytes % % Eosinophils % % Basophils % % Neutrophils # (1.3-7.7) k/uL Lymphocytes # (1.0-4.8) k/uL Monocytes # (0-1.0) k/uL Eosinophils # (0-0.7) k/uL Basophils # (0-0.2) k/uL PT (9.0-12.0) sec INR (<1.2) APTT (22.0-30.0) sec D-Dimer (<0.60) mg/L FEU Sodium (137-145) mmol/L Potassium (3.5-5.1) mmol/L Chloride (98-107) mmol/L Carbon Dioxide (22-30) mmol/L Anion Gap mmol/L BUN (7-17) mg/dL Creatinine (0.52-1.04) mg/dL Est GFR (CKD-EPI)AfAm (>60 ml/min/1.73 sqM) Est GFR (CKD-EPI)NonAf (>60 ml/min/1.73 sqM) Glucose (74-99) mg/dL Plasma Lactic Acid [place] 1.5 (0.7-2.0) mmol/L Calcium (8.4-10.2) mg/dL Magnesium (1.6-2.3) mg/dL Total Bilirubin (0.2-1.3) mg/dL AST (14-36) U/L ALT (4-34) U/L Alkaline Phosphatase (38-126) U/L Troponin I <0.012 (0.000-0.034) ng/mL NT-Pro-B Natriuret Pep 88 pg/mL Total Protein (6.3-8.2) g/dL Albumin (3.5-5.0) g/dL - Radiology Data Radiology results: report reviewed (Imaging and report reviewed no acute processes.), image reviewed Disposition Clinical Impression: Acute exacerbation of chronic obstructive pulmonary disease, Fever, Bronchos pasm, Bronchitis Disposition: HOME SELF-CARE Condition: Good Instructions (If sedation given, give patient instructions): Bronchospasm (ED), Acute Bronchitis (ED) Prescriptions: Azithromycin [Zithromax Z-pack (6 tabs)] 250 mg PO DIRECTED 5 Days #6 tab Is patient prescribed a controlled substance at d/c from ED?: No Referrals: Ariel Lindsey MD [Primary Care Provider] - 1-2 days
[2021-08-04 15:57] LABS: Basophils # (A) 0.1 k/uL (0-0.2); Basophils % (A) 1 %; Eosinophils # (A) 0.1 k/uL (0-0.7); Eosinophils % (A) 2 %; HCT 46.9 % (34.0-46.0); HGB 15.3 gm/dL (11.4-16.0); Lymphocytes # (A) 2.2 k/uL (1.0-4.8); Lymphocytes % (A) 30 %; MCH 29.6 pg (25.0-35.0); MCHC 32.7 g/dL (31.0-37.0); MCV 90.5 fL (80.0-100.0); Mean Platelet Volume 8.3; Monocytes # (A) 0.4 k/uL (0-1.0); Monocytes % (A) 5 %; Neutrophils # (A) 4.6 k/uL (1.3-7.7); Neutrophils % (A) 62 %; Platelet Count 193 k/uL (150-450); RBC 5.18 m/uL (3.80-5.40); RDW 14.6 % (11.5-15.5); WBC 7.4 k/uL (3.8-10.6)
[2021-08-04 16:10] LABS: INR 0.9 (<1.2); Partial Thromboplastin Time 24.9 sec (22.0-30.0); Prothrombin Time 10.1 sec (9.0-12.0)
[2021-08-04 16:12] LABS: ALT 17 U/L (4-34); AST 29 U/L (14-36); African American GFR (CKD) >90 (>60 ml/min/1.73 sqM); Albumin 4.3 g/dL (3.5-5.0); Alkaline Phosphatase 97 U/L (38-126); Anion Gap 9 mmol/L; Blood Urea Nitrogen 11 mg/dL (7-17); Calcium 9.5 mg/dL (8.4-10.2); Carbon Dioxide 25 mmol/L (22-30); Chloride 102 mmol/L (98-107); Glucose 268 mg/dL (74-99); Magnesium 1.6 mg/dL (1.6-2.3); Non-African American GFR(CKD) >90 (>60 ml/min/1.73 sqM); Potassium 4.2 mmol/L (3.5-5.1); Sodium 136 mmol/L (137-145); Total Bilirubin 0.6 mg/dL (0.2-1.3); Total Protein 7.2 g/dL (6.3-8.2)
--- NOTE | 2021-08-04 16:12 | XR ---
EXAMINATION TYPE: XR chest 2V DATE OF EXAM: 08/04/2021 COMPARISON: Chest x-ray 12/26/2020, chest CT 10/03/2020 HISTORY: Difficulty breathing TECHNIQUE: Frontal and lateral views of the chest are obtained. FINDINGS: There is no focal air space opacity, pleural effusion, or pneumothorax seen. The cardiac silhouette size is within normal limits. Interstitial prominence in the right lower lobe is again no thuan. There are overlying leads. The osseous structures are intact. IMPRESSION: Interstitial lung disease similar to prior exam. Consider pulmonary consult.
--- NOTE | 2021-08-04 16:46 | CT ---
EXAMINATION TYPE: CT angio chest DATE OF EXAM: 08/04/2021 COMPARISON: 10/03/2020 HISTORY: Difficulty breathing. CT DLP: 321.9 mGycm Automated exposure control for dose reduction was used. CONTRAST: Performed with IV Contrast, patient injected with 100 mL of Isovue 370. There are Three-D postprocessed images. There is coarse interstitial honeycomb type infiltrate in the right upper lobe and right lower lobe. There is no suspicious pulmonary mass. Heart size is fairly normal. There is no pericardial effusion. There is no pleural effusion. There is 1 cm left bronchial lymph node without change. There is no evidence of filling defect in the pulmonary arteries. Thoracic aorta is intact without ev idence of aneurysm or dissection. There are a few paratracheal lymph nodes up to 1 cm without change. The thoracic spine is intact. There is no compression fracture. Sternum is intact. IMPRESSION: No evidence of pulmonary embolism. Extensive honeycomb interstitial infiltrate mainly in the right jaci ng and consistent with pulmonary interstitial fibrosis. No significant change compared to old exam.
[2021-08-04 18:21] VITALS: BP 134/79; PULSE 87; RESP 20
== END 2021-08-04 18:20 | disposition home or self-care (01) ==
LOC: EC 15:07
DX: J44.1 Chronic obstructive pulmonary disease with (acute) exacerbation (principal); J20.9 Acute bronchitis, unspecified; E11.9 Type 2 diabetes mellitus without complications; K21.9 Gastro-esophageal reflux disease without esophagitis; I10 Essential (primary) hypertension; Z79.84 Long term (current) use of oral hypoglycemic drugs; Z79.82 Long term (current) use of aspirin; Z88.1 Allergy status to other antibiotic agents; Z91.040 Latex allergy status; Z88.2 Allergy status to sulfonamides; Z85.118 Personal history of other malignant neoplasm of bronchus and lung; Z90.49 Acquired absence of other specified parts of digestive tract; Z90.710 Acquired absence of both cervix and uterus; Z98.51 Tubal ligation status; Z77.22 Contact with and (suspected) exposure to environmental tobacco smoke (acute) (chronic)
CPT/HCPCS: 99285; 36415; 94640; 93005; 85379; 83880; 80053; 83605; 83735; 84484; 85025; 85610; 85730; 87040; 71046; 71275; Q9967

== ENCOUNTER → 2022-02-11 | Outpatient (CLI) | payer OTHER ==
--- NOTE | 2022-02-12 19:20 | BD ---
EXAMINATION TYPE: Axial Bone Density DATE OF EXAM: 02/11/2022 COMPARISON: NONE CLINICAL HISTORY: 56 year old Female. ICD-10 CODE: Z78.0 POST MENOPAUSAL FRAX RISK QUESTIONS: Alcohol (3 or more units per day): no Family History (Parent hip fracture): no Glucocorticoids (More than 3mos): no (Ex: prednisone, prednisolone, methylprednisolone, dexamethasone, and hydrocortisone). History of Fracture in Adulthood: no Secondary Osteoporosis: 1. Type 1 Diabetes: no 2. Hyperthyroidism: no 3. Menopause before 45: no 4. Malnutrition: no 5. Chronic liver disease: no Rheumatoid Arthritis: no Current Tobacco Use: no RISK FACTORS HISTORY OF: Surgery to Spine/Hip(right/left)/Wrist (right/left): no Family History of Osteoporosis: no Active: no Diet low in dairy products/other sources of calcium: yes Postmenopausal woman: yes Lost more than 2 inches in height since high school: no MEDICATIONS: Additional History: EXAM MEASUREMENTS: Bone mineral densitometry was performed using the [employer] System. Bone mineral density as measured about the Lumbar spine is: ----- L1-L4(G/cm2): 1.320 T Score Values are as follows: ----- L1: 1.3 ----- L2: 0.8 ----- L3: 1.4 ----- L4: 1.1 ----- L1-L4: 1.2 Bone mineral density : baseline Bone mineral density about the R hip (g/cm2): 0.930 Bone mineral density about the L hip (g/cm2): 0.964 T Score values are as follows: -----R Neck: -0.8 -----L Neck: -0.5 -----R Total: 0.1 -----L Total: 0.3 Bone mineral density : baseline FRAX%s: The graph provided illustrates a 6.0% chance for a major osteoporotic fx and a 0.2% chance fo r the hips probability for fx in 10 years time. IMPRESSION: Normal (Values between +1 and -1 indicate normal bone mass). Consider repeating this study in 5 year s or sooner if there is some new clinical indication. NOTE: T-SCORE=SD OF THE YOUNG ADULT MEAN.
--- NOTE | 2022-02-13 11:39 | MM ---
Reason for Exam: Screening (asymptomatic). Last mammogram was performed 6 year(s) and 3 month(s) ago. Patient History: Menarche at age 12. First Full-Term at age 17. Hysterectomy at age 35. Postmenopausal. Other cancer. Benign Cyst Aspiration on the right side. Maternal aunt had breast cancer. Maternal aunt had colorectal cancer. Mother had breast cancer, age 50. Risk Values: Nery 5 year model risk: 2.4%. NCI Lifetime model risk: 14.2%. Prior Study Comparison: 08/31/2011 Screening Mammogram, [facility]. 11/14/2014 Bilateral Screening Mammogram, [facility]. 11/18/2015 Bilateral Screening Mammogram, [facility]. Tissue Density: There are scattered fibroglandular densities. Findings: Analyzed By CAD. No discrete abnormality. Tiny benign oil cyst calcification on the left. Overall Assessment: Negative, BI-RAD 1 Management: Screening Mammogram of both breasts in 1 year. A clinical breast exam by your physician is recommended on an annual basis and results should be correlated with mammographic findings. Electronically signed and approved by: Viral Higgins M.D. Radiologist
== END | disposition home or self-care (01) ==
LOC: RADMAMWWP 13:53
PROVIDERS: ATTEND Family Medicine
DX: Z12.31 Encounter for screening mammogram for malignant neoplasm of breast (principal); Z80.3 Family history of malignant neoplasm of breast; Z78.0 Asymptomatic menopausal state
CPT/HCPCS: 77067; 77080

== ENCOUNTER → 2022-02-24 | Outpatient (CLI) | payer OTHER ==
--- NOTE | 2022-02-24 14:34 | XR ---
EXAMINATION TYPE: XR chest 2V DATE OF EXAM: 02/24/2022 2:09 PM COMPARISON: Chest radiographs from 07/27/2021 TECHNIQUE: XR chest 2V Frontal and lateral views of the chest. CLINICAL INDICATION:Female, 56 years old with history of J44.1 COPD; FINDINGS: Lungs/Pleura: Mild interstitial prominence similar to prior. There is no evidence of pleural effusion , focal consolidation, or pneumothorax. Pulmonary vascularity: Unremarkable. Heart/mediastinum: Cardiomediastinal silhouette is unremarkable. Musculoskeletal: No acute osseous pathology. IMPRESSION: Mild interstitial prominence without acute cardiopulmonary disease/process.
== END | disposition home or self-care (01) ==
LOC: RADXRMAIN 13:55
PROVIDERS: ATTEND Internal Medicine Sleep Medicine
DX: J44.1 Chronic obstructive pulmonary disease with (acute) exacerbation (principal)
CPT/HCPCS: 71046

== ENCOUNTER → 2023-04-09 | Outpatient (CLI) | payer OTHER ==
--- NOTE | 2023-04-09 13:39 | XR ---
EXAMINATION TYPE: XR shoulder complete LT DATE OF EXAM: 04/09/2023 COMPARISON: NONE HISTORY: Pain TECHNIQUE: Three views are submitted. FINDINGS: The osseous structures are intact. There is no acute fracture or dislocation. Mild AC joint arthropa thy.. IMPRESSION: 1. Mild AC joint arthropathy.
== END | disposition home or self-care (01) ==
LOC: RADXRMAIN 13:12
PROVIDERS: ATTEND Family Medicine
DX: M19.012 Primary osteoarthritis, left shoulder (principal)

== ENCOUNTER → 2023-07-20 | Outpatient (CLI) | payer OTHER ==
--- NOTE | 2023-07-21 14:23 | CTL ---
EXAMINATION TYPE: CT Low Dose Lung DATE OF EXAM ORDERED: 07/20/2023 HISTORY: . Lung cancer screening CT DLP: 121.[address] CTDI: 3.6 mGy Automated exposure control for dose reduction was used. SCREENING VISIT: Initial COMPARISON: 08/04/2021 TECHNIQUE: Low dose computed tomography scan was performed through the chest at 1 mm thick sections a nd reconstructed images in the coronal plane at [address] DIAGNOSTIC QUALITY: Satisfactory FINDINGS: LUNG NODULES: None. LUNGS: COPD: Severity: None Fibrosis: Severity: Mild Lymph nodes: None Other findings: None RIGHT PLEURAL SPACE: Effusion: None Calcification: None Thickening: None Pneumothorax: None LEFT PLEURAL SPACE: Effusion: None Calcification: None Thickening: None Pneumothorax: None HEART: Heart Size: Normal Coronary calcification: Moderate coronary artery calcifications present. Pericardial effusion: None OTHER FINDINGS: Upper abdomen: Normal Bony thorax: Normal Supraclavicular region: Normal Other: Ascending thoracic aorta at the level the main pulmonary artery measures 3.1 cm. The main pul monary artery at the bifurcation measures 2.9 cm. IMPRESSION: No suspicious changes suggest primary or metastatic neoplasm. FOLLOW UP CT CHEST RECOMMENDATION: Follow-up low-dose CT chest [address] LUNG RAD: Lung-Rad 2 Benign Appearance or Behavior
== END | disposition home or self-care (01) ==
LOC: RADCTMAIN 12:26
PROVIDERS: ATTEND Family Medicine
DX: Z12.2 Encounter for screening for malignant neoplasm of respiratory organs (principal); F17.210 Nicotine dependence, cigarettes, uncomplicated; J84.10 Pulmonary fibrosis, unspecified
CPT/HCPCS: 71271

== ENCOUNTER → 2023-08-30 | Outpatient (CLI) | payer OTHER ==
[2023-08-30 18:49] LABS: Basophils # (A) 0.05 X 10*3/uL (0.00-0.10); Basophils % (A) 0.7 %; Eosinophils # (A) 0.09 X 10*3/uL (0.04-0.35); Eosinophils % (A) 1.2 %; HCT 44.3 % (37.2-46.3); HGB 14.3 g/dL (12.0-15.0); Lymphocytes # (A) 2.28 X 10*3/uL (0.90-5.00); Lymphocytes % (A) 30.6 %; MCHC 32.3 g/dL (32.0-37.0); MCV 86.7 FL (80.0-97.0); Monocytes # (A) 0.51 X 10*3/uL (0.20-1.00); Monocytes % (A) 6.9 %; NRBC Per 100 WBC 0 X 10*3/uL (0.00-0.01); Neutrophils # (A) 4.48 X 10*3/uL (1.80-7.70); Neutrophils % (A) 60.2 %; Platelet Count 199 X 10*3/uL (140-440); RBC 5.11 X 10*6/uL (4.10-5.20); RDW 15.4 % (11.5-14.5); WBC 7.44 X 10*3/uL (4.50-10.00)
[2023-08-31 14:48] LABS: Alt. alternata IgE Class CLASS 0; Alternaria alternata IgE <0.10 kU/L (<0.10); Asperg. fumagatus IgE <0.10 kU/L (<0.10); Asperg. fumagatus IgE Class CLASS 0; Candida albicans IgE Class CLASS 0; Clad herbarum IgE <0.10 kU/L (<0.10); Clad herbarum IgE Class CLASS 0; Mucor racemosus IgE <0.10 kU/L (<0.10); Mucor racemosus IgE Class CLASS 0; Penicillium chrysogenum IgE <0.10 kU/L (<0.10); Penicillium chrysogenum IgE Cl CLASS 0
== END | disposition home or self-care (01) ==
LOC: LABWHC1 13:31
PROVIDERS: ATTEND Internal Medicine Sleep Medicine
DX: R06.02 Shortness of breath (principal)
CPT/HCPCS: 36415; 85025; 86001; 86003; 86606; 86609

== ENCOUNTER → 2024-06-28 | Outpatient (CLI) | payer OTHER ==
--- NOTE | 2024-06-28 12:37 | XR ---
EXAMINATION TYPE: XR chest special 4+ views DATE OF EXAM: 06/28/2024 12:14 PM COMPARISON: Chest radiographs from 02/24/2022 CLINICAL INDICATION: Female, 58 years old with history of J44.1, J45.51, J70.0; [facility] TECHNIQUE: XR chest special 4+ views Frontal and lateral views of the chest. FINDINGS: Lungs/Pleura: Low lung volumes are present. Increased interstitial lung markings/airspace opacities i n the right lung base. There is no evidence of pleural effusion, focal consolidation, or pneumothorax . Pulmonary vascularity: Unremarkable. Heart/mediastinum: Cardiomediastinal silhouette is unremarkable. Musculoskeletal: No acute osseous pathology. IMPRESSION: Right basilar airspace opacities superimposed on suspected interstitial lung disease changes. Correla te for atypical pneumonia. [facility], , 06/28/2024 12:34 PM
== END | disposition home or self-care (01) ==
LOC: RADXRMAIN 11:36
PROVIDERS: ATTEND Internal Medicine Sleep Medicine
DX: J44.1 Chronic obstructive pulmonary disease with (acute) exacerbation (principal); J45.51 Severe persistent asthma with (acute) exacerbation; J70.0 Acute pulmonary manifestations due to radiation; R91.8 Other nonspecific abnormal finding of lung field
CPT/HCPCS: 71048

== ENCOUNTER → 2024-09-13 | Outpatient (CLI) | payer OTHER ==
--- NOTE | 2024-09-13 15:25 | CTL ---
EXAMINATION TYPE: CT Low Dose Lung DATE OF EXAM ORDERED: 09/13/2024 COMPARISON: CLINICAL INDICATION: Female, 59 years old with history of Z17.210 nicotine dependence; PHH, Current s moker 1 ppd x 50 years hx COPD, Lung cancer screening, History of Smoking/tobacco use. TECHNIQUE: Low dose computed tomography scan was performed through the chest at 1 mm thick sections a nd reconstructed images in multiple planes at 1 mm and [address] DLP: 90.[address] CTDI: 2.60 mGy Automated exposure control for dose reduction was used. CT DIAGNOSTIC QUALITY: Satisfactory EXAMINATION TYPE: CT Low Dose Lung DATE OF EXAM ORDERED: 09/13/2024 CLINICAL INDICATION: Female, 59 years old with history of Z17.210 nicotine dependence, history of tob acco use, Lung cancer screening CT DLP: 90.[address] CTDI: 2.60 mGy Automated exposure control for dose reduction was used. Comparison: 07/20/2023 TECHNIQUE: Low dose computed tomography scan was performed through the chest at 1 mm thick sections a nd reconstructed images in multiple planes at 1 mm and [address] DIAGNOSTIC QUALITY: Satisfactory FINDINGS: There is a stable 5.4 mm nodule in the right upper lobe, a stable right millimeter nodule in the left lower lobe and a stable 4 mm juxtapleural fissural nodule on the left. There is marked honeycombing throughout the right lung greatest in the mid right lung zone. There is stable diffuse groundglass opacity in the left lower lobe. There are postsurgical changes in the right lower lobe. There is no mediastinal, hilar or axillary adenopathy. There is no pleural effusion, pleural thickening or pneumothorax. No focal osseous lesions are seen. Limited scans the upper abdomen reveals no gross abnormality IMPRESSION: 1. Lung rads Category 2 benign. Multiple stable pulmonary nodules. Continue routine screening at year ly intervals. 2. Stable marked interstitial lung disease as described above [facility], , 09/13/2024 3:23 PM
== END | disposition home or self-care (01) ==
LOC: RADCTMAIN 13:07
PROVIDERS: ATTEND Family Medicine
DX: Z12.2 Encounter for screening for malignant neoplasm of respiratory organs (principal); F17.210 Nicotine dependence, cigarettes, uncomplicated; R91.8 Other nonspecific abnormal finding of lung field; J84.9 Interstitial pulmonary disease, unspecified
CPT/HCPCS: 71271